=== PATIENT | male | born 1945 | race Asian ===

== ENCOUNTER 2023-12-15 15:14 | Inpatient (IN) | payer MEDICARE, BC, SELFPAY ==
[2023-12-15] VITALS (11 sets, daily range): BP systolic 120–160; BP diastolic 57–95; PULSE 33–77; RESP 13–16; O2SAT 97–100; BMI 26.6
--- NOTE | ~2023-12-15 | XR_ITS ---
EXAMINATION: XR chest 1V portable Exam Date/Time: 12/15/2023 16:15 CDT HISTORY: BRADYARRHYTHMIA Comparison: None. RESULT: Lines, tubes, and devices: None. Lungs and pleura: Senescent changes, otherwise clear. Cardiomediastinal silhouette: Arch calcification, otherwise unremarkable. Other: No acute osseous or upper abdominal finding. IMPRESSION: No acute cardiopulmonary process. Reviewed, dictated and finalized at location K.
--- NOTE | 2023-12-15 15:21 | ECG_ITS ---
Test Date: 2023-12-15 16:50:22 Measurements Intervals [place] Rate: 36 P: 0 MS: 0 QRS: 258 QRSD: 103 T: 16 QT: 572 QTc: 447 Interpretive Statements ATRIAL FIBRILLATION WITH SLOW VENTRICULAR RESPONSE PATTERN CONSISTENT WITH PULMONARY DISEASE INCOMPLETE RIGHT BUNDLE BRANCH BLOCK [90+ ms QRS DURATION, TERMINAL R IN V1/V2, 40+ ms S IN I/aVL/V4/V5/V6] POSSIBLE RIGHT VENTRICULAR HYPERTROPHY [SOME/ALL OF: PROMINENT R IN V1, LATE TRANSITION, RAD, DRE, SSS] INFERIOR MYOCARDIAL INFARCTION , PROBABLY OLD [40+ ms Q WAVE AND/OR ST/T ABNORMALITY IN II/aVF] PROLONGED QT INTERVAL CRITICAL TEST RESULT No previous ECG available for comparison Electronically Signed On 12-16-2023 14:25:18 CDT by Bennie Hirsch M.D.
--- NOTE | 2023-12-15 15:38 | ED.ARRPALP ---
HPI - Arrhythmia/Palpitations General Chief Complaint: Arrhythmia/Palpitations Stated Complaint: low HR Time Seen by Provider: 12/15/23 15:36 Source: patient and family Limitations: no limitations History of Present Illness HPI narrative: 78 YEARS OLD MALE CAME TO THE EMERGENCY ROOM WITH HIS 500 FAMILY BECAUSE OF FEELING TIRED, INTERMITTENT LIGHTHEADEDNESS, STARTED THIS MORNING. HE DENIES ANY FEVER, CHILLS, NAUSEA, VOMITING, CHEST PAIN, SHORTNESS OF BREATH, HEADACHE OR ANY OTHER SYMPTOMS. HISTORY OF CARDIAC AMYLOIDOSIS. Related Data Home Medications Medication Instructions Recorded Confirmed albuterol sulfate 90 mcg/actuation 1 inh inhalation HS PRN Wheezing 12/15/23 aerosol inhaler apixaban 5 mg tablet (Eliquis) 5 mg PO BID 12/15/23 calcium citrate 400 mg PO QPM 12/15/23 coenzyme [id number] E 100 mg-100 300 cap PO DAILY 12/15/23 12/15/23 unit capsule cyanocobalamin (vitamin B-12) 100 1,000 mcg PO DAILY 12/15/23 mcg tablet diltiazem HCl 120 mg 120 mg PO DAILY 12/15/23 tablet,extended release 24 hr donepezil 10 mg tablet 10 mg PO HS 12/15/23 escitalopram oxalate 5 mg tablet 5 mg PO DAILY 12/15/23 gabapentin 300 mg capsule 300 mg PO HS 12/15/23 hydralazine 10 mg tablet 5 mg PO BID 12/15/23 levothyroxine 25 mcg tablet 25 mcg PO DAILY 12/15/23 meclizine 25 mg tablet 25 mg PO BID PRN Vertigo 12/15/23 metoprolol succinate 50 mg 50 mg PO DAILY 12/15/23 tablet,extended release 24 hr modafinil 200 mg tablet 200 mg PO QAM 12/15/23 montelukast 10 mg tablet 10 mg PO HS 12/15/23 multivitamin 1 tablet PO DAILY 12/15/23 omega-3s 360 vr-los-uoz-fish oil cap PO QNOON 12/15/23 1,200 mg-D3 1,000 unit capsule (Fish Oil-Vit D3) simvastatin 20 mg tablet 20 mg PO QPM 12/15/23 turmeric root extract 500 mg tablet 1,000 mg PO DAILY 12/15/23 Allergies Allergy/AdvReac Type Severity Reaction Status Date / Time No Known Allergies Allergy Verified 12/15/23 15:42 Review of Systems Review of Systems: All systems reviewed & are unremarkable except as noted in HPI and below Exam Narrative: GENERAL APPEARANCE: WELL-DEVELOPED, WELL-NOURISHED SKIN: NORMAL COLOR HEAD: NORMOCEPHALIC, NONTRAUMATIC EYES: CLEAR CONJUNCTIVA ENT: OROPHARYNX NORMAL, EARS NORMAL, NOSE NORMAL NECK: SUPPLE, NONTENDER CHEST AND RESPIRATORY: AIRWAY PATENT, NO RESPIRATORY DISTRESS, NO ACCESSORY MUSCLE USE HEART: BRADYCARDIA ABDOMEN: SOFT, NONTENDER, NO ORGANOMEGALY, QUIET BOWEL SOUNDS VASCULAR: NORMAL PERIPHERAL PULSES, NORMAL CAPILLARY REFILL. MUSCULOSKELETAL: NORMAL RANGE OF MOTION, NONTENDER BACK NEUROLOGIC: ALERT AND ORIENTED ?3, TRAINING DEVELOPMENT MANAGER IS NORMAL TESTED, NO GROSS MOTOR DEFICIT Course Consultations Consultation #1: DAHLIA VALENCIA AND EMORY, Date: 12/15/23 Time: 16:45 Vital Signs Vital signs: Vital Signs Pulse Rate 33 L 12/15/23 15:38 Respiratory Rate 14 12/15/23 15:38 Blood Pressure 143/75 H 12/15/23 15:38 Pulse Oximetry 100 12/15/23 15:38 Pulse Rate 37 L 12/15/23 16:31 Respiratory Rate 15 12/15/23 16:31 Blood Pressure 144/81 H 12/15/23 16:31 Pulse Oximetry 100 12/15/23 16:31 MDM - Arrhythmia/Palpitations MDM Narrative Medical decision making narrative: PATIENT CAME TO THE ED WITH HIS WAS TELLING ME THAT PATIENT IS SLOWER TO THE THAN BEFORE DOES NOT WANT A TOE DOES 1 LEAD JUST LYING DOWN IN BED. PATIENT IS AWAKE, ALERT ORIENTED X4 DENYING ANY SYMPTOMS EXCEPT SOME LIGHTHEADEDNESS. VITAL SIGNS SHOWED HEART RATE OF 33 BEATS PER MINUTE PHYSICAL EXAMINATION SHOWED WEAK LOOKING PATIENT OTHERWISE AWAKE,WITH BRADYCARDIA, ALERT ORIENTED X4 DIFFERENTIAL DIAGNOSIS INCLUDE ELECTROLYTE IMB
[2023-12-15] MEDS: ATROPINE SULFATE 0.4 MG/ML VIAL IV PUSH (15:59)
[2023-12-15 16:20] LABS: Basophils Absolute Auto 0.1 K/mm3 (0.0-0.1); Basophils Percent Auto 0.9 % (0.2-1.2); Eosinophils Absolute Auto 0.1 K/mm3 (0-0.3); Eosinophils Percent Auto 0.8 % (0-4.4); Hematocrit 45.4 % (42.0-52.0); Hemoglobin 14.6 g/dL (14.0-18.0); Immature Granulocyte Absolute 0.04 K/mm3 (0.00-0.031); Immature Granulocyte Percent A 0.5 % (0-0.5); Lymphocytes Absolute Auto 1.33 K/mm3 (0.9-3.2); Lymphocytes Percent Auto 17.8 % (18.3-44.2); Mean Corpuscular HGB Conc 32.2 g/dl (32-36); Mean Corpuscular Hemoglobin 32.7 pg (26-34); Mean Corpuscular Volume 101.8 fl (80-100); Mean Platelet Volume 10.6 fl (7.4-10.4); Monocytes Absolute Auto 0.8 K/mm3 (0.1-0.6); Monocytes Percent Auto 11.1 % (2.6-8.5); Neutrophils Absolute Auto 5.2 K/mm3 (1.3-6.7); Neutrophils Percent Auto 68.9 % (45.5-73.1); Platelet Count Result 166 k/mm3 (150-375); Red Blood Count 4.46 M/mm3 (4.6-6.20); Red Cell Distribution Width 15.2 % (11.5-14.5); White Blood Count 7.5 K/mm3 (4.5-10.0)
[2023-12-15 16:32] LABS: INR 1.2; Prothrombin Time 15.6 Seconds (11.1-14.7)
[2023-12-15 16:33] LABS: Partial Thromboplastin Time 41.2 Seconds (22.3-36.8)
--- NOTE | 2023-12-15 16:41 | ECG_ITS ---
Test Date: 2023-12-15 19:33:08 Measurements Intervals [place] Rate: 64 P: 58 CA: 193 QRS: 228 QRSD: 112 T: 27 QT: 468 QTc: 486 Interpretive Statements SINUS RHYTHM INFERIOR INFARCT, AGE INDETERMINATE INDETERMINATE AXIS MODERATE INTRAVENTRICULAR CONDUCTION DELAY [110+ ms QRS DURATION] PROLONGED QT INTERVAL Compared to ECG 12/15/2023 16:50:22 Indeterminate axis now present Intraventricular conduction delay now present Atrial fibrillation no longer present Incomplete right bundle-branch block no longer present Electronically Signed On 12-16-2023 14:26:04 CDT by Bennie Hirsch M.D.
[2023-12-15 17:17] LABS: Alanine Aminotransferase 25 U/L (6-50); Albumin Level 4.4 g/dL (3.5-5.1); Alkaline Phosphatase 76 U/L (38-126); Anion Gap 10 mmol/L (4-12); Aspartate Amino Transferase 47 U/L (17-59); Bilirubin,Total 1.1 mg/dL (0.2-1.3); Blood Urea Nitrogen 36 mg/dL (9-20); Calcium 9.4 mg/dL (8.4-10.2); Carbon Dioxide 30 mmol/L (22-30); Chloride 97 mmol/L (98-107); Estimated CRCL calculation 27 ml/min; Estimated Glomerular Filt Rate 36; Glucose 129 mg/dL (65-110); Potassium 4.1 mmol/L (3.4-5.0); Sodium 137 mmol/L (137-145)
[2023-12-15 17:42] LABS: NT Pro B Type Natriuretic Pept 2620 pg/mL (19.9-100); Troponin I 0.057 ng/mL (0.000-0.034)
--- NOTE | 2023-12-15 19:28 | ECG_ITS ---
Test Date: 2023-12-16 00:33:02 Measurements Intervals [place] Rate: 48 P: 60 CT: 212 QRS: 152 QRSD: 118 T: 16 QT: 492 QTc: 442 Interpretive Statements SINUS BRADYCARDIA WITH FIRST DEGREE AV BLOCK POSSIBLE LEFT ATRIAL ENLARGEMENT [-0.1mV P WAVE IN V1/V2] INDETERMINATE AXIS PATTERN CONSISTENT WITH PULMONARY DISEASE INFERIOR MYOCARDIAL INFARCTION [40+ ms Q WAVE AND/OR ST/T ABNORMALITY IN II/aVF], PROBABLY OLD Compared to ECG 12/15/2023 19:33:08 First degree AV block now present Sinus rhythm no longer present Intraventricular conduction delay no longer present Prolonged QT interval no longer present Myocardial infarct finding still present Electronically Signed On 12-16-2023 14:30:28 CDT by Bennie Hirsch M.D.
--- NOTE | 2023-12-15 19:44 | PC.NURSE ---
Report received BLANE Mcdonnell
--- NOTE | 2023-12-15 19:54 | PC.NURSE ---
Pt called and updated that pt was taken to ICU-8. given update on pt condition. verbalized appreciation.
--- NOTE | 2023-12-15 20:15 | PM.IMHP ---
H&P: HPI History of Present Illness Date/Time: 12/15/23 20:15 Chief Complaint: Bradycardia Narrative: This is an 78 year old male with a significant past medical history of Appendectomy, laminectomy, hypertension, hyperlipidemia, hypothyroidism, dementia, depression, atrial fibrillation, and sleep apnea who presented to the hospital for evaluation of weakness and fatigue. Patient is a poor historian and is unable to give a detailed history of presenting illness. Most of presenting illness and Past Medical history was obtained from the EMR. Patient started feeling tired with lightheadedness that started this morning. He was brought in by his family for further evaluation. Patient denies any fever, chills, nausea, vomiting, diarrhea, abdominal pain, chest pain, shortness a breath. Workup in the hospital included a chest x-ray which was negative. Initial labs which showed a normal white blood cell count of 7.5, chloride 97, creatinine 1.8, EGFR 36, troponin 0.057>0.061, proBNP 2620. EKG shown AFib with slow ventricular response with a rate of 36, no ST elevation, QTC 447. He was given 0.4 mg of atropine in the ED which improved his heart rate above 40. Case was discussed with shoe stainer to recommended holding his Cardizem and Lopressor as long as he remains asymptomatic. Review of Systems Review of Systems: All systems reviewed & are unremarkable except as noted in HPI and below Constitutional: Constitutional: Reports as per HPI and Reports no additional constitutional complaints Eyes: Eyes: Reports as per HPI and Reports no additional eye complaints ENT: Reports system reviewed and no additional complaints, except as documented and Reports as per HPI Cardiovascular: Cardiovascular: Reports as per HPI and Reports no additional cardiovascular complaints Respiratory: Respiratory: Reports as per HPI and Reports no additional respiratory complaints Gastrointestinal: Gastrointestinal: Reports as per HPI and Reports no additional gastrointestinal complaints Genitourinary: Genitourinary: Reports no additional male genitourinary complaints and Reports as per HPI Musculoskeletal: Musculoskeletal: Reports no additional musculoskeletal complaints and Reports as per HPI Integumentary/Breasts: Skin/Breast: Reports system reviewed and no additional complaints, except as docu and Reports as per HPI Neurologic: Reports system reviewed and no additional complaints, except as documented and Reports as per HPI Psychiatric: Psychiatric: Reports no additional psychiatric complaints and Reports as per HPI [facility] Past Medical History Medical History (Updated 12/15/23 @ 22:37 by Milka Najera APRN) Atrial fibrillation CHF (congestive heart failure) Dementia Depression Hyperlipidemia Hypertension Hypothyroidism Sleep apnea Surgical History Surgical History H/O laminectomy Hx of appendectomy Family History Family History Mother Hypertension Father Hypertension Sibling Hypertension Social History Social History Years smoked: 2 Smoking status: Former smoker Tobacco type: cigarettes Second hand tobacco smoke exposure: Yes Alcohol intake: former Substance use: never Do You Feel Safe in your Home?: Yes Lack of Transportation: No Lack of Food: Never True Current Housing: I Have Housing Concerned About Future Housing: No Difficulty Paying Gas/Electric Bills: No Difficulty Paying for Meds: No Currently Unemployed: No Education: Bachelor's Degree Difficulty w/ Childcare or Family Care: No Spiritual care concerns: No Meds Home Medications and Allergies Home Medications Medication Instructions Recorded Confirmed Type albuterol sulfate 90 mcg/actuation 1 inh inhalation Q6H PRN Wheezing 12/15/23 12/15/23 History aerosol inha
[2023-12-15 21:49] LABS: Troponin I 0.061 ng/mL (0.000-0.034)
[2023-12-16] VITALS (18 sets, daily range): BP systolic 126–187; BP diastolic 62–151; PULSE 45–59; RESP 12–20; TEMP 36.4–36.7; O2SAT 94–100
--- NOTE | 2023-12-16 | ECHO_ITS ---
Patient Info Name: Hilton Hdz Age: 78 years : 1945 Gender: Male Ht: 66 in Wt: 165 lbs BSA: 1.88 m2 HR: 47 bpm BP: 187 / 151 mmHg Technical Quality: Fair Exam Date: 12/16/2023 11:32 AM Exam Location: Echo Lab Patient Status: Inpatient Admit Date: 12/16/2023 Staff Ordering Physician: Milka Najera APRN Cardiac Nurse Specialist: Angelic Hess RDCS Attending Provider: Charissa Blank MD Referring Physician: Reinaldo WALDRON; Exam Type: CA echo doppler color flow Study Info Indications I50.20 - Unspecified systolic (congestive) heart failure Complete two-dimensional, color flow and Doppler transthoracic echocardiogram is performed. Summary 1. Complete two-dimensional, color flow and Doppler transthoracic echocardiogram is performed. Left Ventricle The left ventricle size is normal. There is mild concentric left ventricular hypertrophy. The left ventricular systolic function is normal with an LVEF estimated to be 60-65%. Right Ventricle The right ventricle is normal in size and systolic function. Left Atria The left atrium is normal in size. Right Atria The right atrium is dilated. Aortic Valve The aortic valve is probably trileaflet. There is no aortic stenosis. There is trace aortic regurgitation. Pulmonic Valve Pulmonic valve is not well visualized. There is mild pulmonic valve regurgitation by color Doppler in this study. Mitral Valve The mitral valve is sclerotic and there appears to be tethering of the mitral valve leaflets. There is mild mitral regurgitation. Tricuspid Valve The tricuspid valve leaflets are thickened and sclerotic. There is mild tricuspid regurgitation. Pulmonary Arteries There is moderate pulmonary hypertension. The PASP is estimated to be 56 mm Hg. Pericardium/Pleural Pericardium is normal in appearance with no evidence for significant pericardial effusion. Inferior Vena Cava Normal inferior vena cava with >50% collapse upon inspiration consistent with normal right atrial pressure, 3 mmHg. Left Ventricular Outflow Tract Name Value Normal LVOT 2D LVOT Diameter 2.0 cm LVOT Doppler LVOT Peak Gradient 3 mmHg LVOT Mean Gradient 1 mmHg LVOT VTI 21 cm LVOT VTI/AV VTI Ratio 0.9 LVOT Stroke Volume 64 ml LVOT CO 2.9 l/min LVOT CI 1.5 l/min/m2 Pulmonic Valve Name Value Normal PV Doppler PV Peak Gradient 3 mmHg PV Regurgitation Doppler NM Peak End Diastolic Velocity 116 cm/s Mitral Valve Name Value Normal MV Dopp
[2023-12-16] MEDS: FUROSEMIDE INJ 40 MG/4 ML VIAL 20 MG IV PUSH (00:39)
[2023-12-16 01:00] LABS: Troponin I 0.059 ng/mL (0.000-0.034)
--- NOTE | 2023-12-16 02:04 | ADMGEN ---
This patient, Hilton Hdz, was admitted to Intensive Care Unit-8 at 1955. Patient/family oriented to hospital policies and general routines including ID bracelet, bed and alarms, visiting hours, pain management, procedures, bathroom and other care routines, personal items, smoking policy, room service/diet, and visiting hours. Information on how to activate the Rapid Response Team has been discussed. Patient/Family are encouraged to report perceived risks to care and to ask questions if they do not understand what they are told or what they should do.
--- NOTE | 2023-12-16 02:34 | ADMIMU ---
This patient, Hilton Hdz, was admitted to IMU status, and placed in Intensive Care Unit-8 on 12/14/13 at 2000. Patient/family oriented to hospital policies and general routines including ID bracelet, bed and alarms, visiting hours, pain management, procedures, bathroom and other care routines, personal items, smoking policy, room service/diet, and visiting hours. Valuables list has been completed. Information on how to activate the Rapid Response Team has been discussed. Patient/Family are encouraged to report perceived risks to care and to ask questions if they do not understand what they are told or what they should do.
[2023-12-16 04:49] LABS: Basophils Absolute Auto 0.1 K/mm3 (0.0-0.1); Basophils Percent Auto 0.9 % (0.2-1.2); Eosinophils Percent Auto 0.5 % (0-4.4); Hematocrit 41.1 % (42.0-52.0); Hemoglobin 13.5 g/dL (14.0-18.0); Immature Granulocyte Absolute 0.02 K/mm3 (0.00-0.031); Immature Granulocyte Percent A 0.3 % (0-0.5); Lymphocytes Absolute Auto 1.28 K/mm3 (0.9-3.2); Lymphocytes Percent Auto 22.1 % (18.3-44.2); Mean Corpuscular HGB Conc 32.8 g/dl (32-36); Mean Corpuscular Hemoglobin 33.1 pg (26-34); Mean Corpuscular Volume 100.7 fl (80-100); Mean Platelet Volume 10.2 fl (7.4-10.4); Monocytes Absolute Auto 0.9 K/mm3 (0.1-0.6); Monocytes Percent Auto 15.2 % (2.6-8.5); Neutrophils Absolute Auto 3.5 K/mm3 (1.3-6.7); Platelet Count Result 145 k/mm3 (150-375); Red Blood Count 4.08 M/mm3 (4.6-6.20); Red Cell Distribution Width 14.9 % (11.5-14.5); White Blood Count 5.8 K/mm3 (4.5-10.0)
[2023-12-16 05:00] LABS: Alanine Aminotransferase 24 U/L (6-50); Albumin Level 4.5 g/dL (3.5-5.1); Alkaline Phosphatase 85 U/L (38-126); Anion Gap 8 mmol/L (4-12); Aspartate Amino Transferase 48 U/L (17-59); Bilirubin,Total 1.2 mg/dL (0.2-1.3); Blood Urea Nitrogen 34 mg/dL (9-20); Calcium 9.4 mg/dL (8.4-10.2); Carbon Dioxide 35 mmol/L (22-30); Chloride 96 mmol/L (98-107); Estimated CRCL calculation 32 ml/min; Estimated Glomerular Filt Rate 45; Glucose 101 mg/dL (65-110); Potassium 3.8 mmol/L (3.4-5.0); Sodium 139 mmol/L (137-145)
[2023-12-16] MEDS: LEVOTHYROXINE SODIUM 25 MCG TABLET PO (06:26)
[2023-12-16] MEDS: FUROSEMIDE 80 MG TABLET PO (08:44)
[2023-12-16] MEDS: APIXABAN 5 MG TABLET PO ×2 (08:44→20:21)
[2023-12-16] MEDS: CYANOCOBALAMIN 1,000 MCG TABLET 1000 MCG PO (08:44)
[2023-12-16] MEDS: CHOLECALCIFEROL 1,000 UNITS TABLET 1000 UNITS PO (08:44)
[2023-12-16] MEDS: ASPIRIN 81 MG CHEWABLE TABLET PO (08:45)
[2023-12-16] MEDS: ESCITALOPRAM OXALATE 5 MG TABLET PO (08:45)
[2023-12-16] MEDS: LORATADINE 10 MG TABLET PO (08:45)
--- NOTE | 2023-12-16 11:51 | PM.CNCAR ---
Assessment and Plan Assessment and plan (1) Bradyarrhythmia: Code(s): I49.8 - Other specified cardiac arrhythmias Status: Acute (2) Atrial fibrillation: Code(s): I48.91 - Unspecified atrial fibrillation Status: Acute Plan 78-year-old man with persistent atrial fibrillation presented with weakness and fatigue Persistent Atrial Fibrillation - continue home eliquis 5mg PO BID - monitor renal function as he may qualify for lower dose if creatinine goes any higher Bradyarrhythmia - monitor on telemetry for further episodes while off of metoprolol and diltiazem - will follow up tomorrow to determine if ppm needed - keep NPOpMN in case History of Present Illness History of Present Illness Consult date/time: 12/16/23 11:51 Requesting physician: Milka Najera APRN Reason For Visit: Sinus bradycardia, History of amlodipine, Kidney f Narrative: 78-year-old man with persistent atrial fibrillation presented with weakness and fatigue. He was found to have of ventricular rate of 36 beats per minute. He was treated in the emergency room with atropine and decision was made to discontinue his metoprolol and diltiazem. Since then he has been monitored in ICU with no further evidence of symptomatic bradycardia. He does not feel weak or fatigued and denies any chest pain or shortness of breath. No syncope. Review of Systems Review of Systems: All systems reviewed & are unremarkable except as noted in HPI and below PMFSH Past Medical History Medical History (Updated 12/15/23 @ 22:37 by Milka Najera APRN) Atrial fibrillation CHF (congestive heart failure) Dementia Depression Hyperlipidemia Hypertension Hypothyroidism Sleep apnea Surgical History Surgical History H/O laminectomy Hx of appendectomy Family History Family History Mother Hypertension Father Hypertension Sibling Hypertension Social History Social History Years smoked: 2 Smoking status: Former smoker Tobacco type: cigarettes Second hand tobacco smoke exposure: Yes Alcohol intake: former Substance use: never Do You Feel Safe in your Home?: Yes Lack of Transportation: No Lack of Food: Never True Current Housing: I Have Housing Concerned About Future Housing: No Difficulty Paying Gas/Electric Bills: No Difficulty Paying for Meds: No Currently Unemployed: No Education: Bachelor's Degree Difficulty w/ Childcare or Family Care: No Spiritual care concerns: No Meds Home Medications and Allergies Home Medications Medication Instructions Recorded Confirmed Type albuterol sulfate 90 mcg/actuation 1 inh inhalation Q6H PRN Wheezing 12/15/23 12/15/23 History aerosol inhaler apixaban 5 mg tablet (Eliquis) 5 mg PO BID 12/15/23 12/15/23 History calcium citrate 400 mg PO QPM 12/15/23 12/15/23 History cetirizine 10 mg tablet 10 mg PO DAILY 12/15/23 12/15/23 History cholecalciferol (vitamin D3) 25 25 mcg PO DAILY 12/15/23 12/15/23 History mcg (1,000 unit) capsule cyanocobalamin (vitamin B-12) 100 1,000 mcg PO DAILY 12/15/23 12/15/23 History mcg tablet diltiazem HCl 120 mg 120 mg PO DAILY 12/15/23 12/15/23 History tablet,extended release 24 hr donepezil 10 mg tablet 10 mg PO HS 12/15/23 12/15/23 History escitalopram oxalate 5 mg tablet 5 mg PO DAILY 12/15/23 12/15/23 History fluticasone fur. 100 mcg-umeclid 1 inh inhalation DAILY 12/15/23 12/15/23 History 62.5 mcg-vilant 25 mcg inhalat.powder (Trelegy Ellipta) furosemide 80 mg tablet 80 mg PO DAILY 12/15/23 12/15/23 History gabapentin 300 mg capsule 300 mg PO HS 12/15/23 12/15/23 History hydralazine 10 mg tablet 5 mg PO BID PRN high blood presure 12/15/23 12/15/23 History levothyroxine 25 mcg tablet 25 mcg PO DAILY 12/15/23 12/15/23 History meclizine 25 mg table
--- NOTE | 2023-12-16 12:59 | PM.IMPN ---
Progress Note: A&P Assessment and Plan (1) Bradyarrhythmia: Code(s): I49.8 - Other specified cardiac arrhythmias Status: Acute (2) Atrial fibrillation: Code(s): I48.91 - Unspecified atrial fibrillation Status: Acute (3) Acute kidney injury: Code(s): N17.9 - Acute kidney failure, unspecified Status: Acute (4) CHF (congestive heart failure): Code(s): I50.9 - Heart failure, unspecified Status: Acute (5) Hypertension: Code(s): I10 - Essential (primary) hypertension Status: Acute (6) Hyperlipidemia: Code(s): E78.5 - Hyperlipidemia, unspecified Status: Acute Plan This is an 78-year-old male who presents to the ED because of tiredness intermittent lightheadedness started this morning and bradycardia that was noted. On ED evaluation his pulse rate was in 30s. Lab evaluation showed normal WBC at 7.5 hemoglobin 14.6 creatinine was 1.8 electrolytes were within normal limits. Chest x-ray with no acute cardiopulmonary distress. EKG showed sinus bradycardia. Diltiazem and metoprolol were held. Echo ordered. Cardiology on consult. Dose of atropine was given in the ED. History of atrial fibrillation on Eliquis which will be continued. Mild troponin elevation with flat trajectory. Echo ordered Mild HERACLIO creatinine 1.8 unknown baseline. Trending down. Continue to monitor. Congestive heart failure Dementia Depression Sleep apnea Hypertension Hyperlipidemia Hypothyroidism History of laminectomy DVT prophylaxis on Eliquis Code status do not resuscitate. Subjective Date/time seen: 12/16/23 12:59 Interval history: No overnight events. No new complaints. Denies any dizziness or lightheadedness. Telemetry reviewed. Review of Systems Review of Systems: All systems reviewed & are unremarkable except as noted in HPI and below Exam Narrative: General: In no acute distress, well nourished Head: atraumatic, no encephalopathy Eyes: EOMI, PERRLA, sclera clear ENT: moist mucous membranes, nasal passages clear Neck: supple, no JVD, no adenopathy, trachea midline Cardiac: Normal S1 and S2. No murmur, gallops or friction rubs, peripheral pulses intact. Respiratory: Lungs clear to auscultation, no adventitious lung sounds, currently on room air Gastrointestinal: soft, non-distended, non-tender, normoactive bowel sounds. : voiding without difficulty. Extremities: moves all extremities well, no edema Skin: clean, dry, intact. No wounds or lesions. Neuro: Alert and oriented x3, cranial nerves intact, no neuro deficits. Psych: normal mood, normal affect, interactive Objective Data Vital Signs Vital Signs: Vital Signs - 24 hr 12/15/23 15:59 12/15/23 15:38 12/15/23 16:16 Temperature Pulse Rate 33 L 33 L 43 L Respiratory Rate 14 14 13 Blood Pressure 120/58 L 143/75 H 142/75 H Pulse Oximetry 100 100 100 Oxygen Delivery Fraction of Inspired Oxygen 12/15/23 16:27 12/15/23 16:31 12/15/23 17:54 Temperature Pulse Rate 39 L 37 L 42 L Respiratory Rate 14 15 16 Blood Pressure 150/74 H 144/81 H 120/95 H Pulse Oximetry 100 100 98 Oxygen Delivery Fraction of Inspired Oxygen 12/15/23 18:18 12/15/23 19:02 12/15/23 22:00 Temperature Pulse Rate 37 L 77 55 L Respiratory Rate 15 15 Blood Pressure 160/57 H 152/85 H Pulse Oximetry 97 Oxygen Delivery Fraction of Inspired Oxygen 12/15/23 20:00 12/16/23 00:00 12/16/23 02:00 Temperature Pulse Rate 70 49 L 47 L Respiratory Rate Blood Pressure Pulse Oximetry Oxygen Delivery Fraction of Inspired Oxygen 12/16/23 00:00 12/16/23 00:00 12/15/23 20:30 Temperature 97.8 F Pulse Rate 49 L 49 L 70 Respiratory Rate 12 12 16 Blood Pressure 187/151 H Pulse Oximetry 98 98 Oxygen Delivery Room Air Room Air Fraction of Inspired Oxygen 12/16/23 04:00 12/16/23 04:00 12/16/23 04:00 Temperature 97.7 F Pulse Rate 59 L 59 L Respiratory Rat
--- NOTE | 2023-12-16 15:54 | PC.NURSE ---
This patient, Hilton Hdz, was received from [ICU-8 ] on 12/16/23 at [id number]. Patient/family oriented to unit policies and routines. Report received from BLANE Hair @ [phone]
[2023-12-16] MEDS: DONEPEZIL HCL 10 MG TABLET PO (20:21)
[2023-12-16] MEDS: MULTIVITAMINS THERAPEUTIC TAB (*BKC) 1 TABLET PO (20:21)
[2023-12-16] MEDS: MONTELUKAST SODIUM 10 MG TABLET PO (20:21)
[2023-12-16] MEDS: GABAPENTIN 300 MG CAPSULE PO (20:21)
[2023-12-17] VITALS (11 sets, daily range): BP systolic 146–161; BP diastolic 56–79; PULSE 43–56; RESP 16–24; TEMP 36.4–36.8; O2SAT 98–100
[2023-12-17] MEDS: LEVOTHYROXINE SODIUM 25 MCG TABLET PO (05:15)
[2023-12-17 05:37] LABS: Basophils Percent Auto 0.7 % (0.2-1.2); Eosinophils Absolute Auto 0.1 K/mm3 (0-0.3); Eosinophils Percent Auto 1.3 % (0-4.4); Hematocrit 44.7 % (42.0-52.0); Hemoglobin 14.5 g/dL (14.0-18.0); Immature Granulocyte Absolute 0.01 K/mm3 (0.00-0.031); Immature Granulocyte Percent A 0.2 % (0-0.5); Lymphocytes Absolute Auto 1.03 K/mm3 (0.9-3.2); Lymphocytes Percent Auto 18.8 % (18.3-44.2); Mean Corpuscular HGB Conc 32.4 g/dl (32-36); Mean Corpuscular Hemoglobin 32.8 pg (26-34); Mean Corpuscular Volume 101.1 fl (80-100); Mean Platelet Volume 10.4 fl (7.4-10.4); Monocytes Absolute Auto 0.7 K/mm3 (0.1-0.6); Monocytes Percent Auto 12.6 % (2.6-8.5); Neutrophils Absolute Auto 3.6 K/mm3 (1.3-6.7); Neutrophils Percent Auto 66.4 % (45.5-73.1); Platelet Count Result 152 k/mm3 (150-375); Red Blood Count 4.42 M/mm3 (4.6-6.20); Red Cell Distribution Width 14.6 % (11.5-14.5); White Blood Count 5.5 K/mm3 (4.5-10.0)
[2023-12-17 05:46] LABS: Alanine Aminotransferase 26 U/L (6-50); Albumin Level 4.6 g/dL (3.5-5.1); Alkaline Phosphatase 88 U/L (38-126); Anion Gap 8 mmol/L (4-12); Aspartate Amino Transferase 55 U/L (17-59); Bilirubin,Total 1.5 mg/dL (0.2-1.3); Blood Urea Nitrogen 31 mg/dL (9-20); Calcium 9.5 mg/dL (8.4-10.2); Carbon Dioxide 35 mmol/L (22-30); Chloride 96 mmol/L (98-107); Estimated CRCL calculation 43 ml/min; Estimated Glomerular Filt Rate > 60; Glucose 99 mg/dL (65-110); Magnesium 2.3 mg/dL (1.6-2.3); Potassium 3.2 mmol/L (3.4-5.0); Sodium 139 mmol/L (137-145)
[2023-12-17] MEDS: FLUTICASONE/UMECLIDIN/VILANTER 100-62.5-25 MCG ELLIPTA 1 PUFF INHALATION (07:47)
[2023-12-17] MEDS: CYANOCOBALAMIN 1,000 MCG TABLET 1000 MCG PO (08:26)
[2023-12-17] MEDS: CHOLECALCIFEROL 1,000 UNITS TABLET 1000 UNITS PO (08:26)
[2023-12-17] MEDS: modafiniL (*CRX) 100 MG TABLET PO ×2 (08:26→12:27)
[2023-12-17] MEDS: LORATADINE 10 MG TABLET PO (08:26)
[2023-12-17] MEDS: POTASSIUM CHLORIDE 20 MEQ PACKET (FOR LIQUID) 40 MEQ PO (08:26)
[2023-12-17] MEDS: ESCITALOPRAM OXALATE 5 MG TABLET PO (08:26)
--- NOTE | 2023-12-17 11:36 | PM.PNCARD ---
Progress Note: A&P Assessment and Plan (1) Bradyarrhythmia: Code(s): I49.8 - Other specified cardiac arrhythmias Status: Acute (2) Atrial fibrillation: Code(s): I48.91 - Unspecified atrial fibrillation Status: Acute (3) Hypertension: Code(s): I10 - Essential (primary) hypertension Status: Acute (4) Hyperlipidemia: Code(s): E78.5 - Hyperlipidemia, unspecified Status: Acute Plan 78-year-old man with persistent atrial fibrillation presented with weakness and fatigue Bradyarrhythmia, atrial fibrillation with slow ventricular response - Currently in sinus rhythm, heart rates have improved with discontinuation of Metoprolol and Diltiazem. - At this time, does not need permanent pacemaker. Patient and family do not wish to pursue a permanent pacemaker unless absolutely necessary either. - Recommend to avoid AV parvin blocking agents for now. - Will obtain event monitor as an outpatient to assess his heart rates. - If he has issues with bradycardia again off of AV parvin blocking agents or issues with tachycardia making it difficult to treat AFIB, he may need a pacemaker in the future. - Will get him referred to Electrophysiology at [place]. - Will arrange for close outpatient follow up with Dr. Ferraro. Persistent Atrial Fibrillation - continue home Eliquis 5mg PO BID Recommendations and plan discussed with Hospitalist. Subjective Date/time seen: 12/17/23 11:36 Interval history: Reason for visit: Bradycardia HPI: 78-year-old man with persistent atrial fibrillation presented with weakness and fatigue. He was found to have of ventricular rate of 36 beats per minute. He was treated in the emergency room with atropine and decision was made to discontinue his metoprolol and diltiazem. Since then he has been monitored in ICU with no further evidence of symptomatic bradycardia. He does not feel weak or fatigued and denies any chest pain or shortness of breath. No syncope. Date of service 12/16: Heart rate in sinus in the 50s on tele. He denies any symptoms and states he is feeling well this morning. at bedside. Review of Systems Review of Systems: All systems reviewed & are unremarkable except as noted in HPI and below (HPI) Exam Const: General: comfortable and no acute distress Eyes: General: appearance normal, both eyes and all related structures Sclera: sclerae normal Resp: Effort & Inspection: normal respiratory effort Cardio: Rate: bradycardic Rhythm: regular rhythm Skin: General skin exam: normal color Neuro: Speech: normal speech Psych: Mental Status: mental status grossly normal Affect: normal affect Objective Data Vital Signs Vital Signs: Vital Signs - 24 hr 12/16/23 12:00 12/16/23 12:00 12/16/23 14:00 Temperature Pulse Rate 56 L 52 L Respiratory Rate Blood Pressure Pulse Oximetry Oxygen Delivery Room Air Fraction of Inspired Oxygen 12/16/23 12:00 12/16/23 16:00 12/16/23 16:00 Temperature 36.4 C Pulse Rate 55 L 53 L Respiratory Rate 18 Blood Pressure 133/87 Pulse Oximetry 96 Oxygen Delivery Room Air Fraction of Inspired Oxygen 12/16/23 17:16 12/16/23 18:00 12/16/23 20:15 Temperature 36.4 C 36.7 C Pulse Rate 55 L 50 L 49 L Respiratory Rate 20 20 Blood Pressure 133/62 126/66 Pulse Oximetry 94 98 Oxygen Delivery Fraction of Inspired Oxygen 12/16/23 20:15 12/16/23 20:00 12/16/23 22:00 Temperature Pulse Rate 49 L 48 L 49 L Respiratory Rate 20 Blood Pressure Pulse Oximetry 98 Oxygen Delivery Room Air Fraction of Inspired Oxygen 21 12/16/23 23:38 12/16/23 23:39 12/16/23 23:45 Temperature 36.6 C Pulse Rate 55 L 55 L 55 L Respiratory Rate 16 16 Blood Pressure 142/75 H Pulse Oximetry 100 100 Oxygen Delivery Room Air Fraction of Inspired Oxygen 21 12/17/23 00:00 12/17/23 01:55 12/17/23 04:00 Temperature Pulse Rate 45 L 43 L 43 L
[2023-12-17] MEDS: FUROSEMIDE 80 MG TABLET PO (12:27)
[2023-12-17] MEDS: ASPIRIN 81 MG CHEWABLE TABLET PO (12:27)
[2023-12-17] MEDS: APIXABAN 5 MG TABLET PO (12:27)
--- NOTE | 2023-12-17 14:55 | PM.DS ---
DS: Admitting Diagnosis Discharge Date 12/17/23 Admitting Diagnosis Weakness and fatigue DS: Discharge Diagnosis Discharge Diagnosis (1) Bradyarrhythmia: Code(s): I49.8 - Other specified cardiac arrhythmias Status: Acute (2) Atrial fibrillation: Code(s): I48.91 - Unspecified atrial fibrillation Status: Acute (3) Acute kidney injury: Code(s): N17.9 - Acute kidney failure, unspecified Status: Acute (4) CHF (congestive heart failure): Code(s): I50.9 - Heart failure, unspecified Status: Acute (5) Hypertension: Code(s): I10 - Essential (primary) hypertension Status: Acute (6) Hyperlipidemia: Code(s): E78.5 - Hyperlipidemia, unspecified Status: Acute DS: Summary Hospital Course Reason for hospitalization: 78yo male wiht HTN, dementia, AFib, and [place] here for weakness and fatigue. Please see H&P for details. Hospital Course: On ED evaluation his pulse rate was in 30s. Lab evaluation showed normal CBC. He had HERACLIO with BUN 36 and Cr 1.8. CMP otherwise unremarkable. Chest x-ray with no acute cardiopulmonary distress. BNP 2620. TSH normal. Troponin elevated to 0.061 but flat felt related to the bradycardia. EKG showed AFib with slow ventricular response, incomplete Rt BBB, possible RVH, and probably old IMI. QT prolongation noted. Diltiazem and metoprolol were held. Echo showing normal LV size and function with mild concentric LVH, mild valvular disease and moderate pulm HTN. Cardiology on consult. Dose of atropine was given in the ED. Patient was monitored on telemetry. His heart rate improved overnight into the 50's. His symptoms improved. Cardiology felt patient could be discharged home with cardiac monitoring. He did well and was discharged on 12/17/23. Status at Discharge Cognitive/behavioral status at discharge: stable Time Spent with Patient Time attestation: Total time spent providing and/or coordinating discharge services: 34 minutes Time spent: Greater than 30 minutes Exam Narrative: AF 97.9 146/56 56 20 98% ra Gen - NARD Chest - CTA bilaterally, nml RR CV - irregular Abd - Soft, NT/ND, Positive BS Ext - No pedal edema Psych - Nml mood and affect Skin - Warm and dry DS: Data Data Completed and Pending Labs on day of discharge: Labs from last 24 hours 12/17/23 04:44 WBC 5.5 RBC 4.42 L Hgb 14.5 Hct 44.7 MCV 101.1 H MCH 32.8 MCHC 32.4 RDW 14.6 H Plt Count 152 MPV 10.4 Immature Gran % (Auto) 0.2 Neut % (Auto) 66.4 Lymph % (Auto) 18.8 [place] % (Auto) 12.6 H Eos % (Auto) 1.3 Baso % (Auto) 0.7 Lymph # (Auto) 1.03 [place] # (Auto) 0.7 H Eos # (Auto) 0.1 Baso # (Auto) 0.0 Abs Immat Gran (auto) 0.01 Absolute Neuts (auto) 3.6 Absolute Nucleated RBC 0.000 Nucleated RBC % 0.0 Sodium 139 Potassium 3.2 L Chloride 96 L Carbon Dioxide 35 H Anion Gap 8 BUN 31 H Creatinine 1.10 Estim Creat Clear Calc 43 Estimated GFR > 60 Glucose 99 Calcium 9.5 Magnesium 2.3 Total Bilirubin 1.5 H AST 55 ALT 26 Alkaline Phosphatase 88 Total Protein 9.0 H Albumin 4.6 Discharge Plan Discharge Attending physician on discharge: Felipe Huntley Consulting providers: Nino Castellanos Discharging Clinician: Felipe Huntley Anticipated Discharge Date/Time: 12/17/23 15:03 Patient Disposition: Home, Self-Care Activity: as tolerated Diet: heart healthy Discharge Instructions: Check blood pressure 1 to 2 times a day. Record and bring into your doctor for review. Call your doctor if your blood pressure is greater than 180/110. Take precautions to avoid falls. Rise slowly from a lying or sitting position. Pause before standing or walking. Check daily morning weights after voiding. Call your doctor if you gain more than 3 lb in 2 days or 5 lb in 1 week. Contact your doctor or call 911 and come to the Emergency Room if you have lightheadedness with s
== END 2023-12-17 16:11 | disposition home or self-care (01) | DRG 309 ==
LOC: ANHED 17:04 → ANHIMU 19:19 → ANHICU 19:20 → ANHIMU 12-16 15:57
PROVIDERS: Nurse Practitioner Acute Care; Admitting Provider Family Medicine; Emergency Provider Emergency Medicine; Visit Provider Internal Medicine
DX: I49.8 Other specified cardiac arrhythmias (principal); I50.32 Chronic diastolic (congestive) heart failure; N17.9 Acute kidney failure, unspecified; I48.19 Other persistent atrial fibrillation; I11.0 Hypertensive heart disease with heart failure; E78.5 Hyperlipidemia, unspecified; E03.9 Hypothyroidism, unspecified; F03.90 Unspecified dementia, unspecified severity, without behavioral disturbance, psychotic disturbance, mood disturbance, and anxiety; F32.A Depression, unspecified; G47.33 Obstructive sleep apnea (adult) (pediatric); Z90.49 Acquired absence of other specified parts of digestive tract; Z87.891 Personal history of nicotine dependence
CPT/HCPCS: 36415; 71045; 80053; 83735; 83880; 84443; 84484; 85025; 85610; 85730; 93005; 93306; 94640; 96374; 96375; 97161; 97165; 99285; A9270; G0378; J0461; J1940

== ENCOUNTER 2023-12-24 16:24 | Observation (INO) | payer MEDICARE, BC, SELFPAY ==
[2023-12-24] VITALS (11 sets, daily range): BP systolic 110–136; BP diastolic 62–108; PULSE 53–138; RESP 14–18; TEMP 36.4–36.8; O2SAT 97–100; BMI 26.5
--- NOTE | ~2023-12-24 | XR_ITS ---
CHEST RADIOGRAPH CLINICAL HISTORY: chf . COMPARISON: 12/15/2023 TECHNIQUE: Single portable view of the chest. FINDINGS Moderate left-sided pleural effusion is identified. Air bronchograms project over the cardiomediastinal silhouette for which an infiltrate is suspected. The right hemithorax is clear. The cardiomediastinal silhouette is partially obscured, but otherwise unremarkable. IMPRESSION: Left basilar infiltrate is suspected within adjacent pleural effusion, as detailed above. Reviewed, dictated and finalized at location A. IMPRESSION: Left basilar infiltrate is suspected within adjacent pleural effusion, as mio led above.
--- NOTE | 2023-12-24 16:30 | ECG_ITS ---
Test Date: 2023-12-24 16:34:54 Measurements Intervals [place] Rate: 137 P: 0 ND: 0 QRS: 249 QRSD: 101 T: 43 QT: 322 QTc: 488 Interpretive Statements ATRIAL FLUTTER/TACHYCARDIA WITH RAPID VENTRICULAR RESPONSE INCOMPLETE RIGHT BUNDLE BRANCH BLOCK [90+ ms QRS DURATION, TERMINAL R IN V1/V2, 40+ ms S IN I/aVL/V4/V5/V6] RIGHT VENTRICULAR HYPERTROPHY [SOME/ALL OF: PROMINENT R IN V1, LATE TRANSITION, RAD, DRE, SSS] POSSIBLE ANTERIOR MYOCARDIAL INFARCTION , OF INDETERMINATE AGE [30 ms Q WAVE IN V3/V4, OR R < 0.2 mV IN V4] ABNORMAL ECG Electronically Signed On 12-25-2023 10:15:41 CDT by Len Ferraro M.D.
--- NOTE | 2023-12-24 16:43 | ED_ITS ---
HPI - Arrhythmia/Palpitations General Chief Complaint: Arrhythmia/Palpitations Stated Complaint: inc hr Time Seen by Provider: 12/24/23 16:27 History of Present Illness HPI narrative: Patient with history of atrial fibrillation, on Eliquis, previously on diltiazem and metoprolol but taken off of it due to low heart rate, presents after his noticed that his heart rate was quick. Patient is denying any complaints or symptoms including chest pain, shortness of breath, or dizziness. Related Data Home Medications Medication Instructions Recorded Confirmed albuterol sulfate 90 mcg/actuation 1 inh inhalation Q6H PRN Wheezing 12/15/23 12/15/23 aerosol inhaler apixaban 5 mg tablet (Eliquis) 5 mg PO BID 12/15/23 12/15/23 calcium citrate 400 mg PO QPM 12/15/23 12/15/23 cetirizine 10 mg tablet 10 mg PO DAILY 12/15/23 12/15/23 cholecalciferol (vitamin D3) 25 25 mcg PO DAILY 12/15/23 12/15/23 mcg (1,000 unit) capsule cyanocobalamin (vitamin B-12) 100 1,000 mcg PO DAILY 12/15/23 12/15/23 mcg tablet donepezil 10 mg tablet 10 mg PO HS 12/15/23 12/15/23 escitalopram oxalate 5 mg tablet 5 mg PO DAILY 12/15/23 12/15/23 fluticasone fur. 100 mcg-umeclid 1 inh inhalation DAILY 12/15/23 12/15/23 62.5 mcg-vilant 25 mcg inhalat.powder (Trelegy Ellipta) furosemide 80 mg tablet 80 mg PO DAILY 12/15/23 12/15/23 gabapentin 300 mg capsule 300 mg PO HS 12/15/23 12/15/23 hydralazine 10 mg tablet 5 mg PO BID PRN high blood presure 12/15/23 12/15/23 levothyroxine 25 mcg tablet 25 mcg PO DAILY 12/15/23 12/15/23 meclizine 25 mg tablet 25 mg PO BID PRN Vertigo 12/15/23 12/15/23 melatonin 3 mg tablet 3 mg PO HS PRN Restless Leg(S) 12/15/23 12/15/23 modafinil 200 mg tablet 100 mg PO QAM 12/15/23 12/15/23 montelukast 10 mg tablet 10 mg PO HS 12/15/23 12/15/23 multivitamin 1 tablet PO HS 12/15/23 12/15/23 omega-3 fatty acids 1,000 mg 1,200 mg PO QNOON 12/15/23 12/15/23 capsule potassium 99 mg tablet 500 mg PO DAILY 12/15/23 12/15/23 simvastatin 20 mg tablet 20 mg PO QPM 12/15/23 12/15/23 Allergies Allergy/AdvReac Type Severity Reaction Status Date / Time No Known Allergies Allergy Verified 12/24/23 16:36 Review of Systems Review of Systems: All systems reviewed & are unremarkable except as noted in HPI and below PMFSH Past Medical History Medical History (Updated 12/24/23 @ 17:47 by Светлана Zuleat MD) Atrial fibrillation Dementia Depression Hyperlipidemia Hypertension Hypothyroidism Moderate pulmonary hypertension Sleep apnea Surgical History Surgical History (Updated 12/24/23 @ 17:36 by Sangeeta Reed PA-C) History of appendectomy History of laminectomy Family History Family History Mother Hypertension Father Hypertension Sibling Hypertension Social History Social History (Updated 12/24/23 @ 17:57 by Sangeeta Reed PA-C) Social History: Surrogate medical decision maker: Tori Hdz, spouse. Code status: Full code. Years smoked: 2 Smoking status: Former smoker Tobacco type: cigarettes Second hand tobacco smoke exposure: Yes Alcohol intake: former Substance use: never Do You Feel Safe in your Home?: Yes Lack of Transportation: No Lack of Food: Never True Current Housing: I Have Housing Concerned About Future Housing: No Difficulty Paying Gas/Electric Bills: No Difficulty Paying for Meds: No Currently Unemployed: No Education: Bachelor's Degree Difficulty w/ Childcare or Family Care: No Spiritual care concerns: No Exam Narrative: EXAMINATION OF ORGAN SYSTEMS/BODY AREAS: Constitutional: Vital signs per nursing GENERAL:[No acute distress, non-toxic appearing.] HEAD: Normal with no signs of head trauma. EYES: EOMI, conjunctiva normal ENT: Hearing grossly intact LUNGS: Nonlabored breathing. HEART: Tachycardic ABD: [Soft], [nontender to palpation] EXT: Normal range of motion SKIN: [No rashes or lesions.] NEURO: [Alert and oriented x 3. No gross focal sensory or strength deficits.] PSYCH: Normal affect Course Vital Signs Vital signs: Vital Signs Temperature 97.5 F L 12/24/23 16:30 Pulse Rate 138 H 12/24/23 16:30 Respiratory Rate 15 12/24/23 16:30 Blood Pressure 136/108 H 12/24/23 16:30 Pulse Oximetry 98 12/24/23 16:30 Oxygen Delivery Room Air 12/24/23 16:30 Temperature 97.5 F L 12/24/23 16:30 Pulse Rate 86 12/24/23 17:29 Respiratory Rate 16 12/24/23 17:29 Blood Pressure 120/80 12/24/23 17:29 Pulse Oximetry 100 12/24/23 17:29 Oxygen Delivery Room Air 12/24/23 16:30 MDM - Arrhythmia/Palpitations MDM Narrative Medical decision making narrative: Patient here with asymptomatic tachycardia found by his , he had been taken off diltiazem and metoprolol due to a causing his heart rate to be too low. Initially in AFib/flutter at rate 138 on my independent interpretation, normal QRS, QTC 488, left axis. Patient denies any symptoms; I did give him a dose of IV metoprolol and p.o. metoprolol which did help control his rate to the ED/90s. Trop 0.066 likely from the RVR but I do feel he merits admission at this time. Family and patient agreeable to this plan. Discussed with hospitalist for admission. Consulted to supervisor beater room. Lab Data 12/24/23 16:43 12/24/23 16:43 Labs: Lab Results 12/24/23 12/24/23 12/24/23 Range/Units 16:43 16:43 16:43 WBC 4.5 (4.5-10.0) K/mm3 RBC 4.21 L (4.6-6.20) M/mm3 Hgb 14.1 (14.0-18.0) g/dL Hct 41.8 L (42.0-52.0) % MCV 99.3 (80-100) fl MCH 33.5 (26-34) pg MCHC 33.7 (32-36) g/dl RDW 14.4 (11.5-14.5) % Plt Count 169 (150-375) k/mm3 MPV 9.9 (7.4-10.4) fl Immature Gran % (Auto) 0.2 (0-0.5) % Neut % (Auto) 57.7 (45.5-73.1) % Lymph % (Auto) 25.6 (18.3-44.2) % [place] % (Auto) 13.4 H (2.6-8.5) % Eos % (Auto) 2.0 (0-4.4) % Baso % (Auto) 1.1 (0.2-1.2) % Lymph # (Auto) 1.16 (0.9-3.2) K/mm3 [place] # (Auto) 0.6 (0.1-0.6) K/mm3 Eos # (Auto) 0.1 (0-0.3) K/mm3 Baso # (Auto) 0.1 (0.0-0.1) K/mm3 Abs Immat Gran (auto) 0.01 (0.00-0.031) K/mm3 Absolute Neuts (auto) 2.6 (1.3-6.7) K/mm3 Absolute Nucleated RBC 0.000 (0.0-0.012) K/mm3 Nucleated RBC % 0.0 (0.0-0.2) % Sodium 135 L Cancelled (137-145) mmol/L Potassium 3.9 Cancelled (3.4-5.0) mmol/L Chloride 100 (98-107) mmol/L Carbon Dioxide (22-30) mmol/L Anion Gap (4-12) mmol/L BUN (9-20) mg/dL Creatinine (0.7-1.3) mg/dL Estim Creat Clear Calc ml/min Estimated GFR (59 - ) Glucose (65-110) mg/dL Calcium (8.4-10.2) mg/dL Total Bilirubin (0.2-1.3) mg/dL AST (17-59) U/L ALT (6-50) U/L Alkaline Phosphatase (38-126) U/L Troponin I (0.000-0.034) ng/mL NT-Pro-B Natriuret Pep (19.9-100) pg/mL Total Protein (6.3-8.2) g/dL Albumin (3.5-5.1) g/dL 12/24/23 12/24/23 12/24/23 Range/Units 16:43 16:43 16:43 WBC (4.5-10.0) K/mm3 RBC (4.6-6.20) M/mm3 Hgb (14.0-18.0) g/dL Hct (42.0-52.0) % MCV (80-100) fl MCH (26-34) pg MCHC (32-36) g/dl RDW (11.5-14.5) % Plt Count (150-375) k/mm3 MPV (7.4-10.4) fl Immature Gran % (Auto) (0-0.5) % Neut % (Auto) (45.5-73.1) % Lymph % (Auto) (18.3-44.2) % [place] % (Auto) (2.6-8.5) % Eos % (Auto) (0-4.4) % Baso % (Auto) (0.2-1.2) % Lymph # (Auto) (0.9-3.2) K/mm3 [place] # (Auto) (0.1-0.6) K/mm3 Eos # (Auto) (0-0.3) K/mm3 Baso # (Auto) (0.0-0.1) K/mm3 Abs Immat Gran (auto) (0.00-0.031) K/mm3 Absolute Neuts (auto) (1.3-6.7) K/mm3 Absolute Nucleated RBC (0.0-0.012) K/mm3 Nucleated RBC % (0.0-0.2) % Sodium (137-145) mmol/L Potassium (3.4-5.0) mmol/L Chloride Cancelled (98-107) mmol/L Carbon Dioxide 29 Cancelled (22-30) mmol/L Anion Gap 6 Cancelled (4-12) mmol/L BUN 23 H (9-20) mg/dL Creatinine (0.7-1.3) mg/dL Estim Creat Clear Calc ml/min Estimated GFR (59 - ) Glucose (65-110) mg/dL Calcium (8.4-10.2) mg/dL Total Bilirubin (0.2-1.3) mg/dL AST (17-59) U/L ALT (6-50) U/L Alkaline Phosphatase (38-126) U/L Troponin I (0.000-0.034) ng/mL NT-Pro-B Natriuret Pep (19.9-100) pg/mL Total Protein (6.3-8.2) g/dL Albumin (3.5-5.1) g/dL 12/24/23 12/24/23 12/24/23 Range/Units 16:43 16:43 16:43 WBC (4.5-10.0) K/mm3 RBC (4.6-6.20) M/mm3 Hgb (14.0-18.0) g/dL Hct (42.0-52.0) % MCV (80-100) fl MCH (26-34) pg MCHC (32-36) g/dl RDW (11.5-14.5) % Plt Count (150-375) k/mm3 MPV (7.4-10.4) fl Immature Gran % (Auto) (0-0.5) % Neut % (Auto) (45.5-73.1) % Lymph % (Auto) (18.3-44.2) % [place] % (Auto) (2.6-8.5) % Eos % (Auto) (0-4.4) % Baso % (Auto) (0.2-1.2) % Lymph # (Auto) (0.9-3.2) K/mm3 [place] # (Auto) (0.1-0.6) K/mm3 Eos # (Auto) (0-0.3) K/mm3 Baso # (Auto) (0.0-0.1) K/mm3 Abs Immat Gran (auto) (0.00-0.031) K/mm3 Absolute Neuts (auto) (1.3-6.7) K/mm3 Absolute Nucleated RBC (0.0-0.012) K/mm3 Nucleated RBC % (0.0-0.2) % Sodium (137-145) mmol/L Potassium (3.4-5.0) mmol/L Chloride (98-107) mmol/L Carbon Dioxide (22-30) mmol/L Anion Gap (4-12) mmol/L BUN Cancelled (9-20) mg/dL Creatinine 1.10 Cancelled (0.7-1.3) mg/dL Estim Creat Clear Calc 43 Cancelled ml/min Estimated GFR > 60 (59 - ) Glucose (65-110) mg/dL Calcium (8.4-10.2) mg/dL Total Bilirubin (0.2-1.3) mg/dL AST (17-59) U/L ALT (6-50) U/L Alkaline Phosphatase (38-126) U/L Troponin I (0.000-0.034) ng/mL NT-Pro-B Natriuret Pep (19.9-100) pg/mL Total Protein (6.3-8.2) g/dL Albumin (3.5-5.1) g/dL 12/24/23 12/24/23 12/24/23 Range/Units 16:43 16:43 16:43 WBC (4.5-10.0) K/mm3 RBC (4.6-6.20) M/mm3 Hgb (14.0-18.0) g/dL Hct (42.0-52.0) % MCV (80-100) fl MCH (26-34) pg MCHC (32-36) g/dl RDW (11.5-14.5) % Plt Count (150-375) k/mm3 MPV (7.4-10.4) fl Immature Gran % (Auto) (0-0.5) % Neut % (Auto) (45.5-73.1) % Lymph % (Auto) (18.3-44.2) % [place] % (Auto) (2.6-8.5) % Eos % (Auto) (0-4.4) % Baso % (Auto) (0.2-1.2) % Lymph # (Auto) (0.9-3.2) K/mm3 [place] # (Auto) (0.1-0.6) K/mm3 Eos # (Auto) (0-0.3) K/mm3 Baso # (Auto) (0.0-0.1) K/mm3 Abs Immat Gran (auto) (0.00-0.031) K/mm3 Absolute Neuts (auto) (1.3-6.7) K/mm3 Absolute Nucleated RBC (0.0-0.012) K/mm3 Nucleated RBC % (0.0-0.2) % Sodium (137-145) mmol/L Potassium (3.4-5.0) mmol/L Chloride (98-107) mmol/L Carbon Dioxide (22-30) mmol/L Anion Gap (4-12) mmol/L BUN (9-20) mg/dL Creatinine (0.7-1.3) mg/dL Estim Creat Clear Calc ml/min Estimated GFR Cancelled (59 - ) Glucose 97 Cancelled (65-110) mg/dL Calcium 9.1 Cancelled (8.4-10.2) mg/dL Total Bilirubin 0.6 (0.2-1.3) mg/dL AST (17-59) U/L ALT (6-50) U/L Alkaline Phosphatase (38-126) U/L Troponin I (0.000-0.034) ng/mL NT-Pro-B Natriuret Pep (19.9-100) pg/mL Total Protein (6.3-8.2) g/dL Albumin (3.5-5.1) g/dL 12/24/23 12/24/23 12/24/23 Range/Units 16:43 16:43 16:43 WBC (4.5-10.0) K/mm3 RBC (4.6-6.20) M/mm3 Hgb (14.0-18.0) g/dL Hct (42.0-52.0) % MCV (80-100) fl MCH (26-34) pg MCHC (32-36) g/dl RDW (11.5-14.5) % Plt Count (150-375) k/mm3 MPV (7.4-10.4) fl Immature Gran % (Auto) (0-0.5) % Neut % (Auto) (45.5-73.1) % Lymph % (Auto) (18.3-44.2) % [place] % (Auto) (2.6-8.5) % Eos % (Auto) (0-4.4) % Baso % (Auto) (0.2-1.2) % Lymph # (Auto) (0.9-3.2) K/mm3 [place] # (Auto) (0.1-0.6) K/mm3 Eos # (Auto) (0-0.3) K/mm3 Baso # (Auto) (0.0-0.1) K/mm3 Abs Immat Gran (auto) (0.00-0.031) K/mm3 Absolute Neuts (auto) (1.3-6.7) K/mm3 Absolute Nucleated RBC (0.0-0.012) K/mm3 Nucleated RBC % (0.0-0.2) % Sodium (137-145) mmol/L Potassium (3.4-5.0) mmol/L Chloride (98-107) mmol/L Carbon Dioxide (22-30) mmol/L Anion Gap (4-12) mmol/L BUN (9-20) mg/dL Creatinine (0.7-1.3) mg/dL Estim Creat Clear Calc ml/min Estimated GFR (59 - ) Glucose (65-110) mg/dL Calcium (8.4-10.2) mg/dL Total Bilirubin Cancelled (0.2-1.3) mg/dL AST 51 Cancelled (17-59) U/L ALT 25 Cancelled (6-50) U/L Alkaline Phosphatase 86 (38-126) U/L Troponin I (0.000-0.034) ng/mL NT-Pro-B Natriuret Pep (19.9-100) pg/mL Total Protein (6.3-8.2) g/dL Albumin (3.5-5.1) g/dL 12/24/23 12/24/23 12/24/23 Range/Units 16:43 16:43 16:43 WBC (4.5-10.0) K/mm3 RBC (4.6-6.20) M/mm3 Hgb (14.0-18.0) g/dL Hct (42.0-52.0) % MCV (80-100) fl MCH (26-34) pg MCHC (32-36) g/dl RDW (11.5-14.5) % Plt Count (150-375) k/mm3 MPV (7.4-10.4) fl Immature Gran % (Auto) (0-0.5) % Neut % (Auto) (45.5-73.1) % Lymph % (Auto) (18.3-44.2) % [place] % (Auto) (2.6-8.5) % Eos % (Auto) (0-4.4) % Baso % (Auto) (0.2-1.2) % Lymph # (Auto) (0.9-3.2) K/mm3 [place] # (Auto) (0.1-0.6) K/mm3 Eos # (Auto) (0-0.3) K/mm3 Baso # (Auto) (0.0-0.1) K/mm3 Abs Immat Gran (auto) (0.00-0.031) K/mm3 Absolute Neuts (auto) (1.3-6.7) K/mm3 Absolute Nucleated RBC (0.0-0.012) K/mm3 Nucleated RBC % (0.0-0.2) % Sodium (137-145) mmol/L Potassium (3.4-5.0) mmol/L Chloride (98-107) mmol/L Carbon Dioxide (22-30) mmol/L Anion Gap (4-12) mmol/L BUN (9-20) mg/dL Creatinine (0.7-1.3) mg/dL Estim Creat Clear Calc ml/min Estimated GFR (59 - ) Glucose (65-110) mg/dL Calcium (8.4-10.2) mg/dL Total Bilirubin (0.2-1.3) mg/dL AST (17-59) U/L ALT (6-50) U/L Alkaline Phosphatase Cancelled (38-126) U/L Troponin I 0.066 H* (0.000-0.034) ng/mL NT-Pro-B Natriuret Pep 4490 H Cancelled (19.9-100) pg/mL Total Protein 8.0 Cancelled (6.3-8.2) g/dL Albumin 4.2 (3.5-5.1) g/dL 12/24/23 Range/Units 16:43 WBC (4.5-10.0) K/mm3 RBC (4.6-6.20) M/mm3 Hgb (14.0-18.0) g/dL Hct (42.0-52.0) % MCV (80-100) fl MCH (26-34) pg MCHC (32-36) g/dl RDW (11.5-14.5) % Plt Count (150-375) k/mm3 MPV (7.4-10.4) fl Immature Gran % (Auto) (0-0.5) % Neut % (Auto) (45.5-73.1) % Lymph % (Auto) (18.3-44.2) % [place] % (Auto) (2.6-8.5) % Eos % (Auto) (0-4.4) % Baso % (Auto) (0.2-1.2) % Lymph # (Auto) (0.9-3.2) K/mm3 [place] # (Auto) (0.1-0.6) K/mm3 Eos # (Auto) (0-0.3) K/mm3 Baso # (Auto) (0.0-0.1) K/mm3 Abs Immat Gran (auto) (0.00-0.031) K/mm3 Absolute Neuts (auto) (1.3-6.7) K/mm3 Absolute Nucleated RBC (0.0-0.012) K/mm3 Nucleated RBC % (0.0-0.2) % Sodium (137-145) mmol/L Potassium (3.4-5.0) mmol/L Chloride (98-107) mmol/L Carbon Dioxide (22-30) mmol/L Anion Gap (4-12) mmol/L BUN (9-20) mg/dL Creatinine (0.7-1.3) mg/dL Estim Creat Clear Calc ml/min Estimated GFR (59 - ) Glucose (65-110) mg/dL Calcium (8.4-10.2) mg/dL Total Bilirubin (0.2-1.3) mg/dL AST (17-59) U/L ALT (6-50) U/L Alkaline Phosphatase (38-126) U/L Troponin I (0.000-0.034) ng/mL NT-Pro-B Natriuret Pep (19.9-100) pg/mL Total Protein (6.3-8.2) g/dL Albumin Cancelled (3.5-5.1) g/dL Discharge Plan Discharge Clinical Impression: Atrial flutter with rapid ventricular response, Elevated troponin Patient Disposition: Still a Patient Condition: Stable Prescriptions: No Action multivitamin Tablet 1 tablet PO HS hydralazine 10 mg Tablet 5 mg PO BID PRN (Reason: high blood presure) Rx Instructions: take if BP above 160 cyanocobalamin (vitamin B-12) 100 mcg Tablet 1,000 mcg PO DAILY donepezil 10 mg Tablet 10 mg PO HS levothyroxine 25 mcg Tablet 25 mcg PO DAILY modafinil 200 mg Tablet 100 mg PO QAM meclizine 25 mg Tablet 25 mg PO BID PRN (Reason: Vertigo) simvastatin 20 mg Tablet 20 mg PO QPM gabapentin 300 mg Capsule 300 mg PO HS montelukast 10 mg Tablet 10 mg PO HS albuterol sulfate 90 mcg/actuation Hfa Aerosol Inhaler 1 inh INHALATION Q6H PRN (Reason: Wheezing) calcium citrate 200 mg (950 mg) Tablet 400 mg PO QPM escitalopram oxalate 5 mg Tablet 5 mg PO DAILY Eliquis 5 mg Tablet 5 mg PO BID omega-3 fatty acids 1,000 mg Capsule 1,200 mg PO QNOON melatonin 3 mg Tablet 3 mg PO HS PRN (Reason: Restless Leg(S)) potassium 99 mg Tablet 500 mg PO DAILY cholecalciferol (vitamin D3) 25 mcg (1,000 unit) Capsule 25 mcg PO DAILY Rx Instructions: noon furosemide 80 mg Tablet 80 mg PO DAILY cetirizine 10 mg Tablet 10 mg PO DAILY Trelegy Ellipta 100-62.5-25 mcg blister with device 1 inh INHALATION DAILY Follow-up/Referrals: PHYSICIAN NOT ON STAFF,NONSTAFF [Non-Staff] -
[2023-12-24] MEDS: METOPROLOL TARTRATE 50 MG TAB 25 MG PO (16:47)
[2023-12-24] MEDS: METOPROLOL TARTRATE INJ 5 MG/5 ML VIAL IV PUSH (16:48)
[2023-12-24 16:51] LABS: Basophils Absolute Auto 0.1 K/mm3 (0.0-0.1); Basophils Percent Auto 1.1 % (0.2-1.2); Eosinophils Absolute Auto 0.1 K/mm3 (0-0.3); Hematocrit 41.8 % (42.0-52.0); Hemoglobin 14.1 g/dL (14.0-18.0); Immature Granulocyte Absolute 0.01 K/mm3 (0.00-0.031); Immature Granulocyte Percent A 0.2 % (0-0.5); Lymphocytes Absolute Auto 1.16 K/mm3 (0.9-3.2); Lymphocytes Percent Auto 25.6 % (18.3-44.2); Mean Corpuscular HGB Conc 33.7 g/dl (32-36); Mean Corpuscular Hemoglobin 33.5 pg (26-34); Mean Corpuscular Volume 99.3 fl (80-100); Mean Platelet Volume 9.9 fl (7.4-10.4); Monocytes Absolute Auto 0.6 K/mm3 (0.1-0.6); Monocytes Percent Auto 13.4 % (2.6-8.5); Neutrophils Absolute Auto 2.6 K/mm3 (1.3-6.7); Neutrophils Percent Auto 57.7 % (45.5-73.1); Platelet Count Result 169 k/mm3 (150-375); Red Blood Count 4.21 M/mm3 (4.6-6.20); Red Cell Distribution Width 14.4 % (11.5-14.5); White Blood Count 4.5 K/mm3 (4.5-10.0)
--- NOTE | 2023-12-24 17:01 | ECG_ITS ---
Test Date: 2023-12-24 17:18:18 Measurements Intervals [place] Rate: 96 P: 0 OR: 0 QRS: 249 QRSD: 102 T: 27 QT: 390 QTc: 493 Interpretive Statements ATRIAL FIBRILLATION INCOMPLETE RIGHT BUNDLE BRANCH BLOCK [90+ ms QRS DURATION, TERMINAL R IN V1/V2, 40+ ms S IN I/aVL/V4/V5/V6] RIGHT VENTRICULAR HYPERTROPHY [SOME/ALL OF: PROMINENT R IN V1, LATE TRANSITION, RAD, DRE, SSS] POSSIBLE ANTERIOR MYOCARDIAL INFARCTION , PROBABLY OLD [30 ms Q WAVE IN V3/V4, OR R < 0.2 mV IN V4] ABNORMAL ECG Compared to ECG 12/24/2023 16:34:54 Atrial flutter no longer present Myocardial infarct finding still present Electronically Signed On 12-25-2023 10:16:50 CDT by Len Ferraro M.D.
[2023-12-24 17:03] LABS: Alanine Aminotransferase 25 U/L (6-50); Albumin Level 4.2 g/dL (3.5-5.1); Alkaline Phosphatase 86 U/L (38-126); Anion Gap 6 mmol/L (4-12); Aspartate Amino Transferase 51 U/L (17-59); Bilirubin,Total 0.6 mg/dL (0.2-1.3); Blood Urea Nitrogen 23 mg/dL (9-20); Calcium 9.1 mg/dL (8.4-10.2); Carbon Dioxide 29 mmol/L (22-30); Chloride 100 mmol/L (98-107); Estimated CRCL calculation 43 ml/min; Estimated Glomerular Filt Rate > 60; Glucose 97 mg/dL (65-110); Potassium 3.9 mmol/L (3.4-5.0); Sodium 135 mmol/L (137-145)
[2023-12-24 17:21] LABS: NT Pro B Type Natriuretic Pept 4490 pg/mL (19.9-100); Troponin I 0.066 ng/mL (0.000-0.034)
--- NOTE | 2023-12-24 17:35 | P.HP_ITS ---
H&P: HPI History of Present Illness Date/Time: 12/24/23 17:35 Chief Complaint: High heart rate. Narrative: This is an 78-year-old male with atrial fibrillation, hypertension, hyperlipidemia, hypothyroidism, obstructive sleep apnea, and dementia who presented to the emergency department for evaluation of a high heart rate. The patient and his spouse provide the following history. He was admitted to the hospital on 12/15/2023 with bradycardia after presenting with weakness and fatigue. His diltiazem and metoprolol were discontinued and he was discharged 2 days later in stable condition on an event monitor. He has reportedly been doing well since that time. checked his vital signs today and noticed that his heart rate was quite high and brought him in for evaluation. The patient himself has no complaints and denies sensations of racing heart, palpitations, chest pain, shortness of breath, cough, nausea, vomiting, and sweats. He has since converted to sinus rhythm. In the ED: He was atrial fibrillation/flutter on arrival with other rate of 138 beats per minute. Labs were significant for troponin of 0.066, proBNP of 4490, sodium 135, potassium 3.9, BUN 23. He received metoprolol tartrate 5 mg IV and 25 mg p.o.. Heart rate has improved into the 80s and he is being admitted in this setting for close monitoring and Cardiology consultation. Review of Systems Review of Systems: 12 systems were reviewed and are negativ e except for as per HPI. [facility] Past Medical History Medical History Atrial fibrillation Dementia Depression Hyperlipidemia Hypertension Hypothyroidism Moderate pulmonary hypertension Sleep apnea Surgical History Surgical History History of appendectomy History of laminectomy Family History Family History Mother Hypertension Father Hypertension Sibling Hypertension Social History Social History Social History: Surrogate medical decision maker: Toir Hdz, spouse. Code status: Full code. Years smoked: 2 Smoking status: Never smoker Tobacco type: cigarettes Second hand tobacco smoke exposure: Yes Alcohol intake: never Substance use: never Substance use type: does not use Do You Feel Safe in your Home?: Yes Lack of Transportation: No Lack of Food: Never True Current Housing: I Have Housing Concerned About Future Housing: No Difficulty Paying Gas/Electric Bills: No Difficulty Paying for Meds: No Currently Unemployed: No Education: Bachelor's Degree Difficulty w/ Childcare or Family Care: No Spiritual care concerns: No Meds Home Medications and Allergies Home Medications Medication Instructions Recorded Confirmed Type albuterol sulfate 90 mcg/actuation 1 inh inhalation Q6H PRN Wheezing 12/15/23 12/24/23 History aerosol inhaler apixaban 5 mg tablet (Eliquis) 5 mg PO BID 12/15/23 12/24/23 History calcium citrate 400 mg PO QPM 12/15/23 12/24/23 History cetirizine 10 mg tablet 10 mg PO DAILY 12/15/23 12/24/23 History cholecalciferol (vitamin D3) 25 25 mcg PO DAILY 12/15/23 12/24/23 History mcg (1,000 unit) capsule cyanocobalamin (vitamin B-12) 100 1,000 mcg PO DAILY 12/15/23 12/24/23 History mcg tablet donepezil 10 mg tablet 10 mg PO HS 12/15/23 12/24/23 History escitalopram oxalate 5 mg tablet 5 mg PO DAILY 12/15/23 12/24/23 History fluticasone fur. 100 mcg-umeclid 1 inh inhalation DAILY 12/15/23 12/24/23 History 62.5 mcg-vilant 25 mcg inhalat.powder (Trelegy Ellipta) furosemide 80 mg tablet 80 mg PO DAILY 12/15/23 12/24/23 History gabapentin 300 mg capsule 300 mg PO HS 12/15/23 12/24/23 History hydralazine 10 mg tablet 5 mg PO BID PRN high blood presure 12/15/23 12/24/23 History levothyroxine 25 mcg tablet 50 mcg PO DAILY 12/15/23 12/24/23 History meclizine 25 mg tablet 25 mg PO BID PRN Vertigo 12/15/23 12/24/23 History melatonin 3 mg tablet 3 mg PO HS PRN Restless Leg(S) 12/15/23 12/24/23 History modafinil 200 mg tablet 100 mg PO QAM 12/15/23 12/24/23 History montelukast 10 mg tablet 10 mg PO HS 12/15/23 12/24/23 History multivitamin 1 tablet PO HS 12/15/23 12/24/23 History omega-3 fatty acids 1,000 mg 1,200 mg PO QNOON 12/15/23 12/24/23 History capsule simvastatin 20 mg tablet 10 mg PO QPM 12/15/23 12/24/23 History Allergies Allergy/AdvReac Type Severity Reaction Status Date / Time No Known Allergies Allergy Verified 12/24/23 16:36 Vital Signs Vital Signs - 24 hr 12/24/23 16:30 12/24/23 16:35 12/24/23 16:47 Temperature 97.5 F L Pulse Rate 138 H 138 H 138 H Respiratory Rate 15 Blood Pressure 136/108 H Pulse Oximetry 98 Oxygen Delivery Room Air 12/24/23 16:48 12/24/23 17:29 12/24/23 17:29 Temperature Pulse Rate 137 H 86 86 Respiratory Rate 16 Blood Pressure 120/80 Pulse Oximetry 100 Oxygen Delivery Exam Narrative: General: Well-developed, nontoxic-appearing gentleman sitting up in bed in no distress. Weight: 74.6 kg. BMI: 26.5. HEENT: PERRL, EOMI. Sclera anicteric. Oral mucosa moist. Neck: Supple. No JVD. Respiratory: Respirations are nonlabored. Lung sounds are diminished at the left base but are otherwise clear to auscultation. Cardiovascular: Regular rate and rhythm with S1-S2. Gastrointestinal: Abdomen is soft, nontender, and nondistended with positive bowel sounds. Skin: Warm and dry. No rash or lesions on limited exam. Extremities: No cyanosis, clubbing, or edema. Radial and pedal pulses intact. Neurological: Alert. Cranial nerves 2-12 are grossly intact. No gross focal deficits to casual conversation. Psychiatric: Pleasant and cooperative with appropriate mood. He is forgetful. H&P: Results Labs Labs: Short CBC 12/24/23 Range/Units 16:43 WBC 4.5 (4.5-10.0) K/mm3 Hgb 14.1 (14.0-18.0) g/dL Hct 41.8 L (42.0-52.0) % Plt Count 169 (150-375) k/mm3 [facility] 12/24/23 12/24/23 12/24/23 16:43 16:43 16:43 Sodium 135 L Cancelled Potassium 3.9 Cancelled Chloride 100 Carbon Dioxide BUN Creatinine Glucose Calcium 12/24/23 12/24/23 12/24/23 16:43 16:43 16:43 Sodium Potassium Chloride Cancelled Carbon Dioxide 29 Cancelled BUN 23 H Cancelled Creatinine 1.10 Glucose Calcium 12/24/23 12/24/23 12/24/23 16:43 16:43 16:43 Sodium Potassium Chloride Carbon Dioxide BUN Creatinine Cancelled Glucose 97 Cancelled Calcium 9.1 Cancelled Cardiac Enzymes 12/24/23 Range/Units 16:43 Troponin I 0.066 H* (0.000-0.034) ng/mL Liver Function 12/24/23 12/24/23 12/24/23 Range/Units 16:43 16:43 16:43 Total Bilirubin 0.6 Cancelled (0.2-1.3) mg/dL AST 51 Cancelled (17-59) U/L ALT 25 (6-50) U/L Alkaline Phosphatase (38-126) U/L Albumin (3.5-5.1) g/dL 12/24/23 12/24/23 12/24/23 Range/Units 16:43 16:43 16:43 Total Bilirubin (0.2-1.3) mg/dL AST (17-59) U/L ALT Cancelled (6-50) U/L Alkaline Phosphatase 86 Cancelled (38-126) U/L Albumin 4.2 Cancelled (3.5-5.1) g/dL Assessment and Plan Assessment and plan (1) Atrial flutter with rapid ventricular response: Code(s): I48.92 - Unspecified atrial flutter Status: Acute (2) Elevated troponin: Code(s): R79.89 - Other specified abnormal findings of blood chemistry Status: Acute (3) Hypertension: Code(s): I10 - Essential (primary) hypertension Status: Acute (4) Hyperlipidemia: Code(s): E78.5 - Hyperlipidemia, unspecified Status: Acute (5) Hypothyroidism: Code(s): E03.9 - Hypothyroidism, unspecified Status: Acute Plan The patient presented to the emergency department for evaluation of an elevated heart rate as detailed in HPI. Labs, imaging, EKG, and all reports were personally reviewed. He was in rapid atrial flutter/fibrillation on arrival and is now rate controlled after receiving IV and p.o. metoprolol tartrate. He was in the hospital about one week ago with bradycardia and cardiology has been consulted for recommendations. Troponin is slightly elevated though he is not having any chest pain in this is likely related to the tachyarrhythmia. Troponins will be trended to peak however. Recent echocardiogram noted. Recent TSH was within normal limits. Blood pressures were reviewed and they are stable. His home medications will be reviewed and resumed as appropriate. Findings and treatment plan were discussed with the patient. Questions were solicited and answered to satisfaction. The patient's medical management will be taken over by the hospitalist team in a.m. Quality VTE Prophylaxis VTE prophylaxis: pharmacologic ordered (on apixaban) The patient has been admitted under observation status. Hospitalist MIPS Advance Care Plan I have confirmed that the patient's Advanced Care Plan is present, code status is documented, or surrogate decision maker is listed in patient medical record.: Yes Medication Reconciliation I have utilized all available resources to obtain, update and review the patients current medications (includes all prescriptions, OTC, herbals, cannabis, and nutritional supplements).: Yes
--- NOTE | 2023-12-24 18:46 | ADMGEN ---
This patient, Hilton Hdz, was admitted to IMU Room 206-01. Patient/family oriented to hospital policies and general routines including ID bracelet, bed and alarms, visiting hours, pain management, procedures, bathroom and other care routines, personal items, smoking policy, room service/diet, and visiting hours. and son are changing pt into pj pants and will have his pants/belt, shoes left here. call light in reach Information on how to activate the Rapid Response Team has been discussed. Patient/Family are encouraged to report perceived risks to care and to ask questions if they do not understand what they are told or what they should do.
[2023-12-24 20:25] LABS: Troponin I 0.071 ng/mL (0.000-0.034)
--- NOTE | 2023-12-24 20:31 | ECG_ITS ---
Test Date: 2023-12-24 21:43:38 Measurements Intervals [place] Rate: 64 P: 60 IN: 204 QRS: 260 QRSD: 98 T: -2 QT: 460 QTc: 475 Interpretive Statements SINUS RHYTHM LEFT ATRIAL ENLARGEMENT [-0.15mV P WAVE IN V1/V2] PATTERN CONSISTENT WITH PULMONARY DISEASE POSSIBLE RIGHT VENTRICULAR HYPERTROPHY [SOME/ALL OF: PROMINENT R IN V1, LATE TRANSITION, RAD, DRE, SSS] CANNOT RULE OUT ANTERIOR MYOCARDIAL INFARCTION, AGE INDETERMINATE ABNORMAL ECG Compared to ECG 12/24/2023 17:18:18 Atrial fibrillation no longer present Incomplete right bundle-branch block no longer present Myocardial infarct finding still present Electronically Signed On 12-25-2023 10:20:13 CDT by Len Ferraro M.D.
[2023-12-24 21:52] LABS: Troponin I 0.061 ng/mL (0.000-0.034)
[2023-12-25] VITALS (10 sets, daily range): BP systolic 120–146; BP diastolic 70–81; PULSE 55–69; RESP 18; TEMP 36.5–37; O2SAT 97–100
[2023-12-25 05:23] LABS: Anion Gap 6 mmol/L (4-12); Blood Urea Nitrogen 23 mg/dL (9-20); Carbon Dioxide 31 mmol/L (22-30); Chloride 100 mmol/L (98-107); Estimated CRCL calculation 47 ml/min; Estimated Glomerular Filt Rate > 60; Glucose 92 mg/dL (65-110); Magnesium 2.4 mg/dL (1.6-2.3); Potassium 3.5 mmol/L (3.4-5.0); Sodium 137 mmol/L (137-145)
[2023-12-25] MEDS: FLUTICASONE/UMECLIDIN/VILANTER 100-62.5-25 MCG ELLIPTA 1 PUFF INHALATION (08:28)
[2023-12-25] MEDS: APIXABAN 5 MG TABLET PO (08:47)
[2023-12-25] MEDS: CYANOCOBALAMIN 1,000 MCG TABLET 1000 MCG PO (08:47)
[2023-12-25] MEDS: modafiniL (*CRX) 100 MG TABLET PO (08:47)
[2023-12-25] MEDS: LEVOTHYROXINE SODIUM 50 MCG TABLET PO (08:47)
[2023-12-25] MEDS: LORATADINE 10 MG TABLET PO (08:47)
[2023-12-25] MEDS: FUROSEMIDE 80 MG TABLET PO (08:47)
--- NOTE | 2023-12-25 09:30 | P.CONCA_ITS ---
Assessment and Plan Assessment and plan (1) Atrial flutter with rapid ventricular response: Code(s): I48.92 - Unspecified atrial flutter Status: Acute Assessment and Plan: Back in sinus rhythm. Has some degree of tachy-cassia syndrome as he previously had significant bradycardia but at that time he was on metoprolol and diltiazem. On 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 this should be continued. He has an outpatient electroph ysiology appointment which should be maintained. (2) Wild-type transthyretin-related (ATTR) amyloidosis: Code(s): E85.82 - Wild-type transthyretin-related (ATTR) amyloidosis Status: Acute Assessment and Plan: Follow-up at [place] (3) Elevated troponin: Code(s): R79.89 - Other specified abnormal findings of blood chemistry Status: Acute Assessment and Plan: Not related ACS. Chronically elevated likely from heart failure (4) CHF (congestive heart failure): Code(s): I50.9 - Heart failure, unspecified Status: Acute Assessment and Plan: Chronic diastolic (5) Hypertension: Code(s): I10 - Essential (primary) hypertension Status: Acute Assessment and Plan: At reasonable goal (6) Hypokalemia: Code(s): E87.6 - Hypokalemia Status: Acute Assessment and Plan: Will give 40 mEq of potassium chloride p.o. x1 Plan In my opinion, he is stable. He is back in sinus rhythm. Continue home medications without change in follow-up at [facility] History of Present Illness History of Present Illness Consult date/time: 12/25/23 09:30 Requesting physician: Светлана Zuleta MD Consult reason: atrial fibrillation Reason For Visit: Afib RVR Narrative: Reason for consultation: Atrial fibrillation Date of service 12/25/2023 Requesting provider: Dr. Zuleta History: 78-year-old with ATTR amyloidosis, diastolic CHF, paroxysmal atrial fibrillation, tachy-cassia syndrome, hypertension, hyperlipidemia, hypothyroidism, obstructive sleep apnea, and dementia who presented to the emergency department for evaluation of a high heart rate. The patient himself states that he feels fine and has had no chest pain, shortness of breath, syncope, presyncope, paroxysmal nocturnal dyspnea, orthopnea, edema palpitations. He was admitted to the hospital on 12/15/2023 with bradycardia after presenting with weakness and fatigue. His diltiazem and metoprolol were discontinued and he was discharged 2 days later in stable condition on an event monitor.. checked his vital signs yesterday and noticed that his heart rate was quite high and brought him in for evaluation. Yesterday evening he went back into normal rhythm with heart rate in the 60s. He has an electrophysiology appointment in February Review of Systems Review of Systems: All systems reviewed & are unremarkable except as noted in HPI and below Constitutional: Constitutional: Reports no additional constitutional complaints Eyes: Eyes: Denies blurry vision ENT: Reports Normal hearing present Cardiovascular: Cardiovascular: Denies chest pain Respiratory: Respiratory: Denies chest congestion Gastrointestinal: Gastrointestinal: Denies abdominal pain Genitourinary: Genitourinary: Denies hematuria Musculoskeletal: Musculoskeletal: Denies joint swelling Integumentary/Breasts: Skin/Breast: Denies erythema Neurologic: Denies Abnormal speech present Psychiatric: Psychiatric: Denies behavioral changes Endocrine: Endocrine: Denies excessive sweating Hematologic/Lymphatic: Hematologic/Lymphatic: Denies easy bleeding Allergic/Immunologic: Allergic/Immunologic: Denies GI upset with certain foods PMFSH Past Medical History Medical History Atrial fibrillation Dementia Depression Hyperlipidemia Hypertension Hypothyroidism Moderate pulmonary hypertension Sleep apnea Wild-type transthyretin-related (ATTR) amyloidosis Surgical History Surgical History History of appendectomy History of laminectomy Family History Family History Mother Hypertension Father Hypertension Sibling Hypertension Social History Social History Social History: Surrogate medical decision maker: Tori Hdz, spouse. Code status: Full code. Years smoked: 2 Smoking status: Never smoker Tobacco type: cigarettes Second hand tobacco smoke exposure: Yes Alcohol intake: never Substance use: never Substance use type: does not use Do You Feel Safe in your Home?: Yes Lack of Transportation: No Lack of Food: Never True Current Housing: I Have Housing Concerned About Future Housing: No Difficulty Paying Gas/Electric Bills: No Difficulty Paying for Meds: No Currently Unemployed: No Education: Bachelor's Degree Difficulty w/ Childcare or Family Care: No Spiritual care concerns: No Meds Home Medications and Allergies Home Medications Medication Instructions Recorded Confirmed Type albuterol sulfate 90 mcg/actuation 1 inh inhalation Q6H PRN Wheezing 12/15/23 12/24/23 History aerosol inhaler apixaban 5 mg tablet (Eliquis) 5 mg PO BID 12/15/23 12/24/23 History calcium citrate 400 mg PO QPM 12/15/23 12/24/23 History cetirizine 10 mg tablet 10 mg PO DAILY 12/15/23 12/24/23 History cholecalciferol (vitamin D3) 25 25 mcg PO DAILY 12/15/23 12/24/23 History mcg (1,000 unit) capsule cyanocobalamin (vitamin B-12) 100 1,000 mcg PO DAILY 12/15/23 12/24/23 History mcg tablet donepezil 10 mg tablet 10 mg PO HS 12/15/23 12/24/23 History escitalopram oxalate 5 mg tablet 5 mg PO DAILY 12/15/23 12/24/23 History fluticasone fur. 100 mcg-umeclid 1 inh inhalation DAILY 12/15/23 12/24/23 History 62.5 mcg-vilant 25 mcg inhalat.powder (Trelegy Ellipta) furosemide 80 mg tablet 80 mg PO DAILY 12/15/23 12/24/23 History gabapentin 300 mg capsule 300 mg PO HS 12/15/23 12/24/23 History hydralazine 10 mg tablet 5 mg PO BID PRN high blood presure 12/15/23 12/24/23 [place] levothyroxine 25 mcg tablet 50 mcg PO DAILY 12/15/23 12/24/23 History meclizine 25 mg tablet 25 mg PO BID PRN Vertigo 12/15/23 12/24/23 History melatonin 3 mg tablet 3 mg PO HS PRN Restless Leg(S) 12/15/23 12/24/23 History modafinil 200 mg tablet 100 mg PO QAM 12/15/23 12/24/23 History montelukast 10 mg tablet 10 mg PO HS 12/15/23 12/24/23 History multivitamin 1 tablet PO HS 12/15/23 12/24/23 History omega-3 fatty acids 1,000 mg 1,200 mg PO QNOON 12/15/23 12/24/23 History capsule simvastatin 20 mg tablet 10 mg PO QPM 12/15/23 12/24/23 History Allergies Allergy/AdvReac Type Severity Reaction Status Date / Time No Known Allergies Allergy Verified 12/24/23 16:36 Vital Signs Vital Signs - 24 hr 12/24/23 16:30 12/24/23 16:35 12/24/23 16:47 Temperature 36.4 C L Pulse Rate 138 H 138 H 138 H Respiratory Rate 15 Blood Pressure 136/108 H Pulse Oximetry 98 Oxygen Delivery Room Air 12/24/23 16:48 12/24/23 17:29 12/24/23 17:29 Temperature Pulse Rate 137 H 86 86 Respiratory Rate 16 Blood Pressure 120/80 Pulse Oximetry 100 Oxygen Delivery 12/24/23 18:12 12/24/23 18:25 12/24/23 19:43 Temperature 36.4 C L 36.7 C 36.8 C Pulse Rate 82 96 53 L Respiratory Rate 14 18 18 Blood Pressure 126/96 H 121/89 112/80 Pulse Oximetry 98 100 97 Oxygen Delivery 12/24/23 20:00 12/24/23 20:00 12/24/23 21:40 Temperature Pulse Rate 72 72 66 Respiratory Rate 18 Blood Pressure Pulse Oximetry 97 Oxygen Delivery Room Air 12/24/23 23:54 12/25/23 00:00 12/25/23 00:00 Temperature 36.6 C Pulse Rate 60 59 L 59 L Respiratory Rate 18 18 Blood Pressure 110/62 Pulse Oximetry 97 97 Oxygen Delivery Room Air 12/25/23 01:50 12/25/23 04:00 12/25/23 04:00 Temperature Pulse Rate 60 63 63 Respiratory Rate 18 Blood Pressure Pulse Oximetry 97 Oxygen Delivery Room Air 12/25/23 04:17 12/25/23 06:00 12/25/23 07:53 Temperature 37.0 C 37.0 C Pulse Rate 63 55 L 55 L Respiratory Rate 18 18 Blood Pressure 120/81 135/70 Pulse Oximetry 100 97 Oxygen Delivery 12/25/23 08:29 Temperature Pulse Rate Respiratory Rate Blood Pressure Pulse Oximetry 97 Oxygen Delivery Room Air Exam Narrative: Alert oriented appears stated age Const: General: comfortable and no acute distress HENMT: Face/Nose/Sinus: Normal nares present Mouth: Yes moist mucous membranes Eyes: General: appearance normal, both eyes and all related structures Sclera: sclerae normal Neck: Neck: supple and no JVD Chest: Other: No reproducible chest wall pain to palpation Resp: Effort & Inspection: normal respiratory effort Auscultation: clear to auscultation bilaterally Cardio: Rate: regular rate Rhythm: regular rhythm Heart sounds: Murmur heart sound present GI: Inspection: non-distended GI Palp: Yes Soft to palpation Auscultation: normal bowel sounds Skin: General skin exam: normal color Neuro: Speech: normal speech Extrem: General: normal to inspection Psych: Mental Status: mental status grossly normal Affect: normal affect Results Labs and Meds 12/24/23 16:43 12/25/23 04:48 Lab results: Cardiac Enzymes 12/24/23 12/24/23 12/24/23 Range/Units 16:43 16:43 19:39 AST 51 Cancelled (17-59) U/L Troponin I 0.066 H* 0.071 H* (0.000-0.034) ng/mL 12/24/23 Range/Units 21:02 AST (17-59) U/L Troponin I 0.061 H* (0.000-0.034) ng/mL CBC 12/24/23 Range/Units 16:43 WBC 4.5 (4.5-10.0) K/mm3 RBC 4.21 L (4.6-6.20) M/mm3 Hgb 14.1 (14.0-18.0) g/dL Hct 41.8 L (42.0-52.0) % Plt Count 169 (150-375) k/mm3 Lymph # (Auto) 1.16 (0.9-3.2) K/mm3 [place] # (Auto) 0.6 (0.1-0.6) K/mm3 Eos # (Auto) 0.1 (0-0.3) K/mm3 Baso # (Auto) 0.1 (0.0-0.1) K/mm3 Comprehensive Metabolic Panel 12/24/23 12/24/23 12/24/23 Range/Units 16:43 16:43 16:43 Sodium 135 L Cancelled (137-145) mmol/L Potassium 3.9 Cancelled (3.4-5.0) mmol/L Chloride 100 (98-107) mmol/L Carbon Dioxide (22-30) mmol/L BUN (9-20) mg/dL Creatinine (0.7-1.3) mg/dL Glucose (65-110) mg/dL Calcium (8.4-10.2) mg/dL AST (17-59) U/L ALT (6-50) U/L Alkaline Phosphatase (38-126) U/L Total Protein (6.3-8.2) g/dL Albumin (3.5-5.1) g/dL 12/24/23 12/24/23 12/24/23 Range/Units 16:43 16:43 16:43 Sodium (137-145) mmol/L Potassium (3.4-5.0) mmol/L Chloride Cancelled (98-107) mmol/L Carbon Dioxide 29 Cancelled (22-30) mmol/L BUN 23 H Cancelled (9-20) mg/dL Creatinine 1.10 (0.7-1.3) mg/dL Glucose (65-110) mg/dL Calcium (8.4-10.2) mg/dL AST (17-59) U/L ALT (6-50) U/L Alkaline Phosphatase (38-126) U/L Total Protein (6.3-8.2) g/dL Albumin (3.5-5.1) g/dL 12/24/23 12/24/23 12/24/23 Range/Units 16:43 16:43 16:43 Sodium (137-145) mmol/L Potassium (3.4-5.0) mmol/L Chloride (98-107) mmol/L Carbon Dioxide (22-30) mmol/L BUN (9-20) mg/dL Creatinine Cancelled (0.7-1.3) mg/dL Glucose 97 Cancelled (65-110) mg/dL Calcium 9.1 Cancelled (8.4-10.2) mg/dL AST 51 (17-59) U/L ALT (6-50) U/L Alkaline Phosphatase (38-126) U/L Total Protein (6.3-8.2) g/dL Albumin (3.5-5.1) g/dL 12/24/23 12/24/23 12/24/23 Range/Units 16:43 16:43 16:43 Sodium (137-145) mmol/L Potassium (3.4-5.0) mmol/L Chloride (98-107) mmol/L Carbon Dioxide (22-30) mmol/L BUN (9-20) mg/dL Creatinine (0.7-1.3) mg/dL Glucose (65-110) mg/dL Calcium (8.4-10.2) mg/dL AST Cancelled (17-59) U/L ALT 25 Cancelled (6-50) U/L Alkaline Phosphatase 86 Cancelled (38-126) U/L Total Protein 8.0 (6.3-8.2) g/dL Albumin (3.5-5.1) g/dL 12/24/23 12/24/23 12/25/23 Range/Units 16:43 16:43 04:48 Sodium 137 (137-145) mmol/L Potassium 3.5 (3.4-5.0) mmol/L Chloride 100 (98-107) mmol/L Carbon Dioxide 31 H (22-30) mmol/L BUN 23 H (9-20) mg/dL Creatinine 1.00 (0.7-1.3) mg/dL Glucose 92 (65-110) mg/dL Calcium 9.0 (8.4-10.2) mg/dL AST (17-59) U/L ALT (6-50) U/L Alkaline Phosphatase (38-126) U/L Total Protein Cancelled (6.3-8.2) g/dL Albumin 4.2 Cancelled (3.5-5.1) g/dL Intake and Output 12/24/23 12/25/23 12/25/23 23:59 07:59 15:59 Intake Total 222 240 Balance 222 240 Intake: Oral 222 240 Other: # Unmeasured Voids 2 Patient Weight 12/25/23 23:59 Weight 73.2 kg EKGs are personally reviewed and independently interpreted. Initial EKG shows atrial flutter with rapid ventricular response incomplete right bundle-branch block. Follow-up EKG shows normal sinus rhythm
[2023-12-25] MEDS: CHOLECALCIFEROL 1,000 UNITS TABLET 1000 UNITS PO (11:03)
[2023-12-25] MEDS: OMEGA 3 POLYUNSAT FATTY ACIDS 1 GM CAP PO (11:03)
[2023-12-25] MEDS: POTASSIUM CHLORIDE 20 MEQ PACKET (FOR LIQUID) 40 MEQ PO (11:04)
--- NOTE | 2023-12-25 11:10 | PM.DS ---
DS: Admitting Diagnosis Discharge Date 12/24 Admitting Diagnosis elevated heart rate DS: Discharge Diagnosis Discharge Diagnosis (1) Atrial flutter with rapid ventricular response: Code(s): I48.92 - Unspecified atrial flutter Status: Acute Assessment and Plan: Back in sinus rhythm. Has some degree of tachy-cassia syndrome as he previously had significant bradycardia but at that time he was on metoprolol and diltiazem. On 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 this should be continued. He has an outpatient electrophysiology appointment which should be maintained. (2) Elevated troponin: Code(s): R79.89 - Other specified abnormal findings of blood chemistry Status: Acute (3) Hypertension: Code(s): I10 - Essential (primary) hypertension Status: Acute (4) Hyperlipidemia: Code(s): E78.5 - Hyperlipidemia, unspecified Status: Acute (5) Hypothyroidism: Code(s): E03.9 - Hypothyroidism, unspecified Status: Acute Assessment and Plan: continue with home meds Plan The patient presented to the emergency department for evaluation of an elevated heart rate as detailed in HPI. Labs, imaging, EKG, and all reports were personally reviewed. He was in rapid atrial flutter/fibrillation on arrival and is now rate controlled after receiving IV and p.o. metoprolol tartrate. He was in the hospital about one week ago with bradycardia and cardiology has been consulted for recommendations. Troponin is slightly elevated though he is not having any chest pain in this is likely related to the tachyarrhythmia. Troponins will be trended to peak however. Recent echocardiogram noted. Recent TSH was within normal limits. Blood pressures were reviewed and they are stable. DS: Summary Hospital Course Hospital Course: This is an 78-year-old male with atrial fibrillation, hypertension, hyperlipidemia, hypothyroidism, obstructive sleep apnea, and dementia who presented to the emergency department for evaluation of a high heart rate. The patient and his spouse provide the following history. He was admitted to the hospital on 12/15/2023 with bradycardia after presenting with weakness and fatigue. His diltiazem and metoprolol were discontinued and he was discharged 2 days later in stable condition on an event monitor. He has reportedly been doing well since that time. checked his vital signs today and noticed that his heart rate was quite high and brought him in for evaluation. The patient himself has no complaints and denies sensations of racing heart, palpitations, chest pain, shortness of breath, cough, nausea, vomiting, and sweats. He has since converted to sinus rhythm. In the ED: He was atrial fibrillation/flutter on arrival with other rate of 138 beats per minute. Labs were significant for troponin of 0.066, proBNP of 4490, sodium 135, potassium 3.9, BUN 23. He received metoprolol tartrate 5 mg IV and 25 mg p.o.. Heart rate has improved into the 80s and he is being admitted in this setting for close monitoring and Cardiology consultation. Following issues were addressed: # afib - Back in sinus rhythm. Has some degree of tachy-cassia syndrome as he previously had significant bradycardia but at that time he was on metoprolol and diltiazem. On 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 this should be continued. He has an outpatient electrophysiology appointment which should be maintained. Per cardiology- no changes needs to be done to home meds - he is stable. He is back in sinus rhythm. Continue home medications without change in follow-up at [place] [facility] # hypokalemia - k was replaced- will need to have it re checked with card and/or PCP # amyloidosis - follow up with his established provider at [facility] Status at Discharge Functional status at discharge: independent ambulation Time Spent with Patient Time attestation: Total time spent providing and/or coordinating discharge services: Exam Narrative: General: Well-developed, nontoxic-appearing gentleman. Weight: 74.6 kg. BMI: 26.5. HEENT: PERRL, EOMI. Sclera anicteric. Oral mucosa moist. Neck: Supple. No JVD. Respiratory: Respirations are nonlabored. Lung sounds are diminished at the left base but are otherwise clear to auscultation. Cardiovascular: Regular rate and rhythm with S1-S2. Gastrointestinal: Abdomen is soft, nontender, and nondistended with positive bowel sounds. Skin: Warm and dry. No rash or lesions on limited exam. Extremities: No cyanosis, clubbing, or edema. Radial and pedal pulses intact. Neurological: Alert. Cranial nerves 2-12 are grossly intact. No gross focal deficits to casual conversation. Psychiatric: Pleasant and cooperative with appropriate mood. Const: General: comfortable DS: Data Data Completed and Pending Completed studies during hospitalization: none Labs on day of discharge: Labs from last 24 hours 12/25/23 12/24/23 12/24/23 04:48 21:02 19:39 WBC RBC Hgb Hct MCV MCH MCHC RDW Plt Count MPV Immature Gran % (Auto) Neut % (Auto) Lymph % (Auto) [place] % (Auto) Eos % (Auto) Baso % (Auto) Lymph # (Auto) [place] # (Auto) Eos # (Auto) Baso # (Auto) Abs Immat Gran (auto) Absolute Neuts (auto) Absolute Nucleated RBC Nucleated RBC % Sodium 137 Potassium 3.5 Chloride 100 Carbon Dioxide 31 H Anion Gap 6 BUN 23 H Creatinine 1.00 Estim Creat Clear Calc 47 Estimated GFR > 60 Glucose 92 Calcium 9.0 Magnesium 2.4 H Total Bilirubin AST ALT Alkaline Phosphatase Troponin I 0.061 H* 0.071 H* NT-Pro-B Natriuret Pep Total Protein Albumin 12/24/23 12/24/23 12/24/23 16:43 16:43 16:43 WBC RBC Hgb Hct MCV MCH MCHC RDW Plt Count MPV Immature Gran % (Auto) Neut % (Auto) Lymph % (Auto) [place] % (Auto) Eos % (Auto) Baso % (Auto) Lymph # (Auto) [place] # (Auto) Eos # (Auto) Baso # (Auto) Abs Immat Gran (auto) Absolute Neuts (auto) Absolute Nucleated RBC Nucleated RBC % Sodium Potassium Chloride Carbon Dioxide Anion Gap BUN Creatinine Estim Creat Clear Calc Estimated GFR Glucose Calcium Magnesium Total Bilirubin AST ALT Alkaline Phosphatase Troponin I NT-Pro-B Natriuret Pep Cancelled Total Protein Cancelled 8.0 Albumin Cancelled 4.2 12/24/23 12/24/23 12/24/23 16:43 16:43 16:43 WBC RBC Hgb Hct MCV MCH MCHC RDW Plt Count MPV Immature Gran % (Auto) Neut % (Auto) Lymph % (Auto) [place] % (Auto) Eos % (Auto) Baso % (Auto) Lymph # (Auto) [place] # (Auto) Eos # (Auto) Baso # (Auto) Abs Immat Gran (auto) Absolute Neuts (auto) Absolute Nucleated RBC Nucleated RBC % Sodium Potassium Chloride Carbon Dioxide Anion Gap BUN Creatinine Estim Creat Clear Calc Estimated GFR Glucose Calcium Magnesium Total Bilirubin AST Cancelled ALT Cancelled 25 Alkaline Phosphatase Cancelled 86 Troponin I 0.066 H* NT-Pro-B Natriuret Pep 4490 H Total Protein Albumin 12/24/23 12/24/23 12/24/23 16:43 16:43 16:43 WBC RBC Hgb Hct MCV MCH MCHC RDW Plt Count MPV Immature Gran % (Auto) Neut % (Auto) Lymph % (Auto) [place] % (Auto) Eos % (Auto) Baso % (Auto) Lymph # (Auto) [place] # (Auto) Eos # (Auto) Baso # (Auto) Abs Immat Gran (auto) Absolute Neuts (auto) Absolute Nucleated RBC Nucleated RBC % Sodium Potassium Chloride Carbon Dioxide Anion Gap BUN Creatinine Estim Creat Clear Calc Estimated GFR Glucose Cancelled Calcium Cancelled 9.1 Magnesium Total Bilirubin Cancelled 0.6 AST 51 ALT Alkaline Phosphatase Troponin I NT-Pro-B Natriuret Pep Total Protein Albumin 12/24/23 12/24/23 12/24/23 16:43 16:43 16:43 WBC RBC Hgb Hct MCV MCH MCHC RDW Plt Count MPV Immature Gran % (Auto) Neut % (Auto) Lymph % (Auto) [place] % (Auto) Eos % (Auto) Baso % (Auto) Lymph # (Auto) [place] # (Auto) Eos # (Auto) Baso # (Auto) Abs Immat Gran (auto) Absolute Neuts (auto) Absolute Nucleated RBC Nucleated RBC % Sodium Potassium Chloride Carbon Dioxide Anion Gap BUN Creatinine Cancelled Estim Creat Clear Calc Cancelled 43 Estimated GFR Cancelled > 60 Glucose 97 Calcium Magnesium Total Bilirubin AST ALT Alkaline Phosphatase Troponin I NT-Pro-B Natriuret Pep Total Protein Albumin 12/24/23 12/24/23 12/24/23 16:43 16:43 16:43 WBC RBC Hgb Hct MCV MCH MCHC RDW Plt Count MPV Immature Gran % (Auto) Neut % (Auto) Lymph % (Auto) [place] % (Auto) Eos % (Auto) Baso % (Auto) Lymph # (Auto) [place] # (Auto) Eos # (Auto) Baso # (Auto) Abs Immat Gran (auto) Absolute Neuts (auto) Absolute Nucleated RBC Nucleated RBC % Sodium Potassium Chloride Carbon Dioxide Cancelled Anion Gap Cancelled 6 BUN Cancelled 23 H Creatinine 1.10 Estim Creat Clear Calc Estimated GFR Glucose Calcium Magnesium Total Bilirubin AST ALT Alkaline Phosphatase Troponin I NT-Pro-B Natriuret Pep Total Protein Albumin 12/24/23 12/24/23 12/24/23 16:43 16:43 16:43 WBC RBC Hgb Hct MCV MCH MCHC RDW Plt Count MPV Immature Gran % (Auto) Neut % (Auto) Lymph % (Auto) [place] % (Auto) Eos % (Auto) Baso % (Auto) Lymph # (Auto) [place] # (Auto) Eos # (Auto) Baso # (Auto) Abs Immat Gran (auto) Absolute Neuts (auto) Absolute Nucleated RBC Nucleated RBC % Sodium Cancelled Potassium Cancelled 3.9 Chloride Cancelled 100 Carbon Dioxide 29 Anion Gap BUN Creatinine Estim Creat Clear Calc Estimated GFR Glucose Calcium Magnesium Total Bilirubin AST ALT Alkaline Phosphatase Troponin I NT-Pro-B Natriuret Pep Total Protein Albumin 12/24/23 16:43 WBC 4.5 RBC 4.21 L Hgb 14.1 Hct 41.8 L MCV 99.3 MCH 33.5 MCHC 33.7 RDW 14.4 Plt Count 169 MPV 9.9 Immature Gran % (Auto) 0.2 Neut % (Auto) 57.7 Lymph % (Auto) 25.6 [place] % (Auto) 13.4 H Eos % (Auto) 2.0 Baso % (Auto) 1.1 Lymph # (Auto) 1.16 [place] # (Auto) 0.6 Eos # (Auto) 0.1 Baso # (Auto) 0.1 Abs Immat Gran (auto) 0.01 Absolute Neuts (auto) 2.6 Absolute Nucleated RBC 0.000 Nucleated RBC % 0.0 Sodium 135 L Potassium Chloride Carbon Dioxide Anion Gap BUN Creatinine Estim Creat Clear Calc Estimated GFR Glucose Calcium Magnesium Total Bilirubin AST ALT Alkaline Phosphatase Troponin I NT-Pro-B Natriuret Pep Total Protein Albumin Discharge Plan Discharge Consulting providers: Serena Ritchie Discharging Clinician: Roseann Germain Patient Disposition: Home, Self-Care Activity: may shower Diet: heart healthy Discharge Instructions: AFIB Please continue the same medications- as cardiology did not changes anything. F/u with PCP for potassium recheck within 1-2 weeks and see your provider at [facility]. Patient Instructions: Antibiotic Form, Apixaban (By mouth), Heart Failure (GEN), High Troponin Levels (GEN) Stand Alone Forms: General Discharge Information Follow-up/Referrals: Leelanau,Serena A., DO [Physician] - 2 Weeks Discharge Medications: Continued multivitamin Tablet 1 tablet PO HS hydralazine 10 mg Tablet 5 mg PO BID PRN (Reason: high blood presure) Rx Instructions: take if BP above 160 cyanocobalamin (vitamin B-12) 100 mcg Tablet 1,000 mcg PO DAILY donepezil 10 mg Tablet 10 mg PO HS levothyroxine 25 mcg Tablet 50 mcg PO DAILY modafinil 200 mg Tablet 100 mg PO QAM meclizine 25 mg Tablet 25 mg PO BID PRN (Reason: Vertigo) simvastatin 20 mg Tablet 10 mg PO QPM gabapentin 300 mg Capsule 300 mg PO HS montelukast 10 mg Tablet 10 mg PO HS albuterol sulfate 90 mcg/actuation Hfa Aerosol Inhaler 1 inh INHALATION Q6H PRN (Reason: Wheezing) calcium citrate 200 mg (950 mg) Tablet 400 mg PO QPM escitalopram oxalate 5 mg Tablet 5 mg PO DAILY Eliquis 5 mg Tablet 5 mg PO BID omega-3 fatty acids 1,000 mg Capsule 1,200 mg PO QNOON melatonin 3 mg Tablet 3 mg PO HS PRN (Reason: Restless Leg(S)) cholecalciferol (vitamin D3) 25 mcg (1,000 unit) Capsule 25 mcg PO DAILY Rx Instructions: noon furosemide 80 mg Tablet 80 mg PO DAILY cetirizine 10 mg Tablet 10 mg PO DAILY Trelegy Ellipta 100-62.5-25 mcg blister with device 1 inh INHALATION DAILY Date of admission: 12/24/23 17:40 Primary Care Provider: UNKNOWN,DOCTOR Admitting Provider: Fabian Mc Attending physician on admission: Fabian Mc Condition: Stable Quality VTE Prophylaxis VTE prophylaxis: pharmacologic ordered (on apixaban)
== END 2023-12-25 13:47 | disposition home or self-care (01) ==
LOC: ANHED 17:47 → ANHIMU 18:18
PROVIDERS: Physician Assistant; Admitting Provider General Practice; Emergency Provider Emergency Medicine; Visit Provider General Practice
DX: I48.92 Unspecified atrial flutter (principal); R79.89 Other specified abnormal findings of blood chemistry; E85.82 Wild-type transthyretin-related (ATTR) amyloidosis; I11.0 Hypertensive heart disease with heart failure; I50.9 Heart failure, unspecified; E87.6 Hypokalemia; E78.5 Hyperlipidemia, unspecified; E03.9 Hypothyroidism, unspecified; I27.20 Pulmonary hypertension, unspecified; I48.91 Unspecified atrial fibrillation; F03.90 Unspecified dementia, unspecified severity, without behavioral disturbance, psychotic disturbance, mood disturbance, and anxiety; G47.33 Obstructive sleep apnea (adult) (pediatric); F32.A Depression, unspecified; Z79.51 Long term (current) use of inhaled steroids; Z79.01 Long term (current) use of anticoagulants; Z87.891 Personal history of nicotine dependence
CPT/HCPCS: 36415; 71045; 80048; 80053; 83735; 83880; 84484; 85025; 93005; 94640; 96374; 99285; A9270; G0378

== ENCOUNTER 2024-05-23 15:54 | Inpatient (IN) | payer MEDICARE, BC, SELFPAY ==
[2024-05-23] VITALS (33 sets, daily range): BP systolic 83–129; BP diastolic 52–102; PULSE 71–149; RESP 12–43; TEMP 36.6–37.3; O2SAT 89–98; BMI 23.6
--- NOTE | ~2024-05-23 | XR_ITS ---
EXAMINATION: XR abdomen gastric tube insert DATE: 05/27/2024 05:41 INDICATION: Orogastric tube placement. TECHNIQUE: An upright view of the abdomen was obtained. COMPARISON: CT 05/26/2024 FINDINGS: The lower abdomen is excluded. There is gaseous distention of the stomach. The nasogastric tube tip is in the stomach with proximal side-port the distal esophagus. There are changes of posteri or fusion procedure in lumbar spine. IMPRESSION: 1. Nasogastric tube tip in the stomach with proximal side-port in the distal esophagus. Advancement 5 cm is recommended. Reviewed, dictated and finalized at location A. IMPRESSION: 1. Nasogastric tube tip in the stomach with proximal side-port in the distal es ophagus. Advancement 5 cm is recommended.
--- NOTE | ~2024-05-23 | XR_ITS ---
EXAMINATION: XR chest ET placement DATE: 05/27/2024 05:41 INDICATION: Intubation. TECHNIQUE: A single frontal view of the chest was obtained. COMPARISON: Chest single view 05/26/2024, chest CT 05/26/2024 FINDINGS: There are airspace opacities in the lower lung zones, left worse than right. No pleural eff usion or pneumothorax. Cardiomegaly is noted. There is a prominent left pericardial fat pad. The endo tracheal tube tip is 5.1 cm above the frank. The nasogastric tube tip is at the gastroesophageal kal ction. IMPRESSION: 1. Worsened airspace opacities in the lower lung zones, left worse than right, consistent with atelec tasis versus pneumonia. 2. Cardiomegaly. 3. Nasogastric tube tip at the gastroesophageal junction. Advancement 10 cm is recommended. Reviewed, dictated and finalized at location A. IMPRESSION: 1. Worsened airspace opacities in the lower lung zones, left worse than right, consistent with atelectasis versus pneumonia. 2. Cardiomegaly. 3. Nasogastric tube tip at the gastroesophageal junction. Advancement 10 cm is recommended.
--- NOTE | ~2024-05-23 | CT_ITS ---
EXAMINATION: CT chest abdomen pelvis wo con DATE: 05/24/2024 15:25 INDICATION: Abnormal chest x-ray. Nausea, emesis. TECHNIQUE: Computed tomography (CT) of the chest, abdomen, and pelvis was performed without intraveno us contrast. Automated exposure control and iterative reconstruction technique were employed. Exam do se: 509.03 mGy-cm total exam DLP. COMPARISON: None FINDINGS: CHEST CT: Minimal lobe, lingula and bilateral lower lobe multifocal mild linear atelectasis or scarring. No pul monary consolidation. Cardiomegaly. No pericardial effusion. Prominent coronary artery calcifications including left main, left anterior descending, circumflex and right coronary arteries. Thoracic aortic and great vessel calcifications. No hilar or mediastinal mass lesion or lymphadenopathy. Minimal bilateral gynecomastia. ABDOMEN/PELVIS CT: Mild perihepatic and perisplenic and pericholecystic and lower abdominal and pelvic ascites. No hepatic, splenic, pancreatic, adrenal or renal space occupying mass lesion is evident on this limi vincent noncontrast examination. Small spleen Horseshoe kidney. No urinary tract calculus or hydroureteronephrosis. Mild prostate enlargement. There is diffuse thickening of urinary bladder wall which may be due to un derdistention, prostatomegaly or cystitis. There is extensive calcification but normal caliber of the abdominal aorta. No intraperitoneal or retroperitoneal or pelvic mass lesion or adenopathy is evident. Diverticulosis of the left colon; no evidence of diverticulitis. No bowel obstruction, bowel wall thi ckening, pneumatosis or intraperitoneal free air is detected. Status post posterior surgical fusion at L3-L5. Prominent degenerative disc disease in the lower cervical spine. Diffuse hepatic skeletal hyperostosi s of the thoracic spine. No suspicious osteolytic or osteoblastic lesions are noted. IMPRESSION: Cardiomegaly Prominent coronary artery calcification Minimal linear atelectasis or scarring at middle lobe, lingula and bilateral lower lobes Mild ascites Small spleen Horseshoe kidney Nonspecific thickening of the urinary bladder wall which may be due to underdistention, prostatomegal y or cystitis Diverticulosis of the left colon; no evidence of diverticulitis Status post posterior surgical fusion at L3-L5 Reviewed, dictated and finalized at Location A. Reviewed, dictated and finalized at location A. IMPRESSION: Cardiomegaly Prominent coronary artery calcification Minimal linear atelectasis or scarring at middle lobe, lingula and bilateral lo wer lobes Mild ascites Small spleen Horseshoe kidney Nonspecific thickening of the urinary bladder wall which may be due to underdis tention, prostatomegaly or cystitis Diverticulosis of the left colon; no evidence of diverticulitis Status post posterior surgical fusion at L3-L5
--- NOTE | ~2024-05-23 | US_ITS ---
EXAMINATION: US renal BI DATE: 05/26/2024 13:56 INDICATION: Acute renal insufficiency TECHNIQUE: Multiple ultrasound grayscale images of the kidneys were obtained. COMPARISON: CT dated 05/24/2024 FINDINGS: Horseshoe kidney which is better appreciated on prior CT. The right renal moiety measures 7.6 x 4.8 x 4.3 cm. The left renal moderate measures 8.8 x 5.2 x 5.2 cm. The region of midline fusion is not michelle jeovanny margins obscured by shadowing bowel gas. The kidneys demonstrate normal echogenicity. There is m ild right hydronephrosis. No left hydronephrosis. No stones identified. The bladder is decompressed w hich limits evaluation. Small amount of free fluid along the dome of the bladder. IMPRESSION: 1. 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 2. Small amount of ascites in the pelvis. Reviewed, dictated and finalized at location B.
--- NOTE | ~2024-05-23 | CT_ITS ---
CT facial bones w con Ordering provider: Alejandra Bowser MD History: . jaw pain, concern for abscess . Comparison: None. Technique: Thin slice axial CT of the facial bones was performed without contrast. Coronal and sagit jovita reformatted images were also obtained. . Automated exposure control and iterative reconstruction technique were employed. The dose-length product was 481.98 mGy-cm. FINDINGS: PARANASAL SINUSES: Right and left sphenoid sinus disease more on the right side. Mild right nasal sep jovita deviation. Otherwise, Well aerated. BONES: No facial fracture including no nasal bone fracture. ORBITS AND SUPERFICIAL SOFT TISSUES: The optic globes and orbits are normal. The superficial soft tis sues are normal. VISUALIZED MASTOIDS: Well aerated. LIMITED VISUALIZED BRAIN PARENCHYMA: Normal. IMPRESSION: No facial fracture. Reviewed, dictated and finalized at location A. IMPRESSION: No facial fracture.
--- NOTE | ~2024-05-23 | CT_ITS ---
CT chest abdomen pelvis wo con Ordering provider: Fabian Mc MD History: . shortness of breath . Comparison: None. Technique: CT chest without IV contrast. CT abdomen and pelvis without oral and IV contrast. Radiatio n reduction technique utilized.The dose-length product was 1313.12 mGy-cm. FINDINGS: The study is limited due to lack of IV contrast. CHEST: --VISUALIZED THORACIC INLET: Normal as visualized. --MEDIASTINUM: Aorta/coronary arteries: Mild atheromatous disease. Ascending aorta measures 3.4 cm in length. Heart/other: The heart is grossly enlarged. Lymph nodes: No mediastinal or hilar adenopathy. --LUNGS: Bilateral pleural effusion with adjacent atelectasis. Atelectatic changes in the lingula. No pulmonary nodules or masses. No infiltrates or effusions. No pneumothorax. --MUSCULOSKELETAL: Soft tissues: The superficial soft tissues are normal. Bones: Age appropriate degenerative changes of the spine. ABDOMEN/PELVIS: --MUSCULOSKELETAL: Bones: Age appropriate degenerative changes of the spine. Postoperative changes in the lower lumbar a ju. Bilateral sacroiliitis. Superficial soft tissues: The superficial soft tissues are normal. --UPPER ABDOMINAL ORGANS: Liver: Minimal fluid around the liver. Gallbladder: Hyperdense which may indicate recent contrast injection. Spleen: Normal. Stomach/duodenum: Grossly distended with fluids. Pancreas: Atrophic Adrenals: Slightly prominent left adrenal. Kidneys: Slightly medial with no definite bridging tissue to suggest a horseshoe kidney.residual contrast seen in the pelvi-calyceal system. --PELVIC ORGANS: The bladder is underfilled with hyperdense area most likely contrast versus a stone. . Enlarged prostate. --BOWEL AND MESENTERY: Colon: No evidence of diverticulitis. Fecal material is loaded in the colon.. Appendix is not demonst rated. Small Bowel: Normal. No obstruction. Peritoneum/mesentery: No free air. Free fluid is seen in the pelvis. No mesenteric lymphadenopathy. --RETROPERITONEUM: Mild atheromatous disease of the abdominal aorta. No retroperitoneal lymphadenop athy. IMPRESSION: CHEST: 1. Bilateral pleural effusion with adjacent atelectasis. 2. Gross cardiomegaly. ABDOMEN/PELVIS: 1. No evidence of appendicitis, diverticulitis or intestinal obstruction. 2. Hyperdense area in the gallbladder which may be a stone or residual contrast. 3. Constipation. 4. Minimal Ascites Reviewed, dictated and finalized at location A. IMPRESSION: CHEST: 1. Bilateral pleural effusion with adjacent atelectasis. 2. Gross cardiomegaly. ABDOMEN/PELVIS: 1. No evidence of appendicitis, diverticulitis or intestinal obstruction. 2. Hyperdense area in the gallbladder which may be a stone or residual contras t. 3. Constipation. 4. Minimal Ascites
--- NOTE | ~2024-05-23 | XR_ITS ---
CHEST RADIOGRAPH CLINICAL HISTORY: dyspnea . COMPARISON: 05/23/2024 TECHNIQUE: Single portable view of the chest. FINDINGS The cardiomediastinal silhouette is enlarged, unchanged. Cylindrical bronchiectasis is suspected. PA and lateral view is suggested, if patient is clinically able. IMPRESSION: Persistent cardiomegaly with cylindrical bronchiectasis suspected. PA and lateral view is suggested, if the patient is clinically able, in order to evaluate for a left- sided pleural effusion (or a retrocardiac infiltrate). Reviewed, dictated and finalized at location A. IMPRESSION: Persistent cardiomegaly with cylindrical bronchiectasis suspected. PA and lateral view is suggested, if the patient is clinically able, in order t o evaluate for a left-sided pleural effusion (or a retrocardiac infiltrate).
--- NOTE | ~2024-05-23 | XR_ITS ---
EXAMINATION: XR chest 1V portable DATE: 05/29/2024 05:36 INDICATION: Intubated. TECHNIQUE: A single frontal view of the chest was obtained. COMPARISON: Chest single view 05/28/2024 FINDINGS: There are airspace opacities in the lower lung zones, left worse than right. No pleural eff usion or pneumothorax. Cardiomegaly is noted. The endotracheal tube tip is 4.9 cm above the frank. T he nasogastric tube tip is in the stomach. IMPRESSION: 1. Stable airspace opacities in the lower lung zones, left worse than right, consistent with atelecta sis versus pneumonia. 2. Cardiomegaly. Reviewed, dictated and finalized at location A. IMPRESSION: 1. Stable airspace opacities in the lower lung zones, left worse than right, co nsistent with atelectasis versus pneumonia. 2. Cardiomegaly.
--- NOTE | ~2024-05-23 | XR_ITS ---
EXAMINATION: XR abdomen gastric tube rechec DATE: 05/28/2024 09:19 INDICATION: Nasogastric tube placement. TECHNIQUE: A supine view of the abdomen was obtained. COMPARISON: Abdomen radiograph 05/27/2024 FINDINGS: The lower abdomen is excluded. There are no dilated loops of bowel. The nasogastric tube ti p is in the stomach. There are changes of posterior fusion procedure in lumbar spine. IMPRESSION: 1. Nasogastric tube tip in the stomach. Reviewed, dictated and finalized at location A.
--- NOTE | ~2024-05-23 | XR_ITS ---
EXAMINATION: XR chest 1V portable DATE: 05/28/2024 05:48 INDICATION: Intubated. TECHNIQUE: A single frontal view of the chest was obtained. COMPARISON: Chest single view 05/27/2024 FINDINGS: There are airspace opacities in the lower lung zones, left worse than right. No pleural eff usion or pneumothorax. Cardiomegaly is noted. There are prominent pericardial fat pads. The endotrach eal tube tip is 4.0 cm above the frank. The nasogastric tube tip is in the stomach with proximal citlalli e port in the distal esophagus. IMPRESSION: 1. Stable airspace opacities in the lower lung zones, left worse than right, consistent with atelecta sis versus pneumonia. 2. Cardiomegaly. 3. Nasogastric tube tip in the stomach with proximal side port in the distal esophagus. Advancement 8 cm is recommended. Reviewed, dictated and finalized at location A. IMPRESSION: 1. Stable airspace opacities in the lower lung zones, left worse than right, co nsistent with atelectasis versus pneumonia. 2. Cardiomegaly. 3. Nasogastric tube tip in the stomach with proximal side port in the distal es ophagus. Advancement 8 cm is recommended.
--- NOTE | ~2024-05-23 | XR_ITS ---
XR chest 1V portable DATE: 05/23/2024 16:13 INDICATION: Tachycardia TECHNIQUE: Portable upright AP chest on 05/23/2024 at 1614 hours COMPARISON: 12/24/2023 portable AP chest FINDINGS: Cardiomegaly. Aortic arch calcification, mild aortic unfolding. No hilar or mediastinal enl argement. No pulmonary infiltrate or consolidation, pleural effusion or pulmonary vascular congestion or pneumo thorax is detected. IMPRESSION: Cardiomegaly, aortic atherosclerosis Reviewed, dictated and finalized at location A.
--- NOTE | ~2024-05-23 | XR_ITS ---
EXAMINATION: XR chest port-a-cath/central Exam Date/Time: 05/26/2024 20:20 CDT HISTORY: central line Comparison: 10/24/2024; CT cap 05/26/2024. RESULT: Lines, tubes, and devices: New right IJ central line terminating in the distal SVC. Lungs and pleura: Subsegmental opacity in the left lower lung with left costophrenic angle blunting. The left basilar opacification has increased since the prior radiograph but is stable since the prio r CT. Minimal right costophrenic angle blunting and basilar opacity. Cardiomediastinal silhouette: Stable. Other: No acute osseous or upper abdominal finding. Soft tissue swelling over the right lower neck. IMPRESSION: New right IJ central line in good position. Soft tissue swelling over the right lower neck, correlate for hematoma. Subsegmental bibasilar atelectasis. Small bilateral pleural effusions. Reviewed, dictated and finalized at location K.
--- NOTE | ~2024-05-23 | US_ITS ---
EXAMINATION: US right upper quadrant DATE: 05/27/2024 07:48 INDICATION: Transaminitis. Hyperbilirubinemia. TECHNIQUE: Multiple grayscale and Doppler ultrasound images of the abdomen were obtained. COMPARISON: CT 05/26/2024 FINDINGS: The pancreas is obscured by bowel gas. The liver is normal without focal lesion. There is a ntegrade flow in main portal vein. The gallbladder is normal in size. No gallstones or gallbladder wa ll thickening. There is no sonographic Bhandari's sign. The common duct is normal and measures 2 mm. Th ere is a right pleural effusion. IMPRESSION: 1. Right pleural effusion. Reviewed, dictated and finalized at location A. IMPRESSION: 1. Right pleural effusion.
--- NOTE | ~2024-05-23 | XR_ITS ---
EXAMINATION: XR chest 1V portable DATE: 05/30/2024 05:25 INDICATION: Intubated. TECHNIQUE: A single frontal view of the chest was obtained. COMPARISON: Chest single view 05/29/24, chest CT 05/26/2024 FINDINGS: There are airspace opacities at the lung bases. No pleural effusion or pneumothorax. Cardio megaly is noted. There is a prominent left pericardial fat pad. The endotracheal tube tip is 4.7 cm a mohinder the frank. The nasogastric tube tip is in the stomach. IMPRESSION: 1. Stable airspace opacities in the lower lung zones, consistent with atelectasis versus pneumonia. 2. Cardiomegaly. Reviewed, dictated and finalized at location A. IMPRESSION: 1. Stable airspace opacities in the lower lung zones, consistent with atelectas is versus pneumonia. 2. Cardiomegaly.
--- NOTE | 2024-05-23 16:00 | ECG_ITS ---
Test Date: 2024-05-23 15:59:32 Measurements Intervals [place] Rate: 153 P: 0 MT: 0 QRS: 261 QRSD: 103 T: 68 QT: 309 QTc: 494 Interpretive Statements ATRIAL FIBRILLATION WITH RAPID VENTRICULAR RESPONSE POSSIBLE RIGHT VENTRICULAR HYPERTROPHY [SOME/ALL OF: PROMINENT R IN V1, LATE TRANSITION, RAD, DRE, SSS] POSSIBLE ANTERIOR MYOCARDIAL INFARCTION , OF INDETERMINATE AGE [30 ms Q WAVE IN V3/V4, OR R < 0.2 mV IN V4] Compared to ECG 12/24/2023 21:43:38 Sinus rhythm no longer present Electronically Signed On 05-23-2024 17:41:52 CDT by Mee Salazar M.D.
--- NOTE | 2024-05-23 16:19 | ED.ARRPALP ---
HPI - Arrhythmia/Palpitations General Chief Complaint: Arrhythmia/Palpitations Stated Complaint: multiple complaints Time Seen by Provider: 05/23/24 15:58 Source: patient and family Mode of arrival: EMS Limitations: language barrier (Arabic not primary language though able to answer basic questions) and dementia History of Present Illness HPI narrative: Patient with PMH Lewy Body dementia and atrial fibrillation presents with multiple complaints. Patient has been complaining of pain in left jaw. Has a cavity in left lower molar. He is due to have it extracted 06/04/24. has been trying to get ahold of dentist to confirm how many days to hold Elliqui before this. He has completed a course of amoxicillin, Augmentin, and now on clindamycin for this. Some pain radiating to left ear. States the right one is ok. Recently saw his senior manager mergers & acquisitions Dr Ferraro. Had been on metoprolol and diltiazem previously but they were discontinued in December 2023 due to low heart rate. Otherwise, for his afib he is on Elliquis and has been complaint with meds per who manages them. ALso on furosemide. It was reported that he had been dizzy and with increased heart rate. Family note that he hasn't been himself but they deny any confusion, only that he has been talking more than usual and weak, with increased fatigue. Denies shortness of breath. He reportedly vomited yesterday and endorses being nauseated now. Denies chest pain but having palpitations. No diarrhea. Related Data Home Medications ?Medication ?Instructions ?Recorded ?Confirmed ?Last Taken ?Type albuterol sulfate 90 mcg/actuation 1 inh inhalation Q6H PRN Wheezing 12/15/23 05/23/24 Unknown History aerosol inhaler apixaban 5 mg tablet (Eliquis) 5 mg PO BID 12/15/23 05/23/24 12/24/23 08:00 History cetirizine 10 mg tablet 10 mg PO DAILY 12/15/23 05/23/24 Unknown History fluticasone fur. 100 mcg-umeclid 1 inh inhalation DAILY 12/15/23 05/23/24 Unknown History 62.5 mcg-vilant 25 mcg inhalat.powder (Trelegy Ellipta) furosemide 80 mg tablet 80 mg PO DAILY 12/15/23 05/23/24 12/24/23 08:00 History gabapentin 300 mg capsule 300 mg PO QAM 12/15/23 05/23/24 12/24/23 08:00 History levothyroxine 25 mcg tablet 25 mcg PO DAILY 12/15/23 05/23/24 12/24/23 08:00 History melatonin 3 mg tablet 5 mg PO HS PRN Restless Leg(S) 12/15/23 05/23/24 12/23/23 History modafinil 200 mg tablet 100 mg PO QAM 12/15/23 05/23/24 12/23/23 History montelukast 10 mg tablet 10 mg PO HS 12/15/23 05/23/24 12/24/23 08:00 History multivitamin 1 tablet PO HS 12/15/23 05/23/24 12/23/23 History omega-3 fatty acids 1,000 mg 1,500 mg PO QNOON 12/15/23 05/23/24 Unknown History capsule simvastatin 20 mg tablet 10 mg PO QPM 12/15/23 05/23/24 12/23/23 20:00 History [id number]-sir R9-B2-[id number] 250 2 tablet PO DAILY 05/23/24 05/23/24 Unknown History mg-40 mg-5 mg-125 unit tablet potassium gluconate 595 mg (99 mg) 595 mg PO DAILY 05/23/24 05/23/24 Unknown History tablet tafamidis 61 mg capsule (Vyndamax) 61 mg PO DAILY 05/23/24 05/23/24 Unknown History Allergies Allergy/AdvReac Type Severity Reaction Status Date / Time No Known Allergies Allergy Verified 12/24/23 16:36 [facility] Past Medical History Medical History Lewy body dementia 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 Code status: Full code. Years smoked: 2 Smoking status: Never smoker Tobacco type: cigarettes Second hand tobacco smoke exposure: Yes Alcohol intake: never Substance use: never Substance use type: does not use Do You Feel Safe in your Home?: Yes Lack of Transportation: YES Lack of Food: Sometimes True Current Housing: I Have Housing Concerned About Future Housing: No Difficulty Paying Gas/Electric Bills: No Difficulty Paying for Meds: No Currently Unemployed: No Education: Bachelor's Degree Difficulty w/ Childcare or Family Care: No Living arrangements: assisted living Additional living arrangements comments: [place], with Spiritual care concerns: No Exam Narrative: GENERAL: Well-appearing, well-nourished, and in no acute distress. HEAD: Normocephalic, atraumatic. EYES: Non injected, non icteric ENT: Nares clear, no rhinorrhea or epistaxis. Moist mucous membranes. Dental caries, left lower molar. No appreciable abscess. Buccal surface and left cheek without induration. No tenderness to percussion of teeth. Left ear normal TM; no erythema or vesicles in external auditory canal. NECK: Supple. No meningismus. CHEST: Speaking in full sentences. No respiratory distress. Symmetric chest rise and fall. Lungs clear. HEART: IRegularly IRregular rate and rhythm, fast rate ABDOMEN: Soft, nondistended. EXTREMITIES: Normal range of motion. No lower extremity edema. SKIN: Warm, dry, no rash. NEURO: No focal deficits. Alert and oriented PSYCH: Normal mood and affect. Course Vital Signs Vital signs: Vital Signs Temperature 99.2 F 05/23/24 15:49 Pulse Rate 149 H 05/23/24 15:49 Respiratory Rate 14 05/23/24 15:49 Blood Pressure 129/94 H 05/23/24 15:49 Pulse Oximetry 96 05/23/24 15:49 Temperature 98 F 05/23/24 23:58 Pulse Rate 113 H 05/23/24 23:58 Respiratory Rate 20 05/23/24 23:58 Blood Pressure 98/72 L 05/23/24 23:58 Pulse Oximetry 98 05/23/24 23:58 Oxygen Delivery Room Air 05/23/24 17:00 MDM - Arrhythmia/Palpitations MDM Narrative Medical decision making narrative: Patient presents with complaint of dizziness, weakness , fatigue and a fast heart rate. In the emergency department he has an elevated heart rate as well as an acceptable blood pressure although with elevated diastolic blood pressure Patient has a history of atrial fibrillation and is on Eliquis for this and has been compliant per his . He had previously been on both metoprolol and diltiazem but these were discontinued in December of 2023 due to a low heart rate. Given that he is in AFib with RVR with a rate ranging between 120 and 160s but fairly consistently in the 140s, will give 0.25 mg per kg, approximately 20mg to attempt to rate control. Patient does successfully rate control after this dose ranging in the 70s to occasionally less than 105 Patient has been on amoxicillin, Augmentin, and now clindamycin given dental pain and concern for infection. He is due to have it extracted June 04, 2024 and I did recommend that patient's call the dentist to see how far in avance to hold his Eliquis. Mild thrombocytopenia, intermittently appreciated before. New ALT elevation. Azotemia has previously been appreciated. Patient has become increasingly hypotensive. Mean arterial pressure is above 70 with blood pressure reading at 5:40 p.m. of 89/64 (MAP 73). Will give 1 L IV fluids. Troponin elevated, consistent with NSTEMI. No chest pain. Likely due to demand ischemia. Aspirin ordered as is 3 hour troponin. Patient would benefit from an overnight observation regardless because he likely should be on antihypertensive and rate-controlling medication. Patient does have some low blood pressures however with appropriate mean arterial pressures. Maintenance IV fluids had been ordered. He has history of pulmonary hypertension and thus careful consideration of hemodynamics is [place] and aggressive hydration could be detrimental. Discussed need/recommendation for observation admission. Family and patient verify undersatnding and are in agreement. Confirm full code status. Discussed with communications project lead hospitalist GENARO Ramos. Will be IMU given NSTEMI and recent arrhythmia with RVR. Differential Diagnosis Differential diagnosis: Likely artial fibrillation (RVR), artial flutter and other (infection (dental, PNA, UTI, viral syndrome , etc.); ACS) Lab Data Attestation: I reviewed the patient's lab results. Lab results narrative: Viral swab negative. Normal urinalysis 05/23/24 16:48 05/23/24 16:48 Labs: Lab Results 05/23/24 05/23/24 05/23/24 Range/Units 16:21 16:48 16:50 WBC 7.6 (4.5-10.0) K/mm3 RBC 4.72 (4.6-6.20) M/mm3 Hgb 15.4 (14.0-18.0) g/dL Hct 47.5 (42.0-52.0) % MCV 100.6 H (80-100) fl MCH 32.6 (26-34) pg MCHC 32.4 (32-36) g/dl RDW 15.9 H (11.5-14.5) % Plt Count 120 L (150-375) k/mm3 MPV 11.7 H (7.4-10.4) fl Immature Gran % (Auto) 0.4 (0-0.5) % Neut % (Auto) 84.9 H (45.5-73.1) % Lymph % (Auto) 5.6 L (18.3-44.2) % [place] % (Auto) 8.7 H (2.6-8.5) % Eos % (Auto) 0.1 (0-4.4) % Baso % (Auto) 0.3 (0.2-1.2) % Lymph # (Auto) 0.42 L (0.9-3.2) K/mm3 [place] # (Auto) 0.7 H (0.1-0.6) K/mm3 Eos # (Auto) 0.0 (0-0.3) K/mm3 Baso # (Auto) 0.0 (0.0-0.1) K/mm3 Abs Immat Gran (auto) 0.03 (0.00-0.031) K/mm3 Absolute Neuts (auto) 6.4 (1.3-6.7) K/mm3 Absolute Nucleated RBC 0.000 (0.0-0.012) K/mm3 Nucleated RBC % 0.0 (0.0-0.2) % % Immature Plt Fraction 6.0 (0.9-11.2) % PT 22.0 H (11.1-14.7) Seconds INR 1.9 APTT 52.3 H (22.3-36.8) Seconds Sodium 138 (137-145) mmol/L Potassium 3.6 (3.4-5.0) mmol/L Chloride 92 L (98-107) mmol/L Carbon Dioxide 36 H (22-30) mmol/L Anion Gap 10 (4-12) mmol/L BUN 35 H D (9-20) mg/dL Creatinine 1.26 (0.7-1.3) mg/dL Estim Creat Clear Calc 36 ml/min Estimated GFR 55 L (59 - ) Glucose 133 H (65-110) mg/dL Calcium 9.2 (8.4-10.2) mg/dL Magnesium 2.1 (1.6-2.3) mg/dL Total Bilirubin 3.2 H (0.2-1.3) mg/dL AST 70 H (17-59) U/L ALT 30 (6-50) U/L Alkaline Phosphatase 100 (38-126) U/L Troponin I 0.093 H* (0.000-0.034) ng/mL Total Protein 8.0 (6.3-8.2) g/dL Albumin 4.4 (3.5-5.1) g/dL Lipase 163 (23-300) U/L TSH 3.330 (0.465-4.680) uIU/mL Urine Color Yellow (Yellow) Urine Appearance Clear (Clear) Urine pH 7.0 (5.0-9.0) Ur Specific [place] 1.009 (1.001-1.035) Urine Protein Negative (Negative) mg/dL Urine Glucose (UA) Negative (Negative) mg/dL Urine Ketones Negative (Negative) mg/dL Ur Blood (Man) Negative (Negative) Urine Nitrate Negative (Negative) Urine Bilirubin Negative (Negative) Urine Urobilinogen 0.2 (<2.0) mg/dL Leukocyte Esterase Rfl Negative (Negative) NINOSKA/UL Influenza A (RT-PCR) Negative (Negative) Influenza B (RT-PCR) Negative (Negative) RSV (RT-PCR) Negative (Negative) SARS-CoV-2 RNA (RT-PCR) Negative (Negative) Imaging Data Radiologist's impression: Impressions Chest X-Ray 05/23/24 17:21 IMPRESSION: Cardiomegaly, aortic atherosclerosis ECG Data EKG #1: Attestation: I personally reviewed and interpreted this ECG as follows: ECG completion date: 05/23/24 ECG completion time: 15:59 Interpretation: Atrial fibrillation with rapid ventricular response at a rate of 153 beats per minute. QRS 103. QT/QTC 309/396. EKG #2: Attestation: I personally reviewed and interpreted this ECG as follows: ECG completion date: 05/23/24 ECG completion time: 17:35 Interpretation: Atrial fibrillation at a rate of 89 beats per minute. QRS 114. QT/QTC 408/455. There is a PVC/aberrant conduction. No T-wave inversions. Discharge Plan Discharge Clinical Impression: Atrial fibrillation with RVR, Chronic 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, Chronic dental pain, Dental caries, Thrombocytopenia, Elevated ALT measurement, Azotemia, Cardiomegaly, Aortic atherosclerosis, Non-ST elevation MT (NSTEMI) Patient Disposition: Still a Patient Condition: Stable
[2024-05-23] MEDS: HYDROcodone/acetaminophen (*CRX) 5-325 MG TABLET 1 TAB PO (16:53)
[2024-05-23] MEDS: dilTIAZem HCl INJ 25 MG/5 ML VIAL 20 MG IV PUSH (16:54)
[2024-05-23] MEDS: ONDANSETRON INJ 4 MG/2 ML VIAL IV PUSH (16:54)
[2024-05-23 16:56] LABS: Basophils Percent Auto 0.3 % (0.2-1.2); Eosinophils Percent Auto 0.1 % (0-4.4); Hematocrit 47.5 % (42.0-52.0); Hemoglobin 15.4 g/dL (14.0-18.0); Immature Granulocyte Absolute 0.03 K/mm3 (0.00-0.031); Immature Granulocyte Percent A 0.4 % (0-0.5); Lymphocytes Absolute Auto 0.42 K/mm3 (0.9-3.2); Lymphocytes Percent Auto 5.6 % (18.3-44.2); Mean Corpuscular HGB Conc 32.4 g/dl (32-36); Mean Corpuscular Hemoglobin 32.6 pg (26-34); Mean Corpuscular Volume 100.6 fl (80-100); Mean Platelet Volume 11.7 fl (7.4-10.4); Monocytes Absolute Auto 0.7 K/mm3 (0.1-0.6); Monocytes Percent Auto 8.7 % (2.6-8.5); Neutrophils Absolute Auto 6.4 K/mm3 (1.3-6.7); Neutrophils Percent Auto 84.9 % (45.5-73.1); Platelet Count Result 120 k/mm3 (150-375); Red Blood Count 4.72 M/mm3 (4.6-6.20); Red Cell Distribution Width 15.9 % (11.5-14.5); White Blood Count 7.6 K/mm3 (4.5-10.0)
[2024-05-23 16:56] LABS: Add Urine Microscopic? NO; Appearance Urine Clear (Clear); Bilirubin Urine Negative (Negative); Blood Urine Negative (Negative); Color Urine Yellow (Yellow); Glucose Urine UA Negative (Negative); Ketones Urine Negative (Negative); Leukocyte Esterase Ur Negative LEU/UL (Negative); Nitrate Urine Negative (Negative); Protein Urine Negative (Negative); Specific Grav Ur 1.009 (1.001-1.035); Urobilinogen Urine 0.2 mg/dL (<2.0)
[2024-05-23 17:00] LABS: Influenza A QL RT-PCR Negative (Negative); Influenza B QL RT-PCR Negative (Negative); RSV RNA, RT-PCR Negative (Negative); SARS-CoV-2 RNA PCR Negative (Negative)
--- OUTSIDE RECORDS SUMMARY | 2024-05-23 17:00 | XMS_ITS ---
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 [address] [place], [place] [id number] 12/17/2022 PROMISE MA Plan Of Treatment No Information Progress Notes * SHERRI BOLTON SDOB: [birth year] (78 yo M)Acc No.[id number]:12/17/2022 PROGRESS NOTE Patient: SHERRI SERRANO Provider: Lona MA MD :[id number] A ge:77 Y S ex:Male Date:12/17/2022 C HN#:[id number] Address[address], [id number] Pcp:HOMA BREWER Subjective: * Chief Complaints: * 1 . [facility]-23 HR [id number] EXCISION OF RECTAL POLYP. * Medical History: Objective: * Vitals: Assessment: Plan: * Treatment: * * This progress note has not b een verified nor is it considered complete until locked and signed by the provider. Sign off status: Pending * Provider: Lona MA MD Date: 1 Generated for Ana María arguello/Andrew/Mila on: 0 05/23/2024 05:00 PM CDT
--- OUTSIDE RECORDS SUMMARY | 2024-05-23 17:00 | XMS_ITS | Patient Health Record ---
Author Organization [facility] Address [address] [place] [address] Care Team Providers Care Certified Ophthalmic Surgical Assistant Name Role Phone YAO Uriostegui Primary Care Provider UnavailLaxmi Tucker Unavailable [phone] Elias Rao Unavailable [phone] Kecia Dinero Unavailable [phone] [employer], Provider Unavailable Unavailab le Allergies Allergen (clinical drug ingredient) Drug/Non Drug Allergy documented on EMR Reaction Allergy Type Onset Date Status erythromycin Erythromycin other reaction Drug Allergy Active Results Component Value Reference Range Notes -CBC With Differential/Plate let Reviewed date:08/08/2023 10:44:14 AM Interpretation:Abnormal Performing Lab:[facility], [address] [place] [id number], Phone - [phone], Director - Willis Notes/Report: WBC 7.8 3.4-10.8 x10E3/uL RBC 4.17 4.14-5.80 x10E6/uL Hemoglobin 13.6 13.0-17.7 g/dL Hematocrit 40.4 37.5-51.0 % MCV 97 79-97 fL MCH 32.6 26.6-33.0 pg MCHC 33.7 31.5-35.7 g/dL RDW 12.6 11.6-15.4 % Platelets 163 150-450 x10E3/uL Neutrophils 66 Not Estab. % Lymphs 16 Not Estab. % Monocytes 17 Not Estab. % Eos 0 Not Estab. % Basos 1 Not Estab. % Neutrophils (Absolute) 5.1 1.4-7.0 x10E3/uL Lymphs (Absolute) 1.3 0.7-3.1 x10E3/uL Monocytes(Absolute) 1.3 0.1-0.9 x10E3/uL Eos (Absolute) 0.0 0.0-0.4 x10E3/uL Baso (Absolute) 0.1 0.0-0.2 x10E3/uL Immature Granulocytes 0 Not Estab. % Immature Grans (Abs) 0.0 0.0-0.1 x10E3/uL -Bfbfd-8-Ahyhdrmujfi Phenoty p Reviewed date:08/12/2023 02:35:23 PM Interpretation:Normal Performing Lab:[facility], [address] [facility], [place], [place] [id number], Phone - [phone], Director - Willis Notes/Report: Txjst-5-Vqtaqpebcff, Serum 194 101-187 mg/dL Phenotype (PI) MM MM Phenotype is considered to be normal , producing normal serum levels of feaws-1-ncygnzha inhibitor and not associated with clinical disease. Associated A1A total serum levels in other phenotypes and their incidence in the general population are shown in the table below. Phenotype Population % function A-1-AT Conc.* Incidence % compared to MM (Typical Range) MM 86.5% 100% (96 - 189) MS 8.0% 86% (83 - 161) MZ 3.9% 61% (60 - 111) FM 0.4% 100% (93 - 191) SZ 0.3% 41% (42 - 75) SS 0.1% 64% (62 - 119) ZZ 0.05% 19% (16 - 38) FS 0.05% 70% (70 - 128) FZ Unknown 46% (44 - 88) FF Unknown Unknown *A-1-AT concentration in the homozygous MM phenotype is taken as the reference normal. Percent deficiency in each phenotype is reported relative to this reference. Ranges used to confirm phenotype. Spirometry Reviewed date:08/03/2023 09:14:25 AM Interpretation:Abnormal - BD response Performing Lab: Notes/Report: Abnormal - BD response SpiroPreBronchodilator_FVC 1.81 SpiroPreBronchodilator_FVC 1.86 SpiroPreBronchodilator_FVC 1.61 SpiroPostBronchodilator_FEF2 5_7 5 0 SpiroPostBronchodilator_FEF2 5_7 5 0 SpiroPostBronchodilator_FEF2 5_7 5 0.71 SpiroPreBronchodilator_FEF25_75 0.38 SpiroPreBronchodilator_FEF25_75 0.36 SpiroPreBronchodilator_FEF25_75 0.51 SpiroPreBronchodilator_FEV1 0.96 SpiroPreBronchodilator_FEV1 0.97 SpiroPreBronchodilator_FEV1 0.97 SpiroPrecentPredictionPost_F EF2 5_75 0 SpiroPrecentPredictionPost_F EF2 5_75 0 SpiroPrecentPredictionPost_F EF2 5_75 27.7 SpiroPrecentPredictionPost_FEV1 0 SpiroPrecentPredictionPost_FEV1 0 SpiroPrecentPredictionPost_FEV1 44.1 SpiroPrecentPredictionPost_F EV1 _OVER_FVC 0 SpiroPrecentPredictionPost_F EV1 _OVER_FVC 0 SpiroPrecentPredictionPost_F EV1 _OVER_FVC 81.5 SpiroPrecentPredictionPost_FVC 0 SpiroPrecentPredictionPost_FVC 0 SpiroPrecentPredictionPost_FVC 53.8 SpiroPrecentPredictionPre_FE F25 _75 0 SpiroPrecentPredictionPre_FE F25 _75 0 SpiroPrecentPredictionPre_FE F25 _75 19.9 SpiroPrecentPredictionPre_FEV1 0 SpiroPrecentPredictionPre_FEV1 0 SpiroPrecentPredictionPre_FEV1 33.4 SpiroPrecentPredictionPre_FE V1_ OVER_FVC 0 SpiroPrecentPredictionPre_FE V1_ OVER_FVC 0 SpiroPrecentPredictionPre_FE V1_ OVER_FVC 79.4 SpiroPrecentPredictionPre_FVC 0 SpiroPrecentPredictionPre_FVC 0 SpiroPrecentPredictionPre_FVC 41.8 SpiroPredicted_FEF25_75 0 SpiroPredicted_FEF25_75 0 SpiroPredicted_FEF25_75 2.56 SpiroPreBronchodilator_FEV1_ OVE R_FVC 52.89 SpiroPreBronchodilator_FEV1_ OVE R_FVC 52.19 SpiroPreBronchodilator_FEV1_ OVE R_FVC 60.5 SpiroPreBronchodilator_PEF 1.89 SpiroPreBronchodilator_PEF 1.53 SpiroPreBronchodilator_PEF 2.15 SpiroPostBronchodilator_FVC 0 SpiroPostBronchodilator_FVC 0 SpiroPostBronchodilator_FVC 2.07 SpiroPostBronchodilator_FEV1 0 SpiroPostBronchodilator_FEV1 0 SpiroPostBronchodilator_FEV1 1.28 SpiroPostBronchodilator_FEV1 _OV ER_FVC 0 SpiroPostBronchodilator_FEV1 _OV ER_FVC 0 SpiroPostBronchodilator_FEV1 _OV ER_FVC 62.12 SpiroPostBronchodilator_PEF 0 SpiroPostBronchodilator_PEF 0 SpiroPostBronchodilator_PEF 2.71 SpiroPredicted_FVC 0 SpiroPredicted_FVC 0 SpiroPredicted_FVC 3.85 SpiroPredicted_FEV1 0 SpiroPredicted_FEV1 0 SpiroPredicted_FEV1 2.9 SpiroPredicted_FEV1_OVER_FVC 0 SpiroPredicted_FEV1_OVER_FVC 0 SpiroPredicted_FEV1_OVER_FVC 76.21 SpiroPredicted_PEF 0 SpiroPredicted_PEF 0 SpiroPredicted_PEF 7.2 Spirometry Reviewed date:08/03/2023 09:14:25 AM Interpretation:Abnormal - BD response Performing Lab: Notes/Report: Abnormal - BD response SpiroPreBronchodilator_FVC 1.81 SpiroPreBronchodilator_FVC 1.86 SpiroPreBronchodilator_FVC 1.61 SpiroPostBronchodilator_FEF2 5_7 5 0 SpiroPostBronchodilator_FEF2 5_7 5 0 SpiroPostBronchodilator_FEF2 5_7 5 0.71 SpiroPreBronchodilator_FEF25_75 0.38 SpiroPreBronchodilator_FEF25_75 0.36 SpiroPreBronchodilator_FEF25_75 0.51 SpiroPreBronchodilator_FEV1 0.96 SpiroPreBronchodilator_FEV1 0.97 SpiroPreBronchodilator_FEV1 0.97 SpiroPrecentPredictionPost_F EF2 5_75 0 SpiroPrecentPredictionPost_F EF2 5_75 0 SpiroPrecentPredictionPost_F EF2 5_75 27.7 SpiroPrecentPredictionPost_FEV1 0 SpiroPrecentPredictionPost_FEV1 0 SpiroPrecentPredictionPost_FEV1 44.1 SpiroPrecentPredictionPost_F EV1 _OVER_FVC 0 SpiroPrecentPredictionPost_F EV1 _OVER_FVC 0 SpiroPrecentPredictionPost_F EV1 _OVER_FVC 81.5 SpiroPrecentPredictionPost_FVC 0 SpiroPrecentPredictionPost_FVC 0 SpiroPrecentPredictionPost_FVC 53.8 SpiroPrecentPredictionPre_FE F25 _75 0 SpiroPrecentPredictionPre_FE F25 _75 0 SpiroPrecentPredictionPre_FE F25 _75 19.9 SpiroPrecentPredictionPre_FEV1 0 SpiroPrecentPredictionPre_FEV1 0 SpiroPrecentPredictionPre_FEV1 33.4 SpiroPrecentPredictionPre_FE V1_ OVER_FVC 0 SpiroPrecentPredictionPre_FE V1_ OVER_FVC 0 SpiroPrecentPredictionPre_FE V1_ OVER_FVC 79.4 SpiroPrecentPredictionPre_FVC 0 SpiroPrecentPredictionPre_FVC 0 SpiroPrecentPredictionPre_FVC 41.8 SpiroPredicted_FEF25_75 0 SpiroPredicted_FEF25_75 0 SpiroPredicted_FEF25_75 2.56 SpiroPreBronchodilator_FEV1_ OVE R_FVC 52.89 SpiroPreBronchodilator_FEV1_ OVE R_FVC 52.19 SpiroPreBronchodilator_FEV1_ OVE R_FVC 60.5 SpiroPreBronchodilator_PEF 1.89 SpiroPreBronchodilator_PEF 1.53 SpiroPreBronchodilator_PEF 2.15 SpiroPostBronchodilator_FVC 0 SpiroPostBronchodilator_FVC 0 SpiroPostBronchodilator_FVC 2.07 SpiroPostBronchodilator_FEV1 0 SpiroPostBronchodilator_FEV1 0 SpiroPostBronchodilator_FEV1 1.28 SpiroPostBronchodilator_FEV1 _OV ER_FVC 0 SpiroPostBronchodilator_FEV1 _OV ER_FVC 0 SpiroPostBronchodilator_FEV1 _OV ER_FVC 62.12 SpiroPostBronchodilator_PEF 0 SpiroPostBronchodilator_PEF 0 SpiroPostBronchodilator_PEF 2.71 SpiroPredicted_FVC 0 SpiroPredicted_FVC 0 SpiroPredicted_FVC 3.85 SpiroPredicted_FEV1 0 SpiroPredicted_FEV1 0 SpiroPredicted_FEV1 2.9 SpiroPredicted_FEV1_OVER_FVC 0 SpiroPredicted_FEV1_OVER_FVC 0 SpiroPredicted_FEV1_OVER_FVC 76.21 SpiroPredicted_PEF 0 SpiroPredicted_PEF 0 SpiroPredicted_PEF 7.2 Spirometry Reviewed date:08/03/2023 09:14:25 AM Interpretation:Abnormal - BD response Performing Lab: Notes/Report: Abnormal - BD response SpiroPreBronchodilator_FVC 1.81 SpiroPreBronchodilator_FVC 1.86 SpiroPreBronchodilator_FVC 1.61 SpiroPostBronchodilator_FEF2 5_7 5 0 SpiroPostBronchodilator_FEF2 5_7 5 0 SpiroPostBronchodilator_FEF2 5_7 5 0.71 SpiroPreBronchodilator_FEF25_75 0.38 SpiroPreBronchodilator_FEF25_75 0.36 SpiroPreBronchodilator_FEF25_75 0.51 SpiroPreBronchodilator_FEV1 0.96 SpiroPreBronchodilator_FEV1 0.97 SpiroPreBronchodilator_FEV1 0.97 SpiroPrecentPredictionPost_F EF2 5_75 0 SpiroPrecentPredictionPost_F EF2 5_75 0 SpiroPrecentPredictionPost_F EF2 5_75 27.7 SpiroPrecentPredictionPost_FEV1 0 SpiroPrecentPredictionPost_FEV1 0 SpiroPrecentPredictionPost_FEV1 44.1 SpiroPrecentPredictionPost_F EV1 _OVER_FVC 0 SpiroPrecentPredictionPost_F EV1 _OVER_FVC 0 SpiroPrecentPredictionPost_F EV1 _OVER_FVC 81.5 SpiroPrecentPredictionPost_FVC 0 SpiroPrecentPredictionPost_FVC 0 SpiroPrecentPredictionPost_FVC 53.8 SpiroPrecentPredictionPre_FE F25 _75 0 SpiroPrecentPredictionPre_FE F25 _75 0 SpiroPrecentPredictionPre_FE F25 _75 19.9 SpiroPrecentPredictionPre_FEV1 0 SpiroPrecentPredictionPre_FEV1 0 SpiroPrecentPredictionPre_FEV1 33.4 SpiroPrecentPredictionPre_FE V1_ OVER_FVC 0 SpiroPrecentPredictionPre_FE V1_ OVER_FVC 0 SpiroPrecentPredictionPre_FE V1_ OVER_FVC 79.4 SpiroPrecentPredictionPre_FVC 0 SpiroPrecentPredictionPre_FVC 0 SpiroPrecentPredictionPre_FVC 41.8 SpiroPredicted_FEF25_75 0 SpiroPredicted_FEF25_75 0 SpiroPredicted_FEF25_75 2.56 SpiroPreBronchodilator_FEV1_ OVE R_FVC 52.89 SpiroPreBronchodilator_FEV1_ OVE R_FVC 52.19 SpiroPreBronchodilator_FEV1_ OVE R_FVC 60.5 SpiroPreBronchodilator_PEF 1.89 SpiroPreBronchodilator_PEF 1.53 SpiroPreBronchodilator_PEF 2.15 SpiroPostBronchodilator_FVC 0 SpiroPostBronchodilator_FVC 0 SpiroPostBronchodilator_FVC 2.07 SpiroPostBronchodilator_FEV1 0 SpiroPostBronchodilator_FEV1 0 SpiroPostBronchodilator_FEV1 1.28 SpiroPostBronchodilator_FEV1 _OV ER_FVC 0 SpiroPostBronchodilator_FEV1 _OV ER_FVC 0 SpiroPostBronchodilator_FEV1 _OV ER_FVC 62.12 SpiroPostBronchodilator_PEF 0 SpiroPostBronchodilator_PEF 0 SpiroPostBronchodilator_PEF 2.71 SpiroPredicted_FVC 0 SpiroPredicted_FVC 0 SpiroPredicted_FVC 3.85 SpiroPredicted_FEV1 0 SpiroPredicted_FEV1 0 SpiroPredicted_FEV1 2.9 SpiroPredicted_FEV1_OVER_FVC 0 SpiroPredicted_FEV1_OVER_FVC 0 SpiroPredicted_FEV1_OVER_FVC 76.21 SpiroPredicted_PEF 0 SpiroPredicted_PEF 0 SpiroPredicted_PEF 7.2 -Respiratory Allergens w/Tot al IgE Area 8 Reviewed date:08/11/2023 04:58:24 PM Interpretation:Abnormal Performing Lab:[facility], [address], [place], [place] [id number], Phone - [phone], Director - Tsering Notes/Report: Class Description 0.56 - 1.40 II Moderate Levels of Specific IgE Class Description of Class ----- < 0.10 0 Negative 0.10 - 0.31 0/I Equivocal/Low 0.32 - 0.55 I Low 1.41 - 3.90 III High 3.91 - 19.00 IV Very High 19.01 - 100.00 V Very High >100.00 Very High Immunoglobulin E, Total 92 6-495 IU/mL G791-HdL D pteronyssinus <0.10 Class 0 kU/L X338-EeP D farinae <0.10 Class 0 kU/L D859-NuJ Cat Dander <0.10 Class 0 kU/L E499-EwS Dog Dander <0.10 Class 0 kU/L V599-NzI [place] Grass <0.10 Class 0 kU/L C592-RiM [place]oyd Grass <0.10 Class 0 kU/L X698-DaE Cockroach, Citizen Of [place] <0.10 Class 0 kU/L S495-QiW Penicillium chrysogen <0.10 Class 0 kU /L U251-RoX Cladosporium herbarum <0.10 Class 0 kU /L I299-KhC Aspergillus fumigatus <0.10 Class 0 kU /L A994-AtM Alternaria alternata <0.10 Class 0 kU/ L T076-UkJ Maple/[place] 0.31 Class 0/I kU/L K844-QlN [place], [place] 0.47 Class I kU/L P829-LoC Taylor, White 6.12 Class IV kU/L I735-EwG Elm, [place] 0.27 Class 0/I kU/L Y652-WkF [place] 0.73 Class II kU/ L R547-LgT [place] 0.94 Class II kU/L O321-WkC [place], White 1.81 Class III kU/L Y698-UfW [place] 1.11 Class II kU/L F977-LiV Pecan, [place] 2.04 Class III kU/L M491-FfR [place] <0.10 Class 0 kU/L P608-AxN Ragweed, Short 13.90 Class IV kU/L B636-VmN Thistle, [place] 0.11 Class 0/I kU/L M320-OaG Pigweed, Common 0.30 Class 0/I kU/L T592-RqE Rough [place] 1.58 Class III kU/L G843-HcU Mouse Urine <0.10 Class 0 kU/L Spirometry Reviewed date:10/03/2023 02:04:53 PM Interpretation:Abnormal Performing Lab: Notes/Report: Abnormal SpiroPreBronchodilator_FVC 1.97 SpiroPostBronchodilator_FEF2 5_7 5 0 SpiroPreBronchodilator_FEF25_75 0.77 SpiroPreBronchodilator_FEV1 1.31 SpiroPrecentPredictionPost_F EF2 5_75 0 SpiroPrecentPredictionPost_FEV1 0 SpiroPrecentPredictionPost_F EV1 _OVER_FVC 0 SpiroPrecentPredictionPost_FVC 0 SpiroPrecentPredictionPre_FE F25 _75 30.1 SpiroPrecentPredictionPre_FEV1 53 SpiroPrecentPredictionPre_FE V1_ OVER_FVC 87.7 SpiroPrecentPredictionPre_FVC 60.2 SpiroPredicted_FEF25_75 2.56 SpiroPreBronchodilator_FEV1_ OVE R_FVC 66.82 SpiroPreBronchodilator_PEF 3.38 SpiroPostBronchodilator_FVC 0 SpiroPostBronchodilator_FEV1 0 SpiroPostBronchodilator_FEV1 _OV ER_FVC 0 SpiroPostBronchodilator_PEF 0 SpiroPredicted_FVC 3.27 SpiroPredicted_FEV1 2.47 SpiroPredicted_FEV1_OVER_FVC 76.21 SpiroPredicted_PEF 7.2 Reason For Referral No Information Medications Medication SIG (Take, Route, Frequency, Duration) Notes Start Date End Date Status Vyndamax 61 MG 1 capsule Orally Once a day Active Metoprolol Succinate ER 50 MG 1 tab(s) orally once a day Not-Taking Nitroglycerin 0.4 MG 1 tab(s) sublingually every 5 minutes Not-Taking Turmeric 1000 MG 2 CAP(S) ORALLY ONCE A DAY *Please review and pick correct strength-formulat ion from Plumzi options. If intended option is not shown, discontinue and re-order from Quick Search* Not-Taking Fish Oil 1200 MG 1 cap(s) orally 3 times a day Active hydrALAZINE HCl 10 MG 1 tab(s) orally 4 times a day Not-Taking Melatonin 5 MG 1 tablet in the evening Orally Once a day Active dilTIAZem HCl ER 120 MG 1 cap(s) orally every 12 hours Not-Taking Jackson 3 1000 MG 1 capsule Orally Three times a day Active Escitalopram Oxalate 10 MG 1 tab(s) orally once a day Not-Taking Potassium Gluconate 80 MG as directed Orally Active Donepezil HCl 23 MG 1 tab(s) orally once a day (at bedtime) Not-Taking Multivitamin - 1 tab(s) orally once a day Active Calcium Citrate 250 MG 1 tab(s) orally 2 times a day Active Trelegy Ellipta 100-62.5-25 MCG/ACT Inhale 1 puff by mouth once daily for 30 Not-Taking Meclizine HCl 25 MG 1 tab(s) orally 3 times a day Active Albuterol Sulfate HFA 108 (90 Base) MCG/ACT 2-4 puff(s) inhaled every 4 hrs as needed for 30 days 08/01/2023 Not-Taking B-12 1000 MCG 1 tab(s) orally once a day Active Montelukast Sodium 10 MG 1 tab(s) orally once a day for 30 day(s) 08/01/2023 Not-Taking Albuterol Sulfate HFA 108 (90 Base) MCG/ACT 2-4 puffs Inhalation every 4 hrs as needed for 30 days 11/28/2023 Not-Taking DHEA 50 MG 1 tab(s) orally once a day Not-Taking Albuterol Sulfate HFA 108 (90 Base) MCG/ACT 2 puff(s) inhaled every 6 hours Active Eliquis 5 MG as directed orally 2 times a day Active Simvastatin 20 MG 1 tab(s) orally once a day (in the evening) Active Montelukast Sodium 10 MG 1 tab(s) orally once a day Active Levothyroxine Sodium 25 MCG 1 tab(s) orally once a day Active Gabapentin 300 MG 1 cap(s) orally 3 times a day Active Coenzyme Q10 300 MG 1 cap(s) orally once a day Not-Taking Deyanira-C 1000 MG 1 TAB(S) ORALLY ONCE A DAY *Please review and pick correct strength-formulat ion from Plumzi options. If intended option is not shown, discontinue and re-order from Quick Search* Not-Taking ALBUTEROL 90 mcg/inh 2-4 puff(s) inhaled every 4 hrs as needed for 30 days Active Modafinil 100 MG 1 tab(s) orally once a day (in the morning) Active Trelegy Ellipta 100-62.5-25 MCG/ACT 1 puff Inhalation Once a day for 30 days Active Montelukast Sodium 10 MG 1 tablet Orally at night for 30 days Active Social History Tobacco Use: Social History Observation Description Date Details (start date - stop date) Never Smoker NA - NA Tobacco Control (Standard) Question Answer Notes Tobacco use: Nonsmoker Problems Problem Type SNOMED Code ICD Code Onset Dates Problem Status W/U Status Risk Notes Problem Chronic allergic conjunctivitis (96957973) Other chronic allergic conjunctivitis (H10.45) Active confirmed Problem Allergic rhinitis caused by pollen (disorder) (78991030) Allergic rhinitis due to pollen (J30.1) Active confirmed Problem Allergic rhinitis (62095049) Other allergic rhinitis (J30.89) Active confirmed Problem Chronic rhinitis (97712672) Chronic rhinitis (J31.0) Active confirmed Problem Uncomplicated mild persistent asthma (632033674) Mild persistent asthma, uncomplicated (J45.30) Active confirmed Problem Uncomplicated moderate persistent asthma (447394145) Moderate persistent asthma, uncomplicated (J45.40) Active confirmed Problem Uncomplicated severe persistent asthma (552780649) Severe persistent asthma, uncomplicated (J45.50) Active confirmed Problem Allergic rhinitis caused by animal hair and dander (332504946487556) Allergic rhinitis due to animal (cat) (dog) hair and dander (J30.81) Active confirmed Problem Edema (82066648) Edema, unspecified (R60.9) Active confirmed Problem Diffuse Lewy body disease (92497652) Neurocognitive disorder with Lewy bodies (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) Active confirmed Vital Signs Respiratory Rate 17 /min 10/03/2023 Oximetry 97 % 02/06/2024 Blood pressure diastolic 84 mm Hg 02/06/2024 Height 67 in 02/06/2024 Blood pressure systolic 136 mm Hg 02/06/2024 Weight 164 lbs 02/06/2024 BMI 25.68 kg/m2 02/06/2024 Encounters Encounter Location Date Provider Diagnosis [address] [address] 08/17/2023 Provider RAYNA-Dex Severe persistent asthma, uncomplicated J45.[address] [address] 08/01/2023 Laxmi Arthur Hypertrophy of nasal turbinates J34.3 ; Severe persistent asthma, uncomplicated J45.50 ; Chronic rhinitis J31.0 ; Chronic cough R05.3 and Edema, unspecified R60.[address] [address] 10/03/2023 Laxmibill Arthur Severe persistent asthma, uncomplicated J45.50 ; Allergic rhinitis due to pollen J30.1 and Edema, unspecified R60.[address] [address] 02/06/2024 Laxmi Arthur Severe persistent asthma, uncomplicated J45.50 ; Allergic rhinitis due to pollen J30.1 and Edema, unspecified R60.[address] [address] 11/28/2023 Laxmi Arthur Severe persistent asthma, uncomplicated J45.[address] [address] 02/05/2024 Laxmi Arthur Assessments Encounter Date Diagnosis (ICD Code) Assessment Notes Treatment Notes Treatment Clinical Notes Section Notes 08/01/2023 Hypertrophy of nasal turbinates (ICD-10 - J34.3) Majority of today's visit was focused on asthma control -Will discuss INS + anthistamines once I review his labs 08/01/2023 Severe persistent asthma, uncomplicated (ICD-10 - J45.50) Hilton is here today to establish care. Previously followed by [place] [facility] for the last few years. He is only on JEEVAN currently but was previously on various controllers per his . He presents today with an ongoing cough since moving to [place]. -Spirometry today with severe obstruction. Post-BD test showing 32% improvement in FEV1. He admits he feels much better after nebulizer -Recommend trial of Trelegy 1 puff QD. Rinse out mouth after use -Lungs clear but will await records before I recommend any imaging -Will check Respiratory Panel + IgE and CBC -Per , no OCS in years -Recommend recheck of spirometry in 4 weeks -Recommend annual flu shot. Pneumovax given in 12/202208/17/2023 Severe persistent asthma, uncomplicated (ICD-10 - J45.50) 10/03/2023 Allergic rhinitis due to pollen (ICD-10 - J30.1) Aeroallergen ImmunoCaps + pollen -given age and hx of dementia is in agreement we focus on medications and avoidance measures -discussed a trial of INS and Saundra this Fall given his allergy to weeds, especially Ragweed 10/03/2023 Severe persistent asthma, uncomplicated (ICD-10 - J45.50) Hilton was seen roughly8 weeks ago. Previously followed by [place] [facility] for the last few years. He presented at his initial visit with ongoing cough since moving to [place]. Only using JEEVAN but was previously on various controllers per his . Started on Trelegy and Singulair with clear improvement. -Spirometry last visit with severe obstruction. Post-BD test showing 32% improvement in FEV1. Doing much better on Trelegy. Since starting controller there has been an 340 cc improvement in FEV1 -IgE=92 AEC= 0. Consider biolgoic in the future if asthma is not controlled. Clinically stable but will be closely monitoring him -Per , no OCS in years -Recommend annual flu shot. Pneumovax given in 12/2022 -Follow up in -3-4 months 11/28/2023 Severe persistent asthma, uncomplicated (ICD-10 - J45.50) 02/06/2024 Allergic rhinitis due to pollen (ICD-10 - J30.1) Aeroallergen ImmunoCaps + pollen -given age and hx of dementia is in agreement we focus on medications and avoidance measures -discussed a trial of INS and Saundra this Fall given his allergy to weeds, especially Ragweed 02/06/2024 Severe persistent asthma, uncomplicated (ICD-10 - J45.50) Hilton returns doing well . Previously followed by [place] [facility] for the last few years. He presented at his initial visit with ongoing cough since moving to [place]. Only using JEEVAN but was previously on various controllers per his . Started on Trelegy and Singulair with clear improvement. -Spirometry last visit with severe obstruction. Post-BD test showing 32% improvement in FEV1. Doing much better on Trelegy. Since starting controller there has been an 340 cc improvement in FEV1 -IgE=92 AEC= 0. Consider biolgoic in the future if asthma is not controlled. Clinically stable but will be closely monitoring him -Per , no OCS in years -Recommend annual flu shot. Pneumovax given in 12/2022 -Follow up in -3-4 months 02/06/2024 Edema, unspecified (ICD-10 - R60.9) Last visit had 1+ pitting edema on exam b/l -now established with [facility] Found to have CHF. Now on lasix. Edema now resolved per is better - wearing compression stockings today 10/03/2023 Edema, unspecified (ICD-10 - R60.9) Last visit had 1+ pitting edema on exam b/l -now established with [facility]CP [facility] Found to have CHF. Now on lasix. Edema per is better - wearing compression stockings today 08/01/2023 Chronic rhinitis (ICD-10 - J31.0) See plan above 08/01/2023 Chronic cough (ICD-10 - R05.3) Await response to new regiemn -will refill JEEVAN and Singulair 08/01/2023 Edema, unspecified (ICD-10 - R60.9) 1+ pitting edema on exam b/l -slated to establish with PCP [facility] in the next month -discussed symptoms for him to seek ER evaluation 08/01/2023 Other 10/03/2023 Other 02/06/2024 Other Plan Of Treatment Next Appt Details Provider Name:Laxmi Arthur , 05/28/2024 02:00:00 PM, [facility] [address], [place], [address], Insurance Providers Payer Name Payer Address Payer Phone Subscriber Number Group Number Insured Name Patient Relationship to Insured Coverage Start Date Coverage End Date [employer] (Medicare) Attention Claims [address] [facility] [address] [id number] Hilton Hdz Self - patient is the insured [facility] [address] [place] [address] [id number] Hilton Hdz Self - patient is the insured Medical (General) History Medical History History ICD Code Neurocognitive disorder with Lewy bodies G31.83 Unspecified atrial fibrillation I48.91 Essential (primary) hypertension I10 Vertigo of central 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
--- OUTSIDE RECORDS SUMMARY | 2024-05-23 17:00 | XMS_ITS | Encounter Summary ---
Author Organization [facility] Address [address] [place] [address] Care Team Providers Care Hooker On Name Role Phone Lauro Rubin MD Unavailable [phone] Shikha Uriostegui VMWARE CONSULTANT Primary Care Provider [phone] Encounter Details Date Type Department Care Team ([facility] st Contact Info) Description 01/14/2024 Telephone [facility] Primary Care [address] [address] Shikha Uriostegui, VM[employer] CONSULTANT [address] [address] Social History Tobacco Use Types Packs/Day Years Used Date Smoking Tobacco: Never Smokeless Tobacco: Never Comments:never smoked AUDIT-C Answer Date Recorded Q1: How often do you have a drink containing alcohol? Never 09/26/2023 Q2: How many drinks containi ng alcohol do you have on a typical day when you are drinking? Patient does not drink Q3: How often do you have si x or more drinks on one occasion? Never 09/26/2023 PHQ-2 Answer Date Recorded PHQ-2 Total Score (If total score is 3 or more points, staff should administer the PHQ-9) 0 09/26/2023 Personal Safety Answer Date Recorded Have you ever been in or are you currently in a harmful physical or emotional relationship or is someone making you feel afraid or unsafe? 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
--- OUTSIDE RECORDS SUMMARY | 2024-05-23 17:00 | XMS_ITS | Patient Health Record ---
Author Organization [facility] Billing Info Address [address] [place] [address] [place] [address] Care Team Providers Care Director Of Medicare Name Role Phone HOMA BREWER Primary Care Provider Thomas Meyer DR [facility] Unavailable Unavailable Allergies Allergen (clinical drug ingredient) Drug/Non Drug Allergy documented on EMR Reaction Allergy Type Onset Date Status erythromycin Erythromycin Unknown Drug Allergy A ctive Reason For Referral No Information Medications Medication SIG (Take, Route, Frequency, Duration) Notes Start Date End Date Status DHEA Active Gabapentin 300 MG 1 capsule Orally Onc e a day Active Albuterol Sulfate HFA 108 (90 Base) MCG/ACT 1 puff as needed Inhalation every 4 hrs Active HydrALAZINE HCl Acti ve Vitamin B12 1000 MCG 1 tablet Orally Onc e a day Active Escitalopram Oxalate 10 MG 1 tablet Oral ly Once a day Active Turmeric Active ProAir HFA Active Simvastatin 20 MG 1 tablet in the even ing Orally Once a day Active Meclizine HCl 25 MG 1 tablet as needed Orally every 12 hrs Active Levothyroxine Sodium 25 MCG 1 tablet in the morning on an empty stomach Orally Once a day Active Montelukast Sodium 10 MG 1 tablet Orally Once a day Active Nitroglycerin 0.4 MG as directed Sublingual Active Multivitamin - 1 tablet Orally Once a day Active Reglan 10 MG as directed Orally T obdulio at 1230pm day of prep for 1 day 12/04/2022 Active Eliquis 5 MG 1 tablet Orally Twic e a day Active Metronidazole 500 MG 1 tablet Orally WIL E DAY OF PREP AT 100PM, 200PM, AND 1100PM for 1 day 12/04/2022 Active Fish Oil 1200 MG 1 capsule Orally Onc e a day Active Donepezil HCl 23 MG 1 tablet at bedtime Orally Once a day Active Metoprolol Succinate ER 50 MG 1 tablet Orally Once a day Active Neomycin Sulfate 500 MG 1 Orally Take at 100pm, 200pm, and 1100pm day of prep for 1 days 12/04/2022 Active Modafinil 100 MG 1 tablet in the morn ing Orally twice a day Active Social History Tobacco Use: Social History Observation Description Date Details (start date - stop date) Never Smoker NA - NA Tobacco Status: Question Answer Notes Patient is a never smoker Problems Problem Type SNOMED Code ICD Code Onset Dates Problem Status W/U Status Risk Notes Problem [id number] Rectal polyp (K62.1) Active confirmed Plan Of Treatment No Information Insurance Providers Payer Name Payer Address Payer Phone Subscriber Number Group Number Insured Name Patient Relationship to Insured Coverage Start Date Coverage End Date [place] [address] [address] [place], [place] [id number] IRAJJONATHAN CISNEROSMIO Self - patient is the insured 3 [facility] [employer] [address] [place], [place] [id number] JONATHAN BOLTONMIO Self - patient is the insured 3 Medical (General) History Medical History History ICD Code asthma High cholesterol Low thyroid High blood pressure Dementia Vertigo back pain Heart disease Surgical History Surgery Date(Month/Year) shoulder surgery 2008 Hospitalization History Reason Date(Month/Year) see surgical history
--- OUTSIDE RECORDS SUMMARY | 2024-05-23 17:00 | XMS_ITS ---
Author Organization [facility] Billing Info Address [address] [place] [address] [place] [address] Care Team Providers Care Optical Engineering Technician Name Role Phone DANIELLAHOMA Primary Care Provider UnavailLázaro Meyer DR [facility] Unavailable Unavailable PROMISE MA Unavailable [phone] REASON FOR VISIT SURGERY CXD TODAY Encounters Encounter Location Date Provider Diagnosis [id number] [address] [place] [id number] 12/17/2022 PROMISE MA Plan Of Treatment No Information Progress Notes * SHERRI BOLTON SDOB: [birth year] (77 yo M)Acc No.[id number]:12/17/2022 Patient: SHERRI SERRANO :1945 A ge:77 Y S ex:Male Address:[address], [address] * true * Date: Generated for Ana María arguello/Andrew/eTransmitting on: 0 05/23/2024 04:59 PM CDT
--- OUTSIDE RECORDS SUMMARY | 2024-05-23 17:01 | XMS_ITS ---
Author Organization [facility] Address [address] [place] [address] Care Team Providers Care Powder Monkey Name Role Phone YAO Uriostegui Primary Care Provider Laxmi Benito Unavailable [phone] REASON FOR VISIT Rx Medications Medication SIG (Take, Route, Frequency, Duration) Notes Start Date End Date Status Trelegy Ellipta 100-62.5-25 MCG/ACT 1 puff Inhalation Once a day for 30 days 10/06/2023 Active Albuterol Sulfate HFA 108 (90 Base) MCG/ACT 2-4 puffs Inhalation every 4 hrs as needed for 30 days 11/28/2023 Active Encounters Encounter Location Date Provider Diagnosis [facility] [address] [address] 11/28/2023 Laxmi Arthur Severe persistent asthma, uncomplicated J45.50 Assessments Encounter Date Diagnosis (ICD Code) Assessment Notes Treatment Notes Treatment Clinical Notes Section Notes 11/28/2023 Severe persistent asthma, uncomplicated (ICD-10 - J45.50) Plan Of Treatment Medication Medication Name Sig Start Date Stop Date Notes Trelegy Ellipta 100-62.5-25 MCG/ACT 1 puff Inhalation Once a day for 30 days 10/06/2023 Albuterol Sulfate HFA 108 (9 0 Base) MCG/ACT 2-4 puffs Inhalation every 4 hrs as needed for 30 days 11/28/2023 Next Appt Details Provider Name:Laxmi Arthur , 05/28/2024 02:00:00 PM, [address] [facility], [place], [address], Progress Notes * CHE DodieRyanOB: (78 yo M)Acc No.[id number]:11/28/2023 Patient: Hilton SERRAON :1945 A ge:78 Y S ex:Male Address:[facility] [address], [place], [address] * Refills Refill Trelegy Ellipta Aerosol Powder Breath Activated, 100-62.5-25 MCG/ACT, Inhalation, 1, 1 puff, Once a day, 30 days, Refills=3 Refill Albuterol Sulfate HFA Aerosol Solution, 108 (90 Base) MCG/ACT, Inhalation, 1, 2-4 puffs, every 4 hrs as needed, 30 days, Refills=1 * true * Date: Generated for Ana María arguello/Andrew/Ilianaitting on: 0 05/23/2024 05:00 PM CDT
--- OUTSIDE RECORDS SUMMARY | 2024-05-23 17:01 | XMS_ITS ---
Author Organization [facility] Address [address] [place] [address] Care Team Providers Care Senior Administrative Assistant Name Role Phone YAO Uriostegui Primary Care Provider Laxmi Benito [phone] REASON FOR VISIT Appointment Encounters Encounter Location Date Provider Diagnosis [facility] [address] [place] [address] 02/05/2024 Laxmi Arthur Plan Of Treatment Next Appt Details Provider Name:Laxmi Arthur , 05/28/2024 02:00:00 PM, [address]22 [facility], [address], [address], Progress Notes * Kareem HDZoDOB: [birth year] (78 yo M)Acc No.[id number]:02/05/2024 Patient: Marisol ELLISONHilton CISNEROS :1945 A ge:78 Y S ex:Male Address:[place] [address], [address] * true * Date: Generated for Ana María arguello/Andrew/eTransmitting on: 0 05/23/2024 05:01 PM CDT
--- OUTSIDE RECORDS SUMMARY | 2024-05-23 17:01 | XMS_ITS ---
Author Organization [facility] Billing Info Address [address] [place] [address] [place] [address] Care Team Providers Care Diamond Finishing Supervisor Name Role Phone DANIELLAHOMA Primary Care Provider UnavailLázaro Meyer DR [facility] Unavailable Unavailable PROMISE MA Unavailable [phone] REASON FOR VISIT SCHAEFER Medications Medication SIG (Take, Route, Fr equency, Duration) Notes Start Date End Date Status Reglan 10 MG as directed Orally T obdulio at 1230pm day of prep for 1 day 12/04/2022 Act manju Metronidazole 500 MG 1 tablet Orally WIL E DAY OF PREP AT 100PM, 200PM, AND 1100PM for 1 day 12/04/2022 Active Neomycin Sulfate 500 MG 1 Orally Take at 100pm, 200pm, and 1100pm day of prep for 1 days 12/04/2022 Active Encounters Encounter Location Date Provider Diagnosis [id number] [address] [place], [place] [id number] 12/04/2022 PROMISE MA Plan Of Treatment Medication Medication Name Sig Start Date Stop Date Notes Reglan 10 MG as directed Orally T obdulio at 1230pm day of prep for 1 day 12/04/2022 Metronidazole 500 MG 1 tablet Orally WIL E DAY OF PREP AT 100PM, 200PM, AND 1100PM for 1 day 12/04/2022 Neomycin Sulfate 500 MG 1 Orally Take at 100pm, 200pm, and 1100pm day of prep for 1 days 12/04/2022 Progress Notes * SHERRI BOLTONOB: [birth year] (77 yo M)Acc No.[id number]:12/04/2022 Patient: SHERRI SERRANO :1945 A ge:77 Y S ex:Male Address:[address] [place] [address], [address] * Refills Start Reglan Tablet, 10 MG, Orally, 1 Tablet, as directed, Take at 1230pm day of prep, 1 day, Refills=0 Start Neomycin Sulfate Tablet, 500 MG, Orally, 3 Tablet, 1, Take at 100pm, 200pm, and 1100pm day of prep, 1 days, Refills=0 Start Metronidazole Tablet, 500 MG, Orally, 3 Tablets, 1 tablet, TAKE DAY OF PREP AT 100PM, 200PM, AND 1100PM, 1 day, Refills=0 * true * Date: Generated for Ana María arguello/Andrew/Ilianaitting on: 0 05/23/2024 05:00 PM CDT
--- OUTSIDE RECORDS SUMMARY | 2024-05-23 17:01 | XMS_ITS | Clinical Summary ---
Author Organization [facility] Virtual Care Address [facility] [place] [address] Phone Care Team Providers Care Driver'S Education Instructor Name Role Phone Lauro Rubin MD Unavailable Shikha Uriostegui NP Primary Care Provider [phone] Allergies Active Allergy Reactions Criticality Noted Date Comments Erythromycin Stomach upset Low Mold Wheezing Medium 06/13/2022 Medications montelukast (SINGULAIR) 10 mg tabletIndications :Maintenance Therapy for Asthma Take 1 tablet (10 mg total) by mouth nightly Active albuterol 2.5 mg /3 mL (0.083 %) nebulizer solution Take 3 mL (2.5 mg total) by nebulization every 6 (six) hours as needed for wheezing Active apixaban (ELIQUIS) 5 mg tabletIndications :atrial fibrillation Take 1 tablet (5 mg total) by mouth 2 (two) times a day Active multivitamin with minerals tabletIndications :Mineral Deficiency Prevention,Vitami n Deficiency Prevention Take 1 tablet by mouth nightly Active calcium citrate (CALCITRATE) 950 mg (200 mg of elemental calcium) tabletIndications :Hypocalcemia Prevention Take 1 tablet (950 mg total) by mouth nightly Active meclizine (ANTIVERT) 25 mg tablet Take 1 tablet (25 mg total) by mouth 3 (three) times a day as needed for dizziness Active albuterol HFA (PROVENTIL HFA,VENTOLIN HFA,PROAIR HFA) 90 mcg/actuation inhaler Inhale 2 puffs every 6 (six) hours as needed for wheezing or shortness of breath Active cyanocobalamin (Vitamin B-12) 1,000 mcg tabletIndications :Prevention of Vitamin B12 Deficiency Take 1 tablet (1,000 mcg total) by mouth nightly Active omega-3 fatty acids-fish oil 300-1,000 mg capsule Take 1 capsule (1 g total) by mouth nightly Active loratadine (CLARITIN) 10 mg tabletIndications :Allergic Rhinitis Take 1 tablet (10 mg total) by mouth daily before breakfast Active cholecalciferol (Vitamin D3) 2000 unit capsuleIndication s:Vitamin D Deficiency Take 1 capsule (2,000 Units total) by mouth daily before breakfast Active fluticasone-umecl idin-vilanter (Trelegy Ellipta) 100-62.5-25 mcg inhalerIndication s:Maintenance Therapy for Asthma Inhale 1 puff daily before breakfast Active potassium gluconate 500 mg (83 mg) tablet Take 1 tablet by mouth daily 30 tablet 11 Active tafamidis (Vyndamax) 61 mgIndications:Car diac amyloidosis (HCC),Other restrictive cardiomyopathy (HCC) Take 1 capsule (61 mg total) by mouth daily 30 capsule 11 024 Active simvastatin (ZOCOR) 20 mg tabletIndications :hyperlipidemia Take 1 tablet (20 mg total) by mouth nightly 90 tablet 1 024 Active gabapentin (NEURONTIN) 300 mg capsuleIndication s:Neuropathic Pain Take 1 capsule (300 mg total) by mouth nightly 90 capsule 1 025 Active furosemide (LASIX) 40 mg tabletIndications :Edema Take 2 tablets (80 mg total) by mouth daily 180 tablet 025 Active modafiniL (PROVIGIL) 100 mg tablet Take 1 tablet (100 mg total) by mouth daily 30 tablet 5 025 Active donepeziL (ARICEPT) 10 mg tablet Take 1 tablet (10 mg total) by mouth nightly 90 tablet 2 025 2025 Active Synthroid 50 mcg tablet TAKE 1 TABLET DAILY 90 tablet 1 025 Active Additional Information Patient taking differently: 25 mcgoral Daily, Reported on 05/19/2024 melatonin 5 mg tablet Take 3 tablets (15 mg total) by mouth daily Active levothyroxine (SYNTHROID) 50 mcg tablet Take 1 tablet (50 mcg total) by mouth daily 90 tablet 1 024 2024 Discontinued Active Problems Problem Noted Date Diagnosed Date Chronic 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 05/19/2024 Medicare annual wellness visit, subsequent 03/20 Assessment & Plan (03/20/2024 5:53 PM MAINTENANCE SHOP WELDER): CBC, CMP, lipid panel, PSA ordered. Vaccinations: COVID and Flu vaccines UTD. Prevnar 20 given in office. Patient due for Shingrix vaccine. Repeat wellness exam in one year. Right internal carotid artery aneurysm Assessment & Plan (03/20/2024 5:57 PM MAINTENANCE SHOP WELDER): Chronic, stable. Patient following with cardiology and neurology. Imaging last completed 12/2023. 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 Assessment & Plan (01/29/2024 12:15 PM MAINTENANCE SHOP WELDER): Chronic, patient following with cardiology, currently taking tafamidis 61 mg daily. Moderate Lewy body dementia without behavioral disturbance, psychotic disturbance, mood disturbance, or anxiety 09/02/2023 Assessment & Plan (03/20/2024 5:50 PM MAINTENANCE SHOP WELDER): Chronic,stable. Patient still able to complete the majority of his ADLs without assistance at this time. Patient following with [facility] neurology. Previously taking donepezil, medication discontinued by neurology recently. Assessment & Plan (01/29/2024 12:08 PM MAINTENANCE SHOP WELDER): Chronic,stable. Patient still able to complete the majority of his ADLs without assistance at this time. Patient following with [facility] neurology. Previously taking donepezil, medication discontinued by neurology recently. Assessment & Plan (09/02/2023 2:26 PM CDT): Chronic, previously following with neurologist in [place]. Has initial appointment with [facility] neurology in 11/2023. Patient to continue on donepezil 23 mg nightly and Lexapro 10 mg daily for his mood. Hypothyroidism 09/02/2023 Assessment & Plan (03/20/2024 5:53 PM MAINTENANCE SHOP WELDER): Chronic, controlled. Patient to continue on levothyroxine 25 mcg daily. Follow up in 6 months. Assessment & Plan (01/29/2024 12:09 PM MAINTENANCE SHOP WELDER): Chronic, controlled. Patient to continue on levothyroxine 25 mcg daily. Follow up in 6 months. Assessment & Plan (09/02/2023 2:52 PM CDT): Chronic, patient to continue on levothyroxine 25 mcg daily. Patient to have TSH redrawn. Follow up in 6 months. Atrial fibrillation 08/20/2023 Assessment & Plan (03/20/2024 5:54 PM MAINTENANCE SHOP WELDER): Chronic, stable. Patient following with Dr. Juarez door attendant and Dr. Salazar general mastic worker for follow up. Patient currently taking Eliquis 5 mg BID. Assessment & Plan (01/29/2024 12:10 PM MAINTENANCE SHOP WELDER): Chronic, stable. Patient following with Dr. Juarez door attendant and Dr. Salazar general mastic worker for follow up. Patient currently taking Eliquis 5 mg BID. Assessment & Plan (09/02/2023 2:29 PM CDT): Chronic, stable. Patient following with Dr. Juarez door attendant, referred to Dr. Salazar general mastic worker for follow up. Patient currently taking diltiazem 120 mg daily, metoprolol 50 mg daily, and Eliquis 5 mg BID. Assessment & Plan (08/20/2023 3:28 PM CDT): Currently in sinus rhythm. Concerns regarding long filler cigar roller machine risk of 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 re: falls. LAAO is a consideration and can be explored in the future after recovery from surgery. For now, OK to interrupt 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 for surgery and resume when safe. --Continue apixaban 5 mg BID. Hold for 2-3 days prior to surgery and resume when safe. --Continue metoprolol XL 50 mg daily --Continue diltiazem XR 120 mg daily Consider LAAO at next visit Rectal polyp 07/24/2023 Assessment & Plan (09/02/2023 2:40 PM CDT): Resolved, following with Dr. Rubin colorectal surgeon had polyp removed on 08/25 has follow up on 09/30. Patient has continued to use a stool softener daily. REM sleep behavior disorder 07/14/2013 Hereditary essential tremor 01/08/2013 Spinal stenosis of lumbar region 09/27/2009 Assessment & Plan (03/20/2024 5:49 PM MAINTENANCE SHOP WELDER): Chronic, stable. Patient to continue on gabapentin 300 mg nightly and Tylenol PRN for pain. Patient to use walker/rollator with all ambulation. Requires assistance when ambulating for long distances. Patient to restart physical therapy at [place]. Follow up in 6 months. Assessment & Plan (01/29/2024 12:05 PM MAINTENANCE SHOP WELDER): Chronic, stable. Patient to continue on gabapentin 300 mg nightly and Tylenol PRN for pain. Patient to use walker/rollator with all ambulation. Requires assistance when ambulating for long distances. Follow up in 6 months. Hypertension 09/27/2009 Assessment & Plan (03/20/2024 5:55 PM MAINTENANCE SHOP WELDER): Chronic, controlled with hydralazine 10 mg daily and Lasix 80 mg daily. Patient following with cardiology. Assessment & Plan (01/29/2024 12:08 PM MAINTENANCE SHOP WELDER): Chronic, controlled with hydralazine 10 mg daily and Lasix 80 mg daily. Patient following with cardiology. Assessment & Plan (09/02/2023 2:27 PM CDT): Chronic, controlled with metoprolol XL 50 mg, hydralazine 10 mg daily, and Lasix 40 mg daily. Patient to follow up in 6 months. Bronchial asthma 09/27/2009 Assessment & Plan (03/20/2024 5:54 PM MAINTENANCE SHOP WELDER): Chronic, controlled with albuterol inhaler PRN. Follow up in 6 months. Assessment & Plan (01/29/2024 12:10 PM MAINTENANCE SHOP WELDER): Chronic, controlled with albuterol inhaler PRN. Follow up in 6 months. Assessment & Plan (09/02/2023 2:30 PM CDT): Chronic, controlled with albuterol inhaler PRN. Follow up in 6 months. Cephalalgia 09/27/2009 Lumbago 08/06/2008 Assessment & Plan (03/20/2024 5:50 PM MAINTENANCE SHOP WELDER): Chronic, improved after laminectomy. Patient to continue on gabapentin 300 mg for pain. Follow up in 6 months. Assessment & Plan (09/02/2023 2:53 PM CDT): Chronic, improved after laminectomy. Patient to continue on gabapentin 300 mg for pain. Follow up in 6 months. Resolved Problems Problem Noted Date Diagnosed Date Resolved Date Leg swelling 10/14/2023 03/20/2024 Elevated brain natriuretic p eptide (BNP) level 10/14/2023 03/20/2024 Localized swelling of both lower legs 09/29/2023 03/20/2024 Assessment & Plan (09/29/2023 6:28 PM CDT): Patient to remain on 80 mg of Lasix daily. BNP and CMP ordered. Patient to begin warming compression stockings daily and elevating lower legs when seated. Patient referred to physical therapy at [facility] for lymphedema treatments. Patient also referred to cardiology for follow up. Lymphedema 09/29/2023 03/20/2024 Encounters Date Type Department Care Team Description 05/22/2024 Telephone [facility] Cardiology [address] [place] [address] Len Ferraro MD 05/19/2024 10:15 AM CDT Office Visit [facility] Cardiology at [address] [place] [phone] Len Ferraro MD Cardiac amyloidosis (HCC) (Primary Dx); Longstanding persistent atrial fibrillation (HCC); Primary hypertension; Hypothyroidism, unspecified type; Chronic 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 05/01/2024 Orders Only [facility] Primary Care [address] [place] [address] [place] [phone] Shikha Uriostegui, CORDUROY CUTTING SUPERVISOR 05/01/2024 Patient Message [facility] Primary [facility] [address] [place] [address] [place] [phone] Shikha Uriostegui, YAO Needing a referral for PT and Speech Therapy 04/29/2024 Orders Only [facility] Primary [facility] [address] [place] [address] [place] [phone] Shikha Uriostegui, YAO 04/28/2024 Telephone [facility] Primary Care [address] [place] [phone] Shikha Uriostegui, CORDUROY CUTTING SUPERVISOR 03/30/2024 11:15 AM MAINTENANCE SHOP WELDER Ancillary Procedure [facility] Cardiology [address] [facility] 8th [place] [address] [place] [phone] Atrial fibrillation, unspecified type (HCC) 03/30/2024 Orders Only [facility] Primary Care [address] [place] [phone] Shikha Uriostegui, CORDUROY CUTTING SUPERVISOR 03/27/2024 2:00 PM MAINTENANCE SHOP WELDER Office Visit [facility] Cardiology [address] [facility] Floor 1, [address] [place] [phone] Quita Kimble NP Atrial fibrillation, unspecified type (HCC) (Primary Dx) 03/27/2024 Orders Only [facility] [address] [place] [address] [place] [phone] Shikha Uriostegui NP 03/26/2024 Telephone [facility] Cardiology [address] [place] [address] Yue Castillo NP 03/18/2024 3:00 PM MAINTENANCE SHOP WELDER Office Visit [facility] Primary Care [address] [facility] [address] [place] [address] Shikha Uriostegui, YAO Medicare annual wellness visit, subsequent (Primary Dx); Chronic midline low back pain, unspecified whether sciatica present; Spinal stenosis of lumbar region, unspecified whether neurogenic claudication present; Toenail fungus; Moderate Lewy body dementia without behavioral disturbance, psychotic disturbance, mood disturbance, or anxiety (HCC); Hypothyroidism, unspecified type; Paroxysmal atrial fibrillation (HCC); Cardiac amyloidosis (HCC); Mild intermittent asthma without complication; Primary hypertension; Right internal carotid artery aneurysm; Screening for prostate cancer from Last 3 Months Immunizations Immunization Administration Dates Next Due Influenza, Trivalent, Adjuva nted, Intramuscular 12/28/2023 Pneumococcal Conjugate Pcv20 03/18/2024, 01/03/2024(Deferred: Patient Refused) Surgical History Surgery Date Site/Laterality Comments HEMORROIDECTOMY 03/04/1963 - 03/03/1964 APPENDECTOMY 03/04/2008 - 03/03/2009 COLONOSCOPY LAMINECTOMY 03/04/2008 - 03/03/2009 KNEE ARTHROSCOPY W/ LATERAL RELEASE shoulder repair SPINE SURGERY 2008 Medical History Medical History Date Comments Personal history of other di seases of the respiratory system Personal history of asthma - (Added by TW Conv) Personal history of other di seases of the circulatory system History of hypertension - al lergy triggered (Added by TW Conv) Colon polyp Rectal bleeding Asthma Hypertension Thyroid nodule Thyroid disease Heart disease 2015 Sleep apnea 1970 Mixed conductive and sensori neural hearing loss 1998 Family History Medical History Relation Name Comments Cancer Brother 1 Bert Shawenoch Hypertension Brother 1 Bert Wilder Mental illness Brother 1 Bertadama Hdz Hypertension Brother 2 Jay Wilder Hypertension Brother 3 Jatin Hdz Asthma Daughter Amelia Hzd Alcohol abuse Father Nilton Basuel Arthritis Father [place] Basuel Cancer Father [place] Basuel Depression Father N[place] Basuel Prostate cancer Father [place] Basuel Arthritis Mother Pamfila Basenoch Clotting disorder Mother Pamfilnaomi Hdz Hearing loss Mother Yolanda Hdz Hypertension Mother Yolanda Hdz Stroke Mother Yolanda Hdz Arthritis Other 1 Arthritis - (Ad ded by TW Conv) Stroke Other 2 Stroke Syndrome - (Added by TW Conv) Depression Other 3 Depression - (A dded by TW Conv) Cancer Other 4 Cancer - (Added by TW Conv) Hypertension Other 5 Hypertension - (Added by TW Conv) Anxiety disorder Other 6 Anxiety - ( Added by TW Conv) Physical Disability Other 7 Physical Disability - (Added by TW Conv) Essential Tremor Other 8 Familial (B enign Essential) Tremor - dad had hand tremor (Added by TW Conv) Cancer Sister 1 Cancer Sister 2 Linda Ahumada Anesthesia problems Neg Hx Relation Name Status Comments Brother 1 Bert Hdz Brother 2 Jay Hdz Brother 3 Jatin Hdz Daughter Amelia Hdz Father Nilton Hdz Mother Yolanda Hdz Other 1 Other 2 Other 3 Other 4 Other 5 Other 6 Other 7 Other 8 Sister 1 Sister 2 Linda Ahumada Social History Tobacco Use Types Packs/Day Years Used Date Smoking Tobacco: Never Smokeless Tobacco: Never Comments:never smoked AUDIT-C Answer Date Recorded Q1: How often do you have a drink containing alcohol? Never 03/27/2024 Q2: How many drinks containi ng alcohol do you have on a typical day when you are drinking? Patient does not drink Q3: How often do you have si x or more drinks on one occasion? Never 03/27/2024 PHQ-2 Answer Date Recorded PHQ-2 Total Score (If total score is 3 or more points, staff should administer the PHQ-9) 0 03/18/2024 Personal Safety Answer Date Recorded Have you ever been in or are you currently in a harmful physical or emotional relationship or is someone making you feel afraid or unsafe? Denies 08/28/2023 Sex and Gender Information Value Date Recorded Sex Assigned at Not on file Legal Sex Male 7:51 AM MAINTENANCE SHOP WELDER Gender Identity Male 08/13/2023 8:06 PM CDT Sexual Orientation Straight 08/13/2023 8: 06 PM CDT Obstetrics History Last Filed Vital Signs Vital Sign Reading Time Taken Comments Blood Pressure 112/76 05/19/2024 9:54 AM CDT Pulse 73 05/19/2024 9:54 AM CDT Temperature 36.7 C (98 F) 03/18/2024 2:19 PM MAINTENANCE SHOP WELDER Respiratory Rate 17 03/27/2024 1:43 PM MAINTENANCE SHOP WELDER Oxygen Saturation 97% 05/19/2024 9:54 AM CDT Inhaled Oxygen Concentration - - Weight 67.1 kg (148 lb) 05/19/2024 9:54 AM CDT Height 170.2 cm (5' 7 ) 05/19/2024 9:54 AM CDT Body Mass Index 23.18 05/19/2024 9:54 AM CDT Plan of Treatment Health Maintenance Due Date Last Done Comments Hepatitis B Screening 06/16/1963 Depression Screening 03/18/2025 03/18/2024, 09/26/2023, 09/02/2023 Fall Risk Assessment 03/18/2025 03/18/2024, 09/26/2023, 08/28/2023 Well Visit 65+ 03/18/2025 03/18/2024 Zoster Vaccine (1 of 2) 03/18/2025 Post poned from 06/16/1993 (Insurance / Financial) Influenza Vaccine Completed 12/28/2023 Pneumococcal vaccine 65+ Completed 03/18/2024 DTaP/Tdap/Td Vaccine Discontinued Medical Devices Implanted Type Area Vp Software [employer] Device Identifier Shelf Expiration Date Model / Serial / Lot Lumbar Fusion Spine Lumbar Procedures Procedure Name Priority Date/Time Associated Diagnosis Comments PSA SCREEN Routine 04/09/2024 9:54 AM MAINTENANCE SHOP WELDER Screening for prostate cancer LIPID PANEL Routine 04/09/2024 9:54 AM CST Medicare annual wellness visit, subsequent COMPREHENSIVE METABOLIC PANEL Routine 04/09/2024 9:54 AM CST Medicare annual wellness visit, subsequent CBC WITH AUTO DIFFERENTIAL Routine 04/09/2024 9:54 AM CST Medicare annual wellness visit, subsequent THYROID FUNCTION CASCADE Routine 04/09/2024 9:53 AM MAINTENANCE SHOP WELDER Hypothyroidism, unspecified type from Last 3 Months Results * PSA screen (04/09/2024 9:54 AM MAINTENANCE SHOP WELDER) PSA 1.4 0.0 - 4.0 ng/mL [facility] - 01 Comment: Elli ECLIA methodology. According to the [place] [employer], Serum PSA should decrease and remain at undetectable levels after radical prostatectomy. The AUA defines biochemical recurrence as an initial PSA value 0.2 ng/mL or greater followed by a subsequent confirmatory PSA value 0.2 ng/mL or greater. Values obtained with different assay methods or kits cannot be used interchangeably. Results cannot be interpreted as absolute evidence of the presence or absence of malignant disease. Blood 04/09/2024 9:54 AM MAINTENANCE SHOP WELDER 04/09/2024 Narrative [facility] - 04/10/2024 2:09 PM MAINTENANCE SHOP WELDER Performed at: [address] [place] [id number] Rehabilitation Case Coordinator: Todd Cody PhD, Phone: [phone] us Shikha Uriostegui CORDUROY CUTTING SUPERVISOR LAB BLOOD ORDERABLES Final Res ult [facility] - 01 * (ABNORMAL) CBC with auto differential (04/09/2024 9:54 AM MAINTENANCE SHOP WELDER) WBC 4.9 3.4 - 10.8 x10E3/uL [facility] - 01 RBC 4.49 4.14 - 5.80 x10E6/uL [facility] - 01 Hgb 14.4 13.0 - 17.7 g/dL [facility] - 01 Hct 44.0 37.5 - 51.0 % [facility] - 01 MCV 98(H) 79 - 97 fL [facility] - 01 MCH 32.1 26.6 - 33.0 pg [facility] - 01 MCHC 32.7 31.5 - 35.7 g/dL [facility] - 01 Rdw 12.9 11.6 - 15.4 % [facility] - 01 Platelets 160 150 - 450 x10E3/uL [facility] - 01 Neutrophils pct 68 Not Estab. % [facility] - 01 Lymphs pct 18 Not Estab. % [facility] - 01 Monocytes pct 11 Not Estab. % [facility] - 01 Eosinophils pct 2 Not Estab. % [facility] - 01 Basophil pct 1 Not Estab. % [facility] - 01 Neutrophil abs 3.3 1.4 - 7.0 x10E3/uL [facility] - 01 Lymphs (Absolute) 0.9 0.7 - 3.1 x10E3/uL [facility] - 01 Monocyte abs 0.5 0.1 - 0.9 x10E3/uL [facility] - 01 Eosinophils, abs 0.1 0.0 - 0.4 x10E3/uL [facility] - 01 Basophils, abs 0.1 0.0 - 0.2 x10E3/uL [facility] - 01 Immature Granulocytes 0 Not Estab. % [facility] - 01 Immature Grans (Abs) 0.0 0.0 - 0.1 x10E3/uL [facility] - 01 Blood 04/09/2024 9:54 AM MAINTENANCE SHOP WELDER 04/09/2024 Narrative [facility] - 04/10/2024 7:09 AM MAINTENANCE SHOP WELDER Performed at: [address] [place] [id number] Rehabilitation Case Coordinator: Todd Cody PhD, Phone: [phone] Shikha Uriostegui CORDUROY CUTTING SUPERVISOR LAB BLOOD ORDERABLES Final Res ult Performing Organization Address [facility] de Phone Number [facility] - 01 * Lipid panel (04/09/2024 9:54 AM MAINTENANCE SHOP WELDER) [facility] Cholesterol 150 100 - 199 mg/dL [facility] - 01 Triglycerides 81 0 - 149 mg/dL [facility] - 01 HDL Cholesterol 62 >39 mg/dL [facility] - 01 VLDL 15 5 - 40 mg/dL [facility] - 01 LDL, calculated 73 0 - 99 mg/dL [facility] - 01 Blood 04/09/2024 9:54 AM MAINTENANCE SHOP WELDER 04/09/2024 Narrative [facility] - 04/10/2024 9:09 AM MAINTENANCE SHOP WELDER Performed at: [address] [place] [id number] Rehabilitation Case Coordinator: Todd Cody PhD, Phone: [phone] Shikha Uriostegui CORDUROY CUTTING SUPERVISOR LAB BLOOD ORDERABLES Final Res ult Performing Organization Address [facility] de Phone Number [facility] - 01 * (ABNORMAL) Comprehensive metabolic panel (04/09/2024 9:54 AM MAINTENANCE SHOP WELDER) Glucose 105(H) 70 - 99 mg/dL [facility] - 01 BUN 14 8 - 27 mg/dL [facility] - 01 Creatinine, Serum 1.31(H) 0.76 - 1.27 mg/dL [facility] - 01 eGFR 55(L) >59 mL/min/1.7 3 [facility] - 01 BUN/creat ratio 11 10 - 24 [facility] - 01 Sodium 142 134 - 144 mmol/L [facility] - 01 Potassium, sr 4.1 3.5 - 5.2 mmol/L [facility] - 01 Chloride 98 96 - 106 mmol/L [facility] - 01 CO2 30(H) 20 - 29 mmol/L [facility] - 01 Calcium 9.8 8.6 - 10.2 mg/dL [facility] - 01 Protein, sr 7.6 6.0 - 8.5 g/dL [facility] - 01 Albumin 4.4 3.8 - 4.8 g/dL [facility] - 01 Globulin, Total 3.2 1.5 - 4.5 g/dL [facility] - 01 Bilirubin, Total 1.5(H) 0.0 - 1.2 mg/dL [facility] - 01 Alk phos 96 44 - 121 IU/L [facility] - 01 AST 33 0 - 40 IU/L [facility] - 01 ALT 13 0 - 44 IU/L [facility] - 01 Blood 04/09/2024 9:54 AM MAINTENANCE SHOP WELDER 04/09/2024 Narrative [facility] - 04/10/2024 9:09 AM MAINTENANCE SHOP WELDER Performed at: 01 - [facility] [id number] Rehabilitation Case Coordinator: Todd Cody PhD, Phone: [phone] us Shikha Uriostegui NP LAB BLOOD ORDERABLES Final Res ult [facility] - 01 * Thyroid Function Sherman (04/09/2024 9:53 AM MAINTENANCE SHOP WELDER) TSH 4.260 0.450 - 4.500 uIU/mL [facility] - 01 Comment: No apparent thyroid disorder. Additional testing not indicated. In rare instances, Secondary Hypothyroidism as well as Subclinical Hypothyroidism have been reported in some patients with normal TSH values. Blood 04/09/2024 9:53 AM MAINTENANCE SHOP WELDER 04/09/2024 Narrative [facility] - 04/10/2024 10:36 AM MAINTENANCE SHOP WELDER Performed at: 01 - [facility] [address] [id number] Rehabilitation Case Coordinator: Todd Cody PhD, Phone: [phone] us Shkiha Uriostegui CORDUROY CUTTING SUPERVISOR LAB BLOOD ORDERABLES Final Res ult [facility] - from Last 3 Months Insurance MEDICARE [facility] MEDICARE [facility] Care Teams Driver'S Education Instructor Relationship Specialty Start Date End Date Shikha Uriostegui NP [facility] [address] PCP - General Family Medicine 09/02/23 Lauro Rubin MD [phone] [place] [address] Surgeon Colon and Rectal Surgery 07/23/23
--- OUTSIDE RECORDS SUMMARY | 2024-05-23 17:01 | XMS_ITS | Referral Summary ---
Author Organization [facility] Virtual Care Address [facility] [place] [address] Phone Care Team Providers Care Swiss Machinist Name Role Phone Lauro Rubin MD Unavailable [phone] Shikha Uriostegui GRAIN WAFER MACHINE OPERATOR Primary Care Provider [phone] Encounters Date Type Department Care Team Description 05/22/2024 Telephone [facility] Medical [facility] Cardiology [address] [place] [address] [address] [place] [address] Len Ferraro MD 05/19/2024 10:15 AM CDT Office Visit [facility] Medical Group Cardiology at [address] [place] [address] Len Ferraro MD Cardiac amyloidosis (HCC) (Primary Dx); Longstanding persistent atrial fibrillation (HCC); Primary hypertension; Hypothyroidism, unspecified type; Chronic 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 05/01/2024 Orders Only [facility] Primary Care [address] [place] [address] [place] [address] Shikha Uriostegui NP 05/01/2024 Patient Message [facility] Primary Care [address] [place] [address] [address] [place] [address] Shikha Uriostegui NP Needing a referral for PT and Speech Therapy 04/29/2024 Orders Only [facility] Primary Care [address] [place] [address] [place] [address] Shikha Uriostegui, YAO 04/28/2024 Telephone [facility] Primary Care [address] [place] [address] [place] [phone] Shikha Uriostegui, YAO 03/30/2024 11:15 AM PATHOLOGY SUPERVISOR Ancillary Procedure [facility] Cardiology [address] 8th [place] [address] Atrial fibrillation, unspecified type (HCC) 03/30/2024 Orders Only [facility] Primary Care [address] [place] [address] [place] [phone] Shikha Uriostegui, YAO 03/27/2024 Orders Only [facility] Primary Care [address] [place] [address] [place] [phone] Shikha Uriostegui, YAO 03/27/2024 2:00 PM PATHOLOGY SUPERVISOR Office Visit [facility] Cardiology [address] [facility] [address], [address] [place] [address] Quita Kimble NP Atrial fibrillation, unspecified type (HCC) (Primary Dx) 03/26/2024 Telephone [facility] Cardiology [address] [facility] [address] [place] [id number] Yue Castillo NP 03/18/2024 3:00 PM PATHOLOGY SUPERVISOR Office Visit [facility] Primary Care [address] [place] [address] [place] [phone] Shikha Uriostegui, YAO Medicare annual wellness visit, [...] for prostate cancer from Last 3 Months Allergies Active Allergy Reactions Criticality Noted Date [...] tablet by mouth daily 30 tablet 11 024 Active tafamidis (Vyndamax) 61 mgIndications:Car diac amyloidosis [...] mg total) by mouth daily 180 tablet 1 025 Active modafiniL (PROVIGIL) 100 mg tablet [...] 03/20 Assessment & Plan (03/20/2024 5:53 PM PATHOLOGY SUPERVISOR): CBC, CMP, lipid panel, PSA ordered. Vaccinations: COVID and Flu vaccines UTD. Prevnar 20 given in office. Patient due for Shingrix vaccine. Repeat wellness exam in one year. Right internal carotid artery aneurysm Assessment & Plan (03/20/2024 5:57 PM PATHOLOGY SUPERVISOR): Chronic, stable. Patient following with cardiology and neurology. Imaging last completed 12/2023. 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 Assessment & Plan (01/29/2024 12:15 PM PATHOLOGY SUPERVISOR): Chronic, patient following with cardiology, currently taking tafamidis 61 mg daily. 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 Patient still able to complete the majority of his ADLs without assistance at this time. Patient following with [facility] neurology. Previously taking donepezil, medication discontinued by neurology recently. Assessment & Plan (01/29/2024 12:08 PM PATHOLOGY SUPERVISOR): Chronic,stable. Patient still able to complete the majority of his ADLs without assistance at this time. Patient following with [facility] neurology. Previously taking donepezil, medication discontinued by neurology recently. Assessment & Plan (09/02/2023 2:26 PM CDT): Chronic, previously following with neurologist in [place]. Has initial appointment with [facility] neurology in 11/2023. Patient to continue on donepezil 23 mg nightly and Lexapro 10 mg daily for his mood. Hypothyroidism 09/02/2023 Assessment & Plan (03/20/2024 5:53 PM PATHOLOGY SUPERVISOR): Chronic, controlled. Patient to continue on levothyroxine 25 mcg daily. Follow up in 6 months. Assessment & Plan (01/29/2024 12:09 PM PATHOLOGY SUPERVISOR): Chronic, controlled. Patient to continue on levothyroxine 25 mcg daily. Follow up in 6 months. Assessment & Plan (09/02/2023 2:52 PM CDT): Chronic, patient to continue on levothyroxine 25 mcg daily. Patient to have TSH redrawn. Follow up in 6 months. Atrial fibrillation 08/20/2023 Assessment & Plan (03/20/2024 5:54 PM PATHOLOGY SUPERVISOR): Chronic, stable. Patient following with Dr. Juarez car sales associate and Dr. Salazar general conservation coordinator for follow up. Patient currently taking Eliquis 5 mg BID. Assessment & Plan (01/29/2024 12:10 PM PATHOLOGY SUPERVISOR): Chronic, stable. Patient following with Dr. Juarez car sales associate and Dr. Salazar general conservation coordinator for follow up. Patient currently taking Eliquis 5 mg BID. Assessment & Plan (09/02/2023 2:29 PM CDT): Chronic, stable. Patient following with Dr. Juarez car sales associate, referred to Dr. Salazar general conservation coordinator for follow up. Patient currently taking diltiazem 120 mg daily, metoprolol 50 mg daily, and Eliquis 5 mg BID. Assessment & Plan (08/20/2023 3:28 PM CDT): Currently in sinus rhythm. Concerns regarding buttermaker risk of 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 re: falls. LAAO is [...] 09/27/2009 Assessment & Plan (03/20/2024 5:49 PM PATHOLOGY SUPERVISOR): Chronic, stable. Patient to continue on gabapentin 300 mg nightly and Tylenol PRN for pain. Patient to use walker/rollator with all ambulation. Requires assistance when ambulating for long distances. Patient to restart physical therapy at [facility]. Follow up in 6 months. Assessment & Plan (01/29/2024 12:05 PM PATHOLOGY SUPERVISOR): Chronic, stable. Patient to continue on gabapentin 300 mg nightly and Tylenol PRN for pain. Patient to use walker/rollator with all ambulation. Requires assistance when ambulating for long distances. Follow up in 6 months. Hypertension 09/27/2009 Assessment & Plan (03/20/2024 5:55 PM PATHOLOGY SUPERVISOR): Chronic, controlled with hydralazine 10 mg daily and Lasix 80 mg daily. Patient following with cardiology. Assessment & Plan (01/29/2024 12:08 PM PATHOLOGY SUPERVISOR): Chronic, controlled with hydralazine 10 mg daily and Lasix 80 mg daily. Patient following with cardiology. Assessment & Plan (09/02/2023 2:27 PM CDT): Chronic, controlled with metoprolol XL 50 mg, hydralazine 10 mg daily, and Lasix 40 mg daily. Patient to follow up in 6 months. Bronchial asthma 09/27/2009 Assessment & Plan (03/20/2024 5:54 PM PATHOLOGY SUPERVISOR): Chronic, controlled with albuterol inhaler PRN. Follow up in 6 months. Assessment & Plan (01/29/2024 12:10 PM PATHOLOGY SUPERVISOR): Chronic, controlled with albuterol inhaler PRN. Follow up in 6 months. Assessment & Plan (09/02/2023 2:30 PM CDT): Chronic, controlled with albuterol inhaler PRN. Follow up in 6 months. Cephalalgia 09/27/2009 Lumbago 08/06/2008 Assessment & Plan (03/20/2024 5:50 PM PATHOLOGY SUPERVISOR): Chronic, improved after laminectomy. Patient to continue [...] seated. Patient referred to physical therapy at [facility] for lymphedema treatments. Patient also referred to cardiology for follow up. Lymphedema 09/29/2023 03/20/2024 Immunizations Immunization Administration Dates Next Due Influenza, Trivalent, Adjuva nted, Intramuscular 12/28/2023 Pneumococcal Conjugate Pcv20 03/18/2024, 01/03/2024(Deferred: Patient Refused) Social History Tobacco Use Types Packs/Day Years [...] on file Legal Sex Male 7:51 AM PATHOLOGY SUPERVISOR Gender Identity Male 08/13/2023 8:06 PM CDT Sexual Orientation Straight 08/13/2023 8: 06 PM CDT Last Filed Vital Signs Vital Sign Reading Time Taken Comments Blood Pressure 112/76 05/19/2024 9:54 AM CDT Pulse 73 05/19/2024 9:54 AM CDT Temperature 36.7 C (98 F) 03/18/2024 2:19 PM PATHOLOGY SUPERVISOR Respiratory Rate 17 03/27/2024 1:43 PM PATHOLOGY SUPERVISOR Oxygen Saturation 97% 05/19/2024 9:54 AM CDT Inhaled Oxygen Concentration - - Weight 67.1 kg (148 lb) 05/19/2024 9:54 AM CDT Height 170.2 cm (5' 7 ) 05/19/2024 9:54 AM CDT Body Mass Index 23.18 05/19/2024 9:54 AM CDT Plan of Treatment Not on file Medical Devices Implanted Type Area Senior Dentist Device Identifier Shelf Expiration Date Model / Serial / Lot Lumbar Fusion Spine Lumbar Procedures Procedure Name Priority Date/Time Associated Diagnosis Comments PSA SCREEN Routine 04/09/2024 9:54 AM [facility] Screening for prostate cancer LIPID PANEL Routine 04/09/2024 9:54 AM CST Medicare annual wellness visit, subsequent COMPREHENSIVE METABOLIC PANEL Routine 04/09/2024 9:54 AM CST Medicare annual wellness visit, subsequent CBC WITH AUTO DIFFERENTIAL Routine 04/09/2024 9:54 AM CST Medicare annual wellness visit, subsequent THYROID FUNCTION CASCADE Routine 04/09/2024 9:53 AM PATHOLOGY SUPERVISOR Hypothyroidism, unspecified type from Last 3 Months Results * PSA screen (04/09/2024 9:54 AM [facility]) PSA 1.4 0.0 - 4.0 ng/mL [facility] - 01 Comment: Elli ECLIA methodology. According to the [employer] [place] [employer], Serum PSA should decrease and [...] of malignant disease. Blood 04/09/2024 9:54 AM PATHOLOGY SUPERVISOR 04/09/2024 Narrative [facility] - 04/10/2024 2:09 PM PATHOLOGY SUPERVISOR Performed at: [address] [place] [id number] Shuttlecock Assembler: Todd Cody PhD, Phone: [phone] us Shikha Uriostegui GRAIN WAFER MACHINE OPERATOR LAB BLOOD ORDERABLES Final Res ult [facility] - 01 * (ABNORMAL) CBC with auto differential (04/09/2024 9:54 AM PATHOLOGY SUPERVISOR) WBC 4.9 3.4 - 10.8 x10E3/uL [facility] [...] [facility] - 01 Blood 04/09/2024 9:54 AM PATHOLOGY SUPERVISOR 04/09/2024 Narrative [facility] - 04/10/2024 7:09 AM PATHOLOGY SUPERVISOR Performed at: [address] [id number] Shuttlecock Assembler: Todd Cody PhD, Phone: [phone] Shikha Uriostegui GRAIN WAFER MACHINE OPERATOR LAB BLOOD ORDERABLES Final Res ult Performing Organization Address [facility] Co de Phone Number [facility] - * Lipid panel (04/09/2024 9:54 AM PATHOLOGY SUPERVISOR) Cholesterol 150 100 - 199 mg/dL [facility] - 01 Triglycerides 81 0 - 149 mg/dL [facility] - 01 HDL Cholesterol 62 >39 mg/dL [facility] - 01 VLDL 15 5 - 40 mg/dL [facility] - 01 LDL, calculated 73 0 - 99 mg/dL [facility] - 01 Blood 04/09/2024 9:54 AM PATHOLOGY SUPERVISOR 04/09/2024 Narrative [facility] - 04/10/2024 9:09 AM PATHOLOGY SUPERVISOR Performed at: [address] [id number] Shuttlecock Assembler: Todd Cody PhD, Phone: [phone] Shikha Uriostegui GRAIN WAFER MACHINE OPERATOR LAB BLOOD ORDERABLES Final Res ult Performing Organization Address [facility]/ZIP Co de Phone Number [facility] - * (ABNORMAL) Comprehensive metabolic panel (04/09/2024 9:54 AM PATHOLOGY SUPERVISOR) Glucose 105(H) 70 - 99 mg/dL [facility] [...] [facility] - 01 Blood 04/09/2024 9:54 AM PATHOLOGY SUPERVISOR 04/09/2024 Narrative [facility] - 04/10/2024 9:09 AM PATHOLOGY SUPERVISOR Performed at: [address] [place] [id number] Shuttlecock Assembler: Todd Cody PhD, Phone: [phone] us Shikha Uriostegui GRAIN WAFER MACHINE OPERATOR LAB BLOOD ORDERABLES Final Res ult [facility] - 01 * Thyroid Function [place] (04/09/2024 9:53 AM PATHOLOGY SUPERVISOR) TSH 4.260 0.450 - 4.500 uIU/mL [facility] - 01 Comment: No apparent thyroid disorder. Additional testing not indicated. In rare instances, Secondary Hypothyroidism as well as Subclinical Hypothyroidism have been reported in some patients with normal TSH values. Blood 04/09/2024 9:53 AM PATHOLOGY SUPERVISOR 04/09/2024 Narrative [facility] - 04/10/2024 10:36 AM PATHOLOGY SUPERVISOR Performed at: [address] [place], [place] [address], [place], [place] [id number] Shuttlecock Assembler: Todd Cody PhD, Phone: [phone] Shikha Uriostegui NP LAB BLOOD ORDERABLES Final Res ult [facility] - 01 from Last 3 Months Insurance MEDICARE [facility] Address: [address] [place] [address] MEDICARE [facility] [employer] Care Teams Swiss Machinist Relationship Specialty Start Date End Date Shikha Uriostegui NP [address] [place] [address] PCP - General Family Medicine 09/02/23 Lauro Rubin MD [phone] [place] [address] Surgeon Colon and Rectal Surgery 07/23/23
--- OUTSIDE RECORDS SUMMARY | 2024-05-23 17:01 | XMS_ITS | Encounter Summary ---
Author Organization [facility] Healthcare Address [address] [place] [address] Care Team Providers Care Storekeeper Engineering Name Role Phone Lauro Rubin MD Unavailable [phone] Shikha Uriostegui NP Primary Care Provider [phone] Encounter Details Date Type Department Care Team (Late st Contact Info) Description 05/22/2024 Telephone [facility] Medical Group Cardiology [address] [place] [address] Len Ferraro MD [address] [address] Social History Tobacco Use Types Packs/Day Years [...] on file Legal Sex Male 7:51 AM ARTERIAL EMBALMER Gender Identity Male 08/13/2023 8:06 PM CDT Sexual Orientation Straight 08/13/2023 8: 06 PM CDT documented as of this encounter Miscellaneous Notes * Telephone Encounter - Shannon Knutson RN - 05/22/2024 1:36 PM CDT Sent pt blogfoster chart message with response and faxed to [facility] as requested as well. * Telephone Encounter - Shannon Knutson RN - 05/22/2024 11:35 AM CDT Images from the original note were not included. Hilton S Basuel Art to P [facility] (supporting Len Ferraro MD) 05/22/24 9:29 AM Is it 0k to stop taking Eliquis 3 days prior to molar extraction scheduled on June 04. Please advice. Thank you. Rafael (spouse) Hilton S Basuel Art [facility] P [facility] (supporting Len Ferraro MD) 05/22/24 9:38 AM The nursing staff here at the [facility] wants a written order for all Art's medication changes. Please fax it to [phone]. Thank you, Rafael Will forward to [facility]. Please advise, thank you! documented in this encounter Plan of Treatment Not on file documented as of this encounter Visit Diagnoses Not on filedocumented in this encounter Care Teams Storekeeper Engineering Relationship Specialty Start Date End Date Shikha Uriostegui NP [facility] [address] [address] PCP - General Family Medicine 09/02/23 Lauro Rubin MD [phone] [place] [address] Surgeon Colon and Rectal Surgery 07/23/23 documented as of this encounter
[2024-05-23 17:06] LABS: INR 1.9
[2024-05-23 17:07] LABS: Partial Thromboplastin Time 52.3 Seconds (22.3-36.8)
[2024-05-23 17:18] LABS: Alanine Aminotransferase 30 U/L (6-50); Albumin Level 4.4 g/dL (3.5-5.1); Alkaline Phosphatase 100 U/L (38-126); Anion Gap 10 mmol/L (4-12); Aspartate Amino Transferase 70 U/L (17-59); Bilirubin,Total 3.2 mg/dL (0.2-1.3); Blood Urea Nitrogen 35 mg/dL (9-20); Calcium 9.2 mg/dL (8.4-10.2); Carbon Dioxide 36 mmol/L (22-30); Chloride 92 mmol/L (98-107); Estimated CRCL calculation 36 ml/min; Estimated Glomerular Filt Rate 55; Glucose 133 mg/dL (65-110); Lipase 163 U/L (23-300); Magnesium 2.1 mg/dL (1.6-2.3); Potassium 3.6 mmol/L (3.4-5.0); Sodium 138 mmol/L (137-145)
--- NOTE | 2024-05-23 17:21 | ECG_ITS ---
Test Date: 2024-05-23 17:35:00 Measurements Intervals [place] Rate: 89 P: 0 CO: 0 QRS: 269 QRSD: 114 T: 71 QT: 408 QTc: 498 Interpretive Statements ATRIAL FIBRILLATION WITH ABERRANT CONDUCTION OR VENTRICULAR PREMATURE COMPLEXES POSSIBLE RIGHT VENTRICULAR HYPERTROPHY [SOME/ALL OF: PROMINENT R IN V1, LATE TRANSITION, RAD, DRE, SSS] POSSIBLE ANTERIOR MYOCARDIAL INFARCTION , OF INDETERMINATE AGE [30 ms Q WAVE IN V3/V4, OR R < 0.2 mV IN V4] Compared to ECG 05/23/2024 15:59:32 RVR NO LONGER PRESENT Electronically Signed On 05-23-2024 17:44:49 CDT by Mee Salazar M.D.
[2024-05-23 17:28] LABS: Troponin I 0.093 ng/mL (0.000-0.034)
[2024-05-23] MEDS: SODIUM CHLORIDE 0.9% IV 1,000 ML 999 ML IV CONT (17:47)
[2024-05-23] MEDS: ASPIRIN 81 MG CHEWABLE TABLET 324 MG PO (18:24)
--- NOTE | 2024-05-23 19:26 | ECG_ITS ---
Test Date: 2024-05-23 19:38:00 Measurements Intervals [place] Rate: 91 P: 0 [place]: 0 QRS: -76 QRSD: 115 T: 64 QT: 435 QTc: 537 Interpretive Statements ATRIAL FIBRILLATION LEFT AXIS DEVIATION [QRS AXIS < -30] POSSIBLE ANTERIOR MYOCARDIAL INFARCTION , PROBABLY OLD [30 ms Q WAVE IN V3/V4, OR R < 0.2 mV IN V4] Compared to ECG 05/23/2024 17:35:00 Ventricular premature complex(es) no longer present Electronically Signed On 05-24-2024 13:20:44 CDT by Mee Salazar M.D.
[2024-05-23] MEDS: LACTATED RINGERS 1,000 ML 100 ML IV CONT (19:34)
[2024-05-23 19:40] LABS: Troponin I 0.127 ng/mL (0.000-0.034)
--- NOTE | 2024-05-23 21:00 | PC.NURSE ---
This patient, Hilton Hdz, was admitted to IMU Room 212-01. Patient/family oriented to hospital policies and general routines including ID bracelet, bed and alarms, visiting hours, pain management, procedures, bathroom and other care routines, personal items, smoking policy, room service/diet, and visiting hours. Information on how to activate the Rapid Response Team has been discussed. Patient/Family are encouraged to report perceived risks to care and to ask questions if they do not understand what they are told or what they should do.
[2024-05-23 23:37] LABS: Troponin I 0.137 ng/mL (0.000-0.034)
[2024-05-24] VITALS (22 sets, daily range): BP systolic 103–130; BP diastolic 53–102; PULSE 93–151; RESP 14–20; TEMP 36–36.9; O2SAT 94–98
[2024-05-24] MEDS: LACTATED RINGERS 1,000 ML 100 ML IV CONT (05:17)
--- NOTE | 2024-05-24 09:32 | P.PNIM_ITS ---
Progress Note: A&P Assessment and Plan (1) Atrial fibrillation with RVR: Code(s): I48.91 - Unspecified atrial fibrillation Status: Acute Assessment and Plan: * IV diltiazem given x 1 05/23 * IV metoprolol given 5 mg x 1 05/24 for HR 110-120 * Await cardiology consultation as he also has a hx of bradycardia with rate- control meds but needs HR control due to NSTEMI (2) Non-ST elevation MN (NSTEMI): Code(s): I21.4 - Non-ST elevation (NSTEMI) myocardial infarction Status: Acute Assessment and Plan: * 05/23 TNI 0.093, 0.127, 0.137 * Likely type 2 (demand) infarct related to AF w/ RVR * HR control, cardiology evaluation (3) CHF (congestive heart failure): Code(s): I50.9 - Heart failure, unspecified Status: Acute Assessment and Plan: * 12/2023 echo with EF 60-65%, NL RV function, Pulm artery pressure 56 mm Hg * Clinically euvolemic * Hold furosemide at present (4) Hypertension: Code(s): I10 - Essential (primary) hypertension Status: Acute Assessment and Plan: * 05/24 123/98, monitor with improved HR (5) Chronic 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: Code(s): Z79.01 - MCC (current) use of anticoagulants Status: Acute Assessment and Plan: * Continue Eliquis (6) Thrombocytopenia: Code(s): D69.6 - Thrombocytopenia, unspecified Status: Acute Assessment and Plan: * Chronically borderline but 120K is a little lower than usual * F/u lab ordered (7) Hypothyroidism: Code(s): E03.9 - Hypothyroidism, unspecified Status: Acute Assessment and Plan: * TSH 3.3 * Continue levothyroxine (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 Status: Acute Assessment and Plan: * Continue Vyndamax (9) Dementia: Code(s): F03.90 - Unspecified dementia, unspecified severity, without behavioral disturbance, psychotic disturbance, mood disturbance, and anxiety Status: Acute Assessment and Plan: * Lewey body dementia by hx (10) Sleep apnea: Code(s): G47.30 - Sleep apnea, unspecified Status: Acute Assessment and Plan: * Documented in hx (11) Aortic atherosclerosis: Code(s): I70.0 - Atherosclerosis of aorta Status: Acute Assessment and Plan: * Seen on CXR (12) Hyperglycemia: Code(s): R73.9 - Hyperglycemia, unspecified Status: Acute Assessment and Plan: * Random glucose 133 05/23, check A1c Subjective Date/time seen: 05/24/24 09:32 Interval history: Admitted 05/23 with palpitations, fatigue, sob. Denied chest pain. Denied gi/gu issues. Denied swelling. No orthopnea. Denied blood in stool or urine. Review of Systems Review of Systems: All systems reviewed & are unremarkable except as noted in HPI and below Exam Narrative: HEENT: PERRL, sclerae nonicteric, pharyngeal mucosa pink and intact NECK: No JVD, adenopathy, or thyromegaly CHEST: Clear to auscultation. Normal effort. HEART: NL S1/S2, irregular, tachycardic, no murmur ABDOMEN: BS+, soft, nontender, no mass, no bruits EXTREMITIES: No cyanosis, edema, or clubbing NEUROLOGIC: CN intact and symmetric to inspection. MUSCULOSKELETAL: Tone and strength symmetric. PSYCH: Alert. Cooperative. Objective Data Vital Signs Vital Signs: Vital Signs - 24 hr 05/23/24 15:49 05/23/24 17:00 05/23/24 17:00 Temperature 99.2 F Pulse Rate 149 H 93 Respiratory Rate 14 20 Blood Pressure 129/94 H 111/91 H Pulse Oximetry 96 98 98 Oxygen Delivery Room Air 05/23/24 17:34 05/23/24 17:35 05/23/24 17:41 Temperature Pulse Rate 109 H 104 H 91 Respiratory Rate 22 H 23 H 22 H Blood Pressure 89/60 L 89/64 L Pulse Oximetry 90 91 95 Oxygen Delivery 05/23/24 17:45 05/23/24 17:50 05/23/24 18:00 Temperature Pulse Rate 92 71 91 Respiratory Rate 20 19 22 H Blood Pressure 86/67 L Pulse Oximetry 90 91 95 Oxygen Delivery 05/23/24 18:01 05/23/24 18:02 05/23/24 18:11 Temperature Pulse Rate 80 80 87 Respiratory Rate 18 14 21 H Blood Pressure 83/61 L 98/58 L Pulse Oximetry 94 92 98 Oxygen Delivery 05/23/24 18:15 05/23/24 18:22 05/23/24 18:30 Temperature Pulse Rate 86 91 78 Respiratory Rate 23 H 12 16 Blood Pressure 94/64 L Pulse Oximetry 89 L 97 98 Oxygen Delivery 05/23/24 18:31 05/23/24 18:32 05/23/24 18:41 Temperature Pulse Rate 93 85 Respiratory Rate 24 H 43 H 25 H Blood Pressure 93/67 L 98/73 L Pulse Oximetry 95 96 95 Oxygen Delivery 05/23/24 18:45 05/23/24 18:51 05/23/24 19:00 Temperature Pulse Rate 108 H Respiratory Rate 20 21 H 20 Blood Pressure 121/92 H Pulse Oximetry 96 95 91 Oxygen Delivery 05/23/24 19:01 05/23/24 19:11 05/23/24 19:13 Temperature Pulse Rate 89 97 110 H Respiratory Rate 21 H 21 H 22 H Blood Pressure 109/89 97/52 L Pulse Oximetry 92 97 95 Oxygen Delivery 05/23/24 19:15 05/23/24 19:20 05/23/24 19:30 Temperature Pulse Rate 108 H 89 88 Respiratory Rate 22 H 20 14 Blood Pressure 113/102 H Pulse Oximetry 98 95 93 Oxygen Delivery 05/23/24 19:31 05/23/24 19:45 05/23/24 20:27 Temperature Pulse Rate 109 H 94 Respiratory Rate 27 H 25 H Blood Pressure 102/64 93/67 L Pulse Oximetry 92 95 95 Oxygen Delivery 05/23/24 20:34 05/23/24 21:24 05/23/24 22:00 Temperature Pulse Rate 89 120 H 105 H Respiratory Rate 20 20 Blood Pressure 92/65 L Pulse Oximetry 93 98 Oxygen Delivery 05/23/24 23:58 05/24/24 00:00 05/24/24 02:00 Temperature 98 F Pulse Rate 113 H 95 98 Respiratory Rate 20 Blood Pressure 98/72 L Pulse Oximetry 98 Oxygen Delivery 05/24/24 04:00 05/24/24 04:00 05/24/24 06:00 Temperature 98 F Pulse Rate 109 H 114 H 109 H Respiratory Rate 16 Blood Pressure 105/66 Pulse Oximetry 98 Oxygen Delivery 05/24/24 07:40 Temperature 97.6 F Pulse Rate 110 H Respiratory Rate 14 Blood Pressure 123/98 H Pulse Oximetry 96 Oxygen Delivery Intake/Output Intake/Output: Intake & Output 05/21/24 05/22/24 05/23/24 05/24/24 23:59 23:59 23:59 23:59 Intake Total 1000 991.7 Output Total 400 Balance 1000 591.7 Meds/Results Medications: Active Medications Generic Name Dose Route Start Last Admin Trade Name Freq PRN Reason Stop Dose Admin Acetaminophen 650 mg 05/23/24 18:33 Acetaminophen 325 Mg Tablet PO Q4H PRN Mild Pain (1-3) or Fever Albuterol 1 puff 05/24/24 09:23 Albuterol Sulfate (*Sp) Aerosol 1 Puff INHALATION Q6H PRN Wheezing Apixaban 5 mg 05/24/24 17:00 Apixaban 5 Mg Tablet PO BID NAN Fluticasone/Umeclidinium/Vilanterol 1 puff 05/25/24 09:00 Fluticasone/Umeclidin/Vilanter 100-62.5-25 Mcg Ellipta INHALATION DAILY [facility] Lactated Ringer's 1,000 mls @ 100 mls/hr 05/23/24 18:35 05/24/24 05:17 Lr - Lactated Ringers Iv IV CONT 100 mls/hr .Q10H NAN Administration Levothyroxine Sodium 25 mcg 05/25/24 09:00 Levothyroxine Sodium 25 Mcg Tablet PO DAILY NAN Melatonin 5 mg 05/24/24 09:23 Melatonin 5 Mg Tablet PO HS PRN Restless Leg(S) Metoprolol Tartrate 5 mg 05/24/24 09:26 Metoprolol Tartrate Inj 5 Mg/5 Ml Vial IV PUSH 05/24/24 09:27 ONCE ONE Multivitamins Therapeutic 1 tablet 05/24/24 21:00 Multivitamins Therapeutic Tab (*Bkc) PO HS [facility] Non-Formulary Medication 61 mg 05/25/24 09:00 Tafamidis [Vyndamax] PO 06/24/24 08:59 DAILY [facility] Ondansetron HCl 4 mg 05/23/24 18:33 Ondansetron Inj 4 Mg/2 Ml Vial IV PUSH Q4H PRN Nausea Simvastatin 10 mg 05/24/24 18:00 Simvastatin 10 Mg Tablet PO QPM [facility] Radiology Results: ITS Impressions Chest X-Ray 05/23/24 17:21 IMPRESSION: Cardiomegaly, aortic atherosclerosis Labs Labs: Laboratory Results - last 24 hr 05/23/24 05/23/24 05/23/24 16:21 16:48 16:50 WBC 7.6 RBC 4.72 Hgb 15.4 Hct 47.5 MCV 100.6 H MCH 32.6 MCHC 32.4 RDW 15.9 H Plt Count 120 L MPV 11.7 H Immature Gran % (Auto) 0.4 Neut % (Auto) 84.9 H Lymph % (Auto) 5.6 L [place] % (Auto) 8.7 H Eos % (Auto) 0.1 Baso % (Auto) 0.3 Lymph # (Auto) 0.42 L [place] # (Auto) 0.7 H Eos # (Auto) 0.0 Baso # (Auto) 0.0 Abs Immat Gran (auto) 0.03 Absolute Neuts (auto) 6.4 Absolute Nucleated RBC 0.000 Nucleated RBC % 0.0 % Immature Plt Fraction 6.0 PT 22.0 H INR 1.9 APTT 52.3 H Sodium 138 Potassium 3.6 Chloride 92 L Carbon Dioxide 36 H Anion Gap 10 BUN 35 H D Creatinine 1.26 Estim Creat Clear Calc 36 Estimated GFR 55 L Glucose 133 H Calcium 9.2 Magnesium 2.1 Total Bilirubin 3.2 H AST 70 H ALT 30 Alkaline Phosphatase 100 Troponin I 0.093 H* Total Protein 8.0 Albumin 4.4 Lipase 163 TSH 3.330 Urine Color Yellow Urine Appearance Clear Urine pH 7.0 Ur Specific [place] 1.009 Urine Protein Negative Urine Glucose (UA) Negative Urine Ketones Negative Ur Blood (Man) Negative Urine Nitrate Negative Urine Bilirubin Negative Urine Urobilinogen 0.2 Leukocyte Esterase Rfl Negative Influenza A (RT-PCR) Negative Influenza B (RT-PCR) Negative RSV (RT-PCR) Negative SARS-CoV-2 RNA (RT-PCR) Negative 05/23/24 05/23/24 19:12 22:21 WBC RBC Hgb Hct MCV MCH MCHC RDW Plt Count MPV Immature Gran % (Auto) Neut % (Auto) Lymph % (Auto) [place] % (Auto) Eos % (Auto) Baso % (Auto) Lymph # (Auto) [place] # (Auto) Eos # (Auto) Baso # (Auto) Abs Immat Gran (auto) Absolute Neuts (auto) Absolute Nucleated RBC Nucleated RBC % % Immature Plt Fraction PT INR APTT Sodium Potassium Chloride Carbon Dioxide Anion Gap BUN Creatinine Estim Creat Clear Calc Estimated GFR Glucose Calcium Magnesium Total Bilirubin AST ALT Alkaline Phosphatase Troponin I 0.127 H* D 0.137 H* Total Protein Albumin Lipase TSH Urine Color Urine Appearance Urine pH Ur Specific [place] Urine Protein Urine Glucose (UA) Urine Ketones Ur Blood (Man) Urine Nitrate Urine Bilirubin Urine Urobilinogen Leukocyte Esterase Rfl Influenza A (RT-PCR) Influenza B (RT-PCR) RSV (RT-PCR) SARS-CoV-2 RNA (RT-PCR)
[2024-05-24] MEDS: METOPROLOL TARTRATE INJ 5 MG/5 ML VIAL IV PUSH ×3 (10:53→20:53)
[2024-05-24] MEDS: ONDANSETRON INJ 4 MG/2 ML VIAL IV PUSH (11:27)
--- NOTE | 2024-05-24 12:11 | P.HP_ITS ---
H&P: HPI History of Present Illness Date/Time: 05/24/24 Chief Complaint: Palpitations Narrative: 78-year-old male with atrial fibrillation, hypertension, hyperlipidemia, and Lewy body dementia presents the hospital with palpitations. Patient also complaining of dental pain. He has been on antibiotics for it and has a planned dental appointment on 06/04/2024. In December patient was admitted to the hospital for bradycardia and was taken off metoprolol and diltiazem, he is still on Eliquis for AFib. Patient also complains of nausea with vomiting yesterday. HPI scattered from and patient. In the ED patient is found to have a INR 1.9, BUN of 35, total bili of 3.2 AST of 70, troponin of 0.127, UA is negative, influenza A/B RSV and COVID negative. 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 Code status: Full code. Years smoked: 2 Smoking status: Never smoker Tobacco type: cigarettes Second hand tobacco smoke exposure: Yes Alcohol intake: never Substance use: never Substance use type: does not use Do You Feel Safe in your Home?: Yes Lack of Transportation: YES Lack of Food: Sometimes True Current Housing: I Have Housing Concerned About Future Housing: No Difficulty Paying Gas/Electric Bills: No Difficulty Paying for Meds: No Currently Unemployed: No Education: Bachelor's Degree Difficulty w/ Childcare or Family Care: No Living arrangements: assisted living Additional living arrangements comments: [facility] with Spiritual care concerns: No Meds Home Medications and Allergies Home Medications ?Medication ?Instructions ?Recorded ?Confirmed ?Type albuterol sulfate 90 mcg/actuation 1 inh inhalation Q6H PRN Wheezing 12/15/23 05/23/24 History aerosol inhaler apixaban 5 mg tablet (Eliquis) 5 mg PO BID 12/15/23 05/23/24 History cetirizine 10 mg tablet 10 mg PO DAILY 12/15/23 05/23/24 History fluticasone fur. 100 mcg-umeclid 1 inh inhalation DAILY 12/15/23 05/23/24 History 62.5 mcg-vilant 25 mcg inhalat.powder (Trelegy Ellipta) furosemide 80 mg tablet 80 mg PO DAILY 12/15/23 05/23/24 History gabapentin 300 mg capsule 300 mg PO QAM 12/15/23 05/23/24 History levothyroxine 25 mcg tablet 25 mcg PO DAILY 12/15/23 05/23/24 History melatonin 3 mg tablet 5 mg PO HS PRN Restless Leg(S) 12/15/23 05/23/24 History modafinil 200 mg tablet 100 mg PO QAM 12/15/23 05/23/24 History montelukast 10 mg tablet 10 mg PO HS 12/15/23 05/23/24 History multivitamin 1 tablet PO HS 12/15/23 05/23/24 History omega-3 fatty acids 1,000 mg 1,500 mg PO QNOON 12/15/23 05/23/24 History capsule simvastatin 20 mg tablet 10 mg PO QPM 12/15/23 05/23/24 History adwfnca-lzu-vtq M0-L5-wgtholxa 250 2 tablet PO DAILY 05/23/24 05/23/24 History mg-40 mg-5 mg-125 unit tablet potassium gluconate 595 mg (99 mg) 595 mg PO DAILY 05/23/24 05/23/24 History tablet tafamidis 61 mg capsule (Vyndamax) 61 mg PO DAILY 05/23/24 05/23/24 History clindamycin HCl 300 mg capsule 300 mg PO Q12H infection 05/24/24 05/24/24 History Allergies Allergy/AdvReac Type Severity Reaction Status Date / Time No Known Allergies Allergy Verified 12/24/23 16:36 Vital Signs Vital Signs - 24 hr 05/23/24 15:49 05/23/24 17:00 05/23/24 17:00 Temperature 99.2 F Pulse Rate 149 H 93 Respiratory Rate 14 20 Blood Pressure 129/94 H 111/91 H Pulse Oximetry 96 98 98 Oxygen Delivery Room Air 05/23/24 17:34 05/23/24 17:35 05/23/24 17:41 Temperature Pulse Rate 109 H 104 H 91 Respiratory Rate 22 H 23 H 22 H Blood Pressure 89/60 L 89/64 L Pulse Oximetry 90 91 95 Oxygen Delivery 05/23/24 17:45 05/23/24 17:50 05/23/24 18:00 Temperature Pulse Rate 92 71 91 Respiratory Rate 20 19 22 H Blood Pressure 86/67 L Pulse Oximetry 90 91 95 Oxygen Delivery 05/23/24 18:01 05/23/24 18:02 05/23/24 18:11 Temperature Pulse Rate 80 80 87 Respiratory Rate 18 14 21 H Blood Pressure 83/61 L 98/58 L Pulse Oximetry 94 92 98 Oxygen Delivery 05/23/24 18:15 05/23/24 18:22 05/23/24 18:30 Temperature Pulse Rate 86 91 78 Respiratory Rate 23 H 12 16 Blood Pressure 94/64 L Pulse Oximetry 89 L 97 98 Oxygen Delivery 05/23/24 18:31 05/23/24 18:32 05/23/24 18:41 Temperature Pulse Rate 93 85 Respiratory Rate 24 H 43 H 25 H Blood Pressure 93/67 L 98/73 L Pulse Oximetry 95 96 95 Oxygen Delivery 05/23/24 18:45 05/23/24 18:51 05/23/24 19:00 Temperature Pulse Rate 108 H Respiratory Rate 20 21 H 20 Blood Pressure 121/92 H Pulse Oximetry 96 95 91 Oxygen Delivery 05/23/24 19:01 05/23/24 19:11 05/23/24 19:13 Temperature Pulse Rate 89 97 110 H Respiratory Rate 21 H 21 H 22 H Blood Pressure 109/89 97/52 L Pulse Oximetry 92 97 95 Oxygen Delivery 05/23/24 19:15 05/23/24 19:20 05/23/24 19:30 Temperature Pulse Rate 108 H 89 88 Respiratory Rate 22 H 20 14 Blood Pressure 113/102 H Pulse Oximetry 98 95 93 Oxygen Delivery 05/23/24 19:31 05/23/24 19:45 03/22/25 20:27 Temperature Pulse Rate 109 H 94 Respiratory Rate 27 H 25 H Blood Pressure 102/64 93/67 L Pulse Oximetry 92 95 95 Oxygen Delivery 05/23/24 20:34 05/23/24 21:24 05/23/24 22:00 Temperature Pulse Rate 89 120 H 105 H Respiratory Rate 20 20 Blood Pressure 92/65 L Pulse Oximetry 93 98 Oxygen Delivery 05/23/24 23:58 05/24/24 00:00 05/24/24 02:00 Temperature 98 F Pulse Rate 113 H 95 98 Respiratory Rate 20 Blood Pressure 98/72 L Pulse Oximetry 98 Oxygen Delivery 05/24/24 04:00 05/24/24 04:00 05/24/24 06:00 Temperature 98 F Pulse Rate 109 H 114 H 109 H Respiratory Rate 16 Blood Pressure 105/66 Pulse Oximetry 98 Oxygen Delivery 05/24/24 07:40 05/24/24 10:53 05/24/24 11:36 Temperature 97.6 F 96.8 F L Pulse Rate 110 H 147 H 115 H Respiratory Rate 14 20 Blood Pressure 123/98 H 103/75 Pulse Oximetry 96 98 Oxygen Delivery Exam Narrative: General: well appearing, appears stated age. HEENT: normocephalic, atraumatic. Mucous membranes moist. EOMI, PERRLA, bilateral sclera anicteric, no conjunctival injection. Neck supple without JVD, lymphadenopathy, or bruit. Respiratory: clear to ascultation bilaterally. No rales/rhonic/wheezes. Cardiovascular: Regular rate and rhythm, normal S1-S2 upon ascultation. No murm urs, rubs, or clicks. PMI is nondisplaced, capillary refill less than 3 second. Abdomen: Soft, round, no pulsatile masses, nondistended and nontender. No rebound, no guarding. No CVA tenderness, no hepatosplenomegaly. Bowel sounds present to all four quadrants. No high pitch or tinkling sounds, resonant to percussion. Extremities: No cyanosis, clubbing, or edema present. Pulses are palpable 2/2. Active ROM to all four extremities. Neuro: Alert and orientated x 2. PERRLA. Cranial nerves 2-12 intact without focal deficit. Skin: Warm, dry, and intact, without rash, erythema, or lesion. Psych: pleasant, cooperative, normal speech, normal affect, no hallucinations, no dysarthia H&P: Results Labs Labs: Short CBC 05/23/24 Range/Units 16:48 WBC 7.6 (4.5-10.0) K/mm3 Hgb 15.4 (14.0-18.0) g/dL Hct 47.5 (42.0-52.0) % Plt Count 120 L (150-375) k/mm3 BMP 05/23/24 16:48 Sodium 138 Potassium 3.6 Chloride 92 L Carbon Dioxide 36 H BUN 35 H D Creatinine 1.26 Glucose 133 H Calcium 9.2 Cardiac Enzymes 05/23/24 05/23/24 05/23/24 Range/Units 16:48 19:12 22:21 Troponin I 0.093 H* 0.127 H* D 0.137 H* (0.000-0.034) ng/mL Liver Function 05/23/24 Range/Units 16:48 Total Bilirubin 3.2 H (0.2-1.3) mg/dL AST 70 H (17-59) U/L ALT 30 (6-50) U/L Alkaline Phosphatase 100 (38-126) U/L Albumin 4.4 (3.5-5.1) g/dL Urine 05/23/24 Range/Units 16:50 Urine Color Yellow (Yellow) Urine Appearance Clear (Clear) Urine pH 7.0 (5.0-9.0) Ur Specific [place] 1.009 (1.001-1.035) Urine Protein Negative (Negative) mg/dL Urine Glucose (UA) Negative (Negative) mg/dL Assessment and Plan Assessment and plan (1) Atrial fibrillation: Code(s): I48.91 - Unspecified atrial fibrillation Status: Acute Assessment and Plan: Cardiology consulted Diltiazem given in ED now rate controlled Telemetry monitoring prefers metoprolol, metoprolol x1 for her rate of 140 (2) Non-ST elevation OK (NSTEMI): Code(s): I21.4 - Non-ST elevation (NSTEMI) myocardial infarction Status: Acute Assessment and Plan: Cardiology consulted Trend troponin EKG (3) Dental caries: Code(s): K02.9 - Dental caries, unspecified Status: Acute Assessment and Plan: Continue clindamycin Quality VTE Prophylaxis VTE prophylaxis: mechanical ordered Hospitalist MIPS Advance Care Plan I have confirmed that the patient's Advanced Care Plan is present, code status is documented, or surrogate decision maker is listed in patient medical record.: Yes
--- NOTE | 2024-05-24 12:35 | P.CONCA_ITS ---
Assessment and Plan Assessment and plan (1) Atrial fibrillation with RVR: Code(s): I48.91 - Unspecified atrial fibrillation Status: Acute Plan 1. Paroxysmal atrial fibrillation with RVR 2. 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 Hypertension 7. Hyperlipidemia 8. Hypothyroidism 9. Obstructive sleep apnea 10. Dementia PLAN: -Patient has known PAF and tachy-cassia syndrome. Follows with [facility]. Currently not on any AV parvin blocking agents at home due to issues with bradycardia in the past, however, per last EP note from February 2024, they suggested can retry low dose beta rupert if he has recurrent issues with RVR. At the time of my evaluation, he is rate controlled when at rest, however, becomes tachycardic when he gets restless/agitated. Patient is currently confused and does not appear he can make decisions for himself at this time. No family at bedside. Will reach out to his over the phone and discuss with her. -Given his tooth infection, tachycardia, confusion, consider an infectious workup as possibly etiology to his symptoms. Will defer to the Hospitalist. -Continue Eliquis 5mg BID. -Elevated troponins probably due to demand ischemia, no concern for ACS at this time. History of Present Illness History of Present Illness Consult date/time: 05/24/24 12:35 Requesting physician: Kailee Coker MD Consult reason: atrial fibrillation Reason For Visit: NSTEMI; afib RVR (now rate controlled) Narrative: We are consulted for atrial fibrillation with RVR. Hilton is an 78 year old male who is well known to us, follows with Dr. Ferraro. He has ATTR amyloidosis, diastolic CHF, paroxysmal atrial fibrillation, tachy-cassia syndrome, hypertension, hyperlipidemia, hypothyroidism, obstructive sleep apnea, and dementia. At the time of my evaluation, patient is confused, restless. Able to answer some questions, but not able to obtain proper history from the patient. No family at bedside. History obtained from the chart. Patient presented to the ED with multiple complaints -- pain in left jaw (scheduled for tooth extraction 06/04), increased heart rate, hasn't been himself per family, weakness/fatigue. He denies any chest pain. In the ED, he was noted to be in atrial fibrillation with RVR. Given IV Diltiazem, with improvement in his heart rate. However, subsequently became hypotensive, which improved with some IVFs. Workup shows troponins of 0.093, 0.127, 0.137. TSH level normal. CXR with persistent cardiomegaly with cylindrical bronchiectasis suspected. EKGs with atrial fibrillation. Review of Systems 2 Review of Systems: Limited ROS due to mental status. Denies chest pain, shortness of breath, palpitations. Reports nausea. 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 Code status: Full code. Years smoked: 2 Smoking status: Never smoker Tobacco type: cigarettes Second hand tobacco smoke exposure: Yes Alcohol intake: never Substance use: never Substance use type: does not use Do You Feel Safe in your Home?: Yes Lack of Transportation: YES Lack of Food: Sometimes True Current Housing: I Have Housing Concerned About Future Housing: No Difficulty Paying Gas/Electric Bills: No Difficulty Paying for Meds: No Currently Unemployed: No Education: Bachelor's Degree Difficulty w/ Childcare or Family Care: No Living arrangements: assisted living Additional living arrangements comments: [facility], with Spiritual care concerns: No Meds Home Medications and Allergies Home Medications ?Medication ?Instructions ?Recorded ?Confirmed ?Type albuterol sulfate 90 mcg/actuation 1 inh inhalation Q6H PRN Wheezing 12/15/23 05/23/24 History aerosol inhaler apixaban 5 mg tablet (Eliquis) 5 mg PO BID 12/15/23 05/23/24 History cetirizine 10 mg tablet 10 mg PO DAILY 12/15/23 05/23/24 History fluticasone fur. 100 mcg-umeclid 1 inh inhalation DAILY 12/15/23 05/23/24 History 62.5 mcg-vilant 25 mcg inhalat.powder (Trelegy Ellipta) furosemide 80 mg tablet 80 mg PO DAILY 12/15/23 05/23/24 History gabapentin 300 mg capsule 300 mg PO QAM 12/15/23 05/23/24 History levothyroxine 25 mcg tablet 25 mcg PO DAILY 12/15/23 05/23/24 History melatonin 3 mg tablet 5 mg PO HS PRN Restless Leg(S) 12/15/23 05/23/24 History modafinil 200 mg tablet 100 mg PO QAM 12/15/23 05/23/24 History montelukast 10 mg tablet 10 mg PO HS 12/15/23 05/23/24 History multivitamin 1 tablet PO HS 12/15/23 05/23/24 History omega-3 fatty acids 1,000 mg 1,500 mg PO QNOON 12/15/23 05/23/24 History capsule simvastatin 20 mg tablet 10 mg PO QPM 12/15/23 05/23/24 History ebumfqr-oxx-pcc H8-R8-wxkyvruc 250 2 tablet PO DAILY 05/23/24 05/23/24 History mg-40 mg-5 mg-125 unit tablet potassium gluconate 595 mg (99 mg) 595 mg PO DAILY 05/23/24 05/23/24 History tablet tafamidis 61 mg capsule (Vyndamax) 61 mg PO DAILY 05/23/24 05/23/24 History Allergies Allergy/AdvReac Type Severity Reaction Status Date / Time No Known Allergies Allergy Verified 12/24/23 16:36 Vital Signs Vital Signs - 24 hr 05/23/24 15:49 05/23/24 17:00 05/23/24 17:00 Temperature 37.3 C Pulse Rate 149 H 93 Respiratory Rate 14 20 Blood Pressure 129/94 H 111/91 H Pulse Oximetry 96 98 98 Oxygen Delivery Room Air 05/23/24 17:34 05/23/24 17:35 05/23/24 17:41 Temperature Pulse Rate 109 H 104 H 91 Respiratory Rate 22 H 23 H 22 H Blood Pressure 89/60 L 89/64 L Pulse Oximetry 90 91 95 Oxygen Delivery 05/23/24 17:45 05/23/24 17:50 05/23/24 18:00 Temperature Pulse Rate 92 71 91 Respiratory Rate 20 19 22 H Blood Pressure 86/67 L Pulse Oximetry 90 91 95 Oxygen Delivery 05/23/24 18:01 05/23/24 18:02 05/23/24 18:11 Temperature Pulse Rate 80 80 87 Respiratory Rate 18 14 21 H Blood Pressure 83/61 L 98/58 L Pulse Oximetry 94 92 98 Oxygen Delivery 05/23/24 18:15 05/23/24 18:22 05/23/24 18:30 Temperature Pulse Rate 86 91 78 Respiratory Rate 23 H 12 16 Blood Pressure 94/64 L Pulse Oximetry 89 L 97 98 Oxygen Delivery 05/23/24 18:31 05/23/24 18:32 05/23/24 18:41 Temperature Pulse Rate 93 85 Respiratory Rate 24 H 43 H 25 H Blood Pressure 93/67 L 98/73 L Pulse Oximetry 95 96 95 Oxygen Delivery 05/23/24 18:45 05/23/24 18:51 05/23/24 19:00 Temperature Pulse Rate 108 H Respiratory Rate 20 21 H 20 Blood Pressure 121/92 H Pulse Oximetry 96 95 91 Oxygen Delivery 05/23/24 19:01 05/23/24 19:11 05/23/24 19:13 Temperature Pulse Rate 89 97 110 H Respiratory Rate 21 H 21 H 22 H Blood Pressure 109/89 97/52 L Pulse Oximetry 92 97 95 Oxygen Delivery 05/23/24 19:15 05/23/24 19:20 05/23/24 19:30 Temperature Pulse Rate 108 H 89 88 Respiratory Rate 22 H 20 14 Blood Pressure 113/102 H Pulse Oximetry 98 95 93 Oxygen Delivery 05/23/24 19:31 05/23/24 19:45 05/23/24 20:27 Temperature Pulse Rate 109 H 94 Respiratory Rate 27 H 25 H Blood Pressure 102/64 93/67 L Pulse Oximetry 92 95 95 Oxygen Delivery 05/23/24 20:34 05/23/24 21:24 05/23/24 22:00 Temperature Pulse Rate 89 120 H 105 H Respiratory Rate 20 20 Blood Pressure 92/65 L Pulse Oximetry 93 98 Oxygen Delivery 05/23/24 23:58 05/24/24 00:00 05/24/24 02:00 Temperature 36.6 C Pulse Rate 113 H 95 98 Respiratory Rate 20 Blood Pressure 98/72 L Pulse Oximetry 98 Oxygen Delivery 05/24/24 04:00 05/24/24 04:00 05/24/24 06:00 Temperature 36.6 C Pulse Rate 109 H 114 H 109 H Respiratory Rate 16 Blood Pressure 105/66 Pulse Oximetry 98 Oxygen Delivery 05/24/24 07:40 05/24/24 08:00 05/24/24 10:00 Temperature 36.4 C Pulse Rate 110 H 140 H 96 Respiratory Rate 14 Blood Pressure 123/98 H Pulse Oximetry 96 Oxygen Delivery 05/24/24 10:53 05/24/24 11:36 Temperature 36.0 C L Pulse Rate 147 H 115 H Respiratory Rate 20 Blood Pressure 103/75 Pulse Oximetry 98 Oxygen Delivery Exam 2 Const: Other: Appears restless, confused Eyes: General: appearance normal, both eyes and all related structures S clera: sclerae normal Resp: Effort & Inspection: normal respiratory effort Cardio: Rate: regular rate Rhythm: abnormal rhythm irregularly irregular Heart sounds: no murmurs Skin: General skin exam: normal color Neuro: Other: Confused Results Labs and Meds 05/23/24 16:48 05/23/24 16:48 Lab results: Cardiac Enzymes 05/23/24 05/23/24 05/23/24 Range/Units 16:48 19:12 22:21 AST 70 H (17-59) U/L Troponin I 0.093 H* 0.127 H* D 0.137 H* (0.000-0.034) ng/mL Coagulation 05/23/24 Range/Units 16:48 PT 22.0 H (11.1-14.7) Seconds APTT 52.3 H (22.3-36.8) Seconds CBC 05/23/24 Range/Units 16:48 WBC 7.6 (4.5-10.0) K/mm3 RBC 4.72 (4.6-6.20) M/mm3 Hgb 15.4 (14.0-18.0) g/dL Hct 47.5 (42.0-52.0) % Plt Count 120 L (150-375) k/mm3 Lymph # (Auto) 0.42 L (0.9-3.2) K/mm3 [place] # (Auto) 0.7 H (0.1-0.6) K/mm3 Eos # (Auto) 0.0 (0-0.3) K/mm3 Baso # (Auto) 0.0 (0.0-0.1) K/mm3 Comprehensive Metabolic Panel 05/23/24 Range/Units 16:48 Sodium 138 (137-145) mmol/L Potassium 3.6 (3.4-5.0) mmol/L Chloride 92 L (98-107) mmol/L Carbon Dioxide 36 H (22-30) mmol/L BUN 35 H D (9-20) mg/dL Creatinine 1.26 (0.7-1.3) mg/dL Glucose 133 H (65-110) mg/dL Calcium 9.2 (8.4-10.2) mg/dL AST 70 H (17-59) U/L ALT 30 (6-50) U/L Alkaline Phosphatase 100 (38-126) U/L Total Protein 8.0 (6.3-8.2) g/dL Albumin 4.4 (3.5-5.1) g/dL Intake and Output 05/23/24 05/24/24 05/24/24 23:59 07:59 15:59 Intake Total 1000 991.7 Output Total 400 Balance 1000 591.7 Intake: IV 1000 971.7 Lactated Ringers 1,000 ml @ 100 971.7 mls/hr IV CONT .Q10H NAN Rx#: [id number] Sodium Chloride 0.9% IV 1,000 1000 ml @ 999 mls/hr IV CONT .Q1H1M STA Rx#:[id number] Oral 20 Output: Urine 400 Patient Weight 05/24/24 23:59 Weight 66.3 kg
[2024-05-24 15:35] LABS: CRP 2.6 mg/dL (<1.0)
[2024-05-24 15:42] LABS: Lactic Acid Reflex 8.3 mmol/L (0.7-2.0)
[2024-05-24] MEDS: METOPROLOL TARTRATE 25 MG TABLET PO ×2 (15:51→21:00)
[2024-05-24 15:56] LABS: Hematocrit 42.5 % (42.0-52.0); Hemoglobin 13.2 g/dL (14.0-18.0); Mean Corpuscular HGB Conc 31.1 g/dl (32-36); Mean Corpuscular Hemoglobin 32.7 pg (26-34); Mean Corpuscular Volume 105.2 fl (80-100); Mean Platelet Volume 11.8 fl (7.4-10.4); Platelet Count Result 114 k/mm3 (150-375); Red Blood Count 4.04 M/mm3 (4.6-6.20); Red Cell Distribution Width 16.1 % (11.5-14.5); White Blood Count 5.6 K/mm3 (4.5-10.0)
[2024-05-24 16:04] LABS: Alanine Aminotransferase 21 U/L (6-50); Albumin Level 2.9 g/dL (3.5-5.1); Alkaline Phosphatase 73 U/L (38-126); Anion Gap 12 mmol/L (4-12); Aspartate Amino Transferase 44 U/L (17-59); Bilirubin,Total 2.5 mg/dL (0.2-1.3); Blood Urea Nitrogen 24 mg/dL (9-20); Calcium 8.1 mg/dL (8.4-10.2); Carbon Dioxide 24 mmol/L (22-30); Chloride 99 mmol/L (98-107); Estimated CRCL calculation 40 ml/min; Estimated Glomerular Filt Rate 60; Glucose 93 mg/dL (65-110); Potassium 3.7 mmol/L (3.4-5.0); Sodium 135 mmol/L (137-145)
[2024-05-24] MEDS: SIMVASTATIN 10 MG TABLET PO (17:03)
[2024-05-24] MEDS: PROCHLORPERAZINE EDISYLATE 10 MG/2 ML VIAL IV PUSH (17:03)
[2024-05-24 17:14] LABS: Reflex Lactic Acid Yes or No Add Lactic
[2024-05-24] MEDS: PIPERACILLN/TAZ 3.375GM/NS50ML 3.375 GM/50 ML BAG IVPB ×2 (17:17→21:00)
[2024-05-24 17:48] LABS: Lactic Acid 3.1 mmol/L (0.7-2.0)
[2024-05-24 18:30] LABS: NT Pro B Type Natriuretic Pept 3950 pg/mL (19.9-100)
--- NOTE | 2024-05-24 19:18 | PC.NURSE ---
Multiple attempts made to CT to read stat ct abdomen and chest. Techs made RN, , and engine house helper aware of only one radiologist available reading imaging today. RN to follow up
[2024-05-24] MEDS: SODIUM CHLORIDE 0.9% IV 1,000 ML 75 ML IV CONT (20:52)
[2024-05-24] MEDS: MULTIVITAMINS THERAPEUTIC TAB (*BKC) 1 TABLET PO (20:53)
[2024-05-24] MEDS: APIXABAN 5 MG TABLET PO (20:53)
[2024-05-24 21:50] LABS: Add Urine Microscopic? YES; Appearance Urine Cloudy (Clear); Bacteria Urine None Seen /hpf; Bilirubin Urine 1+ (Negative); Blood Urine Negative (Negative); Calcium Oxalate Crystals Urine Present /hpf; Color Urine Dark Yellow (Yellow); Glucose Urine UA Negative (Negative); Ketones Urine Trace mg/dL (Negative); Leukocyte Esterase Ur Trace LEU/UL (Negative); Need Manual Microscopic Reviewed; Nitrate Urine Positive (Negative); Protein Urine 2+ mg/dL (Negative); Specific Grav Ur 1.041 (1.001-1.035); Squamous Epithelial Cell Urine None Seen /hpf (Few); WBC Urine 0-5 /hpf (0-3); pH Urine 5.5 (5.0-9.0)
[2024-05-25] VITALS (17 sets, daily range): BP systolic 95–112; BP diastolic 63–95; PULSE 70–133; RESP 18–28; TEMP 36.4–36.9; O2SAT 90–100; BMI 20.9
[2024-05-25] MEDS: LEVOTHYROXINE SODIUM 25 MCG TABLET PO (04:31)
[2024-05-25] MEDS: PIPERACILLN/TAZ 3.375GM/NS50ML 3.375 GM/50 ML BAG IVPB ×4 (04:31→21:11)
--- NOTE | 2024-05-25 06:57 | PCRCNOTE ---
Apnea link not completed last night due to patient being confused. Patient has history of sleep apnea.
[2024-05-25] MEDS: SODIUM CHLORIDE 0.9% IV 1,000 ML 75 ML IV CONT (09:37)
[2024-05-25] MEDS: METOPROLOL TARTRATE 25 MG TABLET PO ×2 (09:40→21:11)
[2024-05-25] MEDS: APIXABAN 5 MG TABLET PO ×2 (09:40→21:11)
--- NOTE | 2024-05-25 10:16 | PM.PNCARD ---
Progress Note: A&P Assessment and Plan (1) Atrial fibrillation with RVR: Code(s): I48.91 - Unspecified atrial fibrillation Status: Acute Plan 1. Paroxysmal atrial fibrillation with RVR 2. 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 Hypertension 7. Hyperlipidemia 8. Hypothyroidism 9. Obstructive sleep apnea 10. Dementia PLAN: -Patient has known PAF and tachy-cassia syndrome. Follows with [facility]. Currently not on any AV parvin blocking agents at home due to issues with bradycardia in the past, however, per last EP note from February 2024, they suggested can retry low dose beta rupert if he has recurrent issues with RVR. Was started on low dose metoprolol yesterday and heart rate has trended down. BP stable. Continue metoprolol 25mg p.o. b.i.d. -Given his tooth infection, tachycardia, confusion, consider an infectious workup as possibly etiology to his symptoms. Will defer to the Hospitalist. -Continue Eliquis 5mg BID. -Elevated troponins probably due to demand ischemia, no concern for ACS at this time. Subjective Date/time seen: 05/25/24 10:16 Interval history: Cardiology follow up visit Tele shows AF RVR at times but rate is better controlled over the last ~12 hours. Generally 105-120bpm. Review of Systems Review of Systems: Limited ROS due to mental status. Exam Const: General: comfortable, no acute distress and tired appearing HENMT: Head: normal to inspection Eyes: General: appearance normal, both eyes and all related structures Sclera: sclerae normal Resp: Effort & Inspection: normal respiratory effort Cardio: Rate: regular rate Rhythm: abnormal rhythm irregularly irregular Heart sounds: no murmurs Skin: General skin exam: normal color Neuro: General: No patient oriented x3 Extrem: Other: no edema Objective Data Vital Signs Vital Signs: Vital Signs - 24 hr 05/24/24 10:53 05/24/24 11:36 05/24/24 12:00 Temperature 36.0 C L Pulse Rate 147 H 115 H 124 H Respiratory Rate 20 Blood Pressure 103/75 Pulse Oximetry 98 Oxygen Delivery 05/24/24 14:00 05/24/24 14:47 05/24/24 15:51 Temperature Pulse Rate 143 H 93 135 H Respiratory Rate 20 Blood Pressure 119/70 Pulse Oximetry 94 Oxygen Delivery 05/24/24 16:00 05/24/24 16:00 05/24/24 17:53 Temperature 36.8 C Pulse Rate 124 H 148 H Respiratory Rate 16 Blood Pressure 117/93 H 130/102 H Pulse Oximetry 98 Oxygen Delivery 05/24/24 18:00 05/24/24 18:16 05/24/24 19:41 Temperature 36.9 C Pulse Rate 144 H 141 H 135 H Respiratory Rate 20 Blood Pressure 114/53 L Pulse Oximetry 98 Oxygen Delivery 05/24/24 20:00 05/24/24 20:00 05/24/24 20:53 Temperature Pulse Rate 151 H 136 H Respiratory Rate Blood Pressure Pulse Oximetry Oxygen Delivery Room Air 05/24/24 21:00 05/24/24 22:00 05/25/24 00:00 Temperature Pulse Rate 136 H 138 H Respiratory Rate Blood Pressure Pulse Oximetry Oxygen Delivery Room Air 05/25/24 00:00 05/25/24 00:00 05/25/24 02:00 Temperature 36.6 C Pulse Rate 130 H 110 H 119 H Respiratory Rate 18 Blood Pressure 104/71 Pulse Oximetry 95 Oxygen Delivery 05/25/24 04:00 05/25/24 04:00 05/25/24 04:00 Temperature 36.9 C Pulse Rate 125 H 101 H Respiratory Rate 18 Blood Pressure 101/65 Pulse Oximetry 99 Oxygen Delivery Room Air 05/25/24 05:50 05/25/24 08:00 05/25/24 09:40 Temperature 36.8 C Pulse Rate 108 H 77 70 Respiratory Rate 28 H Blood Pressure 102/72 Pulse Oximetry 96 Oxygen Delivery Intake/Output Intake/Output: Intake & Output 05/22/24 05/23/24 05/24/24 05/25/24 23:59 23:59 23:59 23:59 Intake Total 1000 2331.7 1066.3 Output Total 400 50 Balance 1000 1931.7 1016.3 Meds/Results Medications: Active Medications Generic Name Dose Route Start Last Admin Trade Name Freq PRN Reason Stop Dose Admin Acetaminophen 650 mg 05/23/24 18:33 Acetaminophen 325 Mg Tablet PO Q4H PRN Mild Pain (1-3) or Fever Albuterol 1 puff 05/24/24 09:23 Albuterol Sulfate (*Sp) Aerosol 1 Puff INHALATION Q6H PRN Wheezing Apixaban 5 mg 05/24/24 21:00 05/25/24 09:40 Apixaban 5 Mg Tablet PO 5 mg Q12HR NAN Administration Fluticasone/Umeclidinium/Vilanterol 1 puff 05/25/24 08:00 05/25/24 08:20 Fluticasone/Umeclidin/Vilanter 100-62.5-25 Mcg Ellipta INHALATION Not Given DAILYRT NAN Piperacillin/Tazobactam/Dextrose 3.375 gm in 50 mls @ 100 mls/hr 05/24/24 16:00 05/25/24 09:37 Zosyn 3.375 Gm/Ns 50 Ml IVPB 100 mls/hr Q6H NAN Administration Sodium Chloride 1,000 mls @ 75 mls/hr 05/24/24 20:20 05/25/24 09:37 Normal Saline Iv IV CONT 75 mls/hr .[id number] NAN Administration Levothyroxine Sodium 25 mcg 05/25/24 06:30 05/25/24 04:31 Levothyroxine Sodium 25 Mcg Tablet PO 25 mcg DAILY@0630 NAN Administration Melatonin 5 mg 05/24/24 09:23 Melatonin 5 Mg Tablet PO HS PRN Restless Leg(S) Metoprolol Tartrate 25 mg 05/24/24 15:35 05/25/24 09:40 Metoprolol Tartrate 25 Mg Tablet PO 25 mg Q12HR NAN Administration Metoprolol Tartrate 5 mg 05/24/24 16:19 05/24/24 18:16 Metoprolol Tartrate Inj 5 Mg/5 Ml Vial IV PUSH 5 mg Q4HR PRN Administration Heart Rate- High Miscellaneous Information 1 each 05/24/24 00:01 Tafamidis Nonformulary, Can Patient Use From Home Or Hold Till Discharge? XX 06/23/24 00:00 CLARIFY NAN Multivitamins Therapeutic 1 tablet 05/24/24 21:00 05/24/24 20:53 Multivitamins Therapeutic Tab (*Bkc) PO 1 tablet HS NAN Administration Non-Formulary Medication 61 mg 05/25/24 09:00 Tafamidis [Vyndamax] PO 06/24/24 08:59 DAILY NAN Prochlorperazine Edisylate 10 mg 05/24/24 14:27 05/24/24 17:03 Prochlorperazine Edisylate 10 Mg/2 Ml Vial IV PUSH 10 mg Q6H PRN Administration Nausea And Vomiting Simvastatin 10 mg 05/24/24 18:00 05/24/24 17:03 Simvastatin 10 Mg Tablet PO 10 mg QPM NAN Administration Radiology Results: ITS Impressions Chest X-Ray 05/24/24 12:09 IMPRESSION: Persistent cardiomegaly with cylindrical bronchiectasis suspected. PA and lateral view is suggested, if the patient is clinically able, in order to evaluate for a left-sided pleural effusion (or a retrocardiac infiltrate). Chest/Abdomen/Pelvis CT 05/24/24 19:21 IMPRESSION: Cardiomegaly Prominent coronary artery calcification Minimal linear atelectasis or scarring at middle lobe, lingula and bilateral lower lobes Mild ascites Small spleen Horseshoe kidney Nonspecific thickening of the urinary bladder wall which may be due to underdistention, prostatomegaly or cystitis Diverticulosis of the left colon; no evidence of diverticulitis Status post posterior surgical fusion at L3-L5 Labs Labs: Laboratory Results - last 24 hr 05/24/24 05/24/24 05/24/24 15:07 15:08 17:29 WBC 5.6 RBC 4.04 L Hgb 13.2 L Hct 42.5 MCV 105.2 H MCH 32.7 MCHC 31.1 L RDW 16.1 H Plt Count 114 L MPV 11.8 H Sodium 135 L Potassium 3.7 Chloride 99 Carbon Dioxide 24 Anion Gap 12 BUN 24 H D Creatinine 1.17 Estim Creat Clear Calc 40 Estimated GFR 60 Glucose 93 Lactic Acid 8.3 H* 3.1 H Calcium 8.1 L Total Bilirubin 2.5 H AST 44 ALT 21 Alkaline Phosphatase 73 C-Reactive Protein 2.6 H NT-Pro-B Natriuret Pep 3950 H Total Protein 6.0 L Albumin 2.9 L Urine Color Urine Appearance Urine pH Ur Specific [place] Urine Protein Urine Glucose (UA) Urine Ketones Ur Blood (Man) Urine Nitrate Urine Bilirubin Urine Urobilinogen Add Ur Microanalysis Leukocyte Esterase Rfl Urine RBC Urine WBC Ur Squamous Epith Cells Calcium Oxalate Crystal Urine Bacteria Urine Casts 05/24/24 21:00 WBC RBC Hgb Hct MCV MCH MCHC RDW Plt Count MPV Sodium Potassium Chloride Carbon Dioxide Anion Gap BUN Creatinine Estim Creat Clear Calc Estimated GFR Glucose Lactic Acid Calcium Total Bilirubin AST ALT Alkaline Phosphatase C-Reactive Protein NT-Pro-B Natriuret Pep Total Protein Albumin Urine Color Dark yellow Urine Appearance Cloudy H Urine pH 5.5 Ur Specific [place] 1.041 H Urine Protein 2+ H Urine Glucose (UA) Negative Urine Ketones Trace H Ur Blood (Man) Negative Urine Nitrate Positive H Urine Bilirubin 1+ H Urine Urobilinogen 1.0 Add Ur Microanalysis Reviewed Leukocyte Esterase Rfl Trace H Urine RBC 11-20 H Urine WBC 0-5 Ur Squamous Epith Cells None seen Calcium Oxalate Crystal Present Urine Bacteria None seen Urine Casts 6-10 Quality VTE Prophylaxis VTE prophylaxis: mechanical ordered
[2024-05-25 11:42] LABS: Hemoglobin 15.3 g/dL (14.0-18.0); Mean Corpuscular HGB Conc 31.9 g/dl (32-36); Mean Corpuscular Hemoglobin 32.8 pg (26-34); Mean Corpuscular Volume 102.8 fl (80-100); Mean Platelet Volume 11.6 fl (7.4-10.4); Platelet Count Result 132 k/mm3 (150-375); Red Blood Count 4.67 M/mm3 (4.6-6.20); Red Cell Distribution Width 16.6 % (11.5-14.5); White Blood Count 9.5 K/mm3 (4.5-10.0)
--- NOTE | 2024-05-25 12:46 | P.PNIM_ITS ---
Progress Note: A&P Assessment and Plan (1) Hypertension: Code(s): I10 - Essential (primary) hypertension Status: Acute (2) Bradyarrhythmia: Code(s): I49.8 - Other specified cardiac arrhythmias Status: Acute (3) Dental caries: Code(s): K02.9 - Dental caries, unspecified Status: Acute (4) Chronic dental pain: Code(s): K08.9 - Disorder of teeth and supporting structures, unspecified; G89.29 - Other chronic pain Status: Acute Plan 78-year-old male with atrial fibrillation, hypertension, hyperlipidemia, and Lewy body dementia presents the hospital with palpitations. Patient also complaining of dental pain. He has been on antibiotics for it and has a planned dental appointment on 06/04/2024. In December patient was admitted to the hospital for bradycardia and was taken off metoprolol and diltiazem, he is still on Eliquis for AFib. In the ED patient is found to have a INR 1.9, BUN of 35, total bili of 3.2 AST of 70, troponin of 0.127, UA is negative, influenza A/B RSV and COVID negative. 1. Paroxysmal atrial fibrillation with RVR: Continue tele monitoring Will increase the dose of metoprolol to 37.5 mg b.i.d. Patient follows up with [facility] Continue with Eliquis Cardiology following No concerns for ACS 2. Dental caries: Patient was taking clindamycin at home, will discontinue that Continue with Zosyn CT facial bones unremarkable 3. Possible UTI: Continue with Zosyn Follow-up urine culture, blood culture No leukocytosis CT chest abdomen pelvis was unremarkable 4. History of hypothyroidism: Continue with levothyroxine 5. Code status: Full 6. DVT prophylaxis: On Eliquis 7. Disposition: Pending improvement Time Spent With Patient Time: 38 minutes Subjective Date/time seen: 05/25/24 12:46 Interval history: Tachycardic this morning Review of Systems Review of Systems: All systems reviewed & are unremarkable except as noted in HPI and below Exam Narrative: General: well appearing, HEENT: normocephalic, atraumatic. Mucous membranes moist. Neck supple Respiratory: clear to ascultation bilaterally. Cardiovascular: tachycardia present, normal S1-S2 upon ascultation. Abdomen: Soft, round, nondistended and nontender. Extremities: No cyanosis, clubbing, or edema present. Pulses are palpable 2/2. Active ROM to all four extremities. Neuro: Alert and orientated x 2. PERRLA. Cranial nerves 2-12 intact without focal deficit. Skin: Warm, dry, and intact, without rash, erythema, or lesion. Psych: pleasant, cooperative, normal speech, normal affect, no hallucinations, no dysarthia Objective Data Vital Signs Vital Signs: Vital Signs - 24 hr 05/24/24 14:00 05/24/24 14:47 05/24/24 15:51 Temperature Pulse Rate 143 H 93 135 H Respiratory Rate 20 Blood Pressure 119/70 Pulse Oximetry 94 Oxygen Delivery 05/24/24 16:00 05/24/24 16:00 05/24/24 17:53 Temperature 98.3 F Pulse Rate 124 H 148 H Respiratory Rate 16 Blood Pressure 117/93 H 130/102 H Pulse Oximetry 98 Oxygen Delivery 05/24/24 18:00 05/24/24 18:16 05/24/24 19:41 Temperature 98.5 F Pulse Rate 144 H 141 H 135 H Respiratory Rate 20 Blood Pressure 114/53 L Pulse Oximetry 98 Oxygen Delivery 05/24/24 20:00 05/24/24 20:00 05/24/24 20:53 Temperature Pulse Rate 151 H 136 H Respiratory Rate Blood Pressure Pulse Oximetry Oxygen Delivery Room Air 05/24/24 21:00 05/24/24 22:00 05/25/24 00:00 Temperature Pulse Rate 136 H 138 H Respiratory Rate Blood Pressure Pulse Oximetry Oxygen Delivery Room Air 05/25/24 00:00 05/25/24 00:00 05/25/24 02:00 Temperature 97.8 F Pulse Rate 130 H 110 H 119 H Respiratory Rate 18 Blood Pressure 104/71 Pulse Oximetry 95 Oxygen Delivery 05/25/24 04:00 05/25/24 04:00 05/25/24 04:00 Temperature 98.4 F Pulse Rate 125 H 101 H Respiratory Rate 18 Blood Pressure 101/65 Pulse Oximetry 99 Oxygen Delivery Room Air 05/25/24 05:50 05/25/24 08:00 05/25/24 09:40 Temperature 98.2 F Pulse Rate 108 H 77 70 Respiratory Rate 28 H Blood Pressure 102/72 Pulse Oximetry 96 Oxygen Delivery Intake/Output Intake/Output: Intake & Output 05/22/24 05/23/24 05/24/24 05/25/24 23:59 23:59 23:59 23:59 Intake Total 1000 2331.7 1066.3 Output Total 400 50 Balance 1000 1931.7 1016.3 Meds/Results Medications: Active Medications Generic Name Dose Route Start Last Admin Trade Name Freq PRN Reason Stop Dose Admin Acetaminophen 650 mg 05/23/24 18:33 Acetaminophen 325 Mg Tablet PO Q4H PRN Mild Pain (1-3) or Fever Albuterol 1 puff 05/24/24 09:23 Albuterol Sulfate (*Sp) Aerosol 1 Puff INHALATION Q6H PRN Wheezing Apixaban 5 mg 05/24/24 21:00 05/25/24 09:40 Apixaban 5 Mg Tablet PO 5 mg Q12HR NAN Administration Fluticasone/Umeclidinium/Vilanterol 1 puff 05/25/24 08:00 05/25/24 08:20 Fluticasone/Umeclidin/Vilanter 100-62.5-25 Mcg Ellipta INHALATION Not Given DAILYRT NAN Piperacillin/Tazobactam/Dextrose 3.375 gm in 50 mls @ 100 mls/hr 05/24/24 16:00 05/25/24 09:37 Zosyn 3.375 Gm/Ns 50 Ml IVPB 100 mls/hr Q6H NAN Administration Sodium Chloride 1,000 mls @ 75 mls/hr 05/24/24 20:20 05/25/24 09:37 Normal Saline Iv IV CONT 05/25/24 20:19 75 mls/hr .[id number] NAN Administration Levothyroxine Sodium 25 mcg 05/25/24 06:30 05/25/24 04:31 Levothyroxine Sodium 25 Mcg Tablet PO 25 mcg DAILY@0630 NAN Administration Melatonin 5 mg 05/24/24 09:23 Melatonin 5 Mg Tablet PO HS PRN Restless Leg(S) Metoprolol Tartrate 5 mg 05/24/24 16:19 05/24/24 18:16 Metoprolol Tartrate Inj 5 Mg/5 Ml Vial IV PUSH 5 mg Q4HR PRN Administration Heart Rate- High Metoprolol Tartrate 12.5 mg 05/25/24 21:00 Metoprolol Tartrate 12.5 Mg Tablet PO Q12HR NAN Metoprolol Tartrate 25 mg 05/25/24 21:00 Metoprolol Tartrate 25 Mg Tablet PO Q12HR [facility] Miscellaneous Information 1 each 05/24/24 00:01 Tafamidis Nonformulary, Can Patient Use From Home Or Hold Till Discharge? XX 06/23/24 00:00 CLARIFY NAN Multivitamins Therapeutic 1 tablet 05/24/24 21:00 05/24/24 20:53 Multivitamins Therapeutic Tab (*Bkc) PO 1 tablet HS NAN Administration Non-Formulary Medication 61 mg 05/25/24 09:00 Tafamidis [Vyndamax] PO 06/24/24 08:59 DAILY NAN Prochlorperazine Edisylate 10 mg 05/24/24 14:27 05/24/24 17:03 Prochlorperazine Edisylate 10 Mg/2 Ml Vial IV PUSH 10 mg Q6H PRN Administration Nausea And Vomiting Simvastatin 10 mg 05/24/24 18:00 05/24/24 17:03 Simvastatin 10 Mg Tablet PO 10 mg QPM NAN Administration Radiology Results: ITS Impressions Chest X-Ray 05/24/24 12:09 IMPRESSION: Persistent cardiomegaly with cylindrical bronchiectasis suspected. PA and lateral view is suggested, if the patient is clinically able, in order to evaluate for a left-sided pleural effusion (or a retrocardiac infiltrate). Chest/Abdomen/Pelvis CT 05/24/24 19:21 IMPRESSION: Cardiomegaly Prominent coronary artery calcification Minimal linear atelectasis or scarring at middle lobe, lingula and bilateral lower lobes Mild ascites Small spleen Horseshoe kidney Nonspecific thickening of the urinary bladder wall which may be due to underdistention, prostatomegaly or cystitis Diverticulosis of the left colon; no evidence of diverticulitis Status post posterior surgical fusion at L3-L5 Face CT 05/25/24 11:39 IMPRESSION: No facial fracture. Labs Labs: Laboratory Results - last 24 hr 05/24/24 05/24/24 05/24/24 15:07 15:08 17:29 WBC 5.6 RBC 4.04 L Hgb 13.2 L Hct 42.5 MCV 105.2 H MCH 32.7 MCHC 31.1 L RDW 16.1 H Plt Count 114 L MPV 11.8 H Sodium 135 L Potassium 3.7 Chloride 99 Carbon Dioxide 24 Anion Gap 12 BUN 24 H D Creatinine 1.17 Estim Creat Clear Calc 40 Estimated GFR 60 Glucose 93 Lactic Acid 8.3 H* 3.1 H Calcium 8.1 L Total Bilirubin 2.5 H AST 44 ALT 21 Alkaline Phosphatase 73 C-Reactive Protein 2.6 H NT-Pro-B Natriuret Pep 3950 H Total Protein 6.0 L Albumin 2.9 L Urine Color Urine Appearance Urine pH Ur Specific [place] Urine Protein Urine Glucose (UA) Urine Ketones Ur Blood (Man) Urine Nitrate Urine Bilirubin Urine Urobilinogen Add Ur Microanalysis Leukocyte Esterase Rfl Urine RBC Urine WBC Ur Squamous Epith Cells Calcium Oxalate Crystal Urine Bacteria Urine Casts 05/24/24 05/25/24 21:00 11:27 WBC 9.5 RBC 4.67 Hgb 15.3 Hct 48.0 MCV 102.8 H MCH 32.8 MCHC 31.9 L RDW 16.6 H Plt Count 132 L MPV 11.6 H Sodium Potassium Chloride Carbon Dioxide Anion Gap BUN Creatinine Estim Creat Clear Calc Estimated GFR Glucose Lactic Acid Calcium Total Bilirubin AST ALT Alkaline Phosphatase C-Reactive Protein NT-Pro-B Natriuret Pep Total Protein Albumin Urine Color Dark yellow Urine Appearance Cloudy H Urine pH 5.5 Ur Specific [place] 1.041 H Urine Protein 2+ H Urine Glucose (UA) Negative Urine Ketones Trace H Ur Blood (Man) Negative Urine Nitrate Positive H Urine Bilirubin 1+ H Urine Urobilinogen 1.0 Add Ur Microanalysis Reviewed Leukocyte Esterase Rfl Trace H Urine RBC 11-20 H Urine WBC 0-5 Ur Squamous Epith Cells None seen Calcium Oxalate Crystal Present Urine Bacteria None seen Urine Casts 6-10 Quality VTE Prophylaxis VTE prophylaxis: pharmacologic ordered
[2024-05-25 14:22] LABS: Hemoglobin A1C 5.9 % (<5.7)
[2024-05-25 14:30] LABS: Alanine Aminotransferase 428 U/L (6-50); Albumin Level 3.7 g/dL (3.5-5.1); Alkaline Phosphatase 86 U/L (38-126); Anion Gap 13 mmol/L (4-12); Bilirubin,Total 4.3 mg/dL (0.2-1.3); Blood Urea Nitrogen 46 mg/dL (9-20); Calcium 8.6 mg/dL (8.4-10.2); Carbon Dioxide 30 mmol/L (22-30); Chloride 97 mmol/L (98-107); Estimated CRCL calculation 16 ml/min; Estimated Glomerular Filt Rate 22; Glucose 132 mg/dL (65-110); Sodium 140 mmol/L (137-145)
[2024-05-25 14:32] LABS: Aspartate Amino Transferase 1159 U/L (17-59)
[2024-05-25] MEDS: METOPROLOL TARTRATE 12.5 MG TABLET PO (21:10)
[2024-05-25] MEDS: MULTIVITAMINS THERAPEUTIC TAB (*BKC) 1 TABLET PO (21:11)
[2024-05-25] MEDS: MELATONIN 5 MG TABLET PO (23:40)
[2024-05-25] MEDS: METOPROLOL TARTRATE INJ 5 MG/5 ML VIAL IV PUSH (23:41)
[2024-05-26] VITALS (28 sets, daily range): BP systolic 57–121; BP diastolic 26–81; PULSE 45–148; RESP 16–24; TEMP 36–36.8; O2SAT 96–100
--- NOTE | 2024-05-26 | ECHO_ITS ---
Patient Info Name: Hilton Hdz Age: 78 years : 1945 Gender: Male Ht: 66 in Wt: 143 lbs BSA: 1.74 m2 HR: 45 bpm BP: 101 / 70 mmHg Heart Rhythm: Bradycardia Technical Quality: Fair Exam Date: 05/26/2024 4:35 PM Exam Location: Echo Lab Patient Status: Inpatient Admit Date: 05/24/2024 Staff Ordering Physician: Fabian Mc MD [employer] Machine Operator: Maral Rubi RDCS Attending Provider: Tyler Malone MD Exam Type: CA echo dop color flow w con Study Info Indications - Afib Complete two-dimensional, color flow and Doppler transthoracic echocardiogram is performed with contrast to opacify the left ventricle and to improve the deliniation of the left ventricle endocardial borders. Contrast/Agitated Saline Contrast/Ag. Saline: Definity Amount: 2.00 ml Administered By: Maral Rubi RDCS Existing IV Access: Yes IV Access Condition: patent with no signs of infiltration Summary 1. Left ventricular chamber dimension is normal. 2. Left ventricular systolic function is severely reduced, estimated at 20-25%. 3. There is moderately increased left ventricular wall thickness. 4. The left ventricular diastolic function is abnormal. 5. Right ventricular chamber dimension is mildly enlarged. 6. Right ventricular systolic function is reduced. 7. Left atrial chamber dimension is mildly enlarged. 8. Right atrial chamber dimension is moderately enlarged. 9. There is mild mitral valve regurgitation. 10. There is mild tricuspid valve regurgitation. Left Ventricle Left ventricular chamber dimension is normal. Left ventricular systolic function is severely reduced, estimated at 20-25%. There is moderately increased left ventricular wall thickness. The left ventricular diastolic function is abnormal. Right Ventricle Right ventricular chamber dimension is mildly enlarged. Right ventricular systolic function is reduced. Left Atria Left atrial chamber dimension is mildly enlarged. Right Atria Right atrial chamber dimension is moderately enlarged. Atrial Septum Intact interatrial septum visualized by color flow imaging. Aortic Valve The aortic valve is trileaflet. There is no aortic valve stenosis. There is no aortic valve regurgitation. There is moderate aortic valve calcification. Pulmonic Valve The pulmonic valve is not well visualized. There is trace pulmonic regurgitation. Mitral Valve The mitral valve has thickened leaflets. There is mild mitral valve regurgitation. Tricuspid Valve There is mild tricuspid valve regurgitation. Pericardium/Pleural There is no pericardial effusion. Inferior Vena Cava Dilated inferior vena cava with >50% collapse upon inspiration consistent with elevated right atrial pressure, 8 mmHg. Aorta The aortic root size at the sinus of Valsalva is normal. Left Ventricular Outflow Tract Name Value Normal LVOT Doppler LVOT Peak Gradient 1 mmHg LVOT Mean Gradient 0 mmHg LVOT VTI 5.70 cm LVOT VTI/AV VTI Ratio 0.45 Pulmonic Valve Name Value Normal RVOT Doppler RVOT Peak Gradient 0 mmHg PV Doppler PV Peak Gradient 1 mmHg Mitral Valve Name Value Normal MV Doppler MV Decel [place] 440.45 cm/s2 MV PHT 0 s MV Area (PHT) 3.95 cm2 4.00-5.00 MV Regurgitation Doppler MR Peak Gradient 50 mmHg MV Diastolic Function MV E Peak Velocity 84.52 cm/s MV A Peak Velocity 0.17 cm/s MV E/A 508.36 MV Decel Time 0 s MV Annular TDI MV E/e' (Septal) 32.92 <=8.00 MV E/e' (Lateral) 31.60 <=8.00 MV E/e' (Average) 32.26 Tricuspid Valve Name Value Normal Estimated PAP/RSVP RA Pressure 8 mmHg <=5 Aorta Name Value Normal Ascending Aorta Ao Root Diameter (MM) 2.50 cm Ao Root Diam Index (MM) 1.43 cm/m2 Aortic Valve Name Value Normal AV Doppler AV Peak Velocity 70.80 cm/s AV Peak Gradient 2 mmHg AV Mean Gradient 1 mmHg AV VTI 12.59 cm Ventricles Name Value Normal LV Dimensions 2D/MM IVS Diastolic Thickness (2D) 0.96 cm 0.60-1.00 LVID Diastole (2D) 4.87 cm 4.20-5.80 LVIW Diastolic Thickness (2D) 1.05 cm 0.60-1.00 LVID Systole (2D) 4.11 cm 2.50-4.00 LV Mass (2D Cubed) 175.32 g 88.00-224.00 LV Mass Index (2D Cubed) 0.01 g/cm2 0.00-0.01 Relative Wall Thickness (2D) 0.43 LV Fractional Shortening/Ejection Fraction 2D/MM LV Fractional Shortening (2D) 16 % 25-43 LV EF (2D [place]) 33 % 52-72 LV Diastolic Volume (4C MOD) 97.45 ml LV EF (4C MOD) 24 % LV Diastolic Volume (2C MOD) 93.39 ml LV EF (2C MOD) 39 % LV Diastolic Volume (BP MOD) 96.41 ml 62.00-150.00 LV Diastolic Volume Index (BP MOD) 0.06 l/m2 0.03-0.07 LV Systolic Volume (BP MOD) 66.09 ml 21.00-61.00 LV Systolic Volume Index (BP MOD) 0.04 l/m2 0.01-0.03 LV EF (BP MOD) 31 % 52-72 LV Diastolic Length (4C) 7.47 cm LV Systolic Length (4C) 6.56 cm LV Stroke Volume (4C MOD) 23.56 ml Atria Name Value Normal LA Dimensions LA Dimension (MM) 4.31 cm 3.00-4.10 LA Volume (4C A-L) 50.06 ml LA Volume (BP A-L) 67.60 ml RA Dimensions RA Area (4C) 28.43 cm2 <=18.00 Report Signatures
--- NOTE | 2024-05-26 01:01 | PC.NURSE ---
Pt has been yelling out and trying to climb out of bed. Pt has an apena link on that he states, makes it difficult to breath, because the band is around him. This nurse had loosened the band, however pt continues to yell out that he can't breath. Pt has been educated multiple times this shift. Respiratory notified and link removed. Pt has not yelled out since its removal.
[2024-05-26] MEDS: METOPROLOL TARTRATE INJ 5 MG/5 ML VIAL IV PUSH ×2 (01:51→03:43)
[2024-05-26] MEDS: PIPERACILLN/TAZ 3.375GM/NS50ML 3.375 GM/50 ML BAG IVPB (03:19)
[2024-05-26 05:12] LABS: Magnesium 2.7 mg/dL (1.6-2.3)
[2024-05-26 05:14] LABS: Anion Gap 22 mmol/L (4-12); Blood Urea Nitrogen 58 mg/dL (9-20); Calcium 8.5 mg/dL (8.4-10.2); Carbon Dioxide 21 mmol/L (22-30); Chloride 96 mmol/L (98-107); Estimated CRCL calculation 14 ml/min; Estimated Glomerular Filt Rate 19; Glucose 100 mg/dL (65-110); Potassium 4.4 mmol/L (3.4-5.0); Sodium 139 mmol/L (137-145)
[2024-05-26] MEDS: LEVOTHYROXINE SODIUM 25 MCG TABLET PO (05:37)
[2024-05-26] MEDS: FLUTICASONE/UMECLIDIN/VILANTER 100-62.5-25 MCG ELLIPTA 1 PUFF INHALATION (07:41)
--- NOTE | 2024-05-26 07:44 | P.CDI_ITS ---
CDI Query Clarification Request BMI: 23.1 Nutritional Diagnostic Statement: Please refer to the comprehensive nutrition assessment for further information. If you agree with diagnosis of Moderate protein calorie malnutrition related to inadequate energy intake as evidenced by poor po intake for greater than 1 month, a -18% wt loss x 5 months, and NFPE findings for subcutaneous fat loss and muscle wasting. Please specify severity if known: * Mild * Moderate * Severe * Other/Unknown <Nichole Oquendo RN - Last Filed: 05/26/24 07:44> Clarified Diagnosis Clarified Diagnosis: Moderate <Fabian Mc MD - Last Filed: 05/26/24 15:23>
--- NOTE | 2024-05-26 07:47 | P.PNIM_ITS ---
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 Patient also complaining of dental pain. He has been on antibiotics for it and has a planned dental appointment on 06/04/2024. In December patient was admitted to the hospital for bradycardia and was taken off metoprolol and diltiazem, he is still on Eliquis for AFib. As per Cardiology Patient has known PAF and tachy-mandeep syndrome. Follows with [facility] and with Dr. Ferraro. Currently not on any AV parvin blocking agents at home due to issues with bradycardia in the past, however, per last EP note from February 2024, they suggested can retry low dose beta rupert if he has recurrent issues with RVR. 05/26: The patient had multiple events today. Creatinine increased from 2.78 to 3.16. His baseline creatinine is 1.17. Nephrology was consulted. Zosyn will be discontinued due to worsening renal function. Initially, Augmentin was started, but it was later changed to cefepime and Flagyl. Due to increased creatinine initially, I decreased Eliquis dosage but later discontinued as per Hematology Supervisor recommendation. Regarding the increased heart rate, the morning dental front office assistant started him on an amiodarone drip, but eventually, his heart rate dropped to the 50s, so the amiodarone drip was stopped. His blood pressure is on the soft side. His thyroid functions are normal. His lactic acid was elevated to 10.9, and he was given a bolus. His lactic acid was repeated at 1800, and it showed 10.5. Ordered stat echocardiogram. His previous echocardiogram performed on 12/24/23 shows a normal ejection fraction[place] [id number]. His possible sepsis is probably from a dental abscess, although a CT scan of the face shows no significant finding. Repeated his chest abdomen pelvic CT, the culture of which showed no significant finding except for pleural effusion. ABG shows ph 7.3, pco2 20,pO2 139, Hco3 9.8. Discussed with and was advised to give 500ml bolus and start bicarb drip and accepted to transfer to ICU. I called [facility] per the family's request to transfer under the care of Dr.Cooper NASH. Unfortunately, due to elevated lactic acid, they want us to repeat and call them back if lactic acid levels are low. HERACLIO continues to worsen creatinine 2.78 to 3.16 baseline creatinine is 1.17. suspect multifactorial etiology no evidence of contrast exposure possible zosyn atheroembolic disease(?) - no evidence at this time Renal ultrasound: 1. 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 2. Small amount of ascites in the pelvis. urine electrolytes prerenal CPK,urine eosinophils pending remains at risk for [employer]/dialysis follow trend of repeat labs and UOP Paroxysmal atrial fibrillation with RVR: Continue tele monitoring metoprolol to 37.5 mg b.i.d. 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 Patient also complaining of dental pain. He has been on antibiotics for it and has a planned dental appointment on 06/04/2024. In December patient was admitted to the hospital for bradycardia and was taken off metoprolol and diltiazem, he is still on Eliquis for AFib. As per Cardiology Patient has known PAF and tachy-mandeep syndrome. Follows with [facility] and with Dr. Ferraro. Currently not on any AV parvin blocking agents at home due to issues with bradycardia in the past, however, per last EP note from February 2024, they suggested can retry low dose beta rupert if he has recurrent issues with RVR. 05/26: The patient had multiple events today. Creatinine increased from 2.78 to 3.16. His baseline creatinine is 1.17. Nephrology was consulted. Zosyn will be discontinued due to worsening renal function. Initially, Augmentin was started, but it was later changed to cefepime and Flagyl. Due to increased creatinine initially, I decreased Eliquis dosage but later discontinued as per Hematology Supervisor recommendation. Regarding the increased heart rate, the morning dental front office assistant started him on an amiodarone drip, but eventually, his heart rate dropped to the 50s, so the amiodarone drip was stopped. His blood pressure is on the soft side. His thyroid functions are normal. His lactic acid was elevated to 10.9, and he was given a bolus. His lactic acid was repeated at 1800, and it showed 10.5. Ordered stat echocardiogram. His previous echocardiogram performed on 12/24/23 shows a normal ejection fraction. [place] [id number]. His possible sepsis is probably from a dental abscess, although a CT scan of the face shows no significant finding. Repeated his chest abdomen pelvic CT, the culture of which showed no significant finding except for pleural effusion. ABG shows ph 7.3, pco2 20,pO2 139, Hco3 9.8. Discussed with and was advised to give 500ml bolus and start bicarb drip and accepted to transfer to ICU. I called [facility] per the family's request to transfer under the care of EP. Unfortunately, due to elevated lactic acid, they want us to repeat and call them back if lactic acid levels are low. Review of Systems Review of Systems: All systems reviewed & are unremarkable except as noted in HPI and below ROS unobtainable: Yes unobtainable due to mental status Exam Narrative: General: well appearing, HEENT: normocephalic, atraumatic. Mucous membranes moist. Neck supple Respiratory: clear to ascultation bilaterally. Cardiovascular: tachycardia present, normal S1-S2 upon ascultation. Abdomen: Soft, round, nondistended and nontender. Extremities: No cyanosis, clubbing, or edema present. Pulses are palpable 2/2. Active ROM to all four extremities. Neuro: Alert and orientated x 2. PERRLA. Cranial nerves 2-12 intact without focal deficit. Skin: Warm, dry, and intact, without rash, erythema, or lesion. Psych: pleasant, cooperative, normal speech, normal affect, no hallucinations, no dysarthia Objective Data Vital Signs Vital Signs: Vital Signs - 24 hr 05/25/24 08:00 05/25/24 08:00 05/25/24 09:40 Temperature 98.2 F Pulse Rate 77 116 H 70 Respiratory Rate 28 H Blood Pressure 102/72 Pulse Oximetry 96 Oxygen Delivery Oxygen Flow Rate 05/25/24 10:00 05/25/24 12:00 05/25/24 12:00 Temperature 97.7 F Pulse Rate 110 H 118 H 102 H Respiratory Rate 26 H Blood Pressure 106/72 Pulse Oximetry 90 Oxygen Delivery Oxygen Flow Rate 05/25/24 14:00 05/25/24 16:00 05/25/24 16:00 Temperature 97.5 F L Pulse Rate 107 H 102 H 80 Respiratory Rate 28 H Blood Pressure 95/63 L Pulse Oximetry 100 Oxygen Delivery Oxygen Flow Rate 05/25/24 18:00 05/25/24 19:46 05/25/24 20:00 Temperature 97.5 F L Pulse Rate 105 H 122 H Respiratory Rate 20 Blood Pressure 112/95 H Pulse Oximetry 98 98 Oxygen Delivery Nasal Cannula Oxygen Flow Rate 2 05/25/24 20:00 05/25/24 22:00 05/25/24 23:01 Temperature Pulse Rate 131 H 106 H Respiratory Rate Blood Pressure Pulse Oximetry 96 Oxygen Delivery Nasal Cannula Oxygen Flow Rate 2 05/25/24 23:40 05/25/24 23:41 05/26/24 00:00 Temperature 97.9 F Pulse Rate 133 H 130 H Respiratory Rate 19 Blood Pressure 106/50 L Pulse Oximetry 96 96 Oxygen Delivery Nasal Cannula Oxygen Flow Rate 2 05/26/24 00:00 05/26/24 01:40 05/26/24 01:51 Temperature Pulse Rate 129 H 148 H Respiratory Rate Blood Pressure 104/62 Pulse Oximetry Oxygen Delivery Oxygen Flow Rate 05/26/24 02:00 05/26/24 03:08 05/26/24 03:43 Temperature Pulse Rate 133 H 138 H Respiratory Rate Blood Pressure Pulse Oximetry 96 Oxygen Delivery Nasal Cannula Oxygen Flow Rate 2 05/26/24 03:54 05/26/24 06:00 Temperature 98.2 F Pulse Rate 121 H 134 H Respiratory Rate 18 Blood Pressure 101/81 Pulse Oximetry 100 Oxygen Delivery Oxygen Flow Rate Intake/Output Intake/Output: Intake & Output 05/23/24 05/24/24 05/25/24 05/26/24 23:59 23:59 23:59 23:59 Intake Total 1000 2331.7 1826.3 50 Output Total 400 350 300 Balance 1000 1931.7 1476.3 -250 Meds/Results Medications: Active Medications Generic Name Dose Route Start Last Admin Trade Name Freq PRN Reason Stop Dose Admin Acetaminophen 650 mg 05/23/24 18:33 Acetaminophen 325 Mg Tablet PO Q4H PRN Mild Pain (1-3) or Fever Albuterol 1 puff 05/24/24 09:23 Albuterol Sulfate (*Sp) Aerosol 1 Puff INHALATION Q6H PRN Wheezing Apixaban 5 mg 05/24/24 21:00 05/25/24 21:11 Apixaban 5 Mg Tablet PO 5 mg Q12HR NAN Administration Fluticasone/Umeclidinium/Vilanterol 1 puff 05/25/24 08:00 05/26/24 07:41 Fluticasone/Umeclidin/Vilanter 100-62.5-25 Mcg Ellipta INHALATION 1 puff DAILYRT NAN Administration Piperacillin/Tazobactam/Dextrose 3.375 gm in 50 mls @ 100 mls/hr 05/24/24 16:00 05/26/24 03:49 Zosyn 3.375 Gm/Ns 50 Ml IVPB Infused Q6H NAN Infusion Levothyroxine Sodium 25 mcg 05/25/24 06:30 05/26/24 05:37 Levothyroxine Sodium 25 Mcg Tablet PO 25 mcg DAILY@0630 NAN Administration Melatonin 5 mg 05/24/24 09:23 05/25/24 23:40 Melatonin 5 Mg Tablet PO 5 mg HS PRN Administration Restless Leg(S) Metoprolol Tartrate 5 mg 05/24/24 16:19 05/26/24 03:43 Metoprolol Tartrate Inj 5 Mg/5 Ml Vial IV PUSH 5 mg Q4HR PRN Administration Heart Rate- High Metoprolol Tartrate 12.5 mg 05/25/24 21:00 05/25/24 21:10 Metoprolol Tartrate 12.5 Mg Tablet PO 12.5 mg Q12HR NAN Administration Metoprolol Tartrate 25 mg 05/25/24 21:00 05/25/24 21:11 Metoprolol Tartrate 25 Mg Tablet PO 25 mg Q12HR NAN Administration Miscellaneous Information 1 each 05/24/24 00:01 Tafamidis Nonformulary, Can Patient Use From Home Or Hold Till Discharge? XX 06/23/24 00:00 CLARIFY NAN Multivitamins Therapeutic 1 tablet 05/24/24 21:00 05/25/24 21:11 Multivitamins Therapeutic Tab (*Bkc) PO 1 tablet HS NAN Administration Non-Formulary Medication 61 mg 05/25/24 09:00 Tafamidis [Vyndamax] PO 06/24/24 08:59 DAILY [facility] Prochlorperazine Edisylate 10 mg 05/24/24 14:27 05/24/24 17:03 Prochlorperazine Edisylate 10 Mg/2 Ml Vial IV PUSH 10 mg Q6H PRN Administration Nausea And Vomiting Simvastatin 10 mg 05/24/24 18:00 05/25/24 21:11 Simvastatin 10 Mg Tablet PO Not Given QPM [facility] Radiology Results: ITS Impressions Chest X-Ray 05/24/24 12:09 IMPRESSION: Persistent cardiomegaly with cylindrical bronchiectasis suspected. PA and lateral view is suggested, if the patient is clinically able, in order to evaluate for a left-sided pleural effusion (or a retrocardiac infiltrate). Chest/Abdomen/Pelvis CT 05/24/24 19:21 IMPRESSION: Cardiomegaly Prominent coronary artery calcification Minimal linear atelectasis or scarring at middle lobe, lingula and bilateral lower lobes Mild ascites Small spleen Horseshoe kidney Nonspecific thickening of the urinary bladder wall which may be due to underdistention, prostatomegaly or cystitis Diverticulosis of the left colon; no evidence of diverticulitis Status post posterior surgical fusion at L3-L5 Face CT 05/25/24 11:39 IMPRESSION: No facial fracture. Labs Labs: Laboratory Results - last 24 hr 05/25/24 05/26/24 11:27 04:30 WBC 9.5 RBC 4.67 Hgb 15.3 Hct 48.0 MCV 102.8 H MCH 32.8 MCHC 31.9 L RDW 16.6 H Plt Count 132 L MPV 11.6 H Sodium 140 139 Potassium 4.0 4.4 Chloride 97 L 96 L Carbon Dioxide 30 21 L Anion Gap 13 H 22 H BUN 46 H D 58 H D Creatinine 2.78 H 3.16 H Estim Creat Clear Calc 16 14 Estimated GFR 22 L 19 L Glucose 132 H 100 Hemoglobin A1c 5.9 H Calcium 8.6 8.5 Magnesium 2.7 H Total Bilirubin 4.3 H AST 1159 H ALT 428 H Alkaline Phosphatase 86 Total Protein 7.0 Albumin 3.7 Quality VTE Prophylaxis VTE prophylaxis: pharmacologic ordered Hospitalist [facility] Advance Care Plan I have confirmed that the patient's Advanced Care Plan is present, code status is documented, or surrogate decision maker is listed in patient medical record.: Yes Medication Reconciliation I have utilized all available resources to obtain, update and review the patients current medications (includes all prescriptions, OTC, herbals, cannabis, and nutritional supplements).: Yes
[2024-05-26] MEDS: APIXABAN 5 MG TABLET PO (08:32)
[2024-05-26] MEDS: METOPROLOL TARTRATE 12.5 MG TABLET PO (08:32)
[2024-05-26] MEDS: METOPROLOL TARTRATE 25 MG TABLET PO (08:33)
--- NOTE | 2024-05-26 09:45 | P.CONNP_ITS ---
Assessment and Plan Assessment and plan (1) Acute kidney injury: Code(s): N17.9 - Acute kidney failure, unspecified Status: Acute Assessment and Plan: * etiology not clear * noted on 05/25 -- admission creatinine normal/at baseline * possible reasons include: * afib with RVR * relative hypotension * prerenal factors * infection (dental caries) * medications (antibiotics?) * check renal ultrasound, urine studies, and CPK * consider trial of IVFs (but given symptoms of SOB, check imaging first) * optimize hemodynamic as tolerated * follow trend of repeat labs and UOP (2) Atrial fibrillation with RVR: Code(s): I48.91 - Unspecified atrial fibrillation Status: Acute Assessment and Plan: * Cardiology following * continue attempts at rate control strategy * on metoprolol * attempts earlier today with use of amiodarone resulted in significant bradycardia * on 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 (3) Dental caries: Code(s): K02.9 - Dental caries, unspecified Status: Acute Assessment and Plan: * severity/extent not entirely clear * CT of facial bones noted * due to #1, zosyn discontinued in favor of cefepime and metronidazole * follow culture data (4) Hypotension: Code(s): I95.9 - Hypotension, unspecified Status: Acute Assessment and Plan: * noted on admission * normotensive if not in the 140s systolic at baseline * afib with RVR not likely helping this issue * continue efforts to optimize hemodynamics (5) Wild-type transthyretin-related (ATTR) amyloidosis: Code(s): E85.82 - Wild-type transthyretin-related (ATTR) amyloidosis Status: Chronic Assessment and Plan: * known history with regard to cardiac involvement * no report history of any other organ involvement * follows with [facility] (6) Dementia: Code(s): F03.90 - Unspecified dementia, unspecified severity, without behavioral disturbance, psychotic disturbance, mood disturbance, and anxiety Status: Chronic Assessment and Plan: * reported lewey body dementia by history * continue supportive therapy I will continue to follow the patient with you while he remains hospitalized and make further recommendations as deemed necessary. Thank you for allowing me to participate in the care of this patient. L History of Present Illness Reason for Consult Consult date: 05/26/24 Reason for consult: acute renal failure Chief Complaint Chief complaint: NSTEMI; afib RVR (now rate controlled) History of Present Illness Narrative: All the information that I have obtained is review the electronic medical record as well as discussion with the physician/nurses involved in the patient's care as well as the patient's at bedside as is difficult to get a history from the patient due to his underlying dementiaAnd worsening mental status. The patient presented to [facility] Emergency Room with multiple complaints. His most pressing on was that of pain in his left jaw which apparently is associated with dental caries/cavities in his teeth in the left molar area. He apparently has to have these teeth extracted in early June. He apparently has been on a course of amoxicillin, Augmentin and currently clindamycin for treatment of this issue until tooth extraction can occur. The pain apparently has been so severe that is radiating up to his left ear and this has made oral intake somewhat diminished. On further review his records, his family noted that he has been having issues and problems with dizziness, palpitations and apparently not acting quite like his self all this the specifics of what they meant her not entirely clear. There report that he is not talking as much as he usually does and appears to be more weak with increasing fatigue. He apparently had a episode of emesis on the day before admission and has been now having issues and problems with nausea. He denies any shortness of breath or chest pain but states he does feel increased palpitations. Given these constellation of symptoms/problems, he presented to the ER for further assessment. Workup and evaluation emergency room demonstrated the patient to be relatively hypotensive and tachycardic and in mild distress secondary to left jaw/dental pain. Routine blood test demonstrated negative viral testing with regard to influenza, RSV, and COVID. His chemistry was normal with no critical electrolyte abnormalities although his BUN was slightly elevated. His CBC was unremarkable but he was noted have an elevated INR of 1.9. His urinalysis was negative as well. EKG demonstrated atrial fibrillation with RVR which was presumed to be the etiology of his symptomatic palpitations. Given his multiple medical issues as mentioned, appropriate cultures were obtained and he was started on IV antibiotics for his presumed worsening dental infection with cardiology consultation for his atrial fibrillation with RVR. Since his admission, his atrial fibrillation has been somewhat difficult to rate control. Attempts at using amiodarone resulted in significant bradycardia so he has been receiving IV pushes of metoprolol to maintain rate control strategy. More concerning is the fact that labs done in the last 24-48 hours demonstrate evidence of acute kidney injury/acute renal failure. Renal consultation was requested due to his acute kidney injury/ acute renal failure. On admission, his renal function was well within normal limits from ranging from 1.17-1.26 mg/dL but then acutely cathy to 2.78 mg/dL on 05/25 and subsequently today up to 3.16 mg/dL. In spite of this significant change in his renal function, he has no critical electrolyte abnormalities other than a mild metabolic acidosis. He appears to be making reasonable urine output although is not being fully quantitated at this time. Since this morning, the patient has been increasingly more restless and confused with ongoing complaints of shortness of breath. Supplemental oxygen was applied due to his complaints of shortness of breath but this has not really alleviated the symptom. From review his records and discussion with the patient's , he has never had any issues or problems with his kidney function before although she fully admits that he has never been as ill as this either. Currently, at the time my evaluation, the patient remains quite uncomfortable and restless with ongoing complaints of shortness of breath. Review of Systems 2 Review of Systems: As per HPI. 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 Code status: Full code. Years smoked: 2 Smoking status: Never smoker Tobacco type: cigarettes Second hand tobacco smoke exposure: Yes Alcohol intake: never Substance use: never Substance use type: does not use Do You Feel Safe in your Home?: Yes Lack of Transportation: YES Lack of Food: Sometimes True Current Housing: I Have Housing Concerned About Future Housing: No Difficulty Paying Gas/Electric Bills: No Difficulty Paying for Meds: No Currently Unemployed: No Education: Bachelor's Degree Difficulty w/ Childcare or Family Care: No Living arrangements: assisted living Additional living arrangements comments: [facility], with Spiritual care concerns: No Meds Home Medications and Allergies Home Medications ?Medication ?Instructions ?Recorded ?Confirmed ?Type albuterol sulfate 90 mcg/actuation 1 inh inhalation Q6H PRN Wheezing 12/15/23 05/23/24 History aerosol inhaler apixaban 5 mg tablet (Eliquis) 5 mg PO BID 12/15/23 05/23/24 History cetirizine 10 mg tablet 10 mg PO DAILY 12/15/23 05/23/24 History fluticasone fur. 100 mcg-umeclid 1 inh inhalation DAILY 12/15/23 05/23/24 History 62.5 mcg-vilant 25 mcg inhalat.powder (Trelegy Ellipta) furosemide 80 mg tablet 80 mg PO DAILY 12/15/23 05/23/24 History gabapentin 300 mg capsule 300 mg PO QAM 12/15/23 05/23/24 History levothyroxine 25 mcg tablet 25 mcg PO DAILY 12/15/23 05/23/24 History melatonin 3 mg tablet 5 mg PO HS PRN Restless Leg(S) 12/15/23 05/23/24 History modafinil 200 mg tablet 100 mg PO QAM 12/15/23 05/23/24 History montelukast 10 mg tablet 10 mg PO HS 12/15/23 05/23/24 History multivitamin 1 tablet PO HS 12/15/23 05/23/24 History omega-3 fatty acids 1,000 mg 1,500 mg PO QNOON 12/15/23 05/23/24 History capsule simvastatin 20 mg tablet 10 mg PO QPM 12/15/23 05/23/24 History [id number] W1-H3-gbduzvtp 250 2 tablet PO DAILY 05/23/24 05/23/24 History mg-40 mg-5 mg-125 unit tablet potassium gluconate 595 mg (99 mg) 595 mg PO DAILY 05/23/24 05/23/24 History tablet tafamidis 61 mg capsule (Vyndamax) 61 mg PO DAILY 05/23/24 05/23/24 History clindamycin HCl 300 mg capsule 300 mg PO Q12H infection 05/24/24 05/24/24 History Allergies Allergy/AdvReac Type Severity Reaction Status Date / Time No Known Allergies Allergy Verified 12/24/23 16:36 Vital Signs Vital Signs Temp Pulse Resp BP Pulse Ox O2 Del Method O2 Flow Rate 05/26/24 08:00 131 H 20 97 Nasal Cannula 2 05/26/24 08:00 97.3 F L 141 H 20 91/48 L 97 05/26/24 06:00 134 H 05/26/24 03:54 98.2 F 121 H 18 101/81 100 05/26/24 03:43 138 H 05/26/24 03:08 96 Nasal Cannula 2 05/26/24 02:00 133 H 05/26/24 01:51 148 H 05/26/24 01:40 104/62 05/26/24 00:00 129 H 05/26/24 00:00 97.9 F 130 H 19 106/50 L 96 05/25/24 23:41 133 H 05/25/24 23:40 96 Nasal Cannula 2 05/25/24 23:01 96 Nasal Cannula 2 05/25/24 22:00 106 H 05/25/24 20:00 131 H 05/25/24 20:00 98 Nasal Cannula 2 05/25/24 19:46 97.5 F L 122 H 20 112/95 H 98 05/25/24 18:00 105 H 05/25/24 16:00 97.5 F L 80 28 H 95/63 L 100 05/25/24 16:00 102 H 05/25/24 14:00 107 H Exam 2 Narrative: GENERAL APPEARANCE: elderly male who appears mild distress HEENT: normocephalic, atraumatic, normal conjunctiva and sclera, nares patent NECK: no lymphadenopathy, thyromegaly, or JVD MOUTH: somewhat dry mucous membranes CARDIOVASCULAR: tachycardic and irregularly irregular RESPIRATORY: clear to auscultation bilaterally ABDOMEN: soft, nontender, nondistended, positive bowel sounds present EXTREMITIES: no evidence of cyanosis, clubbing, or edema NEUROLOGICAL: awake but confused; restless; no focal deficits noted Results Lab Results 05/30/24 06:02 05/30/24 06:02 Lab results: Most recent lab results Calcium 8.5 mg/dL (8.4-10.2) 05/26/24 04:30 Magnesium 2.7 mg/dL (1.6-2.3) H 05/26/24 04:30
[2024-05-26] MEDS: PROCHLORPERAZINE EDISYLATE 10 MG/2 ML VIAL IV PUSH (10:45)
--- NOTE | 2024-05-26 10:51 | PM.PNCARD ---
Progress Note: A&P Assessment and Plan (1) Atrial fibrillation with RVR: Code(s): I48.91 - Unspecified atrial fibrillation Status: Acute Plan 1. Paroxysmal atrial fibrillation with RVR 2. 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 Hypertension 7. Hyperlipidemia 8. Hypothyroidism 9. Obstructive sleep apnea 10. Dementia PLAN: -Patient has known PAF and tachy-cassia syndrome. Follows with [facility]. Currently not on any AV parvin blocking agents at home due to issues with bradycardia in the past, however, per last EP note from February 2024, they suggested can retry low dose beta rupert if he has recurrent issues with RVR. Was started on low dose metoprolol and heart rate has trended down. However, overnight he went into RVR and his blood pressure is now low. After discussion with patient's at the bedside, will start him on amiodarone for rate control as this should not lower his blood pressure and we cannot use digoxin at this time because of HERACLIO. -Infectious workup has been negative thus far. -Continue Eliquis 5mg BID. -Elevated troponins probably due to demand ischemia, no concern for ACS at this time. -Patient is being transferred to [facility] per patient family request for oral surgery Subjective Date/time seen: 05/26/24 10:51 Interval history: Cardiology follow up visit Tele shows AF RVR at times but rate is better controlled over the last ~12 hours. Generally 105-120bpm. Date of service 05/26/2024: Heart rates have increased and are consistently 120-140bpm. SBP in the 90's. He is complaining of nausea and back pain Review of Systems Review of Systems: Limited ROS due to mental status. Exam Const: General: comfortable, no acute distress and tired appearing Orientation/consciousness: No patient oriented x3 Other: Appears restless, confused HENMT: Head: normal to inspection Eyes: General: appearance normal, both eyes and all related structures Sclera: sclerae normal Resp: Effort & Inspection: normal respiratory effort Cardio: Rate: tachycardic Rhythm: abnormal rhythm irregularly irregular Heart sounds: no murmurs Skin: General skin exam: normal color Neuro: General: No patient oriented x3 Other: Confused Extrem: Other: no edema Objective Data Vital Signs Vital Signs: Vital Signs - 24 hr 05/25/24 12:00 05/25/24 12:00 05/25/24 14:00 Temperature 36.5 C Pulse Rate 118 H 102 H 107 H Respiratory Rate 26 H Blood Pressure 106/72 Pulse Oximetry 90 Oxygen Delivery Oxygen Flow Rate 05/25/24 16:00 05/25/24 16:00 05/25/24 18:00 Temperature 36.4 C L Pulse Rate 102 H 80 105 H Respiratory Rate 28 H Blood Pressure 95/63 L Pulse Oximetry 100 Oxygen Delivery Oxygen Flow Rate 05/25/24 19:46 05/25/24 20:00 05/25/24 20:00 Temperature 36.4 C L Pulse Rate 122 H 131 H Respiratory Rate 20 Blood Pressure 112/95 H Pulse Oximetry 98 98 Oxygen Delivery Nasal Cannula Oxygen Flow Rate 2 05/25/24 22:00 05/25/24 23:01 05/25/24 23:40 Temperature Pulse Rate 106 H Respiratory Rate Blood Pressure Pulse Oximetry 96 96 Oxygen Delivery Nasal Cannula Nasal Cannula Oxygen Flow Rate 2 2 05/25/24 23:41 05/26/24 00:00 05/26/24 00:00 Temperature 36.6 C Pulse Rate 133 H 130 H 129 H Respiratory Rate 19 Blood Pressure 106/50 L Pulse Oximetry 96 Oxygen Delivery Oxygen Flow Rate 05/26/24 01:40 05/26/24 01:51 05/26/24 02:00 Temperature Pulse Rate 148 H 133 H Respiratory Rate Blood Pressure 104/62 Pulse Oximetry Oxygen Delivery Oxygen Flow Rate 05/26/24 03:08 05/26/24 03:43 05/26/24 03:54 Temperature 36.8 C Pulse Rate 138 H 121 H Respiratory Rate 18 Blood Pressure 101/81 Pulse Oximetry 96 100 Oxygen Delivery Nasal Cannula Oxygen Flow Rate 2 05/26/24 06:00 05/26/24 08:00 05/26/24 08:00 Temperature 36.3 C L Pulse Rate 134 H 141 H 131 H Respiratory Rate 20 20 Blood Pressure 91/48 L Pulse Oximetry 97 97 Oxygen Delivery Nasal Cannula Oxygen Flow Rate 2 05/26/24 08:00 05/26/24 10:00 Temperature Pulse Rate 131 H 128 H Respiratory Rate Blood Pressure Pulse Oximetry Oxygen Delivery Oxygen Flow Rate Intake/Output Intake/Output: Intake & Output 03/22/25 03/23/25 03/24/25 03/25/25 23:59 23:59 23:59 23:59 Intake Total 1000 2331.7 1826.3 50 Output Total 400 350 300 Balance 1000 1931.7 1476.3 -250 Meds/Results Medications: Active Medications Generic Name Dose Route Start Last Admin Trade Name Freq PRN Reason Stop Dose Admin Acetaminophen 650 mg 05/23/24 18:33 Acetaminophen 325 Mg Tablet PO Q4H PRN Mild Pain (1-3) or Fever Albuterol 1 puff 05/24/24 09:23 Albuterol Sulfate (*Sp) Aerosol 1 Puff INHALATION Q6H PRN Wheezing Amoxicillin/Clavulanate Potassium 1 tablet 05/26/24 12:00 Amoxicillin/Clavulanate K 500-125 Mg Tab PO Q12HR NAN Apixaban 2.5 mg 05/26/24 21:00 Apixaban 2.5 Mg Tablet PO Q12HR NAN Fluticasone/Umeclidinium/Vilanterol 1 puff 05/25/24 08:00 05/26/24 07:41 Fluticasone/Umeclidin/Vilanter 100-62.5-25 Mcg Ellipta INHALATION 1 puff DAILYRT NAN Administration Amiodarone HCl/Dextrose 150 mg in 100 mls @ 600 mls/hr 05/26/24 10:46 Nexterone 150 Mg/D5w 100 Ml IV CONT 05/26/24 10:55 .Q10M ONE 15 MG/MIN Amiodarone HCl/Dextrose 360 mg in 200 mls @ 33.333 mls/hr 05/26/24 10:46 Nexterone 360 Mg/D5w 200 Ml IV CONT 05/26/24 16:45 .Q6H ONE 1 MG/MIN Amiodarone HCl/Dextrose 360 mg in 200 mls @ 16.667 mls/hr 05/26/24 10:50 Nexterone 360 Mg/D5w 200 Ml IV CONT .Q12H NAN 0.5 MG/MIN Levothyroxine Sodium 25 mcg 05/25/24 06:30 05/26/24 05:37 Levothyroxine Sodium 25 Mcg Tablet PO 25 mcg DAILY@0630 NAN Administration Melatonin 5 mg 05/24/24 09:23 05/25/24 23:40 Melatonin 5 Mg Tablet PO 5 mg HS PRN Administration Restless Leg(S) Metoprolol Tartrate 5 mg 05/24/24 16:19 05/26/24 03:43 Metoprolol Tartrate Inj 5 Mg/5 Ml Vial IV PUSH 5 mg Q4HR PRN Administration Heart Rate- High Miscellaneous Information 1 each 05/24/24 00:01 Tafamidis Nonformulary, Can Patient Use From Home Or Hold Till Discharge? XX 06/23/24 00:00 CLARIFY NAN Multivitamins Therapeutic 1 tablet 05/24/24 21:00 05/25/24 21:11 Multivitamins Therapeutic Tab (*Bkc) PO 1 tablet HS NAN Administration Non-Formulary Medication 61 mg 05/25/24 09:00 Tafamidis [Vyndamax] PO 06/24/24 08:59 DAILY [facility] Prochlorperazine Edisylate 10 mg 05/24/24 14:27 05/26/24 10:45 Prochlorperazine Edisylate 10 Mg/2 Ml Vial IV PUSH 10 mg Q6H PRN Administration Nausea And Vomiting Simvastatin 10 mg 05/24/24 18:00 05/25/24 21:11 Simvastatin 10 Mg Tablet PO Not Given QPM [facility] Radiology Results: ITS Impressions Chest X-Ray 05/24/24 12:09 IMPRESSION: Persistent cardiomegaly with cylindrical bronchiectasis suspected. PA and lateral view is suggested, if the patient is clinically able, in order to evaluate for a left-sided pleural effusion (or a retrocardiac infiltrate). Chest/Abdomen/Pelvis CT 05/24/24 19:21 IMPRESSION: Cardiomegaly Prominent coronary artery calcification Minimal linear atelectasis or scarring at middle lobe, lingula and bilateral lower lobes Mild ascites Small spleen Horseshoe kidney Nonspecific thickening of the urinary bladder wall which may be due to underdistention, prostatomegaly or cystitis Diverticulosis of the left colon; no evidence of diverticulitis Status post posterior surgical fusion at L3-L5 Face CT 05/25/24 11:39 IMPRESSION: No facial fracture. Labs Labs: Laboratory Results - last 24 hr 05/25/24 05/26/24 11:27 04:30 WBC 9.5 RBC 4.67 Hgb 15.3 Hct 48.0 MCV 102.8 H MCH 32.8 MCHC 31.9 L RDW 16.6 H Plt Count 132 L MPV 11.6 H Sodium 140 139 Potassium 4.0 4.4 Chloride 97 L 96 L Carbon Dioxide 30 21 L Anion Gap 13 H 22 H BUN 46 H D 58 H D Creatinine 2.78 H 3.16 H Estim Creat Clear Calc 16 14 Estimated GFR 22 L 19 L Glucose 132 H 100 Hemoglobin A1c 5.9 H Calcium 8.6 8.5 Magnesium 2.7 H Total Bilirubin 4.3 H AST 1159 H ALT 428 H Alkaline Phosphatase 86 Total Protein 7.0 Albumin 3.7 Quality VTE Prophylaxis VTE prophylaxis: pharmacologic ordered
[2024-05-26] MEDS: ACETAMINOPHEN 325 MG TABLET 650 MG PO (11:48)
[2024-05-26] MEDS: AMOXICILLIN/CLAVULANATE K 500-125 MG TAB 1 TABLET PO (11:48)
[2024-05-26] MEDS: AMIODARONE 150 MG/D5W 100 ML 150 MG/100 ML BAG 600 MG IV CONT (11:50)
[2024-05-26] MEDS: AMIODARONE 360 MG/D5W 200 ML 360 MG/200 ML BAG 33.33 MG IV CONT (11:50)
--- NOTE | 2024-05-26 14:08 | ECG_ITS ---
Test Date: 2024-05-26 14:25:49 Measurements Intervals [place] Rate: 58 P: 0 DC: 0 QRS: 212 QRSD: 100 T: 20 QT: 507 QTc: 499 Interpretive Statements ATRIAL FLUTTER/TACHYCARDIA WITH SLOW VENTRICULAR RESPONSE POSSIBLE RIGHT VENTRICULAR HYPERTROPHY [SOME/ALL OF: PROMINENT R IN V1, LATE TRANSITION, RAD, DRE, SSS] POSSIBLE ANTERIOR MYOCARDIAL INFARCTION [30 ms Q WAVE IN V3/V4, OR R < 0.2 mV IN V4], OF INDETERMINATE AGE INFERIOR MYOCARDIAL INFARCTION [40+ ms Q WAVE AND/OR ST/T ABNORMALITY IN II/aVF], OF INDETERMINATE AGE Compared to ECG 05/23/2024 19:38:00 ATRIAL FLUTTER NOW PRESENT Electronically Signed On 05-26-2024 16:48:25 CDT by Mee Salazar M.D.
[2024-05-26 15:06] LABS: Lactic Acid Reflex 10.9 mmol/L (0.7-2.0)
[2024-05-26 15:16] LABS: Troponin I 0.324 ng/mL (0.000-0.034)
--- NOTE | 2024-05-26 16:14 | PC.NURSE ---
Cardiology called to inform them of elevated lactic acid of 10.19, elevated troponin of 0.3.24 and decreased heart rate in the 40s from 120s-130s. Orders given to turn off the amiodarone at this time.
[2024-05-26 16:23] LABS: Hematocrit 48.8 % (42.0-52.0); Hemoglobin 15.4 g/dL (14.0-18.0); Mean Corpuscular HGB Conc 31.6 g/dl (32-36); Mean Corpuscular Volume 104.5 fl (80-100); Mean Platelet Volume 12.3 fl (7.4-10.4); Platelet Count Result 154 k/mm3 (150-375); Red Blood Count 4.67 M/mm3 (4.6-6.20); Red Cell Distribution Width 17.2 % (11.5-14.5); White Blood Count 11.6 K/mm3 (4.5-10.0)
[2024-05-26] MEDS: SODIUM CHLORIDE 0.9% IV 1,000 ML 999 ML IV CONT (16:26)
[2024-05-26 16:41] LABS: NT Pro B Type Natriuretic Pept 22500 pg/mL (19.9-100)
--- NOTE | 2024-05-26 16:45 | PCRCNOTE ---
Multiple RT's attempted to get ABG on this patient... were unsuccessful, pt is now getting an echo and RT has been instructed to try again later per nurse.
[2024-05-26 16:46] LABS: Reflex Lactic Acid Yes or No Add Lactic
--- NOTE | 2024-05-26 16:55 | PC.NURSE ---
Called physician to report BNP of 22,500. No new orders at this time. Echocardiogram being completed at this time. 1 liter of IV fluids currently infusing.
[2024-05-26] MEDS: PERFLUTREN LIPID MICROSPHERES 1.5 ML VIAL DILUTED TO 10 ML TOTAL VOLUME IV PUSH (17:00)
--- NOTE | 2024-05-26 17:24 | PC.NURSE ---
18F urbina catheter placed with no urine return. No acute distress noted at this time, will monitor this shift for pain or urine output. Bladder scanned patient while placing the catheter and bladder scan showed 20mL.
--- NOTE | 2024-05-26 17:32 | IVDEFINITY ---
Prior to administration of IV Definity the patient was educated on the risks and benefits of the imaging enhancing agent including potential adverse side effects. The patient verbalized understanding. Allergies were verified. No exclusion criteria were identified and at least one of the following inclusion criteria were met: 1) physician request, 2) patient technically difficult to image (per the [place] [employer] guidelines of two or more segments not discernable within the apical view), or 3) questionable left ventricular function. ?
[2024-05-26 18:01] LABS: Alveolar/Arterial O2 Gradient 36.1 mmHg; Base Excess ABG -13.8 mEq/l (+/-2.0); Fractional Inspired Oxygen 28 %; HCO3 ABG 9.8 mEq/l (22.0-26.0); Oxygen Content ABG 21.8 %vol (16.0-22.0); Oxygen Saturation ABG 98.6 % (95.0-100.0); Oxyhemoglobin 97.8 % THb (90.0-100.0); PO2 ABG 139.9 mmHg (80.0-100.0); Total Hemoglobin 15.7 g/dL (12.0-18.0); pH ABG 7.309 (7.350-7.450)
[2024-05-26] MEDS: CEFEPIME 2 GM/NS 50 ML 2 GM/50 ML BAG IVPB (18:02)
[2024-05-26] MEDS: SIMVASTATIN 10 MG TABLET PO (18:03)
[2024-05-26] MEDS: metroNIDAZOLE 500 MG/ISO 100ML 500 MG/100 ML BAG 100 MG IVPB (18:03)
[2024-05-26 18:04] LABS: Device NASAL CANNULA; Site Drawn RIGHT BRACHIAL
[2024-05-26 18:06] LABS: Lactic Acid 10.5 mmol/L (0.7-2.0)
--- NOTE | 2024-05-26 18:15 | PC.NURSE ---
unable to get a temperature on the the patient at this time either orally or axillary. made aware.
[2024-05-26 19:18] LABS: Procalcitonin 4.1 ng/mL
[2024-05-26] MEDS: NOREPINEPHRINE 8 MG/D5W 250 ML 8 MG/250 ML BAG 18.75 MG IV CONT (19:20)
[2024-05-26] MEDS: SODIUM BICARBONATE 8.4% 50 MEQ/50 ML SYRINGE IV PUSH (19:34)
[2024-05-26] MEDS: SODIUM CHLORIDE 0.9% IV 500 ML IV CONT (19:44)
[2024-05-26] MEDS: SODIUM BICARBONATE 8.4% 150 MEQ in DEXTROSE 5% 1,000 ML 950 ML 50 MEQ IV CONT (19:55)
--- NOTE | 2024-05-26 20:32 | WPDPROCEDUR ---
Procedures Central Line Placement Right IJ: Central Line Date: 05/26/24 Central Line Time: 20:05 Discussed w/ the patient/family/POA,the placement of a central venous catheter, including its clinical necessity/indication & associated potential risks, benifits and alternatives.: Yes The patient/family/POA understand(s) and acknowledge(s) the need to proceed with central venous catheter insertion as an important element of the patient's clinical management.: Yes Consent: I have discussed with the patient and/or surrogate, the non-emergent placement of a central venous catheter, including its clinical necessity/indication and associated potential risks and complications. The patient and/or surrogate understand(s) and acknowledge(s) the need to proceed with central venous catheter insertion as an important element of the patient's clinical management. Time Out Performed: Yes Patient Position: trendelenburg Patient placed on monitor/pulse ox: Yes Provider Prep: mask, sterile gown, sterile gloves, Max. sterile barrier precautions, cap and hand hygiene with conventional soap/water or alcohol based hand rub Central line prep: 2% Chlorhexidine scrub Local anesthesia used: lidocaine 1% Amount of anesthesia used (ml): 3 Sterile US Technique with sterile gel/sterile probe covers: Yes Central line lumen inserted: triple Yoruba: 7 Length (cm): 16 Depth of Insertion (cm): 16 Post Procedure: sutured in place, good blood return, all ports aspirated, flushed, capped, transparent dressing, hemostatic product, antimicrobial product, securement product and aseptic technique maintained throughout procedure Post procedure x-ray: tip of catheter in good position and no pneumothorax seen Patient tolerated procedure: well Complications: hematoma at puncture site Additional comments: The patient is on Eliquis. He has small hematoma around the puncture site. Chest x-ray was personally reviewed and interpreted. Radiology interpretation pending. No signs of overt volume overload.
[2024-05-26] MEDS: LACTATED RINGERS 1,000 ML 999 ML IV CONT (20:37)
--- NOTE | 2024-05-26 20:45 | PM.CCN ---
Critical Care Event Note Summary Code activated: No Narrative: 05/26/2024 at 19:30 The patient developed acute hypotension in the morning and had repeat labs done in the early afternoon which demonstrated marked lactic acidosis. Patient's antibiotics were adjusted. The patient was started on cefepime. The patient received 500 mL bolus normal saline and had transient improvement in his blood pressure but had recurrent hypotension. Repeat lactic acidosis had worsened slightly and again was greater than 10. The patient was transferred to the ICU for pressors. Patient was evaluated on arrival to the ICU and was hypotensive with blood pressures in the 70s and 80s systolic while on peripheral Levophed at 10. He was in AFib with mild bradycardia with rates between 40 and 55. Initially the patient was somnolent and minimally responsive. I put a right IJ in and the patient was transitioned to pressors through that line. The patient did seem to have some increased bleeding from around the IJ site initially thought to be due to Eliquis. The patient had been on Eliquis 5 mg q.12 hours and was transition to 2.5 mg q.12 hours on the morning of the . Unfortunately patient pulled the IJ out and had a relatively large amount of bleeding. I then placed a right femoral CVC the patient had extensively more bleeding from the femoral line despite the procedure being atraumatic. Both procedures were successful on the 1st attempt. Subsequently patient's stat labs initially returned and were clearly contaminated with bicarb infusion with numbers that were not appropriate. Repeat stat labs were obtained which demonstrated a drop in hemoglobin of 2 g relatively stable platelet count, worsening renal function with a creatinine of 4.4 increased from prior value of 3.6. (the value of 2.5 was from a contaminated specimen) the patient's serum bicarb was 18 despite patient having received 3 amps of sodium bicarb per during resuscitation efforts. Patient had also received an additional 1 L fluid bolus during a line placement. Fluid bolus was infused at a rate of 500 mL an hour. While IJ was in place a CVP was obtained which was 22 or greater. The patient also had markedly increased phosphorus level from earlier in the day, marked increase in transaminitis and hyperbilirubinemia. The patient's troponin had increased marginally given the patient's clinical condition this was not unexpected. Patient's total protein and albumin were slightly low. Procalcitonin was elevated earlier in the day. Repeat blood cultures were obtained in the afternoon. The patient's PTT was greater than 120 INR was greater than 20 D-dimer was elevated at 11.7 fibrinogen was lower limit of normal at 222 and PTT was elevated at 72.8. Patient's labs were and clinical presentation were consistent with DIC. Patient was confused at the time of my evaluation. He was minimally responsive. However after blood pressures improved the patient was talking ending asking to get up and move around. Patient was difficult to redirect due to his history of dementia. Patient is alert orient x2 at baseline. GENERAL: Acutely ill-appearing, lying in bed, appears stated age HEENT: Head is normocephalic atraumatic, pupils are equal and reactive, positive conjunctival pallor CARDIOVASCULAR: Irregularly irregular, bradycardic RESPIRATORY: Tachypneic but otherwise clear to auscultation, abdominal respirations with respiratory rate between 24 and 30, maintaining oxygen saturations of 100% on room air ABDOMEN: Distended, hyperactive bowel sounds, nontender to palpation INTEGUMENT: Multiple areas of scattered bruising, oozing of blood from IV sites NEUROLOGIC: The patient was initially alert oriented to self only. After pressor administration mentation improved slightly and he seemed to be aware that he was in hospital he was asking repetitive questions and was difficult to redirect, he was moving all extremities equally PSYCHIATRIC: Anxious, restless, confused EXTREMITIES: Venous stasis dermatitis with marked varicosity of veins, moves all extremities equally :. Burk catheter in place with minimal urine output Assessment and plan: Shock likely due to sepsis but unknown source. Review blood cultures were obtained earlier in the day. Antibiotics were broadened to cefepime. However will add vancomycin at this time. Given marked hypotension and need for secondary pressor stress dose hydrocortisone has been added. Although the patient's cortisol is markedly elevated and appropriate for clinical situation. Patient is now maxed out on Levophed and vasopressin has been added. Patient received 1.5 L of isotonic fluid administration. Will hold off on giving and is total of 30 mL/kilos bolus given the patient has marked cardiomegaly on CT scan in patient's echocardiogram from earlier in the day still pending. Patient's CVP was normal any had good distention of the IJ on ultrasound exam. Appears intravascularly euvolemic on ultrasound. Multi organ system failure--the with acute kidney injury, DIC, acute transaminitis/possible early shock liver verses possible acute cholecystitis. Treating with antibiotics, fluid resuscitation, 2 units of fresh frozen plasma and 1 unit of cryoprecipitate. The patient is having extensive bleeding from the IJ site where he had removed his own catheter. Surgical foam dressing has been applied and overlying pressure dressing attempted. Will re-evaluate after blood product administration with repeat DIC panel and CBC. Acute renal failure--likely due to ATN from the above noted factors. Nephrology has been consulted. Patient received 3 amps of sodium bicarb during resuscitation efforts. Patient has been started on a bicarb drip at 100 mL an hour. Will monitor electrolyte panel closely. Patient has had minimal urine output. Await further recommendations from Nephrology. Severe metabolic acidosis multifactorial due to above factors. Including severe lactic acidosis. There is still some concern for possible ischemic bowel given the marked elevation of the patient's lactic acid level. However patient's abdominal exam besides being distended with hyperactive bowel sounds seems otherwise benign but given the patient's marked lactic acidosis with continued elevation in lactic acid level despite improvement in blood pressures and improved perfusion ischemic bowel is still a significant possibility. Also given transaminitis and hyperbilirubinemia patient may have some underlying gallbladder pathology given he had prior normal bilirubins on prior admission. Will obtain right upper quadrant ultrasound to further evaluate. Elevated troponin--likely secondary to type 2 infarct from hypotension and shock. Troponin only minimally elevated above prior values. Cardiology is consulted on the patient's case. Will hold beta-blockers due to hypotension. Amiodarone infusion has been discontinued. The patient is now bradycardic. Despite these multiple factors the patient remains on room air satting 100%. Lung sounds remain clear. I did update the patient's and son following procedures. There were the plan and management. Patient's case was discussed with the computer art instructor. Will repeat ABG, DIC panel, CMP, CBC and lactic acid after cryoprecipitate and FFP infusion. 185 minute spent in critical care activities. Due to a high probability of clinically significant, life threatening deterioration, the patient required my highest level of preparedness to intervene emergently and I personally spent this critical care time directly and personally managing the patient. This critical care time included obtaining a history; examining the patient; pulse oximetry; ordering and review of studies; arranging urgent treatment with development of a management plan; evaluation of patient's response to treatment; frequent reassessment; and discussions with other providers. It was exclusive of separately billable procedures and treating other patients and teaching time. Please see Assessment and Plan section and the rest of the note for further information on patient assessment and treatment. Critical care time: 165 - 194 mins
[2024-05-26] MEDS: SODIUM BICARBONATE 8.4% 50 MEQ/50 ML SYRINGE 100 MEQ IV PUSH (21:03)
[2024-05-26 22:17] LABS: Hematocrit 38.1 % (42.0-52.0); Hemoglobin 12.1 g/dL (14.0-18.0); Lactic Acid Reflex 8.6 mmol/L (0.7-2.0); Mean Corpuscular HGB Conc 31.8 g/dl (32-36); Mean Corpuscular Volume 103.8 fl (80-100); Mean Platelet Volume 12.6 fl (7.4-10.4); Platelet Count Result 123 k/mm3 (150-375); Red Blood Count 3.67 M/mm3 (4.6-6.20); Red Cell Distribution Width 17.1 % (11.5-14.5); White Blood Count 12.7 K/mm3 (4.5-10.0)
--- NOTE | 2024-05-26 22:44 | P.PCNBED_ITS ---
Procedures Central Line Placement Right Femoral: Central Line Date: 05/26/24 Central Line Time: 22:25 Discussed w/ the patient/family/POA,the placement of a central venous catheter, including its clinical necessity/indication & associated potential risks, benifits and alternatives.: Yes The patient/family/POA understand(s) and acknowledge(s) the need to proceed with central venous catheter insertion as an important element of the patient's clinical management.: Yes Consent: I have discussed with the patient and/or surrogate, the non-emergent placement of a central venous catheter, including its clinical necessity/indication and associated potential risks and complications. The patient and/or surrogate understand(s) and acknowledge(s) the need to proceed with central venous catheter insertion as an important element of the patient's clinical management. Time Out Performed: Yes Patient Position: trendelenburg Patient placed on monitor/pulse ox: Yes Provider Prep: mask, sterile gown, sterile gloves, Max. sterile barrier precautions, cap and hand hygiene with conventional soap/water or alcohol based hand rub Central line prep: 2% Chlorhexidine scrub Local anesthesia used: lidocaine 2% Amount of anesthesia used (ml): 5 Sterile US Technique with sterile gel/sterile probe covers: Yes Central line lumen inserted: triple Grenadian: 7 Length (cm): 20 Depth of Insertion (cm): 20 Post Procedure: sutured in place, good blood return, all ports aspirated, flushed, capped, transparent dressing, hemostatic product, antimicrobial product, securement product and aseptic technique maintained throughout procedure Patient tolerated procedure: well Complications: none Additional comments: Line in good position in ready for use
[2024-05-26 23:12] LABS: Glucose 875 mg/dL (65-110)
[2024-05-26 23:13] LABS: Albumin Level 2.2 g/dL (3.5-5.1); Alkaline Phosphatase 47 U/L (38-126); Bilirubin,Total 2.7 mg/dL (0.2-1.3); Blood Urea Nitrogen 60 mg/dL (9-20); Chloride 74 mmol/L (98-107); Estimated CRCL calculation 19 ml/min; Estimated Glomerular Filt Rate 25; Magnesium 1.9 mg/dL (1.6-2.3); Phosphorus 5.6 mg/dL (2.5-4.5); Potassium 3.9 mmol/L (3.4-5.0); Sodium 133 mmol/L (137-145)
[2024-05-26 23:25] LABS: Aspartate Amino Transferase 2318 U/L (17-59)
[2024-05-26 23:32] LABS: Alanine Aminotransferase 828 U/L (6-50)
[2024-05-26 23:33] LABS: Glucose Point of Care 92 mg/dl (65-105)
[2024-05-26 23:42] LABS: Magnesium 2.6 mg/dL (1.6-2.3)
[2024-05-26 23:50] LABS: Hematocrit 42.2 % (42.0-52.0); Hemoglobin 13.5 g/dL (14.0-18.0); Mean Corpuscular Hemoglobin 33.6 pg (26-34); Platelet Count Result 134 k/mm3 (150-375); Red Blood Count 4.02 M/mm3 (4.6-6.20); Red Cell Distribution Width 16.8 % (11.5-14.5); White Blood Count 14.2 K/mm3 (4.5-10.0)
[2024-05-26 23:55] LABS: Albumin Level 3.3 g/dL (3.5-5.1); Alkaline Phosphatase 71 U/L (38-126); Anion Gap 25 mmol/L (4-12); Blood Urea Nitrogen 65 mg/dL (9-20); Calcium 7.7 mg/dL (8.4-10.2); Carbon Dioxide 18 mmol/L (22-30); Chloride 96 mmol/L (98-107); Estimated CRCL calculation 12 ml/min; Estimated Glomerular Filt Rate 14; Glucose 86 mg/dL (65-110); Potassium 4.9 mmol/L (3.4-5.0); Sodium 139 mmol/L (137-145)
[2024-05-27] VITALS (77 sets, daily range): BP systolic 86–154; BP diastolic 44–92; PULSE 49–70; RESP 14–24; TEMP 35.9–37.5; O2SAT 94–100; BMI 22.5
[2024-05-27 00:01] LABS: Magnesium 2.6 mg/dL (1.6-2.3); Phosphorus 9.7 mg/dL (2.5-4.5)
[2024-05-27 00:08] LABS: D Dimer 11.72 ug/mL (<0.48); Fibrinogen 222 mg/dl (215-510); Partial Thromboplastin Time 72.8 Seconds (22.3-36.8); Prothrombin Time > 120.0 Seconds (11.1-14.7)
[2024-05-27 00:09] LABS: Troponin I 0.587 ng/mL (0.000-0.034)
[2024-05-27 00:11] LABS: INR > 20.0
[2024-05-27 00:39] LABS: Alanine Aminotransferase 1343 U/L (6-50); Aspartate Amino Transferase 3619 U/L (17-59)
[2024-05-27] MEDS: SODIUM CHLORIDE 0.9% IV 250 ML 30 ML IV CONT ×2 (01:30→07:36)
[2024-05-27 02:05] LABS: Lactic Acid Reflex 11.6 mmol/L (0.7-2.0)
[2024-05-27] MEDS: HYDROCORTISONE SODIUM SUCCINATE 100 MG/2 ML VIAL IV PUSH ×4 (02:05→20:45)
[2024-05-27] MEDS: NOREPINEPHRINE 8 MG/D5W 250 ML 8 MG/250 ML BAG 56.25 MG IV CONT (02:09)
[2024-05-27] MEDS: metroNIDAZOLE 500 MG/ISO 100ML 500 MG/100 ML BAG 100 MG IVPB ×3 (04:00→17:53)
--- NOTE | 2024-05-27 05:05 | WPDPROCEDUR ---
Procedures Intubation Intubation Date: 05/27/24 Intubation Time: 04:15 Consent: Patient has dementia and was not able to consent. Intubation was performed emergently for airway protection as patient was having large amounts of blood from his oral airway. Sedative: etomidate Mg given: 20 Paralytic: rocuronium Mg given: 50 Laryngoscope: fiber optic video scope ET tube size: 8 Tube secured depth (cm): 25 Tube secured location: lips Tube placement confirmation: visualized tube passing through cords, equal breath sounds bilaterally, no breath sounds over epigastrium and confirmation by capnometry Patient tolerated procedure: well and no complications Intubation complications: none Additional comments: Chest x-ray personally reviewed and interpreted. ET tube 5 cm from the frank adequate position. No pneumothorax. Radiologic interpretation
[2024-05-27] MEDS: MIDAZOLAM 100MG/NS 100ML(*CRX) 100 MG/100 ML BAG IV CONT (05:09)
[2024-05-27] MEDS: FENTANYL 2,500MCG/NS250ML(*CRX 2,500 MCG/250 ML BAG IV CONT (05:09)
--- NOTE | 2024-05-27 05:09 | P.RRN_ITS ---
Critical Care Event Note Summary Code activated: No Narrative: Patient started having large amounts of bright red blood from his mouth. He was subsequently intubated for airway protection. Multiple staff members were at bedside to place an NG finally NG was able to be placed in appropriate position with immediate return of large amounts of maroon blood with clots. The prior stress dose Protonix prophylaxis was discontinued. Protonix 80 mg IV push was ordered followed by a Protonix drip. The patient's FFP and cryoprecipitate had just finished infusing right after intubation. Stat repeat labs have been ordered. High vent settings have been provided with tidal volume of 400 peep of 5 rate of 20. Will obtain ABG 1 hour after intubation. Sedation has been ordered with fentanyl and Versed. Given large amounts of blood in the oral airway and the amount of blood to and from NG will order Kcentra. Patient artery has about 200 mL of of maroon clotted blood in the suction container. I called the bus greaser on-call. He stated that he could not take the patient to the GI lab until the patient's INR is down around 2.5 because any efforts to stop bleeding with an INR greater than that were not likely to be successful. Overall the patient's prognosis is extremely poor. An additional 40 minutes was spent in critical care activities in exclusion of procedures. This case had a high probability of a clinically significant, sudden, or life threatening deterioration of this patient's condition which required my full and direct attention, intervention and personal management. Critical care time: 30 - 74 mins
[2024-05-27] MEDS: MIDAZOLAM HCL (*CRX) 2 MG/2 ML VIAL IV PUSH (05:25)
[2024-05-27 05:34] LABS: Basophils Percent Auto 0.1 % (0.2-1.2); Hematocrit 39.5 % (42.0-52.0); Hematocrit 39.8 % (42.0-52.0); Hemoglobin 12.4 g/dL (14.0-18.0); Hemoglobin 12.7 g/dL (14.0-18.0); Immature Granulocyte Percent A 0.7 % (0-0.5); Lymphocytes Absolute Auto 0.58 K/mm3 (0.9-3.2); Lymphocytes Percent Auto 4.3 % (18.3-44.2); Mean Corpuscular HGB Conc 31.2 g/dl (32-36); Mean Corpuscular HGB Conc 32.2 g/dl (32-36); Mean Corpuscular Hemoglobin 32.4 pg (26-34); Mean Corpuscular Hemoglobin 33.6 pg (26-34); Mean Corpuscular Volume 103.9 fl (80-100); Mean Corpuscular Volume 104.5 fl (80-100); Mean Platelet Volume 11.8 fl (7.4-10.4); Monocytes Absolute Auto 1.6 K/mm3 (0.1-0.6); Monocytes Percent Auto 11.5 % (2.6-8.5); Neutrophils Absolute Auto 11.3 K/mm3 (1.3-6.7); Neutrophils Percent Auto 83.4 % (45.5-73.1); Nucleated Red Blood Cells Perc 0.2 % (0.0-0.2); Platelet Count Result 126 k/mm3 (150-375); Red Blood Count 3.78 M/mm3 (4.6-6.20); Red Blood Count 3.83 M/mm3 (4.6-6.20); Red Cell Distribution Width 16.6 % (11.5-14.5); White Blood Count 13.5 K/mm3 (4.5-10.0); White Blood Count 13.7 K/mm3 (4.5-10.0)
[2024-05-27] MEDS: PANTOPRAZOLE SODIUM IV 40 MG VIAL 80 MG IV PUSH (05:41)
[2024-05-27 05:45] LABS: Fibrinogen 330 mg/dl (215-510)
[2024-05-27 05:47] LABS: Partial Thromboplastin Time 54.5 Seconds (22.3-36.8); Prothrombin Time 77.2 Seconds (11.1-14.7)
[2024-05-27 05:52] LABS: Alkaline Phosphatase 84 U/L (38-126); Anion Gap 24 mmol/L (4-12); Bilirubin,Total 4.1 mg/dL (0.2-1.3); Blood Urea Nitrogen 70 mg/dL (9-20); Calcium 7.4 mg/dL (8.4-10.2); Carbon Dioxide 22 mmol/L (22-30); Chloride 93 mmol/L (98-107); Estimated CRCL calculation 12 ml/min; Estimated Glomerular Filt Rate 14; Glucose 174 mg/dL (65-110); Magnesium 2.5 mg/dL (1.6-2.3); Potassium 4.2 mmol/L (3.4-5.0); Sodium 139 mmol/L (137-145)
[2024-05-27 05:56] LABS: Lactic Acid Reflex 8.8 mmol/L (0.7-2.0)
[2024-05-27 06:06] LABS: Creatine Kinase 1008 U/L (55-170)
[2024-05-27] MEDS: VANCOMYCIN 1,250 MG/NS 250 ML 1,250 MG/250 ML BAG 166.67 MG IVPB (06:30)
[2024-05-27 06:34] LABS: Aspartate Amino Transferase 5323 U/L (17-59)
[2024-05-27 06:35] LABS: Alanine Aminotransferase 1977 U/L (6-50)
[2024-05-27 06:43] LABS: D Dimer 11.62 ug/mL (<0.48); INR 9.5
[2024-05-27] MEDS: NOREPINEPHRINE 8 MG/D5W 250 ML 8 MG/250 ML BAG 35.63 MG IV CONT (07:20)
--- NOTE | 2024-05-27 07:22 | WPDGICN ---
Assessment and Plan Assessment and plan (1) Disseminated intravascular coagulation: Code(s): D65 - Disseminated intravascular coagulation [defibrination syndrome] Status: Acute Assessment and Plan: This patient's critical condition includes a bleeding diathesis affecting the gastrointestinal tract. Septic shock is suspected, given the significantly elevated lactate and the presence of a treated infectious source. Despite administration of prothrombin complex concentrate, fresh frozen plasma, and cryoprecipitate, his INR remains substantially above the minimum threshold of 2.5 required for a reasonably safe endoscopy. An EGD and any therapeutic interventions are contraindicated until the patient achieves hemodynamic stability and an acceptable INR. Attempting these procedures in his current state implies a significant risk of exacerbating his condition and rendering the procedure futile. While the patient's prognosis is poor, we will continue to monitor his condition closely. If stabilization is achieved, an EGD will be pursued. In the interim, we agree with the continuation of pantoprazole infusion and supportive care. GI Consult Note Consult date/time: 05/27/24 07:22 Reason for consult: Upper GI bleeding HPI: Hilton Hdz, an 78-year-old male with multiple comorbidities including Lewy body dementia and atrial fibrillation treated with Eliquis, was admitted on May 23 for complications related to a dental extraction, suspected to be an abscess. He subsequently experienced acute decompensation, characterized by hypotension, shortness of breath, and elevated lactic acid, necessitating transfer to the ICU last night. During his brief ICU stay, his condition has significantly deteriorated, marked by worsening hypotension requiring norepinephrine infusion. He developed a bleeding diathesis from line insertion sites and his Burk catheter, culminating in massive hematemesis that persisted despite nasogastric tube placement. The patient is currently intubated and in critical condition. This consultation is requested for evaluation of the acute gastrointestinal bleeding. 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 Code status: Full code. Years smoked: 2 Smoking status: Never smoker Tobacco type: cigarettes Second hand tobacco smoke exposure: Yes Alcohol intake: never Substance use: never Substance use type: does not use Do You Feel Safe in your Home?: Yes Lack of Transportation: YES Lack of Food: Sometimes True Current Housing: I Have Housing Concerned About Future Housing: No Difficulty Paying Gas/Electric Bills: No Difficulty Paying for Meds: No Currently Unemployed: No Education: Bachelor's Degree Difficulty w/ Childcare or Family Care: No Living arrangements: assisted living Additional living arrangements comments: [facility], with Spiritual care concerns: No Meds Home Medications and Allergies Home Medications ?Medication ?Instructions ?Recorded ?Confirmed ?Type albuterol sulfate 90 mcg/actuation 1 inh inhalation Q6H PRN Wheezing 12/15/23 05/23/24 History aerosol inhaler apixaban 5 mg tablet (Eliquis) 5 mg PO BID 12/15/23 05/23/24 History cetirizine 10 mg tablet 10 mg PO DAILY 12/15/23 05/23/24 History fluticasone fur. 100 mcg-umeclid 1 inh inhalation DAILY 12/15/23 05/23/24 History 62.5 mcg-vilant 25 mcg inhalat.powder (Trelegy Ellipta) furosemide 80 mg tablet 80 mg PO DAILY 12/15/23 05/23/24 History gabapentin 300 mg capsule 300 mg PO QAM 12/15/23 05/23/24 History levothyroxine 25 mcg tablet 25 mcg PO DAILY 12/15/23 05/23/24 History melatonin 3 mg tablet 5 mg PO HS PRN Restless Leg(S) 12/15/23 05/23/24 History modafinil 200 mg tablet 100 mg PO QAM 12/15/23 05/23/24 History montelukast 10 mg tablet 10 mg PO HS 12/15/23 05/23/24 History multivitamin 1 tablet PO HS 12/15/23 05/23/24 History omega-3 fatty acids 1,000 mg 1,500 mg PO QNOON 12/15/23 05/23/24 History capsule simvastatin 20 mg tablet 10 mg PO QPM 12/15/23 05/23/24 History jcyeagc-dco-fld H3-[id number] 250 2 tablet PO DAILY 05/23/24 05/23/24 History mg-40 mg-5 mg-125 unit tablet potassium gluconate 595 mg (99 mg) 595 mg PO DAILY 05/23/24 05/23/24 History tablet tafamidis 61 mg capsule (Vyndamax) 61 mg PO DAILY 05/23/24 05/23/24 History clindamycin HCl 300 mg capsule 300 mg PO Q12H infection 05/24/24 05/24/24 History Allergies Allergy/AdvReac Type Severity Reaction Status Date / Time No Known Allergies Allergy Verified 12/24/23 16:36 Vital Signs Vital Signs - 24 hr 05/26/24 08:00 05/26/24 08:00 05/26/24 08:00 Temperature 97.3 F L Pulse Rate 141 H 131 H 131 H Respiratory Rate 20 20 Blood Pressure 91/48 L Pulse Oximetry 97 97 Oxygen Delivery Nasal Cannula Oxygen Flow Rate 2 Fraction of Inspired Oxygen 05/26/24 10:00 05/26/24 11:50 05/26/24 11:50 Temperature Pulse Rate 128 H 137 H 137 H Respiratory Rate Blood Pressure 97/73 L 97/73 L Pulse Oximetry Oxygen Delivery Oxygen Flow Rate Fraction of Inspired Oxygen 05/26/24 12:00 05/26/24 12:00 05/26/24 12:00 Temperature 97.3 F L Pulse Rate 118 H 127 H 127 H Respiratory Rate 22 H 24 H Blood Pressure 97/73 L Pulse Oximetry 98 100 Oxygen Delivery Nasal Cannula Oxygen Flow Rate 2 Fraction of Inspired Oxygen 05/26/24 14:00 05/26/24 14:23 05/26/24 15:59 Temperature 96.8 F L 97.3 F L Pulse Rate 114 H 58 L 45 L Respiratory Rate 16 24 H Blood Pressure 121/44 L 101/70 Pulse Oximetry 99 100 Oxygen Delivery Oxygen Flow Rate Fraction of Inspired Oxygen 05/26/24 16:00 05/26/24 16:00 05/26/24 18:00 Temperature Pulse Rate 45 L 45 L 48 L Respiratory Rate 24 H Blood Pressure Pulse Oximetry 100 Oxygen Delivery Nasal Cannula Oxygen Flow Rate 2 Fraction of Inspired Oxygen 05/26/24 19:20 05/26/24 19:25 05/26/24 19:30 Temperature Pulse Rate 55 L 54 L 54 L Respiratory Rate Blood Pressure 84/61 L 64/46 L 91/26 L Pulse Oximetry Oxygen Delivery Oxygen Flow Rate Fraction of Inspired Oxygen 05/26/24 20:00 05/26/24 20:00 05/26/24 20:08 Temperature Pulse Rate 55 L 58 L 58 L Respiratory Rate 24 H Blood Pressure 86/70 L Pulse Oximetry 100 Oxygen Delivery Room Air Oxygen Flow Rate Fraction of Inspired Oxygen 05/26/24 20:40 05/26/24 21:00 05/26/24 22:05 Temperature Pulse Rate 64 66 65 Respiratory Rate Blood Pressure 85/64 L 92/29 L Pulse Oximetry Oxygen Delivery Oxygen Flow Rate Fraction of Inspired Oxygen 05/27/24 00:00 05/27/24 02:29 05/27/24 02:50 Temperature 97.9 F 97.9 F Pulse Rate 55 L 64 65 Respiratory Rate 24 H 17 14 Blood Pressure 130/73 88/64 L Pulse Oximetry 100 99 100 Oxygen Delivery Room Air Oxygen Flow Rate Fraction of Inspired Oxygen 05/27/24 03:50 05/27/24 03:56 05/27/24 04:00 Temperature 98 F 98 F Pulse Rate 65 64 55 L Respiratory Rate 17 16 24 H Blood Pressure 126/47 L 141/68 H Pulse Oximetry 99 99 100 Oxygen Delivery Room Air Oxygen Flow Rate Fraction of Inspired Oxygen 05/27/24 04:15 05/27/24 04:15 05/27/24 04:15 Temperature 98 F 98 F 98 F Pulse Rate 65 65 65 Respiratory Rate 15 15 15 Blood Pressure 138/55 L 138/55 L 138/55 L Pulse Oximetry 98 99 99 Oxygen Delivery Oxygen Flow Rate Fraction of Inspired Oxygen 05/27/24 04:48 05/27/24 04:50 05/27/24 05:09 Temperature 98 F Pulse Rate 65 67 Respiratory Rate 21 H 20 Blood Pressure 147/91 H Pulse Oximetry 99 94 Oxygen Delivery Mechanical Ventilation Oxygen Flow Rate Fraction of Inspired Oxygen 40 05/27/24 05:09 05/27/24 07:15 05/27/24 07:19 Temperature 97.1 F L 97.0 F L Pulse Rate 64 54 L 54 L Respiratory Rate 20 21 H 21 H Blood Pressure 124/75 130/59 L Pulse Oximetry 100 100 Oxygen Delivery Oxygen Flow Rate Fraction of Inspired Oxygen Exam Narrative: Patient intubated, with the orogastric tube showing evidence of fresh blood. There is also evidence of bleeding from right femoral line and Burk catheter. The patient's abdomen is distended, unable to evaluate tenderness due to intubation and sedation. Results Labs 05/27/24 05:05/27/24 05:25 Labs: Short CBC 05/26/24 05/26/24 05/26/24 Range/Units 15:53 21:56 23:24 WBC 11.6 H 12.7 H 14.2 H (4.5-10.0) K/mm3 Hgb 15.4 12.1 L D 13.5 L (14.0-18.0) g/dL Hct 48.8 38.1 L 42.2 (42.0-52.0) % Plt Count 154 123 L 134 L (150-375) k/mm3 05/27/24 05/27/24 05/27/24 Range/Units 05:25 05:25 05:25 WBC 13.5 H 13.7 H (4.5-10.0) K/mm3 Hgb 12.7 L 12.4 L (14.0-18.0) g/dL Hct 39.5 L (42.0-52.0) % Plt Count (150-375) k/mm3 05/27/24 05/27/24 Range/Units 05:25 05:25 WBC (4.5-10.0) K/mm3 Hgb (14.0-18.0) g/dL Hct 39.8 L (42.0-52.0) % Plt Count 126 L 126 L (150-375) k/mm3 BMP 05/26/24 05/26/24 05/27/24 21:56 23:24 05:25 Sodium 133 L 139 139 Potassium 3.9 4.9 4.2 Chloride 74 L 96 L 93 L Carbon Dioxide TNP 18 L 22 BUN 60 H 65 H 70 H Creatinine 2.50 H 4.04 H Cancelled Glucose 875 H* 86 Calcium 5.0 L* 7.7 L 05/27/24 05:25 Sodium Potassium Chloride Carbon Dioxide BUN Creatinine 4.16 H Glucose 174 H Calcium 7.4 L Cardiac Enzymes 05/26/24 05/26/24 05/27/24 Range/Units 14:37 23:24 05:25 Total Creatine Kinase 1008 H (55-170) U/L Troponin I 0.324 H* 0.587 H* (0.000-0.034) ng/mL Liver Function 05/26/24 05/26/24 05/27/24 Range/Units 21:56 23:24 05:25 Total Bilirubin 2.7 H 4.0 H 4.1 H (0.2-1.3) mg/dL AST 2318 H 3619 H 5323 H (17-59) U/L ALT 828 H 1343 H 1977 H (6-50) U/L Alkaline Phosphatase 47 71 84 (38-126) U/L Albumin 2.2 L 3.3 L 4.0 (3.5-5.1) g/dL
[2024-05-27 07:31] LABS: Reflex Lactic Acid Yes or No Add Lactic
[2024-05-27] MEDS: PANTOPRAZOLE SODIUM IV 80 MG in SODIUM CHLORIDE 0.9% IV 500 ML 50 MG IV CONT ×2 (07:35→19:08)
--- NOTE | 2024-05-27 07:43 | P.PNCA_ITS ---
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 Has a history of PAF with tachy-cassia picture. The patient had been on IV amiodarone earlier during this hospitalization. That was discontinued yesterday. He then decompensated last night with upper GI bleeding, picture of DIC/sepsis intubated and in the ICU for airway protection. In the setting of this event he then converted to sinus rhythm. Heart rate currently in the 50s. Will continue to follow wall aggressive supportive care is being provided. At some point resumption of amiodarone orally should be considered since it appeared to convert him to sinus rhythm. Obviously 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 is discontinued Jatin Chiu MD [facility] Subjective Date/time seen: This date of service: 05/27/24 07:43 Interval history: Cardiology follow up visit Tele shows AF RVR at times but rate is better controlled over the last ~12 hours. Generally 105-120bpm. Date of service 05/26/2024: Heart rates have increased and are consistently 120- 140bpm. SBP in the 90's. He is complaining of nausea and back pain Date of service 05/27/2024: Patient decompensated last night with hypertension, upper GI bleeding and brought to the ICU for intubation, airway protection. He blood significantly from 2 different central line access sites and has a picture of DIC/sepsis. In the setting of all of this he converted from a flutter to sinus rhythm. Intubated in the ICU on IV Levophed currently Exam Const: Orientation/consciousness: No patient oriented x3 Other: Sedated intubated elderly man on mechanical ventilator support HENMT: Head: normal to inspection Eyes: General: appearance normal, both eyes and all related structures S clera: sclerae normal Resp: Effort & Inspection: normal respiratory effort Cardio: Rate: regular rate and bradycardic Heart sounds: no murmurs GI: GI Palp: Yes Firmness to palpation present (GI) Skin: General skin exam: normal color Neuro: General: No patient oriented x3 Other: Sedated on ventilator support Extrem: Other: no edema Objective Data Vital Signs Vital Signs: Vital Signs - 24 hr 05/26/24 08:00 05/26/24 08:00 05/26/24 08:00 Temperature 36.3 C L Pulse Rate 141 H 131 H 131 H Respiratory Rate 20 20 Blood Pressure 91/48 L Pulse Oximetry 97 97 Oxygen Delivery Nasal Cannula Oxygen Flow Rate 2 Fraction of Inspired Oxygen 05/26/24 10:00 05/26/24 11:50 05/26/24 11:50 Temperature Pulse Rate 128 H 137 H 137 H Respiratory Rate Blood Pressure 97/73 L 97/73 L Pulse Oximetry Oxygen Delivery Oxygen Flow Rate Fraction of Inspired Oxygen 05/26/24 12:00 05/26/24 12:00 05/26/24 12:00 Temperature 36.3 C L Pulse Rate 118 H 127 H 127 H Respiratory Rate 22 H 24 H Blood Pressure 97/73 L Pulse Oximetry 98 100 Oxygen Delivery Nasal Cannula Oxygen Flow Rate 2 Fraction of Inspired Oxygen 05/26/24 14:00 05/26/24 14:23 05/26/24 15:59 Temperature 36.0 C L 36.3 C L Pulse Rate 114 H 58 L 45 L Respiratory Rate 16 24 H Blood Pressure 121/44 L 101/70 Pulse Oximetry 99 100 Oxygen Delivery Oxygen Flow Rate Fraction of Inspired Oxygen 05/26/24 16:00 05/26/24 16:00 05/26/24 18:00 Temperature Pulse Rate 45 L 45 L 48 L Respiratory Rate 24 H Blood Pressure Pulse Oximetry 100 Oxygen Delivery Nasal Cannula Oxygen Flow Rate 2 Fraction of Inspired Oxygen 05/26/24 19:20 05/26/24 19:25 05/26/24 19:30 Temperature Pulse Rate 55 L 54 L 54 L Respiratory Rate Blood Pressure 84/61 L 64/46 L 91/26 L Pulse Oximetry Oxygen Delivery Oxygen Flow Rate Fraction of Inspired Oxygen 05/26/24 20:00 05/26/24 20:00 05/26/24 20:08 Temperature Pulse Rate 55 L 58 L 58 L Respiratory Rate 24 H Blood Pressure 86/70 L Pulse Oximetry 100 Oxygen Delivery Room Air Oxygen Flow Rate Fraction of Inspired Oxygen 05/26/24 20:40 05/26/24 21:00 05/26/24 22:05 Temperature Pulse Rate 64 66 65 Respiratory Rate Blood Pressure 85/64 L 92/29 L Pulse Oximetry Oxygen Delivery Oxygen Flow Rate Fraction of Inspired Oxygen 05/27/24 00:00 05/27/24 02:29 05/27/24 02:50 Temperature 36.6 C 36.6 C Pulse Rate 55 L 64 65 Respiratory Rate 24 H 17 14 Blood Pressure 130/73 88/64 L Pulse Oximetry 100 99 100 Oxygen Delivery Room Air Oxygen Flow Rate Fraction of Inspired Oxygen 05/27/24 03:50 05/27/24 03:56 05/27/24 04:00 Temperature 36.6 C 36.6 C Pulse Rate 65 64 55 L Respiratory Rate 17 16 24 H Blood Pressure 126/47 L 141/68 H Pulse Oximetry 99 99 100 Oxygen Delivery Room Air Oxygen Flow Rate Fraction of Inspired Oxygen 05/27/24 04:15 05/27/24 04:15 05/27/24 04:15 Temperature 36.6 C 36.6 C 36.6 C Pulse Rate 65 65 65 Respiratory Rate 15 15 15 Blood Pressure 138/55 L 138/55 L 138/55 L Pulse Oximetry 98 99 99 Oxygen Delivery Oxygen Flow Rate Fraction of Inspired Oxygen 05/27/24 04:48 05/27/24 04:50 05/27/24 05:09 Temperature 36.6 C Pulse Rate 65 67 Respiratory Rate 21 H 20 Blood Pressure 147/91 H Pulse Oximetry 99 94 Oxygen Delivery Mechanical Ventilation Oxygen Flow Rate Fraction of Inspired Oxygen 40 05/27/24 05:09 05/27/24 06:20 05/27/24 07:15 Temperature 36.2 C L Pulse Rate 64 57 L 54 L Respiratory Rate 20 21 H 21 H Blood Pressure 124/75 Pulse Oximetry 100 Oxygen Delivery Oxygen Flow Rate Fraction of Inspired Oxygen 05/27/24 07:19 05/27/24 07:36 05/27/24 07:38 Temperature 36.1 C L Pulse Rate 54 L 54 L 52 L Respiratory Rate 21 H 21 H 21 H Blood Pressure 130/59 L Pulse Oximetry 100 Oxygen Delivery Oxygen Flow Rate Fraction of Inspired Oxygen Intake/Output Intake/Output: Intake & Output 05/24/24 05/25/24 05/26/24 05/27/24 23:59 23:59 23:59 23:59 Intake Total 2331.7 1826.3 469.9 692.9 Output Total 400 350 400 Balance 1931.7 1476.3 69.9 692.9 Meds/Results Medications: Active Medications Generic Name Dose Route Start Last Admin Trade Name Freq PRN Reason Stop Dose Admin Acetaminophen 650 mg 05/23/24 18:33 05/26/24 11:48 Acetaminophen 325 Mg Tablet PO 650 mg Q4H PRN Administration Mild Pain (1-3) or Fever Albuterol 1 puff 05/24/24 09:23 Albuterol Sulfate (*Sp) Aerosol 1 Puff INHALATION Q6H PRN Wheezing Fluticasone/Umeclidinium/Vilanterol 1 puff 05/25/24 08:00 05/26/24 07:41 Fluticasone/Umeclidin/Vilanter 100-62.5-25 Mcg Ellipta INHALATION 1 puff DAILYRT NAN Administration Hydrocortisone Sodium Succinate 100 mg 05/26/24 22:00 05/27/24 05:41 Hydrocortisone Sodium Succinate 100 Mg/2 Ml Vial IV PUSH 100 mg Q8HR NAN Administration Metronidazole 500 mg in 100 mls @ 100 mls/hr 05/26/24 18:00 05/27/24 04:00 Flagyl 500 Mg/Iso Soln 100 Ml IVPB 100 mls/hr Q8H NAN Administration Cefepime HCl 1 gm in 50 mls @ 100 mls/hr 05/27/24 17:00 Maxipime 1 Gm/Ns 50 Ml IVPB Q24H NAN Sodium Bicarbonate 150 meq/ 1,100 mls @ 100 mls/hr 05/26/24 18:35 05/26/24 22:15 Dextrose IV CONT 100 mls/hr .Q11H NAN Infusion Norepinephrine Bitartrate 8 mg in 250 mls @ 37.5 mls/hr 05/26/24 19:40 05/26/24 22:05 Levophed 8 Mg/D5w 250 Ml IV CONT 20 mcg/min .Q6H40M NAN 37.5 mls/hr Titration Protocol 20 MCG/MIN Sodium Chloride 250 mls @ 30 mls/hr 05/27/24 00:25 05/27/24 01:30 Normal Saline Iv IV CONT 05/27/24 08:44 30 mls/hr .Q8H20M STA Administration Vasopressin 100 units/ 100 mls @ 1.2 mls/hr 05/27/24 00:45 Dextrose IV CONT .Q72H NAN Protocol 0.02 UNITS/MIN Fentanyl Citrate 2,500 mcg in 250 mls @ 2.5 mls/hr 05/27/24 04:40 05/27/24 07:36 Fentanyl 2,500 Mcg/Ns 250 Ml IV CONT 100 mcg/hr .Q72H NAN 10 mls/hr Titration Protocol 25 MCG/HR Midazolam HCl 100 mg in 100 mls @ 1 mls/hr 05/27/24 04:40 05/27/24 07:38 Versed 100 Mg/Ns 100 Ml IV CONT 5 mg/hr .Q72H NAN 5 mls/hr Titration Protocol 1 MG/HR Pantoprazole Sodium 80 mg/ 500 mls @ 50 mls/hr 05/27/24 07:00 05/27/24 07:35 Sodium Chloride IV CONT 50 mls/hr .Q10H NAN Administration Sodium Chloride 250 mls @ 30 mls/hr 05/27/24 06:56 05/27/24 07:36 Normal Saline Iv IV CONT 05/27/24 15:15 30 mls/hr .Q8H20M STA Administration Levothyroxine Sodium 25 mcg 05/25/24 06:30 05/27/24 05:42 Levothyroxine Sodium 25 Mcg Tablet PO Not Given DAILY@0630 [facility] Melatonin 5 mg 05/24/24 09:23 05/25/24 23:40 Melatonin 5 Mg Tablet PO 5 mg HS PRN Administration Restless Leg(S) Metoprolol Tartrate 5 mg 05/24/24 16:19 05/26/24 03:43 Metoprolol Tartrate Inj 5 Mg/5 Ml Vial IV PUSH 5 mg Q4HR PRN Administration Heart Rate- High Miscellaneous Information 1 each 05/24/24 00:01 Tafamidis Nonformulary, Can Patient Use From Home Or Hold Till Discharge? XX 06/23/24 00:00 CLARIFY [facility] Multi-Ingred Cream/Lotion/Oil/Oint 1 applic 05/27/24 09:00 Mineral Oil/White Petrolatum Ointment EACH EYE Q12HR [facility] Multivitamins Therapeutic 1 tablet 05/24/24 21:00 05/27/24 05:42 Multivitamins Therapeutic Tab (*Bkc) PO Not Given HS [facility] Non-Formulary Medication 61 mg 05/25/24 09:00 Tafamidis [Vyndamax] PO 06/24/24 08:59 DAILY NAN Perflutren Lipid Microsphere 0 ml 05/26/24 14:24 Perflutren Lipid Microspheres 1.5 Ml Vial Diluted To 10 Ml Total Volume IV PUSH 05/29/24 14:24 ONCE PRN adequate visualization Protocol Prochlorperazine Edisylate 10 mg 05/24/24 14:27 05/26/24 10:45 Prochlorperazine Edisylate 10 Mg/2 Ml Vial IV PUSH 10 mg Q6H PRN Administration Nausea And Vomiting Simvastatin 10 mg 05/24/24 18:00 05/26/24 18:03 Simvastatin 10 Mg Tablet PO 10 mg QPM NAN Administration Vancomycin HCl 1 each 05/26/24 21:34 Vancomycin For Acute Kidney Injury IVPB PRN PRN Vancomycin Protocol Radiology Results: ITS Impressions Face CT 05/25/24 11:39 IMPRESSION: No facial fracture. Renal Ultrasound 05/26/24 13:59 IMPRESSION: 1. 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 2. Small amount of ascites in the pelvis. Chest/Abdomen/Pelvis CT 05/26/24 15:06 IMPRESSION: CHEST: 1. Bilateral pleural effusion with adjacent atelectasis. 2. Gross cardiomegaly. ABDOMEN/PELVIS: 1. No evidence of appendicitis, diverticulitis or intestinal obstruction. 2. Hyperdense area in the gallbladder which may be a stone or residual contrast . 3. Constipation. 4. Minimal Ascites Abdomen X-Ray 05/27/24 05:47 IMPRESSION: 1. Nasogastric tube tip in the stomach with proximal side-port in the distal esophagus. Advancement 5 cm is recommended. Chest X-Ray 05/27/24 05:48 IMPRESSION: 1. Worsened airspace opacities in the lower lung zones, left worse than right, consistent with atelectasis versus pneumonia. 2. Cardiomegaly. 3. Nasogastric tube tip at the gastroesophageal junction. Advancement 10 cm is recommended. Labs Labs: Laboratory Results - last 24 hr 05/26/24 05/26/24 05/26/24 14:37 14:44 15:52 WBC RBC Hgb Hct MCV MCH MCHC RDW Plt Count MPV Immature Gran % (Auto) Neut % (Auto) Lymph % (Auto) [place] % (Auto) Eos % (Auto) Baso % (Auto) Lymph # (Auto) [place] # (Auto) Eos # (Auto) Baso # (Auto) Abs Immat Gran (auto) Absolute Neuts (auto) Absolute Nucleated RBC Nucleated RBC % PT INR APTT Fibrinogen D-Dimer Puncture Site Right brachial ABG pH 7.309 L ABG pCO2 20.0 L* ABG pO2 139.9 H ABG PO2/FiO2 Ratio 5.00 ABG HCO3 9.8 L ABG O2 Saturation 98.6 ABG O2 Content 21.8 ABG Base Excess -13.8 A-a Gradient 36.1 Oxyhemoglobin 97.8 Total Hemoglobin 15.7 O2 Delivery Device Nasal cannula O2 Liters/Min 2.0 FiO2 28 Sodium Potassium Chloride Carbon Dioxide Anion Gap BUN Creatinine Estim Creat Clear Calc Estimated GFR Glucose POC Capillary Glucose Lactic Acid 10.9 H* Calcium Phosphorus Magnesium Total Bilirubin AST ALT Alkaline Phosphatase Total Creatine Kinase Troponin I 0.324 H* NT-Pro-B Natriuret Pep Total Protein Albumin Procalcitonin 4.1 Random Cortisol Blood Type Antibody Screen 05/26/24 05/26/24 05/26/24 15:53 17:42 21:56 WBC 11.6 H 12.7 H RBC 4.67 3.67 L Hgb 15.4 12.1 L D Hct 48.8 38.1 L MCV 104.5 H 103.8 H MCH 33.0 33.0 MCHC 31.6 L 31.8 L RDW 17.2 H 17.1 H Plt Count 154 123 L MPV 12.3 H 12.6 H Immature Gran % (Auto) Neut % (Auto) Lymph % (Auto) [place] % (Auto) Eos % (Auto) Baso % (Auto) Lymph # (Auto) [place] # (Auto) Eos # (Auto) Baso # (Auto) Abs Immat Gran (auto) Absolute Neuts (auto) Absolute Nucleated RBC Nucleated RBC % PT INR APTT Fibrinogen D-Dimer Puncture Site ABG pH ABG pCO2 ABG pO2 ABG PO2/FiO2 Ratio ABG HCO3 ABG O2 Saturation ABG O2 Content ABG Base Excess A-a Gradient Oxyhemoglobin Total Hemoglobin O2 Delivery Device O2 Liters/Min FiO2 Sodium 133 L Potassium 3.9 Chloride 74 L Carbon Dioxide TNP Anion Gap TNP BUN 60 H Creatinine 2.50 H Estim Creat Clear Calc 19 Estimated GFR 25 L Glucose 875 H* POC Capillary Glucose Lactic Acid 10.5 H* 8.6 H* Calcium 5.0 L* Phosphorus 5.6 H Magnesium 1.9 Total Bilirubin 2.7 H AST 2318 H ALT 828 H Alkaline Phosphatase 47 Total Creatine Kinase Troponin I NT-Pro-B Natriuret Pep 89621 H Total Protein 4.0 L Albumin 2.2 L Procalcitonin Random Cortisol Cancelled Blood Type Antibody Screen 05/26/24 05/26/24 05/26/24 23:19 23:24 23:24 WBC 14.2 H RBC 4.02 L Hgb 13.5 L Hct 42.2 MCV 105.0 H MCH 33.6 MCHC 32.0 RDW 16.8 H Plt Count 134 L MPV 12.0 H Immature Gran % (Auto) Neut % (Auto) Lymph % (Auto) [place] % (Auto) Eos % (Auto) Baso % (Auto) Lymph # (Auto) [place] # (Auto) Eos # (Auto) Baso # (Auto) Abs Immat Gran (auto) Absolute Neuts (auto) Absolute Nucleated RBC Nucleated RBC % PT > 120.0 H D INR > 20.0 H* APTT 72.8 H Fibrinogen 222 D-Dimer 11.72 H Puncture Site ABG pH ABG pCO2 ABG pO2 ABG PO2/FiO2 Ratio ABG HCO3 ABG O2 Saturation ABG O2 Content ABG Base Excess A-a Gradient Oxyhemoglobin Total Hemoglobin O2 Delivery Device O2 Liters/Min FiO2 Sodium 139 Potassium 4.9 Chloride 96 L Carbon Dioxide 18 L Anion Gap 25 H BUN 65 H Creatinine 4.04 H Estim Creat Clear Calc 12 Estimated GFR 14 L Glucose 86 POC Capillary Glucose 92 Lactic Acid Calcium 7.7 L Phosphorus 9.7 H Magnesium 2.6 H 2.6 H Total Bilirubin 4.0 H AST 3619 H ALT 1343 H Alkaline Phosphatase 71 Total Creatine Kinase Troponin I 0.587 H* NT-Pro-B Natriuret Pep Total Protein 6.0 L Albumin 3.3 L Procalcitonin Random Cortisol 113.00 Blood Type Antibody Screen 05/27/24 05/27/24 05/27/24 01:15 05:25 05:25 WBC 13.5 H 13.7 H RBC 3.78 L Hgb Hct MCV MCH MCHC RDW Plt Count MPV Immature Gran % (Auto) Neut % (Auto) Lymph % (Auto) [place] % (Auto) Eos % (Auto) Baso % (Auto) Lymph # (Auto) [place] # (Auto) Eos # (Auto) Baso # (Auto) Abs Immat Gran (auto) Absolute Neuts (auto) Absolute Nucleated RBC Nucleated RBC % PT INR APTT Fibrinogen D-Dimer Puncture Site ABG pH ABG pCO2 ABG pO2 ABG PO2/FiO2 Ratio ABG HCO3 ABG O2 Saturation ABG O2 Content ABG Base Excess A-a Gradient Oxyhemoglobin Total Hemoglobin O2 Delivery Device O2 Liters/Min FiO2 Sodium Potassium Chloride Carbon Dioxide Anion Gap BUN Creatinine Estim Creat Clear Calc Estimated GFR Glucose POC Capillary Glucose Lactic Acid 11.6 H* Calcium Phosphorus Magnesium Total Bilirubin AST ALT Alkaline Phosphatase Total Creatine Kinase Troponin I NT-Pro-B Natriuret Pep Total Protein Albumin Procalcitonin Random Cortisol Blood Type A Positive Antibody Screen Negative 05/27/24 05/27/24 05/27/24 05:25 05:25 05:25 WBC RBC 3.83 L Hgb 12.7 L 12.4 L Hct 39.5 L 39.8 L MCV 104.5 H MCH MCHC RDW Plt Count MPV Immature Gran % (Auto) Neut % (Auto) Lymph % (Auto) [place] % (Auto) Eos % (Auto) Baso % (Auto) Lymph # (Auto) [place] # (Auto) Eos # (Auto) Baso # (Auto) Abs Immat Gran (auto) Absolute Neuts (auto) Absolute Nucleated RBC Nucleated RBC % PT INR APTT Fibrinogen D-Dimer Puncture Site ABG pH ABG pCO2 ABG pO2 ABG PO2/FiO2 Ratio ABG HCO3 ABG O2 Saturation ABG O2 Content ABG Base Excess A-a Gradient Oxyhemoglobin Total Hemoglobin O2 Delivery Device O2 Liters/Min FiO2 Sodium Potassium Chloride Carbon Dioxide Anion Gap BUN Creatinine Estim Creat Clear Calc Estimated GFR Glucose POC Capillary Glucose Lactic Acid Calcium Phosphorus Magnesium Total Bilirubin AST ALT Alkaline Phosphatase Total Creatine Kinase Troponin I NT-Pro-B Natriuret Pep Total Protein Albumin Procalcitonin Random Cortisol Blood Type Antibody Screen 05/27/24 05/27/24 05/27/24 05:25 05:25 05:25 WBC RBC Hgb Hct MCV 103.9 H MCH 33.6 32.4 MCHC 32.2 31.2 L RDW 17.0 H Plt Count MPV Immature Gran % (Auto) Neut % (Auto) Lymph % (Auto) [place] % (Auto) Eos % (Auto) Baso % (Auto) Lymph # (Auto) [place] # (Auto) Eos # (Auto) Baso # (Auto) Abs Immat Gran (auto) Absolute Neuts (auto) Absolute Nucleated RBC Nucleated RBC % PT INR APTT Fibrinogen D-Dimer Puncture Site ABG pH ABG pCO2 ABG pO2 ABG PO2/FiO2 Ratio ABG HCO3 ABG O2 Saturation ABG O2 Content ABG Base Excess A-a Gradient Oxyhemoglobin Total Hemoglobin O2 Delivery Device O2 Liters/Min FiO2 Sodium Potassium Chloride Carbon Dioxide Anion Gap BUN Creatinine Estim Creat Clear Calc Estimated GFR Glucose POC Capillary Glucose Lactic Acid Calcium Phosphorus Magnesium Total Bilirubin AST ALT Alkaline Phosphatase Total Creatine Kinase Troponin I NT-Pro-B Natriuret Pep Total Protein Albumin Procalcitonin Random Cortisol Blood Type Antibody Screen 05/27/24 05/27/24 05/27/24 05:25 05:25 05:25 WBC RBC Hgb Hct MCV MCH MCHC RDW 16.6 H Plt Count 126 L 126 L MPV 11.8 H 12.0 H Immature Gran % (Auto) 0.7 H Neut % (Auto) 83.4 H Lymph % (Auto) 4.3 L [place] % (Auto) 11.5 H Eos % (Auto) 0.0 Baso % (Auto) 0.1 L Lymph # (Auto) 0.58 L [place] # (Auto) 1.6 H Eos # (Auto) 0.0 Baso # (Auto) 0.0 Abs Immat Gran (auto) 0.10 H Absolute Neuts (auto) 11.3 H Absolute Nucleated RBC 0.030 H Nucleated RBC % 0.2 PT 77.2 H D INR 9.5 H* APTT 54.5 H Fibrinogen 330 D-Dimer 11.62 H Puncture Site ABG pH ABG pCO2 ABG pO2 ABG PO2/FiO2 Ratio ABG HCO3 ABG O2 Saturation ABG O2 Content ABG Base Excess A-a Gradient Oxyhemoglobin Total Hemoglobin O2 Delivery Device O2 Liters/Min FiO2 Sodium 139 Potassium 4.2 Chloride 93 L Carbon Dioxide 22 Anion Gap 24 H BUN 70 H Creatinine Cancelled Estim Creat Clear Calc Estimated GFR Glucose POC Capillary Glucose Lactic Acid Calcium Phosphorus Magnesium Total Bilirubin AST ALT Alkaline Phosphatase Total Creatine Kinase Troponin I NT-Pro-B Natriuret Pep Total Protein Albumin Procalcitonin Random Cortisol Blood Type Antibody Screen 05/27/24 05/27/24 05/27/24 05:25 05:25 05:25 WBC RBC Hgb Hct MCV MCH MCHC RDW Plt Count MPV Immature Gran % (Auto) Neut % (Auto) Lymph % (Auto) [place] % (Auto) Eos % (Auto) Baso % (Auto) Lymph # (Auto) [place] # (Auto) Eos # (Auto) Baso # (Auto) Abs Immat Gran (auto) Absolute Neuts (auto) Absolute Nucleated RBC Nucleated RBC % PT INR APTT Fibrinogen D-Dimer Puncture Site ABG pH ABG pCO2 ABG pO2 ABG PO2/FiO2 Ratio ABG HCO3 ABG O2 Saturation ABG O2 Content ABG Base Excess A-a Gradient Oxyhemoglobin Total Hemoglobin O2 Delivery Device O2 Liters/Min FiO2 Sodium Potassium Chloride Carbon Dioxide Anion Gap BUN Creatinine 4.16 H Estim Creat Clear Calc Cancelled 12 Estimated GFR Cancelled 14 L Glucose 174 H POC Capillary Glucose Lactic Acid 8.8 H* Calcium 7.4 L Phosphorus Magnesium 2.5 H Total Bilirubin 4.1 H AST 5323 H ALT 1977 H Alkaline Phosphatase 84 Total Creatine Kinase 1008 H Troponin I NT-Pro-B Natriuret Pep Total Protein 7.0 Albumin 4.0 Procalcitonin Random Cortisol Blood Type Antibody Screen
[2024-05-27] MEDS: VASOPRESSIN INJ 100 UNITS in DEXTROSE 5% 95 ML IV CONT (08:30)
[2024-05-27] MEDS: CALCIUM GLUC 2,000 MG/NS 100ML 2,000 MG/100 ML BAG 100 MG IVPB ×2 (08:38→14:57)
[2024-05-27] MEDS: SODIUM BICARBONATE 8.4% 150 MEQ in DEXTROSE 5% 1,000 ML 950 ML 100 MEQ IV CONT (08:47)
[2024-05-27 08:53] LABS: INR 4.1; Prothrombin Time 40.7 Seconds (11.1-14.7)
[2024-05-27 08:54] LABS: Partial Thromboplastin Time 54.3 Seconds (22.3-36.8)
[2024-05-27 08:59] LABS: Add Urine Microscopic? YES; Appearance Urine Turbid (Clear); Bacteria Urine 1+ /hpf; Color Urine Red (Yellow); Need Manual Microscopic Reviewed; RBC Urine >100 /hpf (0-2); Specific Grav Ur 1.037 (1.001-1.035); Squamous Epithelial Cell Urine Few /hpf (Few); WBC Urine >100 /hpf (0-3)
[2024-05-27 09:02] LABS: Creatinine Urine 76.6 mg/dL
[2024-05-27 09:02] LABS: Lactic Acid 6.6 mmol/L (0.7-2.0)
[2024-05-27 09:04] LABS: Urea Random Urine 215 MG/DL
[2024-05-27 09:07] LABS: Sodium Urine Random 26 meq/L
[2024-05-27 09:10] LABS: Total Protein Urine Random 453 mg/dL; Ur Ttl Prot Creatinine Ratio 5.91 mg/mg (0-0.20)
[2024-05-27 09:32] LABS: Eosinophil Urine None Seen % (None Seen); Urine Eos QC 2nd Tech Confirmed
--- NOTE | 2024-05-27 10:02 | PCRCNOTE ---
I spoke with Dr. Pringle about the ABG that is ordered. Dr. Pringle said since the patient is in DIC that we will wait on the ABG for now.
--- NOTE | 2024-05-27 10:35 | WPDCNINT ---
Assessment and Plan Assessment and plan (1) Acute respiratory failure: Code(s): J96.00 - Acute respiratory failure, unspecified whether with hypoxia or hypercapnia Status: Acute Assessment and Plan: Acute respiratory failure secondary to sepsis, shock, altered mental status, GI bleeding Patient now intubated and on mechanical ventilation Chest x-ray vent settings reviewed ABG was not done due to DIC and elevated INR. Patient is receiving blood products to correct coagulopathy and will obtain ABG once patient receives current dose of FFP (2) Shock: Code(s): R57.9 - Shock, unspecified Status: Acute Assessment and Plan: Patient is in shock and is requiring Levophed and vasopressin Shock is combination of sepsis and Cardiogenic His echocardiogram shows EF of 20-25% and patient is also bradycardic. Patient has biventricular failure He also has evidence of UTI on his UA, pneumonia on his CT scan and elevated procalcitonin Continue Levophed vasopressin and cautious amount of IV fluids Continue hydrocortisone (3) Sepsis: Code(s): A41.9 - Sepsis, unspecified organism Status: Acute Assessment and Plan: UA suggestive of UTI it CT scan shows atelectasis versus pneumonia CT abdomen pelvis was not suggestive of any other source of infection Cultures have been ordered and pending Patient is currently on metronidazole, cefepime and vancomycin (4) Upper GI bleed: Code(s): K92.2 - Gastrointestinal hemorrhage, unspecified Status: Acute Assessment and Plan: Patient is having upper GI bleed which is likely secondary to DIC GI consulted Correct coagulopathy with blood products Monitor hemoglobin and transfuse if needed Protonix bolus and infusion (5) Acute kidney injury: Code(s): N17.9 - Acute kidney failure, unspecified Status: Acute Assessment and Plan: Acute kidney injury. Likely secondary to sepsis shock IV fluids with bicarb for metabolic acidosis Monitor electrolytes urine output I anticipate patient will likely need dialysis and may need CRRT considering the extent of vasopressor requirement and his cardiac output (6) Metabolic acidosis: Code(s): E87.20 - Acidosis, unspecified Status: Acute Assessment and Plan: IV fluids with bicarb (7) Disseminated intravascular coagulation: Code(s): D65 - Disseminated intravascular coagulation [defibrination syndrome] Status: Acute Assessment and Plan: Patient was on Eliquis and now has developed shock which is a combination of sepsis and cardiogenic. Patient also on antibiotic Patient's initial INR done last night was more than 20 He received 2 units of FFP and cryo and prothrombin complex concentrate I repeated INR this morning it was 4.1. I will give additional 2 units of FFP and recheck INR Management of GI bleeding as above (8) Cardiomyopathy: Code(s): I42.9 - Cardiomyopathy, unspecified Status: Acute Assessment and Plan: Patient has extensive cardiac disease and has history of tachy-cassia syndrome and amyloidosis. Patient was offered pacemaker but patient's elected not to proceed with it in the past. On the floor patient was started on beta-rupert and amiodarone when he was in a flutter and then he converted into sinus bradycardia and medication was stopped Echocardiogram done and shows EF of 20-25% with moderately increased left ventricular wall thickness and right ventricular systolic and diastolic dysfunction Currently in sinus bradycardia but I am reluctant in starting any dopamine on dobutamine considering patient has history of a flutter and AFib which will further complicate things (9) Atrial fibrillation: Code(s): I48.91 - Unspecified atrial fibrillation Status: Acute (10) Bradyarrhythmia: Code(s): I49.8 - Other specified cardiac arrhythmias Status: Acute (11) Chronic 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: Code(s): Z79.01 - assisted (current) use of anticoagulants Status: Acute Assessment and Plan: Eliquis has been discontinued due to DIC and bleeding (12) History of amyloidosis: Code(s): Z86.39 - Personal history of other endocrine, nutritional and metabolic disease Status: Acute Assessment and Plan: History of a amyloidosis (13) Dementia: Code(s): F03.90 - Unspecified dementia, unspecified severity, without behavioral disturbance, psychotic disturbance, mood disturbance, and anxiety Status: Acute Assessment and Plan: History of baseline dementia No interventions at this time (14) Hematuria: Code(s): R31.9 - Hematuria, unspecified Status: Acute Assessment and Plan: Secondary DIC Burk in place Correct coagulopathy Plan DVT prophylaxis -SCD Stress ulcer prophylaxis -PPI Nutrition - npo Code Status - Full Code Case discussed with overnight hospitalist, [employer] certified network professional, information technology internship I had extensive discussion with patient's son at bedside and updated him with patient's status including acute respiratory failure, acute renal failure, his heart use, DIC and GI bleeding. I explained him the patient is critically ill with high risk of mortality. Patient's son told me that he was unaware of patient's difficulty with dementia and dental pain at home as he felt that he was not getting complete picture from his mother. He states that patient was not eating or drinking much recently due to his dental pain. He was going to discuss with his sister who lives in [place]. I will visit with patient's when she arrives Total Critical Care Time - 60 minutes Due to a high probability of clinically significant, life threatening deterioration, the patient required my highest level of preparedness to intervene emergently and I personally spent this critical care time directly and personally managing the patient. This critical care time included obtaining a history; examining the patient; pulse oximetry; ordering and review of studies; arranging urgent treatment with development of a management plan; evaluation of patient's response to treatment; frequent reassessment; and discussions with other providers. It was exclusive of separately billable procedures and treating other patients and teaching time. 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 Code status: Full code. Years smoked: 2 Smoking status: Never smoker Tobacco type: cigarettes Second hand tobacco smoke exposure: Yes Alcohol intake: never Substance use: never Substance use type: does not use Do You Feel Safe in your Home?: Yes Lack of Transportation: YES Lack of Food: Sometimes True Current Housing: I Have Housing Concerned About Future Housing: No Difficulty Paying Gas/Electric Bills: No Difficulty Paying for Meds: No Currently Unemployed: No Education: Bachelor's Degree Difficulty w/ Childcare or Family Care: No Living arrangements: assisted living Additional living arrangements comments: [facility], with Spiritual care concerns: No Meds Home Medications and Allergies Home Medications ?Medication ?Instructions ?Recorded ?Confirmed ?Type albuterol sulfate 90 mcg/actuation 1 inh inhalation Q6H PRN Wheezing 12/15/23 05/23/24 History aerosol inhaler apixaban 5 mg tablet (Eliquis) 5 mg PO BID 12/15/23 05/23/24 History cetirizine 10 mg tablet 10 mg PO DAILY 12/15/23 05/23/24 History fluticasone fur. 100 mcg-umeclid 1 inh inhalation DAILY 12/15/23 05/23/24 History 62.5 mcg-vilant 25 mcg inhalat.powder (Trelegy Ellipta) furosemide 80 mg tablet 80 mg PO DAILY 12/15/23 05/23/24 History gabapentin 300 mg capsule 300 mg PO QAM 12/15/23 05/23/24 History levothyroxine 25 mcg tablet 25 mcg PO DAILY 12/15/23 05/23/24 History melatonin 3 mg tablet 5 mg PO HS PRN Restless Leg(S) 12/15/23 05/23/24 History modafinil 200 mg tablet 100 mg PO QAM 12/15/23 05/23/24 History montelukast 10 mg tablet 10 mg PO HS 12/15/23 05/23/24 History multivitamin 1 tablet PO HS 12/15/23 05/23/24 History omega-3 fatty acids 1,000 mg 1,500 mg PO QNOON 12/15/23 05/23/24 History capsule simvastatin 20 mg tablet 10 mg PO QPM 12/15/23 05/23/24 History hprisii-txl-mpa T1-B2-lcsalwxp 250 2 tablet PO DAILY 05/23/24 05/23/24 History mg-40 mg-5 mg-125 unit tablet potassium gluconate 595 mg (99 mg) 595 mg PO DAILY 05/23/24 05/23/24 History tablet tafamidis 61 mg capsule (Vyndamax) 61 mg PO DAILY 05/23/24 05/23/24 History clindamycin HCl 300 mg capsule 300 mg PO Q12H infection 05/24/24 05/24/24 History Allergies Allergy/AdvReac Type Severity Reaction Status Date / Time No Known Allergies Allergy Verified 12/24/23 16:36 Vital Signs Vital Signs - 24 hr 05/26/24 11:50 05/26/24 11:50 05/26/24 12:00 Temperature 36.3 C L Pulse Rate 137 H 137 H 118 H Respiratory Rate 22 H Blood Pressure 97/73 L 97/73 L 97/73 L Pulse Oximetry 98 Oxygen Delivery Oxygen Flow Rate Fraction of Inspired Oxygen 05/26/24 12:00 05/26/24 12:00 05/26/24 14:00 Temperature Pulse Rate 127 H 127 H 114 H Respiratory Rate 24 H Blood Pressure Pulse Oximetry 100 Oxygen Delivery Nasal Cannula Oxygen Flow Rate 2 Fraction of Inspired Oxygen 05/26/24 14:23 05/26/24 15:59 05/26/24 16:00 Temperature 36.0 C L 36.3 C L Pulse Rate 58 L 45 L 45 L Respiratory Rate 16 24 H Blood Pressure 121/44 L 101/70 Pulse Oximetry 99 100 Oxygen Delivery Oxygen Flow Rate Fraction of Inspired Oxygen 05/26/24 16:00 05/26/24 18:00 05/26/24 19:20 Temperature Pulse Rate 45 L 48 L 55 L Respiratory Rate 24 H Blood Pressure 84/61 L Pulse Oximetry 100 Oxygen Delivery Nasal Cannula Oxygen Flow Rate 2 Fraction of Inspired Oxygen 05/26/24 19:25 05/26/24 19:30 05/26/24 20:00 Temperature Pulse Rate 54 L 54 L 55 L Respiratory Rate 24 H Blood Pressure 64/46 L 91/26 L Pulse Oximetry 100 Oxygen Delivery Room Air Oxygen Flow Rate Fraction of Inspired Oxygen 05/26/24 20:00 05/26/24 20:00 05/26/24 20:00 Temperature 36.6 C Pulse Rate 58 L 66 61 Respiratory Rate 20 Blood Pressure 86/70 L 89/79 L Pulse Oximetry 100 Oxygen Delivery Oxygen Flow Rate Fraction of Inspired Oxygen 05/26/24 20:08 05/26/24 20:40 05/26/24 21:00 Temperature Pulse Rate 58 L 64 66 Respiratory Rate Blood Pressure 85/64 L Pulse Oximetry Oxygen Delivery Oxygen Flow Rate Fraction of Inspired Oxygen 05/26/24 22:00 05/26/24 22:00 05/26/24 22:05 Temperature Pulse Rate 66 64 65 Respiratory Rate 18 Blood Pressure 92/29 L 92/29 L Pulse Oximetry 98 Oxygen Delivery Oxygen Flow Rate Fraction of Inspired Oxygen 05/26/24 22:30 05/26/24 23:55 05/27/24 00:00 Temperature Pulse Rate 65 63 55 L Respiratory Rate 24 H Blood Pressure 80/27 L 57/39 L Pulse Oximetry 100 Oxygen Delivery Room Air Oxygen Flow Rate Fraction of Inspired Oxygen 05/27/24 00:00 05/27/24 00:00 05/27/24 00:00 Temperature 36.5 C Pulse Rate 66 65 63 Respiratory Rate 19 Blood Pressure 111/56 L 111/56 L Pulse Oximetry 100 Oxygen Delivery Oxygen Flow Rate Fraction of Inspired Oxygen 05/27/24 02:00 05/27/24 02:00 05/27/24 02:09 Temperature 36.6 C Pulse Rate 62 70 67 Respiratory Rate 14 Blood Pressure 86/68 L 89/76 L Pulse Oximetry 98 Oxygen Delivery Oxygen Flow Rate Fraction of Inspired Oxygen 05/27/24 02:09 05/27/24 02:29 05/27/24 02:50 Temperature 36.6 C 36.6 C Pulse Rate 67 64 65 Respiratory Rate 17 14 Blood Pressure 89/76 L 130/73 88/64 L Pulse Oximetry 99 100 Oxygen Delivery Oxygen Flow Rate Fraction of Inspired Oxygen 05/27/24 03:50 05/27/24 03:56 05/27/24 04:00 Temperature 36.6 C 36.6 C Pulse Rate 65 64 55 L Respiratory Rate 17 16 24 H Blood Pressure 126/47 L 141/68 H Pulse Oximetry 99 99 100 Oxygen Delivery Room Air Oxygen Flow Rate Fraction of Inspired Oxygen 05/27/24 04:00 05/27/24 04:00 05/27/24 04:00 Temperature 36.6 C Pulse Rate 65 65 65 Respiratory Rate 16 Blood Pressure 138/55 L 138/55 L Pulse Oximetry 99 Oxygen Delivery Oxygen Flow Rate Fraction of Inspired Oxygen 05/27/24 04:15 05/27/24 04:15 05/27/24 04:15 Temperature 36.6 C 36.6 C 36.6 C Pulse Rate 65 65 65 Respiratory Rate 15 15 15 Blood Pressure 138/55 L 138/55 L 138/55 L Pulse Oximetry 98 99 99 Oxygen Delivery Oxygen Flow Rate Fraction of Inspired Oxygen 05/27/24 04:48 05/27/24 04:50 05/27/24 05:09 Temperature 36.6 C Pulse Rate 65 67 Respiratory Rate 21 H 20 Blood Pressure 147/91 H Pulse Oximetry 99 94 Oxygen Delivery Mechanical Ventilation Oxygen Flow Rate Fraction of Inspired Oxygen 40 05/27/24 05:09 05/27/24 05:11 05/27/24 06:00 Temperature 36.6 C Pulse Rate 64 66 61 Respiratory Rate 20 24 H Blood Pressure 154/78 H 146/73 H Pulse Oximetry 100 Oxygen Delivery Oxygen Flow Rate Fraction of Inspired Oxygen 05/27/24 06:00 05/27/24 06:20 05/27/24 07:15 Temperature 36.2 C L Pulse Rate 58 L 57 L 54 L Respiratory Rate 21 H 21 H Blood Pressure 124/75 Pulse Oximetry 100 Oxygen Delivery Oxygen Flow Rate Fraction of Inspired Oxygen 05/27/24 07:19 05/27/24 07:20 05/27/24 07:20 Temperature 36.1 C L Pulse Rate 54 L 54 L 54 L Respiratory Rate 21 H Blood Pressure 130/59 L 124/75 124/75 Pulse Oximetry 100 Oxygen Delivery Oxygen Flow Rate Fraction of Inspired Oxygen 05/27/24 07:36 05/27/24 07:38 05/27/24 08:00 Temperature Pulse Rate 54 L 52 L 51 L Respiratory Rate 21 H 21 H Blood Pressure 109/67 Pulse Oximetry Oxygen Delivery Oxygen Flow Rate Fraction of Inspired Oxygen 05/27/24 08:30 05/27/24 08:50 05/27/24 08:51 Temperature Pulse Rate 50 L 49 L 59 L Respiratory Rate Blood Pressure 101/44 L 118/49 L Pulse Oximetry 100 Oxygen Delivery Mechanical Ventilation Oxygen Flow Rate Fraction of Inspired Oxygen 40 05/27/24 09:10 05/27/24 09:40 05/27/24 10:16 Temperature 36.2 C L Pulse Rate 51 L 53 L 53 L Respiratory Rate 20 Blood Pressure 126/51 L 137/84 134/75 Pulse Oximetry 100 Oxygen Delivery Oxygen Flow Rate Fraction of Inspired Oxygen 05/27/24 10:32 Temperature 36.3 C L Pulse Rate 55 L Respiratory Rate 21 H Blood Pressure 138/79 Pulse Oximetry 100 Oxygen Delivery Oxygen Flow Rate Fraction of Inspired Oxygen Exam Narrative: General: Pt is sedated, intubated and on mechanical ventilation Lungs/Chest: Trachea central Coarse BS B/L, No crackles or wheezing. Cardiac: RRR. Normal S1 S2. No murmurs Circulation: Bilateral feet are cold, faint dorsalis pedis pulse can be palpated on both sides. Feet are cold from middle of the leg downward Abdomen: Decreased bowel sounds. Obese. Soft. NT. ND. Extremities: No clubbing, cyanosis or edema. Right femoral central venous catheter : Burk in place with hematuria Neurologic: Unable to assess due to sedation. Moves all 4 extremities to painful stimuli. PERRL Right IJ central venous catheter site is is under dressing with small amount of oozing, there was oozing going on from left peripheral IV site Results Labs 05/27/24 05:25 05/27/24 05:25 Labs: Short CBC 05/26/24 05/26/24 05/26/24 Range/Units 15:53 21:56 23:24 WBC 11.6 H 12.7 H 14.2 H (4.5-10.0) K/mm3 Hgb 15.4 12.1 L D 13.5 L (14.0-18.0) g/dL Hct 48.8 38.1 L 42.2 (42.0-52.0) % Plt Count 154 123 L 134 L (150-375) k/mm3 05/27/24 05/27/24 05/27/24 Range/Units 05:25 05:25 05:25 WBC 13.5 H 13.7 H (4.5-10.0) K/mm3 Hgb 12.7 L 12.4 L (14.0-18.0) g/dL Hct 39.5 L (42.0-52.0) % Plt Count (150-375) k/mm3 05/27/24 05/27/24 Range/Units 05:25 05:25 WBC (4.5-10.0) K/mm3 Hgb (14.0-18.0) g/dL Hct 39.8 L (42.0-52.0) % Plt Count 126 L 126 L (150-375) k/mm3 BMP 05/26/24 05/26/24 05/27/24 21:56 23:24 05:25 Sodium 133 L 139 139 Potassium 3.9 4.9 4.2 Chloride 74 L 96 L 93 L Carbon Dioxide TNP 18 L 22 BUN 60 H 65 H 70 H Creatinine 2.50 H 4.04 H Cancelled Glucose 875 H* 86 Calcium 5.0 L* 7.7 L 05/27/24 05:25 Sodium Potassium Chloride Carbon Dioxide BUN Creatinine 4.16 H Glucose 174 H Calcium 7.4 L Cardiac Enzymes 05/26/24 05/26/24 05/27/24 Range/Units 14:37 23:24 05:25 Total Creatine Kinase 1008 H (55-170) U/L Troponin I 0.324 H* 0.587 H* (0.000-0.034) ng/mL Liver Function 05/26/24 05/26/24 05/27/24 Range/Units 21:56 23:24 05:25 Total Bilirubin 2.7 H 4.0 H 4.1 H (0.2-1.3) mg/dL AST 2318 H 3619 H 5323 H (17-59) U/L ALT 828 H 1343 H 1977 H (6-50) U/L Alkaline Phosphatase 47 71 84 (38-126) U/L Albumin 2.2 L 3.3 L 4.0 (3.5-5.1) g/dL Urine 05/27/24 Range/Units 08:26 Urine Color Red H (Yellow) Urine Appearance Turbid H (Clear) Urine pH 5.0 (5.0-9.0) Ur Specific [place] 1.037 H (1.001-1.035) Urine Protein TNP Urine Glucose (UA) TNP Quality VTE Prophylaxis VTE prophylaxis: mechanical ordered Hospitalist MIPS Advance Care Plan I have confirmed that the patient's Advanced Care Plan is present, code status is documented, or surrogate decision maker is listed in patient medical record.: Yes Medication Reconciliation I have utilized all available resources to obtain, update and review the patients current medications (includes all prescriptions, OTC, herbals, cannabis, and nutritional supplements).: Yes
[2024-05-27] MEDS: INSULIN ASPART (*BKC) 100 UNITS/ML SUB-Q ×2 (10:49→12:37)
[2024-05-27] MEDS: MINERAL OIL/WHITE PETROLATUM OINTMENT 1 APPLIC EACH EYE ×2 (10:49→20:45)
[2024-05-27 12:06] LABS: Glucose Point of Care 203 mg/dl (65-105)
[2024-05-27 12:06] LABS: Glucose Point of Care 206 mg/dl (65-105)
--- NOTE | 2024-05-27 12:07 | PCFNICU ---
ICU Rounding Note: Pt current nutrition is NPO. Nutrition recommendation: Nepro at 20 ml/hr goal rate 40 ml/hr. Last recorded weight is 63.4 kg, up from 59 kg on admit. Bowel Motility: +BM reported 05/23 Labs Reviewed: PO4 9.7, Cr 4.16, BUN 70, Glu 174, Hct 39.8, Hgb 12.4 Meds Noted:NS,Fentanyl, Versed, Levophed, MVI, NovoLog Skin: WNL Additional Notes: Patient current with mechanical vent. No plans for nutrition today. GI consult for possible GI bleed. Tube feeding recommendations: Nepro at 20 ml/hr advance by 10 ml q 4 hours to goal rate of 40 ml/hr. Flush 30 ml q 4 hours. Following daily in ICU rounds. Monitor intake, tolerance, wt, labs. Follow up every Saturday and Saturday.
[2024-05-27 12:13] LABS: Glucose Point of Care 225 mg/dl (65-105)
[2024-05-27 12:25] LABS: Alveolar/Arterial O2 Gradient 108.6 mmHg; Base Excess ABG 2.3 mEq/l (+/-2.0); Fractional Inspired Oxygen 40 %; HCO3 ABG 25.3 mEq/l (22.0-26.0); Oxygen Content ABG 14.6 %vol (16.0-22.0); Oxyhemoglobin 98.3 % THb (90.0-100.0); PCO2 ABG 33.4 mmHg (35.0-45.0); PO2 ABG 138.2 mmHg (80.0-100.0); PO2 FiO2 Ratio Arterial Blood 3.45 %; Total Hemoglobin 10.4 g/dL (12.0-18.0); pH ABG 7.497 (7.350-7.450)
--- NOTE | 2024-05-27 12:25 | P.PNNP_ITS ---
Progress Note: A&P Assessment and Plan (1) Acute kidney injury: Code(s): N17.9 - Acute kidney failure, unspecified Status: Acute Assessment and Plan: * etiology not clear * noted on 05/25 -- admission creatinine normal/at baseline * possible reasons include: * afib with RVR * shock * prerenal factors * infection/sepsis * medications (antibiotics?) * anemia * evaluaton to date noted * renal ultrasound with right horseshoe kidney * urine electrolyte prerenal * CPK mildly elevated (not likely to affect kidney function) * urine eosinophils negative * UA with blood and protein (presumably due to DIC) * drop in urine output noted * remains at risk for [employer]/dialysis -- however, conventional HD may be difficult due to hemodynamic instability (and hence may need CRRT) * follow trend of repeat labs and UOP (2) Shock: Code(s): R57.9 - Shock, unspecified Status: Acute Assessment and Plan: * requiring vasopressor therapy (levophed + vasopressin) at this time * suspect a combination of sepsis and cardiogenic * recent Echo (05/26) reviewed (see #) * on stress dose steroids * wean pressors as tolerated * follow trend of hemodynamics (3) Sepsis: Code(s): A41.9 - Sepsis, unspecified organism Status: Acute Assessment and Plan: * potential source include pneumonia versus UTI * CT abdomen pelvis was not suggestive of any other source of infection * follow culture data * elevated procalcitonin noted * continue broad spectrum antibiotics (4) Acute respiratory failure: Code(s): J96.00 - Acute respiratory failure, unspecified whether with hypoxia or hypercapnia Status: Acute Assessment and Plan: * acute respiratory failure secondary to sepsis, shock, altered mental status, and GI bleeding * intubated for airway protection and now on mechanical ventilation * ventilator weaning as able (5) Upper GI bleed: Code(s): K92.2 - Gastrointestinal hemorrhage, unspecified Status: Acute Assessment and Plan: * as noted by events in the las 24 hours * suspect upper GI bleed which is likely secondary to DIC * GI recommendations noted * orrect coagulopathy with blood products * follow H/H and transfuse if needed/per protocol * on IV PPI (6) Metabolic acidosis: Code(s): E87.20 - Acidosis, unspecified Status: Acute Assessment and Plan: * due to HERACLIO/ARF and lactic acidosis * on IV fluids with bicarbonate to compensate (7) Disseminated intravascular coagulation: Code(s): D65 - Disseminated intravascular coagulation [defibrination syndrome] Status: Acute Assessment and Plan: * as noted by labs * complicated by patient being on Eliquis * initial INR was > 20 * s/p 2 units of FFP and cryoprecipitate and prothrombin complex concentrate * repeat INR this morning 4.1 -- to get additional 2 units of FFP * follow INR (8) Cardiomyopathy: Code(s): I42.9 - Cardiomyopathy, unspecified Status: Acute Assessment and Plan: * as noted by recent Echo (05/26): * left ventricular systolic function is severely reduced, estimated at 20-25% * left ventricular diastolic function is abnormal * right ventricular systolic function is reduced * mild mitral valve regurgitation * mild tricuspid valve regurgitation. * known history of tachy-cassia syndrome and cardiac amyloidosis. Patient was offered pacemaker but patient's elected not to proceed with it in the past. * Cardiology following (9) Atrial fibrillation: Code(s): I48.91 - Unspecified atrial fibrillation Status: Acute Assessment and Plan: * known history and noted on admission * rate control strategy * 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 on hold due to #7 (10) Hematuria: Code(s): R31.9 - Hematuria, unspecified Status: Acute Assessment and Plan: * secondary DIC * urbina in place * flush as needed * focus efforts on correcting coagulopathy (11) Dementia: Code(s): F03.90 - Unspecified dementia, unspecified severity, without behavioral disturbance, psychotic disturbance, mood disturbance, and anxiety Status: Chronic Assessment and Plan: * known history * due to lewey body disease Discussed case with Dr. Pringle. Will continue to follow. L Subjective Date/time seen: 05/27/24 12:25 Interval history: Follow-up for acute kidney injury/acute renal failure. Events noted yesterday afternoon/evening/overnight and earlier this AM -- worsening hypotension with significant/severe lactic acidosis; antibiotics were adjusted and initiated on IVFs but repeat lactic remained elevated and no significant improvement in hypotension; he was transferred to the ICU and had a right IJ central line placed for vasopressor therapy as sytolic BP was in the 70-80s systolic range; due to patient's increased confusion, the patient pulled out his RIJ central line with significant bleeding noted; a right femoral line was then placed but increased bleeding was noted from placement of this CVC; STAT labs were done which demonstrated worsening acidosis in association with elevated LFTs, PTT, PT, INR, and D-Dimer, low normal fibrogen concerning for DIC; FFP an cyroprecipate were orderd but then patient had large amounts of bright red blood from his mouth and subsequently required intubatation for airway protection; NGT was placed with immediate return of large amounts of maroon blood with clots; GI was consulted but his elevated INR precluded any type of intervention at this time; patient remains intubated/sedated and on mechanical ventilation with ongoing vasopressor use to maintain MAP/blood pressure. Exam 2 Narrative: General: elderly male intubated/sedated and on mechanical ventilation Heart: normal S1 and S2; no rub Lungs: coarse breath sounds noted Abdomen: soft, nontender, nondistended, positive bowel sounds Extremities: no cyanosis or clubbing; no edema Skin: warm and dry; oozing noted from peripheral IVs and femoral central line Objective Data Vital Signs Vital Signs: Vital Signs Temp Pulse Resp BP Pulse Ox O2 Del Method O2 Flow Rate 05/27/24 12:00 98.3 F 56 L 20 120/70 100 05/27/24 11:30 97.9 F 55 L 20 124/67 100 05/27/24 11:00 97.6 F 56 L 20 131/69 100 05/27/24 10:56 56 L 129/66 05/27/24 10:32 97.3 F L 55 L 21 H 138/79 100 05/27/24 10:30 97.3 F L 54 L 21 H 138/79 100 05/27/24 10:30 54 L 100 Mechanical Ventilation 05/27/24 10:16 97.2 F L 53 L 20 134/75 100 05/27/24 10:15 56 L 139/76 05/27/24 10:00 53 L 05/27/24 10:00 53 L 20 05/27/24 10:00 53 L 20 05/27/24 10:00 53 L 139/79 05/27/24 10:00 97.0 F L 53 L 20 139/79 100 05/27/24 10:00 58 L 139/79 05/27/24 09:45 96.9 F L 53 L 20 141/75 H 100 05/27/24 09:40 53 L 137/84 05/27/24 09:30 96.8 F L 53 L 20 146/74 H 100 05/27/24 09:15 96.7 F L 52 L 21 H 113/92 H 100 05/27/24 09:10 51 L 126/51 L 05/27/24 09:00 96.7 F L 50 L 21 H 112/63 100 05/27/24 08:51 59 L 100 Mechanical Ventilation 05/27/24 08:50 49 L 118/49 L 05/27/24 08:30 96.8 F L 49 L 20 99/57 L 100 05/27/24 08:30 50 L 101/44 L 05/27/24 08:00 96.8 F L 51 L 21 H 109/67 100 05/27/24 08:00 51 L 05/27/24 08:00 51 L 21 H 05/27/24 08:00 51 L 21 H 05/27/24 08:00 51 L 109/67 05/27/24 07:38 52 L 21 H 05/27/24 07:36 54 L 21 H 05/27/24 07:20 54 L 124/75 05/27/24 07:20 54 L 124/75 05/27/24 07:19 97.0 F L 54 L 21 H 130/59 L 100 05/27/24 07:15 97.1 F L 54 L 21 H 124/75 100 05/27/24 06:20 57 L 21 H 05/27/24 06:00 58 L 05/27/24 06:00 98 F 61 24 H 146/73 H 100 05/27/24 05:11 66 154/78 H 05/27/24 05:09 64 20 05/27/24 05:09 67 20 05/27/24 04:50 94 Mechanical Ventilation 05/27/24 04:48 98 F 65 21 H 147/91 H 99 05/27/24 04:15 98 F 65 15 138/55 L 99 05/27/24 04:15 98 F 65 15 138/55 L 99 05/27/24 04:15 98 F 65 15 138/55 L 98 05/27/24 04:00 65 05/27/24 04:00 98 F 65 16 138/55 L 99 05/27/24 04:00 65 138/55 L 05/27/24 04:00 55 L 24 H 100 Room Air 05/27/24 03:56 98 F 64 16 141/68 H 99 05/27/24 03:50 98 F 65 17 126/47 L 99 05/27/24 02:50 97.9 F 65 14 88/64 L 100 05/27/24 02:29 97.9 F 64 17 130/73 99 05/27/24 02:09 67 89/76 L 05/27/24 02:09 67 89/76 L 05/27/24 02:00 70 05/27/24 02:00 98 F 62 14 86/68 L 98 05/27/24 00:00 63 05/27/24 00:00 97.7 F 65 19 111/56 L 100 05/27/24 00:00 66 111/56 L 05/27/24 00:00 55 L 24 H 100 Room Air 05/26/24 23:55 63 57/39 L 05/26/24 22:30 65 80/27 L 05/26/24 22:05 65 92/29 L 05/26/24 22:00 64 05/26/24 22:00 66 18 92/29 L 98 05/26/24 21:00 66 85/64 L 05/26/24 20:40 64 05/26/24 20:08 58 L 05/26/24 20:00 61 05/26/24 20:00 98 F 66 20 89/79 L 100 05/26/24 20:00 58 L 86/70 L 05/26/24 20:00 55 L 24 H 100 Room Air 05/26/24 19:30 54 L 91/26 L 05/26/24 19:25 54 L 64/46 L 05/26/24 19:20 55 L 84/61 L 05/26/24 18:00 48 L 05/26/24 16:00 45 L 24 H 100 Nasal Cannula 2 05/26/24 16:00 45 L 05/26/24 15:59 97.3 F L 45 L 24 H 101/70 100 Intake/Output Intake/Output: Intake & Output 05/24/24 05/25/24 05/26/24 05/27/24 23:59 23:59 23:59 23:59 Intake Total 2331.7 1826.3 551.9 3076.5 Output Total 400 350 400 170 Balance 1931.7 1476.3 151.9 2906.5 Meds/Results Medications: Active Medications Generic Name Dose Route Start Last Admin Trade Name Freq PRN Reason Stop Dose Admin Acetaminophen 650 mg 05/23/24 18:33 05/26/24 11:48 Acetaminophen 325 Mg Tablet PO 650 mg Q4H PRN Administration Mild Pain (1-3) or Fever Albuterol 1 puff 05/24/24 09:23 Albuterol Sulfate (*Sp) Aerosol 1 Puff INHALATION Q6H PRN Wheezing Dextrose 12.5 gm 05/27/24 08:14 Dextrose 50% 25 Gm/50 Ml Syringe IV PUSH PRN PRN Hypoglycemia Protocol Glucagon 1 mg 05/27/24 08:14 Glucagon For Inj 1 Mg Vial IM PRN PRN Hypoglycemia Protocol Glucose 15 gm 05/27/24 08:14 Glucose Oral Gel 15 Gm Of Glucse In 37.5 Gm Tube PO PRN PRN Hypoglycemia Protocol Hydrocortisone Sodium Succinate 100 mg 05/26/24 22:00 05/27/24 14:57 Hydrocortisone Sodium Succinate 100 Mg/2 Ml Vial IV PUSH 100 mg Q8HR NAN Administration Metronidazole 500 mg in 100 mls @ 100 mls/hr 05/26/24 18:00 05/27/24 12:30 Flagyl 500 Mg/Iso Soln 100 Ml IVPB Infused Q8H NAN Infusion Cefepime HCl 1 gm in 50 mls @ 100 mls/hr 05/27/24 17:00 Maxipime 1 Gm/Ns 50 Ml IVPB Q24H NAN Norepinephrine Bitartrate 8 mg in 250 mls @ 18.75 mls/hr 05/26/24 19:40 05/27/24 14:55 Levophed 8 Mg/D5w 250 Ml IV CONT 10 mcg/min .[id number] NAN 18.75 mls/hr Titration Protocol 10 MCG/MIN Fentanyl Citrate 2,500 mcg in 250 mls @ 10 mls/hr 05/27/24 04:40 05/27/24 14:00 Fentanyl 2,500 Mcg/Ns 250 Ml IV CONT 100 mcg/hr .Q25H NAN 10 mls/hr Titration Protocol 100 MCG/HR Midazolam HCl 100 mg in 100 mls @ 5 mls/hr 05/27/24 04:40 05/27/24 14:00 Versed 100 Mg/Ns 100 Ml IV CONT 5 mg/hr .Q20H NAN 5 mls/hr Titration Protocol 5 MG/HR Pantoprazole Sodium 80 mg/ 500 mls @ 50 mls/hr 05/27/24 07:00 05/27/24 08:00 Sodium Chloride IV CONT 50 mls/hr .Q10H NAN Infusion Dextrose 1,000 mls @ 100 mls/hr 05/27/24 08:14 Dextrose 5% 1,000 Ml IVPB PRN PRN Hypoglycemia Protocol Vasopressin 100 units/ 100 mls @ 2.4 mls/hr 05/27/24 08:20 05/27/24 14:00 Dextrose IV CONT 0.04 units/min .[id number] NAN 2.4 mls/hr Titration Protocol 0.04 UNITS/MIN Albumin Human 100 mls @ 60 mls/hr 05/27/24 14:00 05/27/24 15:28 Albutein IVPB 05/28/24 09:39 Infused Q6H NAN Infusion Sodium Chloride 250 mls @ 30 mls/hr 05/27/24 14:28 Normal Saline Iv IV CONT 05/27/24 22:47 .Q8H20M STA Insulin Aspart 3 - 6 units 05/27/24 09:00 05/27/24 12:37 Insulin Aspart (*Bkc) 100 Units/Ml SUB-Q 3 units Q4HR NAN Administration Protocol Levothyroxine Sodium 25 mcg 05/25/24 06:30 05/27/24 05:42 Levothyroxine Sodium 25 Mcg Tablet PO Not Given DAILY@0630 [facility] Metoprolol Tartrate 5 mg 05/24/24 16:19 05/26/24 03:43 Metoprolol Tartrate Inj 5 Mg/5 Ml Vial IV PUSH 5 mg Q4HR PRN Administration Heart Rate- High Miscellaneous Information 1 each 05/24/24 00:01 Tafamidis Nonformulary, Can Patient Use From Home Or Hold Till Discharge? XX 06/23/24 00:00 CLARIFY NAN Multi-Ingred Cream/Lotion/Oil/Oint 1 applic 05/27/24 09:00 05/27/24 10:49 Mineral Oil/White Petrolatum Ointment EACH EYE 1 applic Q12HR NAN Administration Non-Formulary Medication 61 mg 05/25/24 09:00 Tafamidis [Vyndamax] PO 06/24/24 08:59 DAILY NAN Perflutren Lipid Microsphere 0 ml 05/26/24 14:24 Perflutren Lipid Microspheres 1.5 Ml Vial Diluted To 10 Ml Total Volume IV PUSH 05/29/24 14:24 ONCE PRN adequate visualization Protocol Sodium Chloride 10 ml 05/27/24 14:00 05/27/24 14:57 Central Line Flush IV PUSH 10 ml Q8HR NAN Administration Sodium Chloride 20 ml 05/27/24 08:27 Central Line Flush IV PUSH PRN PRN after blood draws Vancomycin HCl 1 each 05/26/24 21:34 Vancomycin For Acute Kidney Injury IVPB PRN PRN Vancomycin Protocol Radiology Results: ITS Impressions Face CT 05/25/24 11:39 IMPRESSION: No facial fracture. Renal Ultrasound 05/26/24 13:59 IMPRESSION: 1. 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 2. Small amount of ascites in the pelvis. Chest/Abdomen/Pelvis CT 05/26/24 15:06 IMPRESSION: CHEST: 1. Bilateral pleural effusion with adjacent atelectasis. 2. Gross cardiomegaly. ABDOMEN/PELVIS: 1. No evidence of appendicitis, diverticulitis or intestinal obstruction. 2. Hyperdense area in the gallbladder which may be a stone or residual contrast. 3. Constipation. 4. Minimal Ascites Abdomen X-Ray 05/27/24 05:47 IMPRESSION: 1. Nasogastric tube tip in the stomach with proximal side-port in the distal esophagus. Advancement 5 cm is recommended. Chest X-Ray 05/27/24 05:48 IMPRESSION: 1. Worsened airspace opacities in the lower lung zones, left worse than right, consistent with atelectasis versus pneumonia. 2. Cardiomegaly. 3. Nasogastric tube tip at the gastroesophageal junction. Advancement 10 cm is recommended. Upper Quadrant Ultrasound 05/27/24 08:01 IMPRESSION: 1. Right pleural effusion. Labs Labs: Laboratory Tests 05/27/24 12:17 05/27/24 12:17 05/27/24 05:25 WBC 13.7 H RBC 12.4 L Hgb 38.9 L Hct 126 L PT 77.2 H D INR 9.5 H* APTT 54.5 H Fibrinogen 330 D-Dimer 11.62 H Sodium 139 Potassium 4.2 Chloride 93 L Carbon Dioxide 22 Anion Gap 24 H BUN 70 H Creatinine 4.16 H Lactic Acid 8.8 H Calcium 7.4 L Magnesium 2.5 H Total Bilirubin 4.1 H AST 5323 H ALT 1977 H Alkaline Phosphatase 84 Total Creatine Kinase 1008 H Total Protein 7.0 Albumin 4.0 Microbiology 05/26/24 17:42 Blood Blood Culture - Preliminary 05/26/24 15:53 Blood Blood Culture - Preliminary
[2024-05-27 12:27] LABS: Arterial Blood Gas Ventilator rate 20 /MIN; Device VENTILATOR; Modified Allen's Test Pass; Site Drawn RIGHT RADIAL
[2024-05-27 12:28] LABS: Arterial Blood Gas PEEP 5 cmH2O; Arterial Blood Gas Tidal Volume 400 ml; Arterial Blood Gas Vent Mode CMV
[2024-05-27 12:53] LABS: Hematocrit 29.6 % (42.0-52.0); Hemoglobin 9.6 g/dL (14.0-18.0); Mean Corpuscular HGB Conc 32.4 g/dl (32-36); Mean Corpuscular Hemoglobin 33.4 pg (26-34); Mean Corpuscular Volume 103.1 fl (80-100); Mean Platelet Volume 11.3 fl (7.4-10.4); Platelet Count Result 104 k/mm3 (150-375); Red Blood Count 2.87 M/mm3 (4.6-6.20); Red Cell Distribution Width 16.8 % (11.5-14.5); White Blood Count 9.9 K/mm3 (4.5-10.0)
[2024-05-27 13:15] LABS: Alkaline Phosphatase 62 U/L (38-126); Anion Gap 12 mmol/L (4-12); Bilirubin,Total 3.5 mg/dL (0.2-1.3); Blood Urea Nitrogen 75 mg/dL (9-20); Calcium 7.2 mg/dL (8.4-10.2); Carbon Dioxide 32 mmol/L (22-30); Chloride 93 mmol/L (98-107); Estimated CRCL calculation 13 ml/min; Estimated Glomerular Filt Rate 15; Glucose 215 mg/dL (65-110); Magnesium 2.4 mg/dL (1.6-2.3); Potassium 3.7 mmol/L (3.4-5.0); Sodium 137 mmol/L (137-145)
[2024-05-27 13:17] LABS: Lactic Acid Reflex 4.9 mmol/L (0.7-2.0)
[2024-05-27 13:28] LABS: INR 4.4
[2024-05-27] MEDS: ALBUMIN HUMAN 25% 25 GM/100 ML 100 ML IVPB ×2 (13:28→20:44)
[2024-05-27 13:36] LABS: Alanine Aminotransferase 1636 U/L (6-50)
[2024-05-27 14:04] LABS: Aspartate Amino Transferase 4412 U/L (17-59)
[2024-05-27] MEDS: CENTRAL LINE FLUSH 10 ML IV PUSH ×2 (14:57→20:45)
[2024-05-27 16:03] LABS: Hepatitis B Surface Antigen Negative (Negative)
[2024-05-27 16:21] LABS: Hepatitis B Surface Anti Res Positive
[2024-05-27] MEDS: PHYTONADIONE ADULT INJ 10 MG in DEXTROSE 5% IN WATER 50 ML 100 MG IVPB (17:43)
[2024-05-27] MEDS: NOREPINEPHRINE 8 MG/D5W 250 ML 8 MG/250 ML BAG 15 MG IV CONT (17:45)
[2024-05-27] MEDS: CEFEPIME 1 GM/NS 50 ML 1 GM/50 ML BAG IVPB (17:51)
[2024-05-27 18:04] LABS: Glucose Point of Care 158 mg/dl (65-105)
[2024-05-27 18:24] LABS: Hematocrit 27.3 % (42.0-52.0); Hemoglobin 8.7 g/dL (14.0-18.0); Mean Corpuscular HGB Conc 31.9 g/dl (32-36); Mean Corpuscular Hemoglobin 32.8 pg (26-34); Mean Platelet Volume 11.9 fl (7.4-10.4); Platelet Count Result 85 k/mm3 (150-375); Red Blood Count 2.65 M/mm3 (4.6-6.20); Red Cell Distribution Width 16.6 % (11.5-14.5); White Blood Count 9.2 K/mm3 (4.5-10.0)
[2024-05-27 18:42] LABS: INR 4.4
[2024-05-27 19:43] LABS: MRSA (PCR) NOT DETECTED (NOT DETECTE)
[2024-05-27 21:01] LABS: Glucose Point of Care 165 mg/dl (65-105)
[2024-05-28] VITALS (32 sets, daily range): BP systolic 91–114; BP diastolic 59–98; PULSE 45–113; RESP 18–20; TEMP 36.2–36.7; O2SAT 93–100
[2024-05-28 00:26] LABS: Glucose Point of Care 169 mg/dl (65-105)
[2024-05-28] MEDS: ALBUMIN HUMAN 25% 25 GM/100 ML 100 ML IVPB ×2 (01:50→08:16)
[2024-05-28] MEDS: metroNIDAZOLE 500 MG/ISO 100ML 500 MG/100 ML BAG 100 MG IVPB ×3 (01:50→17:14)
[2024-05-28] MEDS: MIDAZOLAM 100MG/NS 100ML(*CRX) 100 MG/100 ML BAG IV CONT (01:51)
--- NOTE | 2024-05-28 02:57 | P.PNCROSS_ITS ---
Event Note Event Note Event Note: Was notified by bedside nurse that is agreeable to make patient a DNR at t his time. According to the nurse patient's heart rate keeps dropping down in the 30s on the monitor. Currently he is 50, sinus bradycardia on the monitor and nursing has been lifting his sedation. We will continue to monitor.
[2024-05-28] MEDS: PANTOPRAZOLE SODIUM IV 80 MG in SODIUM CHLORIDE 0.9% IV 500 ML 50 MG IV CONT ×2 (05:15→16:07)
[2024-05-28 05:18] LABS: Hematocrit 24.9 % (42.0-52.0); Hemoglobin 8.1 g/dL (14.0-18.0); Mean Corpuscular HGB Conc 32.5 g/dl (32-36); Mean Corpuscular Hemoglobin 33.9 pg (26-34); Mean Corpuscular Volume 104.2 fl (80-100); Mean Platelet Volume 12.2 fl (7.4-10.4); Platelet Count Result 67 k/mm3 (150-375); Red Blood Count 2.39 M/mm3 (4.6-6.20); Red Cell Distribution Width 16.6 % (11.5-14.5); White Blood Count 8.4 K/mm3 (4.5-10.0)
[2024-05-28 05:36] LABS: Albumin Level 4.1 g/dL (3.5-5.1); Alkaline Phosphatase 59 U/L (38-126); Anion Gap 21 mmol/L (4-12); Bilirubin,Total 4.5 mg/dL (0.2-1.3); Blood Urea Nitrogen 83 mg/dL (9-20); Calcium 7.6 mg/dL (8.4-10.2); Carbon Dioxide 26 mmol/L (22-30); Chloride 92 mmol/L (98-107); Estimated CRCL calculation 13 ml/min; Estimated Glomerular Filt Rate 16; Glucose 143 mg/dL (65-110); Magnesium 2.6 mg/dL (1.6-2.3); Phosphorus 7.1 mg/dL (2.5-4.5); Potassium 3.9 mmol/L (3.4-5.0); Sodium 139 mmol/L (137-145)
[2024-05-28 05:49] LABS: Alveolar/Arterial O2 Gradient 105.4 mmHg; Base Excess ABG -0.7 mEq/l (+/-2.0); Carboxyhemoglobin 0.3 % THb (0-2.0); Fractional Inspired Oxygen 35 %; HCO3 ABG 22.5 mEq/l (22.0-26.0); Oxygen Content ABG 12.8 %vol (16.0-22.0); Oxygen Saturation ABG 98.2 % (95.0-100.0); Oxyhemoglobin 97.3 % THb (90.0-100.0); PCO2 ABG 31.5 mmHg (35.0-45.0); PO2 ABG 107.5 mmHg (80.0-100.0); PO2 FiO2 Ratio Arterial Blood 3.07 %; Reduced Hemoglobin 2.4 %THb (0-5.0); Total Hemoglobin 9.2 g/dL (12.0-18.0); pH ABG 7.471 (7.350-7.450)
[2024-05-28 05:51] LABS: Device VENTILATOR; Modified Allen's Test Pass; Site Drawn RIGHT RADIAL
[2024-05-28 05:52] LABS: Alanine Aminotransferase 1105 U/L (6-50)
[2024-05-28 05:54] LABS: Arterial Blood Gas Vent Mode CMV; Arterial Blood Gas Ventilator rate 18 /MIN
[2024-05-28 05:55] LABS: Arterial Blood Gas Minute Volume 7.4 LPM; Arterial Blood Gas PEEP 5 cmH2O; Arterial Blood Gas Tidal Volume 400 ml
[2024-05-28 06:30] LABS: Aspartate Amino Transferase 2858 U/L (17-59)
[2024-05-28] MEDS: HYDROCORTISONE SODIUM SUCCINATE 100 MG/2 ML VIAL IV PUSH ×3 (06:39→21:33)
[2024-05-28 06:40] LABS: Vancomycin Random 9.4 ug/mL (10-20)
[2024-05-28] MEDS: CENTRAL LINE FLUSH 10 ML IV PUSH ×3 (06:42→21:35)
[2024-05-28] MEDS: VANCOMYCIN 1,250 MG/NS 250 ML 1,250 MG/250 ML BAG 166.67 MG IVPB (07:39)
[2024-05-28 08:36] LABS: Glucose Point of Care 145 mg/dl (65-105)
[2024-05-28] MEDS: MINERAL OIL/WHITE PETROLATUM OINTMENT 1 APPLIC EACH EYE ×2 (08:37→21:35)
[2024-05-28 09:25] LABS: Prothrombin Time 66.6 Seconds (11.1-14.7)
[2024-05-28 09:30] LABS: INR 7.8
--- NOTE | 2024-05-28 10:03 | PM.PNCARD ---
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, paroxysmal atrial fibrillation, tachy-cassia syndrome, and dementia initially presented with weakness/lethargy whose hospital course is now complicated by sepsis, cardiogenic shock, and DIC with GI bleeding requiring airway protection with ventilatory support Acute on chronic systolic heart failure -recommend Nephrology consultation given decreasing urine output in setting of shock -continue blood pressure support with norepinephrine maintaining goal map greater than 60 -given his DIC with active GI bleeding and is multi organ failure along with sepsis, mechanical support is not recommended -may require MANAGER WOUND CARE to maintain net neutral fluid balance ATTR Cardiac Amyloidosis -the clinical course of this condition was discussed with the family -will continue to provide supportive care in setting of shock -previously on outpatient Vyndamax Paroxysmal atrial fibrillation -Eliquis on hold and most likely will be held indefinitely -heart rate goal of 90 to 130s as he likely requires some degree of tachycardia to maintain his cardiac output Overall prognosis is poor given multiorgan failure and palliative consultation would be appropriate Subjective Date/time seen: 05/28/24 10:03 Interval history: Intubated and sedated. Discussed with his , daughter and wall, daughter, and son at bedside overall prognosis. Review of Systems Review of Systems: ROS unobtainable: Yes unobtainable due to endotracheal tube and unobtainable due to medical condition Exam Const: Other: Intubated sedated HENMT: Mouth: Yes dry mucous membranes Neck: Neck: no JVD Resp: Other: Ventilatory noise Cardio: Rate: tachycardic Rhythm: abnormal rhythm Extrem: General: edema Objective Data Vital Signs Vital Signs: Vital Signs - 24 hr 05/27/24 10:15 05/27/24 10:16 05/27/24 10:30 Temperature 36.2 C L Pulse Rate 56 L 53 L 54 L Respiratory Rate 20 Blood Pressure 139/76 134/75 Pulse Oximetry 100 100 Oxygen Delivery Mechanical Ventilation Fraction of Inspired Oxygen 40 05/27/24 10:30 05/27/24 10:32 05/27/24 10:56 Temperature 36.3 C L 36.3 C L Pulse Rate 54 L 55 L 56 L Respiratory Rate 21 H 21 H Blood Pressure 138/79 138/79 129/66 Pulse Oximetry 100 100 Oxygen Delivery Fraction of Inspired Oxygen 05/27/24 11:00 05/27/24 11:30 05/27/24 12:00 Temperature 36.4 C 36.6 C 36.8 C Pulse Rate 56 L 55 L 56 L Respiratory Rate 20 20 20 Blood Pressure 131/69 124/67 120/70 Pulse Oximetry 100 100 100 Oxygen Delivery Fraction of Inspired Oxygen 05/27/24 12:00 05/27/24 12:00 05/27/24 12:00 Temperature Pulse Rate 56 L 55 L 55 L Respiratory Rate 21 H Blood Pressure 120/70 120/70 Pulse Oximetry Oxygen Delivery Fraction of Inspired Oxygen 05/27/24 12:00 05/27/24 12:00 05/27/24 12:33 Temperature Pulse Rate 55 L 55 L 56 L Respiratory Rate 21 H Blood Pressure 119/75 Pulse Oximetry Oxygen Delivery Fraction of Inspired Oxygen 05/27/24 12:35 05/27/24 12:49 05/27/24 12:51 Temperature 37.1 C 37.1 C Pulse Rate 56 L 54 L 55 L Respiratory Rate 18 18 Blood Pressure 108/61 108/61 Pulse Oximetry 100 100 100 Oxygen Delivery Mechanical Ventilation Fraction of Inspired Oxygen 35 05/27/24 13:06 05/27/24 13:06 05/27/24 14:00 Temperature 37.2 C 37.2 C Pulse Rate 55 L 55 L 58 L Respiratory Rate 18 18 Blood Pressure 111/60 111/60 110/59 L Pulse Oximetry 100 100 Oxygen Delivery Fraction of Inspired Oxygen 05/27/24 14:00 05/27/24 14:00 05/27/24 14:00 Temperature Pulse Rate 55 L 55 L 55 L Respiratory Rate 18 18 Blood Pressure 110/59 L Pulse Oximetry Oxygen Delivery Fraction of Inspired Oxygen 05/27/24 14:00 05/27/24 14:00 05/27/24 14:06 Temperature 37.3 C 37.3 C Pulse Rate 55 L 55 L 55 L Respiratory Rate 18 18 Blood Pressure 110/59 L 110/59 L Pulse Oximetry 100 100 Oxygen Delivery Fraction of Inspired Oxygen 05/27/24 14:30 05/27/24 14:55 05/27/24 15:06 Temperature 37.5 C Pulse Rate 55 L 56 L 58 L Respiratory Rate 18 Blood Pressure 109/65 117/71 Pulse Oximetry 100 100 Oxygen Delivery Mechanical Ventilation Fraction of Inspired Oxygen 35 05/27/24 15:52 05/27/24 16:00 05/27/24 16:00 Temperature 37.5 C Pulse Rate 59 L 62 68 Respiratory Rate 19 19 Blood Pressure 112/66 118/82 Pulse Oximetry 100 Oxygen Delivery Fraction of Inspired Oxygen 05/27/24 16:00 05/27/24 16:00 05/27/24 16:00 Temperature 37.5 C Pulse Rate 68 68 68 Respiratory Rate 19 19 Blood Pressure 118/82 118/82 Pulse Oximetry 100 Oxygen Delivery Fraction of Inspired Oxygen 05/27/24 16:00 05/27/24 16:08 05/27/24 17:07 Temperature 37.5 C 37.5 C Pulse Rate 63 60 58 L Respiratory Rate 18 19 Blood Pressure 118/82 114/78 Pulse Oximetry 99 100 Oxygen Delivery Fraction of Inspired Oxygen 05/27/24 17:08 05/27/24 17:45 05/27/24 17:45 Temperature 37.4 C Pulse Rate 57 L 56 L 56 L Respiratory Rate 17 Blood Pressure 114/78 119/67 119/67 Pulse Oximetry 100 Oxygen Delivery Fraction of Inspired Oxygen 05/27/24 17:45 05/27/24 17:47 05/27/24 17:59 Temperature 37.4 C 37.4 C Pulse Rate 57 L 57 L 57 L Respiratory Rate 18 19 Blood Pressure 119/67 123/76 Pulse Oximetry 100 100 100 Oxygen Delivery Mechanical Ventilation Fraction of Inspired Oxygen 35 05/27/24 18:00 05/27/24 18:00 05/27/24 18:00 Temperature Pulse Rate 56 L 56 L 56 L Respiratory Rate 20 Blood Pressure 123/76 Pulse Oximetry Oxygen Delivery Fraction of Inspired Oxygen 05/27/24 18:00 05/27/24 18:02 05/27/24 18:16 Temperature 37.3 C 37.4 C Pulse Rate 56 L 56 L 56 L Respiratory Rate 19 19 19 Blood Pressure 114/79 123/76 Pulse Oximetry 100 100 Oxygen Delivery Fraction of Inspired Oxygen 05/27/24 18:17 05/27/24 18:29 05/27/24 18:46 Temperature 37.3 C Pulse Rate 56 L 55 L 55 L Respiratory Rate 19 Blood Pressure 114/79 114/86 109/69 Pulse Oximetry 100 Oxygen Delivery Fraction of Inspired Oxygen 05/27/24 19:17 05/27/24 20:00 05/27/24 20:00 Temperature 37.2 C 37.0 C Pulse Rate 53 L 53 L 52 L Respiratory Rate 18 19 Blood Pressure 107/67 108/72 108/72 Pulse Oximetry 100 100 Oxygen Delivery Fraction of Inspired Oxygen 05/27/24 20:00 05/27/24 20:00 05/27/24 20:00 Temperature Pulse Rate 53 L 53 L 53 L Respiratory Rate 19 19 Blood Pressure Pulse Oximetry Oxygen Delivery Fraction of Inspired Oxygen 05/27/24 20:00 05/27/24 20:17 05/27/24 20:30 Temperature 37.1 C 37.0 C Pulse Rate 53 L 52 L 52 L Respiratory Rate 20 19 Blood Pressure 108/72 109/70 109/72 Pulse Oximetry 100 100 Oxygen Delivery Fraction of Inspired Oxygen 05/27/24 20:30 05/27/24 20:43 05/27/24 20:45 Temperature 36.9 C Pulse Rate 52 L 53 L 52 L Respiratory Rate 20 Blood Pressure 109/70 113/72 Pulse Oximetry 100 100 Oxygen Delivery Mechanical Ventilation Fraction of Inspired Oxygen 35 05/27/24 20:45 05/27/24 20:52 05/27/24 21:00 Temperature 36.9 C 36.9 C Pulse Rate 52 L 53 L 53 L Respiratory Rate 18 18 18 Blood Pressure 109/72 103/64 Pulse Oximetry 99 100 99 Oxygen Delivery Mechanical Ventilation Fraction of Inspired Oxygen 35 05/27/24 21:58 05/27/24 22:00 05/27/24 22:00 Temperature Pulse Rate 51 L 51 L 51 L Respiratory Rate 17 Blood Pressure 105/70 Pulse Oximetry Oxygen Delivery Fraction of Inspired Oxygen 05/27/24 22:00 05/27/24 22:00 05/27/24 22:00 Temperature 36.9 C Pulse Rate 51 L 51 L 51 L Respiratory Rate 18 18 Blood Pressure 105/70 105/70 Pulse Oximetry 99 Oxygen Delivery Fraction of Inspired Oxygen 05/27/24 22:30 05/27/24 22:45 05/27/24 22:45 Temperature Pulse Rate 52 L 52 L 52 L Respiratory Rate 18 Blood Pressure 110/74 112/72 Pulse Oximetry Oxygen Delivery Fraction of Inspired Oxygen 05/27/24 22:45 05/27/24 23:25 05/28/24 00:00 Temperature 36.7 C Pulse Rate 53 L 51 L 51 L Respiratory Rate 18 20 Blood Pressure 101/65 Pulse Oximetry 100 99 Oxygen Delivery Mechanical Ventilation Fraction of Inspired Oxygen 35 05/28/24 00:00 05/28/24 00:00 05/28/24 00:00 Temperature Pulse Rate 51 L 50 L Respiratory Rate 18 Blood Pressure 101/65 Pulse Oximetry Oxygen Delivery Fraction of Inspired Oxygen 35 05/28/24 00:00 05/28/24 00:00 05/28/24 00:00 Temperature Pulse Rate 51 L 50 L 50 L Respiratory Rate 18 Blood Pressure 101/65 Pulse Oximetry Oxygen Delivery Fraction of Inspired Oxygen 05/28/24 00:25 05/28/24 01:51 05/28/24 01:51 Temperature Pulse Rate 51 L 52 L 51 L Respiratory Rate 20 18 18 Blood Pressure Pulse Oximetry 99 Oxygen Delivery Mechanical Ventilation Fraction of Inspired Oxygen 35 05/28/24 02:00 05/28/24 02:00 05/28/24 02:00 Temperature 36.6 C Pulse Rate 53 L 53 L 53 L Respiratory Rate 18 Blood Pressure 114/70 109/64 Pulse Oximetry 96 Oxygen Delivery Fraction of Inspired Oxygen 05/28/24 02:00 05/28/24 02:00 05/28/24 02:00 Temperature Pulse Rate 51 L 52 L 49 L Respiratory Rate 18 18 Blood Pressure 114/70 Pulse Oximetry Oxygen Delivery Fraction of Inspired Oxygen 05/28/24 02:25 05/28/24 02:27 05/28/24 02:30 Temperature Pulse Rate 49 L 45 L 45 L Respiratory Rate 18 Blood Pressure 109/64 Pulse Oximetry 99 Oxygen Delivery Mechanical Ventilation Fraction of Inspired Oxygen 35 05/28/24 03:30 05/28/24 04:00 05/28/24 04:00 Temperature Pulse Rate 49 L 52 L 52 L Respiratory Rate 18 18 Blood Pressure 108/64 Pulse Oximetry Oxygen Delivery Fraction of Inspired Oxygen 05/28/24 04:00 05/28/24 04:00 05/28/24 04:00 Temperature 36.5 C Pulse Rate 52 L 52 L Respiratory Rate 18 18 Blood Pressure 108/64 Pulse Oximetry 96 Oxygen Delivery Fraction of Inspired Oxygen 35 05/28/24 04:00 05/28/24 04:00 05/28/24 04:15 Temperature Pulse Rate 52 L 52 L 52 L Respiratory Rate 19 19 Blood Pressure 107/66 Pulse Oximetry 96 96 Oxygen Delivery Mechanical Ventilation Fraction of Inspired Oxygen 35 05/28/24 04:16 05/28/24 05:00 05/28/24 05:15 Temperature Pulse Rate 52 L 66 51 L Respiratory Rate Blood Pressure 107/66 114/73 114/73 Pulse Oximetry Oxygen Delivery Fraction of Inspired Oxygen 05/28/24 05:40 05/28/24 06:00 05/28/24 06:00 Temperature 36.4 C Pulse Rate 52 L 51 L 51 L Respiratory Rate 18 Blood Pressure 103/59 L Pulse Oximetry 95 95 Oxygen Delivery Mechanical Ventilation Fraction of Inspired Oxygen 35 05/28/24 06:00 05/28/24 06:00 05/28/24 06:00 Temperature Pulse Rate 52 L 52 L 51 L Respiratory Rate 18 18 Blood Pressure 103/59 L Pulse Oximetry Oxygen Delivery Fraction of Inspired Oxygen 05/28/24 08:00 05/28/24 08:00 05/28/24 08:00 Temperature Pulse Rate 112 H Respiratory Rate Blood Pressure Pulse Oximetry 99 Oxygen Delivery Mechanical Ventilation Fraction of Inspired Oxygen 35 05/28/24 08:00 05/28/24 08:58 Temperature 36.3 C L Pulse Rate 100 101 H Respiratory Rate 19 Blood Pressure 91/80 L Pulse Oximetry 98 98 Oxygen Delivery Mechanical Ventilation Fraction of Inspired Oxygen 35 Intake/Output Intake/Output: Intake & Output 05/25/24 05/26/24 05/27/24 05/28/24 23:59 23:59 23:59 23:59 Intake Total 1826.3 551.9 4818.1 819.5 Output Total 350 400 570 325 Balance 1476.3 151.9 4248.1 494.5 Meds/Results Medications: Active Medications Generic Name Dose Route Start Last Admin Trade Name Freq PRN Reason Stop Dose Admin Acetaminophen 650 mg 05/23/24 18:33 05/26/24 11:48 Acetaminophen 325 Mg Tablet PO 650 mg Q4H PRN Administration Mild Pain (1-3) or Fever Albuterol 1 puff 05/24/24 09:23 Albuterol Sulfate (*Sp) Aerosol 1 Puff INHALATION Q6H PRN Wheezing Dextrose 12.5 gm 05/27/24 08:14 Dextrose 50% 25 Gm/50 Ml Syringe IV PUSH PRN PRN Hypoglycemia Protocol Glucagon 1 mg 05/27/24 08:14 Glucagon For Inj 1 Mg Vial IM PRN PRN Hypoglycemia Protocol Glucose 15 gm 05/27/24 08:14 Glucose Oral Gel 15 Gm Of Glucse In 37.5 Gm Tube PO PRN PRN Hypoglycemia Protocol Hydrocortisone Sodium Succinate 100 mg 05/26/24 22:00 05/28/24 06:39 Hydrocortisone Sodium Succinate 100 Mg/2 Ml Vial IV PUSH 100 mg Q8HR NAN Administration Metronidazole 500 mg in 100 mls @ 100 mls/hr 05/26/24 18:00 05/28/24 02:50 Flagyl 500 Mg/Iso Soln 100 Ml IVPB Infused Q8H NAN Infusion Cefepime HCl 1 gm in 50 mls @ 100 mls/hr 05/27/24 17:00 05/27/24 18:25 Maxipime 1 Gm/Ns 50 Ml IVPB Infused Q24H NAN Infusion Norepinephrine Bitartrate 8 mg in 250 mls @ 7.5 mls/hr 05/26/24 19:40 05/28/24 06:00 Levophed 8 Mg/D5w 250 Ml IV CONT 4 mcg/min .Q24H NAN 7.5 mls/hr Titration Protocol 4 MCG/MIN Fentanyl Citrate 2,500 mcg in 250 mls @ 2.5 mls/hr 05/27/24 04:40 05/28/24 06:00 Fentanyl 2,500 Mcg/Ns 250 Ml IV CONT 25 mcg/hr .Q72H NAN 2.5 mls/hr Titration Protocol 25 MCG/HR Midazolam HCl 100 mg in 100 mls @ 1 mls/hr 05/27/24 04:40 05/28/24 06:00 Versed 100 Mg/Ns 100 Ml IV CONT 1 mg/hr .Q72H NAN 1 mls/hr Titration Protocol 1 MG/HR Pantoprazole Sodium 80 mg/ 500 mls @ 50 mls/hr 05/27/24 07:00 05/28/24 05:15 Sodium Chloride IV CONT 50 mls/hr .Q10H NAN Administration Dextrose 1,000 mls @ 100 mls/hr 05/27/24 08:14 Dextrose 5% 1,000 Ml IVPB PRN PRN Hypoglycemia Protocol Vasopressin 100 units/ 100 mls @ 0 mls/hr 05/27/24 08:20 05/28/24 05:15 Dextrose IV CONT 0 units/min .Q0M NAN 0 mls/hr Titration Protocol 0 UNITS/MIN Sodium Chloride 250 mls @ 30 mls/hr 05/28/24 09:35 Normal Saline Iv IV CONT 05/28/24 17:54 .Q8H20M STA Insulin Aspart 3 - 6 units 05/27/24 09:00 05/28/24 08:22 Insulin Aspart (*Bkc) 100 Units/Ml SUB-Q Not Given Q4HR [facility] Protocol Levothyroxine Sodium 25 mcg 05/25/24 06:30 05/28/24 06:42 Levothyroxine Sodium 25 Mcg Tablet PO Not Given DAILY@0630 [facility] Metoprolol Tartrate 5 mg 05/24/24 16:19 05/26/24 03:43 Metoprolol Tartrate Inj 5 Mg/5 Ml Vial IV PUSH 5 mg Q4HR PRN Administration Heart Rate- High Miscellaneous Information 1 each 05/24/24 00:01 Tafamidis Nonformulary, Can Patient Use From Home Or Hold Till Discharge? XX 06/23/24 00:00 CLARIFY NAN Multi-Ingred Cream/Lotion/Oil/Oint 1 applic 05/27/24 09:00 05/28/24 08:37 Mineral Oil/White Petrolatum Ointment EACH EYE 1 applic Q12HR NAN Administration Perflutren Lipid Microsphere 0 ml 05/26/24 14:24 Perflutren Lipid Microspheres 1.5 Ml Vial Diluted To 10 Ml Total Volume IV PUSH 05/29/24 14:24 ONCE PRN adequate visualization Protocol Sodium Chloride 10 ml 05/27/24 14:00 05/28/24 06:42 Central Line Flush IV PUSH 10 ml Q8HR NAN Administration Sodium Chloride 20 ml 05/27/24 08:27 Central Line Flush IV PUSH PRN PRN after blood draws Vancomycin HCl 1 each 05/26/24 21:34 Vancomycin For Acute Kidney Injury IVPB PRN PRN Vancomycin Protocol Radiology Results: ITS Impressions Face CT 05/25/24 11:39 IMPRESSION: No facial fracture. Renal Ultrasound 05/26/24 13:59 IMPRESSION: 1. 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 2. Small amount of ascites in the pelvis. Chest/Abdomen/Pelvis CT 05/26/24 15:06 IMPRESSION: CHEST: 1. Bilateral pleural effusion with adjacent atelectasis. 2. Gross cardiomegaly. ABDOMEN/PELVIS: 1. No evidence of appendicitis, diverticulitis or intestinal obstruction. 2. Hyperdense area in the gallbladder which may be a stone or residual contrast. 3. Constipation. 4. Minimal Ascites Upper Quadrant Ultrasound 05/27/24 08:01 IMPRESSION: 1. Right pleural effusion. Chest X-Ray 05/28/24 05:50 IMPRESSION: 1. Stable airspace opacities in the lower lung zones, left worse than right, consistent with atelectasis versus pneumonia. 2. Cardiomegaly. 3. Nasogastric tube tip in the stomach with proximal side port in the distal esophagus. Advancement 8 cm is recommended. Abdomen X-Ray 05/28/24 09:21 IMPRESSION: 1. Nasogastric tube tip in the stomach. Labs Labs: Laboratory Results - last 24 hr 05/27/24 05/27/24 05/27/24 01:15 08:54 09:59 WBC RBC Hgb Hct MCV MCH MCHC RDW Plt Count MPV PT INR Puncture Site ABG pH ABG pCO2 ABG pO2 ABG PO2/FiO2 Ratio ABG HCO3 ABG O2 Saturation ABG O2 Content ABG Base Excess A-a Gradient Oxyhemoglobin Carboxyhemoglobin Methemoglobin Reduced Hemoglobin Total Hemoglobin O2 Delivery Device O2 Liters/Min Minute Volume Vent Rate Vent Mode FiO2 Tidal Volume PEEP Peak Inspir Pressure Pressure Support Sodium Potassium Chloride Carbon Dioxide Anion Gap BUN Creatinine Estim Creat Clear Calc Estimated GFR Glucose POC Capillary Glucose 206 H 203 H Lactic Acid Calcium Phosphorus Magnesium Total Bilirubin AST ALT Alkaline Phosphatase Total Protein Albumin Nasal MRSA (PCR) Random Vancomycin Hep Bs Antigen Hep Bs Antibody Blood Type A Positive Antibody Screen Negative 05/27/24 05/27/24 05/27/24 12:08 12:47 17:58 WBC 9.9 RBC 2.87 L Hgb 9.6 L D Hct 29.6 L MCV 103.1 H MCH 33.4 MCHC 32.4 RDW 16.8 H Plt Count 104 L MPV 11.3 H PT 43.0 H INR 4.4 Puncture Site Right radial ABG pH 7.497 H ABG pCO2 33.4 L ABG pO2 138.2 H ABG PO2/FiO2 Ratio 3.45 ABG HCO3 25.3 ABG O2 Saturation 99.0 ABG O2 Content 14.6 L ABG Base Excess 2.3 A-a Gradient 108.6 Oxyhemoglobin 98.3 Carboxyhemoglobin Methemoglobin Reduced Hemoglobin Total Hemoglobin 10.4 L O2 Delivery Device Ventilator O2 Liters/Min Not Reportable Minute Volume Not Reportable Vent Rate 20 Vent Mode Cmv FiO2 40 Tidal Volume 400 PEEP 5 Peak Inspir Pressure Not Reportable Pressure Support Not Reportable Sodium 137 Potassium 3.7 Chloride 93 L Carbon Dioxide 32 H Anion Gap 12 BUN 75 H Creatinine 3.88 H Estim Creat Clear Calc 13 Estimated GFR 15 L Glucose 215 H POC Capillary Glucose 225 H 158 H Lactic Acid 4.9 H* Calcium 7.2 L Phosphorus Magnesium 2.4 H Total Bilirubin 3.5 H AST 4412 H ALT 1636 H Alkaline Phosphatase 62 Total Protein 6.0 L Albumin 3.0 L Nasal MRSA (PCR) Random Vancomycin Hep Bs Antigen Negative Hep Bs Antibody Positive Blood Type Antibody Screen 05/27/24 05/27/24 05/28/24 18:07 20:42 00:24 WBC 9.2 RBC 2.65 L Hgb 8.7 L Hct 27.3 L MCV 103.0 H MCH 32.8 MCHC 31.9 L RDW 16.6 H Plt Count 85 L MPV 11.9 H PT 43.0 H INR 4.4 Puncture Site ABG pH ABG pCO2 ABG pO2 ABG PO2/FiO2 Ratio ABG HCO3 ABG O2 Saturation ABG O2 Content ABG Base Excess A-a Gradient Oxyhemoglobin Carboxyhemoglobin Methemoglobin Reduced Hemoglobin Total Hemoglobin O2 Delivery Device O2 Liters/Min Minute Volume Vent Rate Vent Mode FiO2 Tidal Volume PEEP Peak Inspir Pressure Pressure Support Sodium Potassium Chloride Carbon Dioxide Anion Gap BUN Creatinine Estim Creat Clear Calc Estimated GFR Glucose POC Capillary Glucose 165 H 169 H Lactic Acid Calcium Phosphorus Magnesium Total Bilirubin AST ALT Alkaline Phosphatase Total Protein Albumin Nasal MRSA (PCR) Not detected Random Vancomycin Hep Bs Antigen Hep Bs Antibody Blood Type Antibody Screen 05/28/24 05/28/24 05/28/24 05:11 05:40 08:21 WBC 8.4 RBC 2.39 L Hgb 8.1 L Hct 24.9 L MCV 104.2 H MCH 33.9 MCHC 32.5 RDW 16.6 H Plt Count 67 L MPV 12.2 H PT INR Puncture Site Right radial ABG pH 7.471 H ABG pCO2 31.5 L ABG pO2 107.5 H ABG PO2/FiO2 Ratio 3.07 ABG HCO3 22.5 ABG O2 Saturation 98.2 ABG O2 Content 12.8 L ABG Base Excess -0.7 A-a Gradient 105.4 Oxyhemoglobin 97.3 Carboxyhemoglobin 0.3 Methemoglobin 0.0 Reduced Hemoglobin 2.4 Total Hemoglobin 9.2 L O2 Delivery Device Ventilator O2 Liters/Min Not Reportable Minute Volume 7.4 Vent Rate 18 Vent Mode Cmv FiO2 35 Tidal Volume 400 PEEP 5 Peak Inspir Pressure Not Reportable Pressure Support Not Reportable Sodium 139 Potassium 3.9 Chloride 92 L Carbon Dioxide 26 Anion Gap 21 H BUN 83 H Creatinine 3.76 H Estim Creat Clear Calc 13 Estimated GFR 16 L Glucose 143 H POC Capillary Glucose 145 H Lactic Acid Calcium 7.6 L Phosphorus 7.1 H Magnesium 2.6 H Total Bilirubin 4.5 H AST 2858 H ALT 1105 H Alkaline Phosphatase 59 Total Protein 6.0 L Albumin 4.1 Nasal MRSA (PCR) Random Vancomycin 9.4 L Hep Bs Antigen Hep Bs Antibody Blood Type Antibody Screen 05/28/24 08:56 WBC RBC Hgb Hct MCV MCH MCHC RDW Plt Count MPV PT 66.6 H D INR 7.8 H* Puncture Site ABG pH ABG pCO2 ABG pO2 ABG PO2/FiO2 Ratio ABG HCO3 ABG O2 Saturation ABG O2 Content ABG Base Excess A-a Gradient Oxyhemoglobin Carboxyhemoglobin Methemoglobin Reduced Hemoglobin Total Hemoglobin O2 Delivery Device O2 Liters/Min Minute Volume Vent Rate Vent Mode FiO2 Tidal Volume PEEP Peak Inspir Pressure Pressure Support Sodium Potassium Chloride Carbon Dioxide Anion Gap BUN Creatinine Estim Creat Clear Calc Estimated GFR Glucose POC Capillary Glucose Lactic Acid Calcium Phosphorus Magnesium Total Bilirubin AST ALT Alkaline Phosphatase Total Protein Albumin Nasal MRSA (PCR) Random Vancomycin Hep Bs Antigen Hep Bs Antibody Blood Type Antibody Screen
--- NOTE | 2024-05-28 10:47 | PCFNICU ---
ICU Rounding Note: Pt current nutrition is NPO. Last recorded weight is 82.4 kg, discussed weight with RN today. Admit weight 59 kg. Bowel Motility: +BM reported 05/27 Labs Reviewed: PO4 7.1, BUN 83, Cr 3.76, Glu 143, Hct 24.9, Hgb 8.1 Meds Noted:Fentanyl, Versed, Normal Saline. Skin: WNL Additional Notes: Spoke with Mail Reader today, regrading nutrition. He is in discussion with family in regards to plan of care. Patient was made a DNR yesterday. Will continue to follow for any nutritional interventions. Following daily in ICU rounds.
--- NOTE | 2024-05-28 10:48 | P.PNINT_ITS ---
Progress Note: A&P Assessment and Plan (1) Acute respiratory failure: Code(s): J96.00 - Acute respiratory failure, unspecified whether with hypoxia or hypercapnia Status: Acute Assessment and Plan: Acute respiratory failure secondary to sepsis, shock, altered mental status, GI bleeding Patient now intubated and on mechanical ventilation Chest x-ray vent settings reviewed (2) Shock: Code(s): R57.9 - Shock, unspecified Status: Acute Assessment and Plan: Patient is in shock and is requiring Levophed and vasopressin Shock is combination of sepsis and Cardiogenic His echocardiogram shows EF of 20-25% and patient is also bradycardic. Patient has biventricular failure He also has evidence of UTI on his UA, pneumonia on his CT scan and elevated procalcitonin Continue Levophed. Off vasopressin. Hold further IV fluids Continue hydrocortisone (3) Sepsis: Code(s): A41.9 - Sepsis, unspecified organism Status: Acute Assessment and Plan: UA suggestive of UTI it CT scan shows atelectasis versus pneumonia CT abdomen pelvis was not suggestive of any other source of infection Cultures have been done and pending Patient is currently on metronidazole, cefepime and vancomycin (4) Upper GI bleed: Code(s): K92.2 - Gastrointestinal hemorrhage, unspecified Status: Acute Assessment and Plan: Patient is having upper GI bleed which is likely secondary to DIC GI consulted Continue to Correct coagulopathy with blood products Monitor hemoglobin and transfuse if needed Protonix bolus and infusion (5) Acute kidney injury: Code(s): N17.9 - Acute kidney failure, unspecified Status: Acute Assessment and Plan: Acute kidney injury. Likely secondary to sepsis shock Patient was on IV fluids with bicarb for metabolic acidosis which is now on hold Monitor electrolytes urine output I anticipate patient will likely need dialysis and may need CRRT considering the extent of vasopressor requirement and his cardiac output (6) Metabolic acidosis: Code(s): E87.20 - Acidosis, unspecified Status: Acute Assessment and Plan: Improved with IV fluids with bicarb (7) Disseminated intravascular coagulation: Code(s): D65 - Disseminated intravascular coagulation [defibrination syndrome] Status: Acute Assessment and Plan: Patient was on Eliquis and now has developed shock which is a combination of sepsis and cardiogenic. Patient also on antibiotic Patient's initial INR done last night was more than 20 He has received more than 4 units of FFP, cryo and prothrombin complex concentrate I repeated INR this morning it was 7.8 I was planning to give him additional FFP but considering family's proceeding with comfort care I will hold on further transfusions at this time Management of GI bleeding as above (8) Cardiomyopathy: Code(s): I42.9 - Cardiomyopathy, unspecified Status: Acute Assessment and Plan: Patient has extensive cardiac disease and has history of tachy-cassia syndrome and amyloidosis. Patient was offered pacemaker but patient's elected not to proceed with it in the past. On the floor patient was started on beta-rupert and amiodarone when he was in a flutter and then he converted into sinus bradycardia and medication was stopped Echocardiogram done and shows EF of 20-25% with moderately increased left ventricular wall thickness and right ventricular systolic and diastolic dysfunction Patient was in sinus bradycardia but now has converted to AFib Ventricular rate is controlled at this time Discussed with Cardiology (9) Atrial fibrillation: Code(s): I48.91 - Unspecified atrial fibrillation Status: Acute Assessment and Plan: See above (10) Bradyarrhythmia: Code(s): I49.8 - Other specified cardiac arrhythmias Status: Acute Assessment and Plan: See above (11) Chronic 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: Code(s): Z79.01 - penitentiary (current) use of anticoagulants Status: Acute Assessment and Plan: Eliquis has been discontinued due to DIC and bleeding (12) History of amyloidosis: Code(s): Z86.39 - Personal history of other endocrine, nutritional and metabolic disease Status: Acute Assessment and Plan: History of a amyloidosis (13) Dementia: Code(s): F03.90 - Unspecified dementia, unspecified severity, without behavioral disturbance, psychotic disturbance, mood disturbance, and anxiety Status: Acute Assessment and Plan: History of baseline dementia No interventions at this time (14) Hematuria: Code(s): R31.9 - Hematuria, unspecified Status: Acute Assessment and Plan: Secondary DIC Burk in place Correct coagulopathy Plan DVT prophylaxis -SCD Stress ulcer prophylaxis -PPI Nutrition - npo Code Status -DNR Case discussed with intern architect 05/27 I had extensive discussion with patient's son at bedside and updated him with patient's status including acute respiratory failure, acute renal failure, his heart use, DIC and GI bleeding. I explained him the patient is critically ill with high risk of mortality. Patient's son told me that he was unaware of patient's difficulty with dementia and dental pain at home as he felt that he was not getting complete picture from his mother. He states that patient was not eating or drinking much recently due to his dental pain. He was going to discuss with his sister who lives in [place]. I also met with patient's and had extensive discussion with her 05/28 I met with patient's , son, [id number] while patient's daughter was on the phone. They had also met with intern architect earlier. I updated them patient's status including respiratory failure shock acute kidney injury DIC and coagulopathy and need for further blood products. We also discussed goals of care considering patient's underlying dementia and hit his critical condition with overall poor prognosis. They told me that they have discussed among themselves and they feel the patient would not want to continue with life support measures at this time. They are planning to proceed with palliative extubation and comfort care but want to wait for the daughter to come from [place] to visit patient. At this time decision was made to continue current supportive care with no further escalation including no further invasive procedure. Patient is DNR. Once patient's daughter is here Saturday evening or Saturday morning they will proceed with palliative extubation and comfort care. Total Critical Care Time - 50 minutes Due to a high probability of clinically significant, life threatening deterioration, the patient required my highest level of preparedness to intervene emergently and I personally spent this critical care time directly and personally managing the patient. This critical care time included obtaining a hi story; examining the patient; pulse oximetry; ordering and review of studies; arranging urgent treatment with development of a management plan; evaluation of patient's response to treatment; frequent reassessment; and discussions with other providers. It was exclusive of separately billable procedures and treating other patients and teaching time. Please see Assessment and Plan section and the rest of the note for further information on patient assessment and treatment Subjective Date/time seen: 05/28/24 Overnight events reviewed. Afebrile Continues to be on mechanical ventilation 35% FiO2 Continues to be on Levophed but vasopressin has been weaned Continues to be sedated with fentanyl and Versed Urine output remains poor Converted to AFib but with controlled ventricular rate this morning Still oozing from central venous catheter site and blood-tinged output from OG tube Review of Systems Review of Systems: ROS unobtainable: Yes unobtainable due to endotracheal tube, unobtainable due to medical condition and unobtainable due to mental status Exam Narrative: General: Pt is sedated, intubated and on mechanical ventilation Lungs/Chest: Trachea central Coarse BS B/L, No crackles or wheezing. Cardiac: RRR. Normal S1 S2. No murmurs Circulation: Bilateral feet are cold, faint dorsalis pedis pulse can be palpated on both sides. Feet are cold from middle of the leg downward Abdomen: Decreased bowel sounds. Obese. Soft. NT. ND. Blood-tinged output from OG tube Extremities: No clubbing, cyanosis or edema. Right femoral central venous catheter : Burk in place with hematuria Neurologic: Unable to assess due to sedation. Moves all 4 extremities to painful stimuli. PERRL Right IJ central venous catheter site is is under dressing with small amount of oozing, there was oozing going on from left peripheral IV site Objective Data Vital Signs Vital Signs: Vital Signs - 24 hr 05/27/24 10:56 05/27/24 11:00 05/27/24 11:30 Temperature 36.4 C 36.6 C Pulse Rate 56 L 56 L 55 L Respiratory Rate 20 20 Blood Pressure 129/66 131/69 124/67 Pulse Oximetry 100 100 Oxygen Delivery Fraction of Inspired Oxygen 05/27/24 12:00 05/27/24 12:00 05/27/24 12:00 Temperature 36.8 C Pulse Rate 56 L 56 L 55 L Respiratory Rate 20 Blood Pressure 120/70 120/70 120/70 Pulse Oximetry 100 Oxygen Delivery Fraction of Inspired Oxygen 05/27/24 12:00 05/27/24 12:00 05/27/24 12:00 Temperature Pulse Rate 55 L 55 L 55 L Respiratory Rate 21 H 21 H Blood Pressure Pulse Oximetry Oxygen Delivery Fraction of Inspired Oxygen 05/27/24 12:33 05/27/24 12:35 05/27/24 12:49 Temperature 37.1 C Pulse Rate 56 L 56 L 54 L Respiratory Rate 18 Blood Pressure 119/75 108/61 Pulse Oximetry 100 100 Oxygen Delivery Mechanical Ventilation Fraction of Inspired Oxygen 35 05/27/24 12:51 05/27/24 13:06 05/27/24 13:06 Temperature 37.1 C 37.2 C 37.2 C Pulse Rate 55 L 55 L 55 L Respiratory Rate 18 18 18 Blood Pressure 108/61 111/60 111/60 Pulse Oximetry 100 100 100 Oxygen Delivery Fraction of Inspired Oxygen 05/27/24 14:00 05/27/24 14:00 05/27/24 14:00 Temperature Pulse Rate 58 L 55 L 55 L Respiratory Rate 18 Blood Pressure 110/59 L 110/59 L Pulse Oximetry Oxygen Delivery Fraction of Inspired Oxygen 05/27/24 14:00 05/27/24 14:00 05/27/24 14:00 Temperature 37.3 C Pulse Rate 55 L 55 L 55 L Respiratory Rate 18 18 Blood Pressure 110/59 L Pulse Oximetry 100 Oxygen Delivery Fraction of Inspired Oxygen 05/27/24 14:06 05/27/24 14:30 05/27/24 14:55 Temperature 37.3 C Pulse Rate 55 L 55 L 56 L Respiratory Rate 18 Blood Pressure 110/59 L 109/65 Pulse Oximetry 100 100 Oxygen Delivery Mechanical Ventilation Fraction of Inspired Oxygen 35 05/27/24 15:06 05/27/24 15:52 05/27/24 16:00 Temperature 37.5 C 37.5 C Pulse Rate 58 L 59 L 62 Respiratory Rate 18 19 Blood Pressure 117/71 112/66 118/82 Pulse Oximetry 100 100 Oxygen Delivery Fraction of Inspired Oxygen 05/27/24 16:00 05/27/24 16:00 05/27/24 16:00 Temperature Pulse Rate 68 68 68 Respiratory Rate 19 19 Blood Pressure 118/82 Pulse Oximetry Oxygen Delivery Fraction of Inspired Oxygen 05/27/24 16:00 05/27/24 16:00 05/27/24 16:08 Temperature 37.5 C 37.5 C Pulse Rate 68 63 60 Respiratory Rate 19 18 Blood Pressure 118/82 118/82 Pulse Oximetry 100 99 Oxygen Delivery Fraction of Inspired Oxygen 05/27/24 17:07 05/27/24 17:08 05/27/24 17:45 Temperature 37.5 C 37.4 C Pulse Rate 58 L 57 L 56 L Respiratory Rate 19 17 Blood Pressure 114/78 114/78 119/67 Pulse Oximetry 100 100 Oxygen Delivery Fraction of Inspired Oxygen 05/27/24 17:45 05/27/24 17:45 05/27/24 17:47 Temperature 37.4 C Pulse Rate 56 L 57 L 57 L Respiratory Rate 18 Blood Pressure 119/67 119/67 Pulse Oximetry 100 100 Oxygen Delivery Mechanical Ventilation Fraction of Inspired Oxygen 35 05/27/24 17:59 05/27/24 18:00 05/27/24 18:00 Temperature 37.4 C Pulse Rate 57 L 56 L 56 L Respiratory Rate 19 20 Blood Pressure 123/76 123/76 Pulse Oximetry 100 Oxygen Delivery Fraction of Inspired Oxygen 05/27/24 18:00 05/27/24 18:00 05/27/24 18:02 Temperature 37.3 C 37.4 C Pulse Rate 56 L 56 L 56 L Respiratory Rate 19 19 Blood Pressure 114/79 123/76 Pulse Oximetry 100 100 Oxygen Delivery Fraction of Inspired Oxygen 05/27/24 18:16 05/27/24 18:17 05/27/24 18:29 Temperature 37.3 C Pulse Rate 56 L 56 L 55 L Respiratory Rate 19 19 Blood Pressure 114/79 114/86 Pulse Oximetry 100 Oxygen Delivery Fraction of Inspired Oxygen 05/27/24 18:46 05/27/24 19:17 05/27/24 20:00 Temperature 37.2 C Pulse Rate 55 L 53 L 53 L Respiratory Rate 18 Blood Pressure 109/69 107/67 108/72 Pulse Oximetry 100 Oxygen Delivery Fraction of Inspired Oxygen 05/27/24 20:00 05/27/24 20:00 05/27/24 20:00 Temperature 37.0 C Pulse Rate 52 L 53 L 53 L Respiratory Rate 19 19 Blood Pressure 108/72 Pulse Oximetry 100 Oxygen Delivery Fraction of Inspired Oxygen 05/27/24 20:00 05/27/24 20:00 05/27/24 20:17 Temperature 37.1 C Pulse Rate 53 L 53 L 52 L Respiratory Rate 19 20 Blood Pressure 108/72 109/70 Pulse Oximetry 100 Oxygen Delivery Fraction of Inspired Oxygen 05/27/24 20:30 05/27/24 20:30 05/27/24 20:43 Temperature 37.0 C Pulse Rate 52 L 52 L 53 L Respiratory Rate 19 Blood Pressure 109/72 109/70 Pulse Oximetry 100 100 Oxygen Delivery Mechanical Ventilation Fraction of Inspired Oxygen 35 05/27/24 20:45 05/27/24 20:45 05/27/24 20:52 Temperature 36.9 C 36.9 C Pulse Rate 52 L 52 L 53 L Respiratory Rate 20 18 18 Blood Pressure 113/72 109/72 Pulse Oximetry 100 99 100 Oxygen Delivery Mechanical Ventilation Fraction of Inspired Oxygen 35 05/27/24 21:00 05/27/24 21:58 05/27/24 22:00 Temperature 36.9 C Pulse Rate 53 L 51 L 51 L Respiratory Rate 18 Blood Pressure 103/64 105/70 Pulse Oximetry 99 Oxygen Delivery Fraction of Inspired Oxygen 05/27/24 22:00 05/27/24 22:00 05/27/24 22:00 Temperature Pulse Rate 51 L 51 L 51 L Respiratory Rate 17 18 Blood Pressure 105/70 Pulse Oximetry Oxygen Delivery Fraction of Inspired Oxygen 05/27/24 22:00 05/27/24 22:30 05/27/24 22:45 Temperature 36.9 C Pulse Rate 51 L 52 L 52 L Respiratory Rate 18 18 Blood Pressure 105/70 110/74 Pulse Oximetry 99 Oxygen Delivery Fraction of Inspired Oxygen 05/27/24 22:45 05/27/24 22:45 05/27/24 23:25 Temperature Pulse Rate 52 L 53 L 51 L Respiratory Rate 18 Blood Pressure 112/72 Pulse Oximetry 100 Oxygen Delivery Mechanical Ventilation Fraction of Inspired Oxygen 35 05/28/24 00:00 05/28/24 00:00 05/28/24 00:00 Temperature 36.7 C Pulse Rate 51 L 51 L Respiratory Rate 20 Blood Pressure 101/65 101/65 Pulse Oximetry 99 Oxygen Delivery Fraction of Inspired Oxygen 35 05/28/24 00:00 05/28/24 00:00 05/28/24 00:00 Temperature Pulse Rate 50 L 51 L 50 L Respiratory Rate 18 18 Blood Pressure Pulse Oximetry Oxygen Delivery Fraction of Inspired Oxygen 05/28/24 00:00 05/28/24 00:25 05/28/24 01:51 Temperature Pulse Rate 50 L 51 L 52 L Respiratory Rate 20 18 Blood Pressure 101/65 Pulse Oximetry 99 Oxygen Delivery Mechanical Ventilation Fraction of Inspired Oxygen 35 05/28/24 01:51 05/28/24 02:00 05/28/24 02:00 Temperature 36.6 C Pulse Rate 51 L 53 L 53 L Respiratory Rate 18 18 Blood Pressure 114/70 Pulse Oximetry 96 Oxygen Delivery Fraction of Inspired Oxygen 05/28/24 02:00 05/28/24 02:00 05/28/24 02:00 Temperature Pulse Rate 53 L 51 L 52 L Respiratory Rate 18 18 Blood Pressure 109/64 Pulse Oximetry Oxygen Delivery Fraction of Inspired Oxygen 05/28/24 02:00 05/28/24 02:25 05/28/24 02:27 Temperature Pulse Rate 49 L 49 L 45 L Respiratory Rate 18 Blood Pressure 114/70 109/64 Pulse Oximetry Oxygen Delivery Fraction of Inspired Oxygen 05/28/24 02:30 05/28/24 03:30 05/28/24 04:00 Temperature Pulse Rate 45 L 49 L 52 L Respiratory Rate 18 Blood Pressure 108/64 Pulse Oximetry 99 Oxygen Delivery Mechanical Ventilation Fraction of Inspired Oxygen 35 05/28/24 04:00 05/28/24 04:00 05/28/24 04:00 Temperature 36.5 C Pulse Rate 52 L 52 L 52 L Respiratory Rate 18 18 18 Blood Pressure 108/64 Pulse Oximetry 96 Oxygen Delivery Fraction of Inspired Oxygen 05/28/24 04:00 05/28/24 04:00 05/28/24 04:00 Temperature Pulse Rate 52 L 52 L Respiratory Rate 19 Blood Pressure Pulse Oximetry 96 Oxygen Delivery Mechanical Ventilation Fraction of Inspired Oxygen 35 35 05/28/24 04:15 05/28/24 04:16 05/28/24 05:00 Temperature Pulse Rate 52 L 52 L 66 Respiratory Rate 19 Blood Pressure 107/66 107/66 114/73 Pulse Oximetry 96 Oxygen Delivery Fraction of Inspired Oxygen 05/28/24 05:15 05/28/24 05:40 05/28/24 06:00 Temperature Pulse Rate 51 L 52 L 51 L Respiratory Rate Blood Pressure 114/73 Pulse Oximetry 95 Oxygen Delivery Mechanical Ventilation Fraction of Inspired Oxygen 35 05/28/24 06:00 05/28/24 06:00 05/28/24 06:00 Temperature 36.4 C Pulse Rate 51 L 52 L 52 L Respiratory Rate 18 18 Blood Pressure 103/59 L 103/59 L Pulse Oximetry 95 Oxygen Delivery Fraction of Inspired Oxygen 05/28/24 06:00 05/28/24 08:00 05/28/24 08:00 Temperature Pulse Rate 51 L 112 H Respiratory Rate 18 Blood Pressure Pulse Oximetry 99 Oxygen Delivery Mechanical Ventilation Fraction of Inspired Oxygen 05/28/24 08:00 05/28/24 08:00 05/28/24 08:58 Temperature 36.3 C L Pulse Rate 100 101 H Respiratory Rate 19 Blood Pressure 91/80 L Pulse Oximetry 98 98 Oxygen Delivery Mechanical Ventilation Fraction of Inspired Oxygen 35 35 Intake/Output Intake/Output: Intake & Output 03/05/26/24 05/27/24 05/28/24 23:59 23:59 23:59 23:59 Intake Total 1826.3 551.9 4818.1 819.5 Output Total 350 400 570 325 Balance 1476.3 151.9 4248.1 494.5 Meds/Results Medications: Active Medications Generic Name Dose Route Start Last Admin Trade Name Freq PRN Reason Stop Dose Admin Acetaminophen 650 mg 05/23/24 18:33 05/26/24 11:48 Acetaminophen 325 Mg Tablet PO 650 mg Q4H PRN Administration Mild Pain (1-3) or Fever Albuterol 1 puff 05/24/24 09:23 Albuterol Sulfate (*Sp) Aerosol 1 Puff INHALATION Q6H PRN Wheezing Dextrose 12.5 gm 05/27/24 08:14 Dextrose 50% 25 Gm/50 Ml Syringe IV PUSH PRN PRN Hypoglycemia Protocol Glucagon 1 mg 05/27/24 08:14 Glucagon For Inj 1 Mg Vial IM PRN PRN Hypoglycemia Protocol Glucose 15 gm 05/27/24 08:14 Glucose Oral Gel 15 Gm Of Glucse In 37.5 Gm Tube PO PRN PRN Hypoglycemia Protocol Hydrocortisone Sodium Succinate 100 mg 05/26/24 22:00 05/28/24 06:39 Hydrocortisone Sodium Succinate 100 Mg/2 Ml Vial IV PUSH 100 mg Q8HR NAN Administration Metronidazole 500 mg in 100 mls @ 100 mls/hr 05/26/24 18:00 05/28/24 10:15 Flagyl 500 Mg/Iso Soln 100 Ml IVPB 100 mls/hr Q8H NAN Administration Cefepime HCl 1 gm in 50 mls @ 100 mls/hr 05/27/24 17:00 05/27/24 18:25 Maxipime 1 Gm/Ns 50 Ml IVPB Infused Q24H NAN Infusion Norepinephrine Bitartrate 8 mg in 250 mls @ 7.5 mls/hr 05/26/24 19:40 05/28/24 06:00 Levophed 8 Mg/D5w 250 Ml IV CONT 4 mcg/min .Q24H NAN 7.5 mls/hr Titration Protocol 4 MCG/MIN Fentanyl Citrate 2,500 mcg in 250 mls @ 2.5 mls/hr 05/27/24 04:40 05/28/24 06:00 Fentanyl 2,500 Mcg/Ns 250 Ml IV CONT 25 mcg/hr .Q72H NAN 2.5 mls/hr Titration Protocol 25 MCG/HR Midazolam HCl 100 mg in 100 mls @ 1 mls/hr 05/27/24 04:40 05/28/24 06:00 Versed 100 Mg/Ns 100 Ml IV CONT 1 mg/hr .Q72H NAN 1 mls/hr Titration Protocol 1 MG/HR Pantoprazole Sodium 80 mg/ 500 mls @ 50 mls/hr 05/27/24 07:00 05/28/24 05:15 Sodium Chloride IV CONT 50 mls/hr .Q10H NAN Administration Dextrose 1,000 mls @ 100 mls/hr 05/27/24 08:14 Dextrose 5% 1,000 Ml IVPB PRN PRN Hypoglycemia Protocol Vasopressin 100 units/ 100 mls @ 0 mls/hr 05/27/24 08:20 05/28/24 05:15 Dextrose IV CONT 0 units/min .Q0M NAN 0 mls/hr Titration Protocol 0 UNITS/MIN Sodium Chloride 250 mls @ 30 mls/hr 05/28/24 09:35 Normal Saline Iv IV CONT 05/28/24 17:54 .Q8H20M STA Insulin Aspart 3 - 6 units 05/27/24 09:00 05/28/24 08:22 Insulin Aspart (*Bkc) 100 Units/Ml SUB-Q Not Given Q4HR NAN Protocol Levothyroxine Sodium 25 mcg 05/25/24 06:30 05/28/24 06:42 Levothyroxine Sodium 25 Mcg Tablet PO Not Given DAILY@0630 [facility] Metoprolol Tartrate 5 mg 05/24/24 16:19 05/26/24 03:43 Metoprolol Tartrate Inj 5 Mg/5 Ml Vial IV PUSH 5 mg Q4HR PRN Administration Heart Rate- High Miscellaneous Information 1 each 05/24/24 00:01 Tafamidis Nonformulary, Can Patient Use From Home Or Hold Till Discharge? XX 06/23/24 00:00 CLARIFY NAN Multi-Ingred Cream/Lotion/Oil/Oint 1 applic 05/27/24 09:00 05/28/24 08:37 Mineral Oil/White Petrolatum Ointment EACH EYE 1 applic Q12HR NAN Administration Perflutren Lipid Microsphere 0 ml 05/26/24 14:24 Perflutren Lipid Microspheres 1.5 Ml Vial Diluted To 10 Ml Total Volume IV PUSH 05/29/24 14:24 ONCE PRN adequate visualization Protocol Sodium Chloride 10 ml 05/27/24 14:00 05/28/24 06:42 Central Line Flush IV PUSH 10 ml Q8HR NAN Administration Sodium Chloride 20 ml 05/27/24 08:27 Central Line Flush IV PUSH PRN PRN after blood draws Vancomycin HCl 1 each 05/26/24 21:34 Vancomycin For Acute Kidney Injury IVPB PRN PRN Vancomycin Protocol Radiology Results: ITS Impressions Face CT 05/25/24 11:39 IMPRESSION: No facial fracture. Renal Ultrasound 05/26/24 13:59 IMPRESSION: 1. 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 2. Small amount of ascites in the pelvis. Chest/Abdomen/Pelvis CT 05/26/24 15:06 IMPRESSION: CHEST: 1. Bilateral pleural effusion with adjacent atelectasis. 2. Gross cardiomegaly. ABDOMEN/PELVIS: 1. No evidence of appendicitis, diverticulitis or intestinal obstruction. 2. Hyperdense area in the gallbladder which may be a stone or residual contrast. 3. Constipation. 4. Minimal Ascites Upper Quadrant Ultrasound 05/27/24 08:01 IMPRESSION: 1. Right pleural effusion. Chest X-Ray 05/28/24 05:50 IMPRESSION: 1. Stable airspace opacities in the lower lung zones, left worse than right, consistent with atelectasis versus pneumonia. 2. Cardiomegaly. 3. Nasogastric tube tip in the stomach with proximal side port in the distal esophagus. Advancement 8 cm is recommended. Abdomen X-Ray 05/28/24 09:21 IMPRESSION: 1. Nasogastric tube tip in the stomach. Labs Labs: Laboratory Results - last 24 hr 05/27/24 05/27/24 05/27/24 01:15 08:54 09:59 WBC RBC Hgb Hct MCV MCH MCHC RDW Plt Count MPV PT INR Puncture Site ABG pH ABG pCO2 ABG pO2 ABG PO2/FiO2 Ratio ABG HCO3 ABG O2 Saturation ABG O2 Content ABG Base Excess A-a Gradient Oxyhemoglobin Carboxyhemoglobin Methemoglobin Reduced Hemoglobin Total Hemoglobin O2 Delivery Device O2 Liters/Min Minute Volume Vent Rate Vent Mode FiO2 Tidal Volume PEEP Peak Inspir Pressure Pressure Support Sodium Potassium Chloride Carbon Dioxide Anion Gap BUN Creatinine Estim Creat Clear Calc Estimated GFR Glucose POC Capillary Glucose 206 H 203 H Lactic Acid Calcium Phosphorus Magnesium Total Bilirubin AST ALT Alkaline Phosphatase Total Protein Albumin Nasal MRSA (PCR) Random Vancomycin Hep Bs Antigen Hep Bs Antibody Blood Type A Positive Antibody Screen Negative 05/27/24 05/27/24 05/27/24 12:08 12:47 17:58 WBC 9.9 RBC 2.87 L Hgb 9.6 L D Hct 29.6 L MCV 103.1 H MCH 33.4 MCHC 32.4 RDW 16.8 H Plt Count 104 L MPV 11.3 H PT 43.0 H INR 4.4 Puncture Site Right radial ABG pH 7.497 H ABG pCO2 33.4 L ABG pO2 138.2 H ABG PO2/FiO2 Ratio 3.45 ABG HCO3 25.3 ABG O2 Saturation 99.0 ABG O2 Content 14.6 L ABG Base Excess 2.3 A-a Gradient 108.6 Oxyhemoglobin 98.3 Carboxyhemoglobin Methemoglobin Reduced Hemoglobin Total Hemoglobin 10.4 L O2 Delivery Device Ventilator O2 Liters/Min Not Reportable Minute Volume Not Reportable Vent Rate 20 Vent Mode Cmv FiO2 40 Tidal Volume 400 PEEP 5 Peak Inspir Pressure Not Reportable Pressure Support Not Reportable Sodium 137 Potassium 3.7 Chloride 93 L Carbon Dioxide 32 H Anion Gap 12 BUN 75 H Creatinine 3.88 H Estim Creat Clear Calc 13 Estimated GFR 15 L Glucose 215 H POC Capillary Glucose 225 H 158 H Lactic Acid 4.9 H* Calcium 7.2 L Phosphorus Magnesium 2.4 H Total Bilirubin 3.5 H AST 4412 H ALT 1636 H Alkaline Phosphatase 62 Total Protein 6.0 L Albumin 3.0 L Nasal MRSA (PCR) Random Vancomycin Hep Bs Antigen Negative Hep Bs Antibody Positive Blood Type Antibody Screen 05/27/24 05/27/24 05/28/24 18:07 20:42 00:24 WBC 9.2 RBC 2.65 L Hgb 8.7 L Hct 27.3 L MCV 103.0 H MCH 32.8 MCHC 31.9 L RDW 16.6 H Plt Count 85 L MPV 11.9 H PT 43.0 H INR 4.4 Puncture Site ABG pH ABG pCO2 ABG pO2 ABG PO2/FiO2 Ratio ABG HCO3 ABG O2 Saturation ABG O2 Content ABG Base Excess A-a Gradient Oxyhemoglobin Carboxyhemoglobin Methemoglobin Reduced Hemoglobin Total Hemoglobin O2 Delivery Device O2 Liters/Min Minute Volume Vent Rate Vent Mode FiO2 Tidal Volume PEEP Peak Inspir Pressure Pressure Support Sodium Potassium Chloride Carbon Dioxide Anion Gap BUN Creatinine Estim Creat Clear Calc Estimated GFR Glucose POC Capillary Glucose 165 H 169 H Lactic Acid Calcium Phosphorus Magnesium Total Bilirubin AST ALT Alkaline Phosphatase Total Protein Albumin Nasal MRSA (PCR) Not detected Random Vancomycin Hep Bs Antigen Hep Bs Antibody Blood Type Antibody Screen 05/28/24 05/28/24 05/28/24 05:11 05:40 08:21 WBC 8.4 RBC 2.39 L Hgb 8.1 L Hct 24.9 L MCV 104.2 H MCH 33.9 MCHC 32.5 RDW 16.6 H Plt Count 67 L MPV 12.2 H PT INR Puncture Site Right radial ABG pH 7.471 H ABG pCO2 31.5 L ABG pO2 107.5 H ABG PO2/FiO2 Ratio 3.07 ABG HCO3 22.5 ABG O2 Saturation 98.2 ABG O2 Content 12.8 L ABG Base Excess -0.7 A-a Gradient 105.4 Oxyhemoglobin 97.3 Carboxyhemoglobin 0.3 Methemoglobin 0.0 Reduced Hemoglobin 2.4 Total Hemoglobin 9.2 L O2 Delivery Device Ventilator O2 Liters/Min Not Reportable Minute Volume 7.4 Vent Rate 18 Vent Mode Cmv FiO2 35 Tidal Volume 400 PEEP 5 Peak Inspir Pressure Not Reportable Pressure Support Not Reportable Sodium 139 Potassium 3.9 Chloride 92 L Carbon Dioxide 26 Anion Gap 21 H BUN 83 H Creatinine 3.76 H Estim Creat Clear Calc 13 Estimated GFR 16 L Glucose 143 H POC Capillary Glucose 145 H Lactic Acid Calcium 7.6 L Phosphorus 7.1 H Magnesium 2.6 H Total Bilirubin 4.5 H AST 2858 H ALT 1105 H Alkaline Phosphatase 59 Total Protein 6.0 L Albumin 4.1 Nasal MRSA (PCR) Random Vancomycin 9.4 L Hep Bs Antigen Hep Bs Antibody Blood Type Antibody Screen 05/28/24 08:56 WBC RBC Hgb Hct MCV MCH MCHC RDW Plt Count MPV PT 66.6 H D INR 7.8 H* Puncture Site ABG pH ABG pCO2 ABG pO2 ABG PO2/FiO2 Ratio ABG HCO3 ABG O2 Saturation ABG O2 Content ABG Base Excess A-a Gradient Oxyhemoglobin Carboxyhemoglobin Methemoglobin Reduced Hemoglobin Total Hemoglobin O2 Delivery Device O2 Liters/Min Minute Volume Vent Rate Vent Mode FiO2 Tidal Volume PEEP Peak Inspir Pressure Pressure Support Sodium Potassium Chloride Carbon Dioxide Anion Gap BUN Creatinine Estim Creat Clear Calc Estimated GFR Glucose POC Capillary Glucose Lactic Acid Calcium Phosphorus Magnesium Total Bilirubin AST ALT Alkaline Phosphatase Total Protein Albumin Nasal MRSA (PCR) Random Vancomycin Hep Bs Antigen Hep Bs Antibody Blood Type Antibody Screen Quality VTE Prophylaxis VTE prophylaxis: mechanical ordered
[2024-05-28 12:31] LABS: Glucose Point of Care 134 mg/dl (65-105)
--- NOTE | 2024-05-28 12:55 | P.PNNP_ITS ---
Progress Note: A&P Assessment and Plan (1) Acute kidney injury: Code(s): N17.9 - Acute kidney failure, unspecified Status: Acute Assessment and Plan: * etiology not clear * noted on 05/25 -- admission creatinine normal/at baseline * possible reasons include: * afib with RVR * shock * prerenal factors * infection/sepsis * medications (antibiotics?) * anemia * evaluaton to date noted * renal ultrasound with right horseshoe kidney * urine electrolyte prerenal * CPK mildly elevated (not likely to affect kidney function) * urine eosinophils negative * UA with blood and protein (presumably due to DIC) * drop in urine output noted * remains at risk for [employer]/dialysis -- however, conventional HD may be difficult due to hemodynamic instability (and hence may need CRRT) * follow trend of repeat labs and UOP (2) Shock: Code(s): R57.9 - Shock, unspecified Status: Acute Assessment and Plan: * requiring vasopressor therapy (levophed + vasopressin) at this time * suspect a combination of sepsis and cardiogenic * recent Echo (05/26) reviewed (see #8) * on stress dose steroids * wean pressors as tolerated * follow trend of hemodynamics (3) Sepsis: Code(s): A41.9 - Sepsis, unspecified organism Status: Acute Assessment and Plan: * potential source include pneumonia versus UTI * CT abdomen pelvis was not suggestive of any other source of infection * follow culture data * elevated procalcitonin noted * continue broad spectrum antibiotics (4) Acute respiratory failure: Code(s): J96.00 - Acute respiratory failure, unspecified whether with hypoxia or hypercapnia Status: Acute Assessment and Plan: * acute respiratory failure secondary to sepsis, shock, altered mental status, and GI bleeding * intubated for airway protection and now on mechanical ventilation * ventilator weaning as able (5) Upper GI bleed: Code(s): K92.2 - Gastrointestinal hemorrhage, unspecified Status: Acute Assessment and Plan: * as noted by events in the las 24 hours * suspect upper GI bleed which is likely secondary to DIC * GI recommendations noted * orrect coagulopathy with blood products * follow H/H and transfuse if needed/per protocol * on IV PPI (6) Metabolic acidosis: Code(s): E87.20 - Acidosis, unspecified Status: Acute Assessment and Plan: * due to HERACLIO/ARF and lactic acidosis * on IV fluids with bicarbonate to compensate with improvement noted (7) Disseminated intravascular coagulation: Code(s): D65 - Disseminated intravascular coagulation [defibrination syndrome] Status: Acute Assessment and Plan: * as noted by labs * complicated by patient being on Eliquis (has been discontinued) * initial INR was > 20 * transfusion with FFP and cryoprecipitate and prothrombin complex concentrate as needed * follow INR (8) Cardiomyopathy: Code(s): I42.9 - Cardiomyopathy, unspecified Status: Acute Assessment and Plan: * as noted by recent Echo (05/26): * left ventricular systolic function is severely reduced, estimated at 20-25% * left ventricular diastolic function is abnormal * right ventricular systolic function is reduced * mild mitral valve regurgitation * mild tricuspid valve regurgitation. * known history of tachy-cassia syndrome and cardiac amyloidosis. Patient was offered pacemaker but patient's elected not to proceed with it in the past. * Cardiology following (9) Atrial fibrillation: Code(s): I48.91 - Unspecified atrial fibrillation Status: Acute Assessment and Plan: * known history and noted on admission * rate control strategy * 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 on hold due to #7 (10) Hematuria: Code(s): R31.9 - Hematuria, unspecified Status: Acute Assessment and Plan: * secondary DIC * urbina in place * flush as needed * focus efforts on correcting coagulopathy (11) Dementia: Code(s): F03.90 - Unspecified dementia, unspecified severity, without behavioral disturbance, psychotic disturbance, mood disturbance, and anxiety Status: Chronic Assessment and Plan: * known history * due to lewey body disease Given results of family meeting and no further escalation of care, not much else to add. Will continue to follow from a distance. L Subjective Date/time seen: 05/28/24 12:55 Interval history: Follow-up for acute kidney injury/acute renal failure. Remains intubated/sedated and on mechanical ventilation; continues with vasopressor therapy to maintain blood pressure/MAP (remains on levophed but vasopressin weaned off); renal function/creatinine about the same but continues to have poor urine output; still having oozing from CVC/IVs along with blood tinged output for OG tube; noted results of family meeting earlier today -- DNR with no further escalation of care and plan transition to comfort care measures when daughter arrives from out of town. Exam 2 Narrative: General: elderly male intubated/sedated and on mechanical ventilation Heart: normal S1 and S2; no rub Lungs: coarse breath sounds noted Abdomen: soft, nontender, nondistended, positive bowel sounds Extremities: no cyanosis or clubbing; no edema Skin: warm and intact; oozing noted from peripheral IVs and femoral central line Objective Data Vital Signs Vital Signs: Vital Signs Temp Pulse Resp BP Pulse Ox O2 Del Method FiO2 05/28/24 12:00 97.4 F L 103 H 20 108/76 97 05/28/24 12:00 103 H 108/76 05/28/24 12:00 103 H 20 05/28/24 12:00 103 H 20 05/28/24 12:00 103 H 108/76 05/28/24 12:00 35 05/28/24 12:00 113 H 05/28/24 12:00 98 Mechanical Ventilation 35 05/28/24 10:53 110 H 97 Mechanical Ventilation 35 05/28/24 10:00 83 18 05/28/24 10:00 83 18 05/28/24 10:00 83 106/78 05/28/24 10:00 95 19 105/70 97 05/28/24 10:00 95 05/28/24 08:58 101 H 98 Mechanical Ventilation 35 05/28/24 08:00 100 91/80 L 05/28/24 08:00 100 19 05/28/24 08:00 100 19 05/28/24 08:00 100 91/80 L 05/28/24 08:00 97.4 F L 100 19 91/80 L 98 05/28/24 08:00 35 05/28/24 08:00 112 H 05/28/24 08:00 99 Mechanical Ventilation 35 05/28/24 06:00 51 L 18 05/28/24 06:00 52 L 18 05/28/24 06:00 52 L 103/59 L 05/28/24 06:00 97.6 F 51 L 18 103/59 L 95 05/28/24 06:00 51 L 05/28/24 05:40 52 L 95 Mechanical Ventilation 35 05/28/24 05:15 51 L 114/73 05/28/24 05:00 66 114/73 05/28/24 04:16 52 L 107/66 05/28/24 04:15 52 L 19 107/66 96 05/28/24 04:00 52 L 19 96 Mechanical Ventilation 35 05/28/24 04:00 52 L 05/28/24 04:00 35 05/28/24 04:00 97.7 F 52 L 18 108/64 96 05/28/24 04:00 52 L 18 05/28/24 04:00 52 L 18 05/28/24 04:00 52 L 108/64 05/28/24 03:30 49 L 18 05/28/24 02:30 45 L 99 Mechanical Ventilation 35 05/28/24 02:27 45 L 18 05/28/24 02:25 49 L 109/64 05/28/24 02:00 49 L 114/70 05/28/24 02:00 52 L 18 05/28/24 02:00 51 L 18 05/28/24 02:00 53 L 109/64 05/28/24 02:00 53 L 05/28/24 02:00 97.9 F 53 L 18 114/70 96 05/28/24 01:51 51 L 18 05/28/24 01:51 52 L 18 05/28/24 00:25 51 L 20 99 Mechanical Ventilation 35 05/28/24 00:00 50 L 101/65 05/28/24 00:00 50 L 05/28/24 00:00 51 L 18 05/28/24 00:00 50 L 18 05/28/24 00:00 51 L 101/65 05/28/24 00:00 35 05/28/24 00:00 98.1 F 51 L 20 101/65 99 05/27/24 23:25 51 L 18 05/27/24 22:45 53 L 100 Mechanical Ventilation 35 05/27/24 22:45 52 L 112/72 05/27/24 22:45 52 L 18 05/27/24 22:30 52 L 110/74 05/27/24 22:00 98.4 F 51 L 18 105/70 99 05/27/24 22:00 51 L 105/70 05/27/24 22:00 51 L 18 05/27/24 22:00 51 L 17 05/27/24 22:00 51 L 05/27/24 21:58 51 L 105/70 05/27/24 21:00 98.5 F 53 L 18 103/64 99 05/27/24 20:52 98.5 F 53 L 18 109/72 100 05/27/24 20:45 52 L 18 99 Mechanical Ventilation 35 05/27/24 20:45 98.5 F 52 L 20 113/72 100 05/27/24 20:43 53 L 109/70 05/27/24 20:30 52 L 100 Mechanical Ventilation 35 05/27/24 20:30 98.6 F 52 L 19 109/72 100 05/27/24 20:17 98.8 F 52 L 20 109/70 100 05/27/24 20:00 53 L 108/72 05/27/24 20:00 53 L 19 05/27/24 20:00 53 L 19 05/27/24 20:00 53 L 05/27/24 20:00 98.6 F 52 L 19 108/72 100 05/27/24 20:00 53 L 108/72 05/27/24 19:17 98.9 F 53 L 18 107/67 100 05/27/24 18:46 55 L 109/69 05/27/24 18:29 55 L 114/86 05/27/24 18:17 99.2 F 56 L 19 114/79 100 05/27/24 18:16 56 L 19 Intake/Output Intake/Output: Intake & Output 05/25/24 05/26/24 05/27/24 05/28/24 23:59 23:59 23:59 23:59 Intake Total 1826.3 551.9 4818.1 1507.5 Output Total 350 400 570 325 Balance 1476.3 151.9 4248.1 1182.5 Meds/Results Medications: Active Medications Generic Name Dose Route Start Last Admin Trade Name Freq PRN Reason Stop Dose Admin Acetaminophen 650 mg 05/23/24 18:33 05/26/24 11:48 Acetaminophen 325 Mg Tablet PO 650 mg Q4H PRN Administration Mild Pain (1-3) or Fever Albuterol 1 puff 05/24/24 09:23 Albuterol Sulfate (*Sp) Aerosol 1 Puff INHALATION Q6H PRN Wheezing Dextrose 12.5 gm 05/27/24 08:14 Dextrose 50% 25 Gm/50 Ml Syringe IV PUSH PRN PRN Hypoglycemia Protocol Glucagon 1 mg 05/27/24 08:14 Glucagon For Inj 1 Mg Vial IM PRN PRN Hypoglycemia Protocol Glucose 15 gm 05/27/24 08:14 Glucose Oral Gel 15 Gm Of Glucse In 37.5 Gm Tube PO PRN PRN Hypoglycemia Protocol Hydrocortisone Sodium Succinate 100 mg 05/26/24 22:00 05/28/24 13:41 Hydrocortisone Sodium Succinate 100 Mg/2 Ml Vial IV PUSH 100 mg Q8HR NAN Administration Metronidazole 500 mg in 100 mls @ 100 mls/hr 05/26/24 18:00 05/28/24 17:14 Flagyl 500 Mg/Iso Soln 100 Ml IVPB 100 mls/hr Q8H NAN Administration Cefepime HCl 1 gm in 50 mls @ 100 mls/hr 05/27/24 17:00 05/28/24 16:06 Maxipime 1 Gm/Ns 50 Ml IVPB 100 mls/hr Q24H NAN Administration Norepinephrine Bitartrate 8 mg in 250 mls @ 7.5 mls/hr 05/26/24 19:40 05/28/24 14:00 Levophed 8 Mg/D5w 250 Ml IV CONT 4 mcg/min .Q24H NAN 7.5 mls/hr Titration Protocol 4 MCG/MIN Fentanyl Citrate 2,500 mcg in 250 mls @ 2.5 mls/hr 05/27/24 04:40 05/28/24 14:00 Fentanyl 2,500 Mcg/Ns 250 Ml IV CONT 25 mcg/hr .Q72H NAN 2.5 mls/hr Titration Protocol 25 MCG/HR Midazolam HCl 100 mg in 100 mls @ 1 mls/hr 05/27/24 04:40 05/28/24 14:00 Versed 100 Mg/Ns 100 Ml IV CONT 1 mg/hr .Q72H NAN 1 mls/hr Titration Protocol 1 MG/HR Pantoprazole Sodium 80 mg/ 500 mls @ 50 mls/hr 05/27/24 07:00 05/28/24 16:07 Sodium Chloride IV CONT 50 mls/hr .Q10H NAN Administration Dextrose 1,000 mls @ 100 mls/hr 05/27/24 08:14 Dextrose 5% 1,000 Ml IVPB PRN PRN Hypoglycemia Protocol Vasopressin 100 units/ 100 mls @ 0 mls/hr 05/27/24 08:20 05/28/24 14:07 Dextrose IV CONT 0 units/min .Q0M NAN 0 mls/hr Titration Protocol 0 UNITS/MIN Insulin Aspart 3 - 6 units 05/27/24 09:00 05/28/24 16:26 Insulin Aspart (*Bkc) 100 Units/Ml SUB-Q Not Given Q4HR [facility] Protocol Levothyroxine Sodium 25 mcg 05/25/24 06:30 05/28/24 06:42 Levothyroxine Sodium 25 Mcg Tablet PO Not Given DAILY@0630 [facility] Metoprolol Tartrate 5 mg 05/24/24 16:19 05/26/24 03:43 Metoprolol Tartrate Inj 5 Mg/5 Ml Vial IV PUSH 5 mg Q4HR PRN Administration Heart Rate- High Miscellaneous Information 1 each 05/24/24 00:01 Tafamidis Nonformulary, Can Patient Use From Home Or Hold Till Discharge? XX 06/23/24 00:00 CLARIFY NAN Multi-Ingred Cream/Lotion/Oil/Oint 1 applic 05/27/24 09:00 05/28/24 08:37 Mineral Oil/White Petrolatum Ointment EACH EYE 1 applic Q12HR NAN Administration Perflutren Lipid Microsphere 0 ml 05/26/24 14:24 Perflutren Lipid Microspheres 1.5 Ml Vial Diluted To 10 Ml Total Volume IV PUSH 05/29/24 14:24 ONCE PRN adequate visualization Protocol Sodium Chloride 10 ml 05/27/24 14:00 05/28/24 13:42 Central Line Flush IV PUSH 10 ml Q8HR NAN Administration Sodium Chloride 20 ml 05/27/24 08:27 Central Line Flush IV PUSH PRN PRN after blood draws Vancomycin HCl 1 each 05/26/24 21:34 Vancomycin For Acute Kidney Injury IVPB PRN PRN Vancomycin Protocol Radiology Results: ITS Impressions Face CT 05/25/24 11:39 IMPRESSION: No facial fracture. Renal Ultrasound 05/26/24 13:59 IMPRESSION: 1. 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 2. Small amount of ascites in the pelvis. Chest/Abdomen/Pelvis CT 05/26/24 15:06 IMPRESSION: CHEST: 1. Bilateral pleural effusion with adjacent atelectasis. 2. Gross cardiomegaly. ABDOMEN/PELVIS: 1. No evidence of appendicitis, diverticulitis or intestinal obstruction. 2. Hyperdense area in the gallbladder which may be a stone or residual contrast. 3. Constipation. 4. Minimal Ascites Upper Quadrant Ultrasound 05/27/24 08:01 IMPRESSION: 1. Right pleural effusion. Chest X-Ray 05/28/24 05:50 IMPRESSION: 1. Stable airspace opacities in the lower lung zones, left worse than right, consistent with atelectasis versus pneumonia. 2. Cardiomegaly. 3. Nasogastric tube tip in the stomach with proximal side port in the distal esophagus. Advancement 8 cm is recommended. Abdomen X-Ray 05/28/24 09:21 IMPRESSION: 1. Nasogastric tube tip in the stomach. Labs Labs: Laboratory Tests 05/28/24 05:11 05/28/24 05:11 Calcium 7.6 L Phosphorus 7.1 H Magnesium 2.6 H Total Bilirubin 4.5 H AST 2858 H ALT 1105 H Alkaline Phosphatase 59 Total Protein 6.0 L Albumin 4.1 Random Vancomycin 9.4 L Microbiology 05/27/24 08:26 Unspecified Urine Culture - Final
--- NOTE | 2024-05-28 15:35 | PM.IMPN ---
Progress Note: A&P Assessment and Plan (1) Acute respiratory failure: Code(s): J96.00 - Acute respiratory failure, unspecified whether with hypoxia or hypercapnia Status: Acute Assessment and Plan: Acute respiratory failure secondary to sepsis, shock, altered mental status, GI bleeding Patient now intubated and on mechanical ventilation Chest x-ray vent settings reviewed (2) Shock: Code(s): R57.9 - Shock, unspecified Status: Acute Assessment and Plan: Patient is in shock and is requiring Levophed and vasopressin Shock is combination of sepsis and Cardiogenic His echocardiogram shows EF of 20-25% and patient is also bradycardic. Patient has biventricular failure He also has evidence of UTI on his UA, pneumonia on his CT scan and elevated procalcitonin Continue Levophed. Off vasopressin. Hold further IV fluids Continue hydrocortisone (3) Sepsis: Code(s): A41.9 - Sepsis, unspecified organism Status: Acute Assessment and Plan: UA suggestive of UTI it CT scan shows atelectasis versus pneumonia CT abdomen pelvis was not suggestive of any other source of infection Cultures have been done and pending Patient is currently on metronidazole, cefepime and vancomycin (4) Upper GI bleed: Code(s): K92.2 - Gastrointestinal hemorrhage, unspecified Status: Acute Assessment and Plan: Patient is having upper GI bleed which is likely secondary to DIC GI consulted Continue to Correct coagulopathy with blood products Monitor hemoglobin and transfuse if needed Protonix bolus and infusion (5) Acute kidney injury: Code(s): N17.9 - Acute kidney failure, unspecified Status: Acute Assessment and Plan: Acute kidney injury. Likely secondary to sepsis shock Patient was on IV fluids with bicarb for metabolic acidosis which is now on hold Monitor electrolytes urine output I anticipate patient will likely need dialysis and may need CRRT considering the extent of vasopressor requirement and his cardiac output (6) Metabolic acidosis: Code(s): E87.20 - Acidosis, unspecified Status: Acute Assessment and Plan: Improved with IV fluids with bicarb (7) Disseminated intravascular coagulation: Code(s): D65 - Disseminated intravascular coagulation [defibrination syndrome] Status: Acute Assessment and Plan: Patient was on Eliquis and now has developed shock which is a combination of sepsis and cardiogenic. Patient also on antibiotic Patient's initial INR done last night was more than 20 He has received more than 4 units of FFP, cryo and prothrombin complex concentrate I repeated INR this morning it was 7.8 I was planning to give him additional FFP but considering family's proceeding with comfort care I will hold on further transfusions at this time Management of GI bleeding as above (8) Cardiomyopathy: Code(s): I42.9 - Cardiomyopathy, unspecified Status: Acute Assessment and Plan: Patient has extensive cardiac disease and has history of tachy-cassai syndrome and amyloidosis. Patient was offered pacemaker but patient's elected not to proceed with it in the past. On the floor patient was started on beta-rupert and amiodarone when he was in a flutter and then he converted into sinus bradycardia and medication was stopped Echocardiogram done and shows EF of 20-25% with moderately increased left ventricular wall thickness and right ventricular systolic and diastolic dysfunction Patient was in sinus bradycardia but now has converted to AFib Ventricular rate is controlled at this time Discussed with Cardiology (9) Atrial fibrillation: Code(s): I48.91 - Unspecified atrial fibrillation Status: Acute Assessment and Plan: See above (10) Bradyarrhythmia: Code(s): I49.8 - Other specified cardiac arrhythmias Status: Acute Assessment and Plan: See above (11) Chronic 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: Code(s): Z79.01 - senior living (current) use of anticoagulants Status: Acute Assessment and Plan: Eliquis has been discontinued due to DIC and bleeding (12) History of amyloidosis: Code(s): Z86.39 - Personal history of other endocrine, nutritional and metabolic disease Status: Acute Assessment and Plan: History of a amyloidosis (13) Dementia: Code(s): F03.90 - Unspecified dementia, unspecified severity, without behavioral disturbance, psychotic disturbance, mood disturbance, and anxiety Status: Acute Assessment and Plan: History of baseline dementia No interventions at this time (14) Hematuria: Code(s): R31.9 - Hematuria, unspecified Status: Acute Assessment and Plan: Secondary DIC Burk in place Correct coagulopathy Subjective Date/time seen: 05/28/24 15:35 Interval history: Remains intubated. Discussed with the family goals of care. Waiting for her daughter to arrive from [place]. Review of Systems Review of Systems: All systems reviewed & are unremarkable except as noted in HPI and below ROS unobtainable: Yes unobtainable due to endotracheal tube, unobtainable due to medical condition and unobtainable due to mental status Exam Narrative: General: Pt is sedated, intubated and on mechanical ventilation Lungs/Chest: Trachea central Coarse BS B/L, No crackles or wheezing. Cardiac: RRR. Normal S1 S2. No murmurs Circulation: Bilateral feet are cold, faint dorsalis pedis pulse can be palpated on both sides. Feet are cold from middle of the leg downward Abdomen: Decreased bowel sounds. Obese. Soft. NT. ND. Blood-tinged output from OG tube Extremities: No clubbing, cyanosis or edema. Right femoral central venous catheter : Burk in place with hematuria Neurologic: Unable to assess due to sedation. Moves all 4 extremities to painful stimuli. PERRL Right IJ central venous catheter site is is under dressing with small amount of oozing, there was oozing going on from left peripheral IV site Objective Data Vital Signs Vital Signs: Vital Signs - 24 hr 05/27/24 15:52 05/27/24 16:00 05/27/24 16:00 Temperature 99.5 F Pulse Rate 59 L 62 68 Respiratory Rate 19 19 Blood Pressure 112/66 118/82 Pulse Oximetry 100 Oxygen Delivery Fraction of Inspired Oxygen 05/27/24 16:00 05/27/24 16:00 05/27/24 16:00 Temperature 99.5 F Pulse Rate 68 68 68 Respiratory Rate 19 19 Blood Pressure 118/82 118/82 Pulse Oximetry 100 Oxygen Delivery Fraction of Inspired Oxygen 05/27/24 16:00 05/27/24 16:08 05/27/24 17:07 Temperature 99.5 F 99.5 F Pulse Rate 63 60 58 L Respiratory Rate 18 19 Blood Pressure 118/82 114/78 Pulse Oximetry 99 100 Oxygen Delivery Fraction of Inspired Oxygen 05/27/24 17:08 05/27/24 17:45 05/27/24 17:45 Temperature 99.4 F Pulse Rate 57 L 56 L 56 L Respiratory Rate 17 Blood Pressure 114/78 119/67 119/67 Pulse Oximetry 100 Oxygen Delivery Fraction of Inspired Oxygen 05/27/24 17:45 05/27/24 17:47 05/27/24 17:59 Temperature 99.4 F 99.3 F Pulse Rate 57 L 57 L 57 L Respiratory Rate 18 19 Blood Pressure 119/67 123/76 Pulse Oximetry 100 100 100 Oxygen Delivery Mechanical Ventilation Fraction of Inspired Oxygen 35 05/27/24 18:00 05/27/24 18:00 05/27/24 18:00 Temperature Pulse Rate 56 L 56 L 56 L Respiratory Rate 20 Blood Pressure 123/76 Pulse Oximetry Oxygen Delivery Fraction of Inspired Oxygen 05/27/24 18:00 05/27/24 18:02 05/27/24 18:16 Temperature 99.2 F 99.3 F Pulse Rate 56 L 56 L 56 L Respiratory Rate 19 19 19 Blood Pressure 114/79 123/76 Pulse Oximetry 100 100 Oxygen Delivery Fraction of Inspired Oxygen 05/27/24 18:17 05/27/24 18:29 05/27/24 18:46 Temperature 99.2 F Pulse Rate 56 L 55 L 55 L Respiratory Rate 19 Blood Pressure 114/79 114/86 109/69 Pulse Oximetry 100 Oxygen Delivery Fraction of Inspired Oxygen 05/27/24 19:17 05/27/24 20:00 05/27/24 20:00 Temperature 98.9 F 98.6 F Pulse Rate 53 L 53 L 52 L Respiratory Rate 18 19 Blood Pressure 107/67 108/72 108/72 Pulse Oximetry 100 100 Oxygen Delivery Fraction of Inspired Oxygen 05/27/24 20:00 05/27/24 20:00 05/27/24 20:00 Temperature Pulse Rate 53 L 53 L 53 L Respiratory Rate 19 19 Blood Pressure Pulse Oximetry Oxygen Delivery Fraction of Inspired Oxygen 05/27/24 20:00 05/27/24 20:17 05/27/24 20:30 Temperature 98.8 F 98.6 F Pulse Rate 53 L 52 L 52 L Respiratory Rate 20 19 Blood Pressure 108/72 109/70 109/72 Pulse Oximetry 100 100 Oxygen Delivery Fraction of Inspired Oxygen 05/27/24 20:30 05/27/24 20:43 05/27/24 20:45 Temperature 98.5 F Pulse Rate 52 L 53 L 52 L Respiratory Rate 20 Blood Pressure 109/70 113/72 Pulse Oximetry 100 100 Oxygen Delivery Mechanical Ventilation Fraction of Inspired Oxygen 35 05/27/24 20:45 05/27/24 20:52 05/27/24 21:00 Temperature 98.5 F 98.5 F Pulse Rate 52 L 53 L 53 L Respiratory Rate 18 18 18 Blood Pressure 109/72 103/64 Pulse Oximetry 99 100 99 Oxygen Delivery Mechanical Ventilation Fraction of Inspired Oxygen 35 05/27/24 21:58 05/27/24 22:00 05/27/24 22:00 Temperature Pulse Rate 51 L 51 L 51 L Respiratory Rate 17 Blood Pressure 105/70 Pulse Oximetry Oxygen Delivery Fraction of Inspired Oxygen 05/27/24 22:00 05/27/24 22:00 05/27/24 22:00 Temperature 98.4 F Pulse Rate 51 L 51 L 51 L Respiratory Rate 18 18 Blood Pressure 105/70 105/70 Pulse Oximetry 99 Oxygen Delivery Fraction of Inspired Oxygen 05/27/24 22:30 05/27/24 22:45 05/27/24 22:45 Temperature Pulse Rate 52 L 52 L 52 L Respiratory Rate 18 Blood Pressure 110/74 112/72 Pulse Oximetry Oxygen Delivery Fraction of Inspired Oxygen 05/27/24 22:45 05/27/24 23:25 05/28/24 00:00 Temperature 98.1 F Pulse Rate 53 L 51 L 51 L Respiratory Rate 18 20 Blood Pressure 101/65 Pulse Oximetry 100 99 Oxygen Delivery Mechanical Ventilation Fraction of Inspired Oxygen 35 05/28/24 00:00 05/28/24 00:00 05/28/24 00:00 Temperature Pulse Rate 51 L 50 L Respiratory Rate 18 Blood Pressure 101/65 Pulse Oximetry Oxygen Delivery Fraction of Inspired Oxygen 35 05/28/24 00:00 05/28/24 00:00 05/28/24 00:00 Temperature Pulse Rate 51 L 50 L 50 L Respiratory Rate 18 Blood Pressure 101/65 Pulse Oximetry Oxygen Delivery Fraction of Inspired Oxygen 05/28/24 00:25 05/28/24 01:51 05/28/24 01:51 Temperature Pulse Rate 51 L 52 L 51 L Respiratory Rate 20 18 18 Blood Pressure Pulse Oximetry 99 Oxygen Delivery Mechanical Ventilation Fraction of Inspired Oxygen 35 05/28/24 02:00 05/28/24 02:00 05/28/24 02:00 Temperature 97.9 F Pulse Rate 53 L 53 L 53 L Respiratory Rate 18 Blood Pressure 114/70 109/64 Pulse Oximetry 96 Oxygen Delivery Fraction of Inspired Oxygen 05/28/24 02:00 05/28/24 02:00 05/28/24 02:00 Temperature Pulse Rate 51 L 52 L 49 L Respiratory Rate 18 18 Blood Pressure 114/70 Pulse Oximetry Oxygen Delivery Fraction of Inspired Oxygen 05/28/24 02:25 05/28/24 02:27 05/28/24 02:30 Temperature Pulse Rate 49 L 45 L 45 L Respiratory Rate 18 Blood Pressure 109/64 Pulse Oximetry 99 Oxygen Delivery Mechanical Ventilation Fraction of Inspired Oxygen 35 05/28/24 03:30 05/28/24 04:00 05/28/24 04:00 Temperature Pulse Rate 49 L 52 L 52 L Respiratory Rate 18 18 Blood Pressure 108/64 Pulse Oximetry Oxygen Delivery Fraction of Inspired Oxygen 05/28/24 04:00 05/28/24 04:00 05/28/24 04:00 Temperature 97.7 F Pulse Rate 52 L 52 L Respiratory Rate 18 18 Blood Pressure 108/64 Pulse Oximetry 96 Oxygen Delivery Fraction of Inspired Oxygen 35 05/28/24 04:00 05/28/24 04:00 05/28/24 04:15 Temperature Pulse Rate 52 L 52 L 52 L Respiratory Rate 19 19 Blood Pressure 107/66 Pulse Oximetry 96 96 Oxygen Delivery Mechanical Ventilation Fraction of Inspired Oxygen 35 05/28/24 04:16 05/28/24 05:00 05/28/24 05:15 Temperature Pulse Rate 52 L 66 51 L Respiratory Rate Blood Pressure 107/66 114/73 114/73 Pulse Oximetry Oxygen Delivery Fraction of Inspired Oxygen 05/28/24 05:40 05/28/24 06:00 05/28/24 06:00 Temperature 97.6 F Pulse Rate 52 L 51 L 51 L Respiratory Rate 18 Blood Pressure 103/59 L Pulse Oximetry 95 95 Oxygen Delivery Mechanical Ventilation Fraction of Inspired Oxygen 35 05/28/24 06:00 05/28/24 06:00 05/28/24 06:00 Temperature Pulse Rate 52 L 52 L 51 L Respiratory Rate 18 18 Blood Pressure 103/59 L Pulse Oximetry Oxygen Delivery Fraction of Inspired Oxygen 05/28/24 08:00 05/28/24 08:00 05/28/24 08:00 Temperature Pulse Rate 112 H Respiratory Rate Blood Pressure Pulse Oximetry 99 Oxygen Delivery Mechanical Ventilation Fraction of Inspired Oxygen 35 35 05/28/24 08:00 05/28/24 08:00 05/28/24 08:00 Temperature 97.4 F L Pulse Rate 100 100 100 Respiratory Rate 19 19 Blood Pressure 91/80 L 91/80 L Pulse Oximetry 98 Oxygen Delivery Fraction of Inspired Oxygen 05/28/24 08:00 05/28/24 08:00 05/28/24 08:58 Temperature Pulse Rate 100 100 101 H Respiratory Rate 19 Blood Pressure 91/80 L Pulse Oximetry 98 Oxygen Delivery Mechanical Ventilation Fraction of Inspired Oxygen 35 05/28/24 10:00 05/28/24 10:00 05/28/24 10:00 Temperature Pulse Rate 95 95 83 Respiratory Rate 19 Blood Pressure 105/70 106/78 Pulse Oximetry 97 Oxygen Delivery Fraction of Inspired Oxygen 05/28/24 10:00 05/28/24 10:00 05/28/24 10:53 Temperature Pulse Rate 83 83 110 H Respiratory Rate 18 18 Blood Pressure Pulse Oximetry 97 Oxygen Delivery Mechanical Ventilation Fraction of Inspired Oxygen 35 05/28/24 12:00 05/28/24 12:00 05/28/24 12:00 Temperature Pulse Rate 113 H Respiratory Rate Blood Pressure Pulse Oximetry 98 Oxygen Delivery Mechanical Ventilation Fraction of Inspired Oxygen 35 35 05/28/24 12:00 05/28/24 12:00 05/28/24 12:00 Temperature Pulse Rate 103 H 103 H 103 H Respiratory Rate 20 20 Blood Pressure 108/76 Pulse Oximetry Oxygen Delivery Fraction of Inspired Oxygen 05/28/24 12:00 05/28/24 12:00 05/28/24 14:00 Temperature 97.4 F L Pulse Rate 103 H 103 H 101 H Respiratory Rate 20 Blood Pressure 108/76 108/76 94/81 L Pulse Oximetry 97 Oxygen Delivery Fraction of Inspired Oxygen 05/28/24 14:00 05/28/24 14:00 05/28/24 14:00 Temperature Pulse Rate 101 H 101 H 89 Respiratory Rate 18 18 Blood Pressure Pulse Oximetry Oxygen Delivery Fraction of Inspired Oxygen 05/28/24 14:00 05/28/24 14:07 Temperature 97.4 F L Pulse Rate 101 H 101 H Respiratory Rate 18 Blood Pressure 94/81 L 94/81 L Pulse Oximetry 99 Oxygen Delivery Fraction of Inspired Oxygen Intake/Output Intake/Output: Intake & Output 05/25/24 05/26/24 05/27/24 05/28/24 23:59 23:59 23:59 23:59 Intake Total 1826.3 551.9 4818.1 1007.5 Output Total 350 400 570 325 Balance 1476.3 151.9 4248.1 682.5 Meds/Results Medications: Active Medications Generic Name Dose Route Start Last Admin Trade Name Freq PRN Reason Stop Dose Admin Acetaminophen 650 mg 05/23/24 18:33 05/26/24 11:48 Acetaminophen 325 Mg Tablet PO 650 mg Q4H PRN Administration Mild Pain (1-3) or Fever Albuterol 1 puff 05/24/24 09:23 Albuterol Sulfate (*Sp) Aerosol 1 Puff INHALATION Q6H PRN Wheezing Dextrose 12.5 gm 05/27/24 08:14 Dextrose 50% 25 Gm/50 Ml Syringe IV PUSH PRN PRN Hypoglycemia Protocol Glucagon 1 mg 05/27/24 08:14 Glucagon For Inj 1 Mg Vial IM PRN PRN Hypoglycemia Protocol Glucose 15 gm 05/27/24 08:14 Glucose Oral Gel 15 Gm Of Glucse In 37.5 Gm Tube PO PRN PRN Hypoglycemia Protocol Hydrocortisone Sodium Succinate 100 mg 05/26/24 22:00 05/28/24 13:41 Hydrocortisone Sodium Succinate 100 Mg/2 Ml Vial IV PUSH 100 mg Q8HR NAN Administration Metronidazole 500 mg in 100 mls @ 100 mls/hr 05/26/24 18:00 05/28/24 11:15 Flagyl 500 Mg/Iso Soln 100 Ml IVPB Infused Q8H NAN Infusion Cefepime HCl 1 gm in 50 mls @ 100 mls/hr 05/27/24 17:00 05/27/24 18:25 Maxipime 1 Gm/Ns 50 Ml IVPB Infused Q24H NAN Infusion Norepinephrine Bitartrate 8 mg in 250 mls @ 7.5 mls/hr 05/26/24 19:40 05/28/24 14:00 Levophed 8 Mg/D5w 250 Ml IV CONT 4 mcg/min .Q24H NAN 7.5 mls/hr Titration Protocol 4 MCG/MIN Fentanyl Citrate 2,500 mcg in 250 mls @ 2.5 mls/hr 05/27/24 04:40 05/28/24 14:00 Fentanyl 2,500 Mcg/Ns 250 Ml IV CONT 25 mcg/hr .Q72H NAN 2.5 mls/hr Titration Protocol 25 MCG/HR Midazolam HCl 100 mg in 100 mls @ 1 mls/hr 05/27/24 04:40 05/28/24 14:00 Versed 100 Mg/Ns 100 Ml IV CONT 1 mg/hr .Q72H NAN 1 mls/hr Titration Protocol 1 MG/HR Pantoprazole Sodium 80 mg/ 500 mls @ 50 mls/hr 05/27/24 07:00 05/28/24 05:15 Sodium Chloride IV CONT 50 mls/hr .Q10H NAN Administration Dextrose 1,000 mls @ 100 mls/hr 05/27/24 08:14 Dextrose 5% 1,000 Ml IVPB PRN PRN Hypoglycemia Protocol Vasopressin 100 units/ 100 mls @ 0 mls/hr 05/27/24 08:20 05/28/24 14:07 Dextrose IV CONT 0 units/min .Q0M NAN 0 mls/hr Titration Protocol 0 UNITS/MIN Insulin Aspart 3 - 6 units 05/27/24 09:00 05/28/24 13:10 Insulin Aspart (*Bkc) 100 Units/Ml SUB-Q Not Given Q4HR NAN Protocol Levothyroxine Sodium 25 mcg 05/25/24 06:30 05/28/24 06:42 Levothyroxine Sodium 25 Mcg Tablet PO Not Given DAILY@0630 [facility] Metoprolol Tartrate 5 mg 05/24/24 16:19 05/26/24 03:43 Metoprolol Tartrate Inj 5 Mg/5 Ml Vial IV PUSH 5 mg Q4HR PRN Administration Heart Rate- High Miscellaneous Information 1 each 05/24/24 00:01 Tafamidis Nonformulary, Can Patient Use From Home Or Hold Till Discharge? XX 06/23/24 00:00 CLARIFY NAN Multi-Ingred Cream/Lotion/Oil/Oint 1 applic 05/27/24 09:00 05/28/24 08:37 Mineral Oil/White Petrolatum Ointment EACH EYE 1 applic Q12HR NAN Administration Perflutren Lipid Microsphere 0 ml 05/26/24 14:24 Perflutren Lipid Microspheres 1.5 Ml Vial Diluted To 10 Ml Total Volume IV PUSH 05/29/24 14:24 ONCE PRN adequate visualization Protocol Sodium Chloride 10 ml 05/27/24 14:00 05/28/24 13:42 Central Line Flush IV PUSH 10 ml Q8HR NAN Administration Sodium Chloride 20 ml 05/27/24 08:27 Central Line Flush IV PUSH PRN PRN after blood draws Vancomycin HCl 1 each 05/26/24 21:34 Vancomycin For Acute Kidney Injury IVPB PRN PRN Vancomycin Protocol Radiology Results: ITS Impressions Face CT 05/25/24 11:39 IMPRESSION: No facial fracture. Renal Ultrasound 05/26/24 13:59 IMPRESSION: 1. 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 2. Small amount of ascites in the pelvis. Chest/Abdomen/Pelvis CT 05/26/24 15:06 IMPRESSION: CHEST: 1. Bilateral pleural effusion with adjacent atelectasis. 2. Gross cardiomegaly. ABDOMEN/PELVIS: 1. No evidence of appendicitis, diverticulitis or intestinal obstruction. 2. Hyperdense area in the gallbladder which may be a stone or residual contrast. 3. Constipation. 4. Minimal Ascites Upper Quadrant Ultrasound 05/27/24 08:01 IMPRESSION: 1. Right pleural effusion. Chest X-Ray 05/28/24 05:50 IMPRESSION: 1. Stable airspace opacities in the lower lung zones, left worse than right, consistent with atelectasis versus pneumonia. 2. Cardiomegaly. 3. Nasogastric tube tip in the stomach with proximal side port in the distal esophagus. Advancement 8 cm is recommended. Abdomen X-Ray 05/28/24 09:21 IMPRESSION: 1. Nasogastric tube tip in the stomach. Labs Labs: Laboratory Results - last 24 hr 05/27/24 05/27/24 05/27/24 01:15 12:47 17:58 WBC RBC Hgb Hct MCV MCH MCHC RDW Plt Count MPV PT INR Puncture Site ABG pH ABG pCO2 ABG pO2 ABG PO2/FiO2 Ratio ABG HCO3 ABG O2 Saturation ABG O2 Content ABG Base Excess A-a Gradient Oxyhemoglobin Carboxyhemoglobin Methemoglobin Reduced Hemoglobin Total Hemoglobin O2 Delivery Device O2 Liters/Min Minute Volume Vent Rate Vent Mode FiO2 Tidal Volume PEEP Peak Inspir Pressure Pressure Support Sodium Potassium Chloride Carbon Dioxide Anion Gap BUN Creatinine Estim Creat Clear Calc Estimated GFR Glucose POC Capillary Glucose 158 H Calcium Phosphorus Magnesium Total Bilirubin AST ALT Alkaline Phosphatase Total Protein Albumin Nasal MRSA (PCR) Random Vancomycin Hep Bs Antigen Negative Hep Bs Antibody Positive Blood Type A Positive Antibody Screen Negative 05/27/24 05/27/24 05/28/24 18:07 20:42 00:24 WBC 9.2 RBC 2.65 L Hgb 8.7 L Hct 27.3 L MCV 103.0 H MCH 32.8 MCHC 31.9 L RDW 16.6 H Plt Count 85 L MPV 11.9 H PT 43.0 H INR 4.4 Puncture Site ABG pH ABG pCO2 ABG pO2 ABG PO2/FiO2 Ratio ABG HCO3 ABG O2 Saturation ABG O2 Content ABG Base Excess A-a Gradient Oxyhemoglobin Carboxyhemoglobin Methemoglobin Reduced Hemoglobin Total Hemoglobin O2 Delivery Device O2 Liters/Min Minute Volume Vent Rate Vent Mode FiO2 Tidal Volume PEEP Peak Inspir Pressure Pressure Support Sodium Potassium Chloride Carbon Dioxide Anion Gap BUN Creatinine Estim Creat Clear Calc Estimated GFR Glucose POC Capillary Glucose 165 H 169 H Calcium Phosphorus Magnesium Total Bilirubin AST ALT Alkaline Phosphatase Total Protein Albumin Nasal MRSA (PCR) Not detected Random Vancomycin Hep Bs Antigen Hep Bs Antibody Blood Type Antibody Screen 05/28/24 05/28/24 05/28/24 05:11 05:40 08:21 WBC 8.4 RBC 2.39 L Hgb 8.1 L Hct 24.9 L MCV 104.2 H MCH 33.9 MCHC 32.5 RDW 16.6 H Plt Count 67 L MPV 12.2 H PT INR Puncture Site Right radial ABG pH 7.471 H ABG pCO2 31.5 L ABG pO2 107.5 H ABG PO2/FiO2 Ratio 3.07 ABG HCO3 22.5 ABG O2 Saturation 98.2 ABG O2 Content 12.8 L ABG Base Excess -0.7 A-a Gradient 105.4 Oxyhemoglobin 97.3 Carboxyhemoglobin 0.3 Methemoglobin 0.0 Reduced Hemoglobin 2.4 Total Hemoglobin 9.2 L O2 Delivery Device Ventilator O2 Liters/Min Not Reportable Minute Volume 7.4 Vent Rate 18 Vent Mode Cmv FiO2 35 Tidal Volume 400 PEEP 5 Peak Inspir Pressure Not Reportable Pressure Support Not Reportable Sodium 139 Potassium 3.9 Chloride 92 L Carbon Dioxide 26 Anion Gap 21 H BUN 83 H Creatinine 3.76 H Estim Creat Clear Calc 13 Estimated GFR 16 L Glucose 143 H POC Capillary Glucose 145 H Calcium 7.6 L Phosphorus 7.1 H Magnesium 2.6 H Total Bilirubin 4.5 H AST 2858 H ALT 1105 H Alkaline Phosphatase 59 Total Protein 6.0 L Albumin 4.1 Nasal MRSA (PCR) Random Vancomycin 9.4 L Hep Bs Antigen Hep Bs Antibody Blood Type Antibody Screen 05/28/24 05/28/24 08:56 12:15 WBC RBC Hgb Hct MCV MCH MCHC RDW Plt Count MPV PT 66.6 H D INR 7.8 H* Puncture Site ABG pH ABG pCO2 ABG pO2 ABG PO2/FiO2 Ratio ABG HCO3 ABG O2 Saturation ABG O2 Content ABG Base Excess A-a Gradient Oxyhemoglobin Carboxyhemoglobin Methemoglobin Reduced Hemoglobin Total Hemoglobin O2 Delivery Device O2 Liters/Min Minute Volume Vent Rate Vent Mode FiO2 Tidal Volume PEEP Peak Inspir Pressure Pressure Support Sodium Potassium Chloride Carbon Dioxide Anion Gap BUN Creatinine Estim Creat Clear Calc Estimated GFR Glucose POC Capillary Glucose 134 H Calcium Phosphorus Magnesium Total Bilirubin AST ALT Alkaline Phosphatase Total Protein Albumin Nasal MRSA (PCR) Random Vancomycin Hep Bs Antigen Hep Bs Antibody Blood Type Antibody Screen Quality VTE Prophylaxis VTE prophylaxis: mechanical ordered Hospitalist MIPS Advance Care Plan I have confirmed that the patient's Advanced Care Plan is present, code status is documented, or surrogate decision maker is listed in patient medical record.: Yes Medication Reconciliation I have utilized all available resources to obtain, update and review the patients current medications (includes all prescriptions, OTC, herbals, cannabis, and nutritional supplements).: Yes
[2024-05-28] MEDS: CEFEPIME 1 GM/NS 50 ML 1 GM/50 ML BAG IVPB (16:06)
[2024-05-28 16:20] LABS: Glucose Point of Care 134 mg/dl (65-105)
[2024-05-28] MEDS: FENTANYL 2,500MCG/NS250ML(*CRX 2,500 MCG/250 ML BAG IV CONT (18:17)
[2024-05-28 19:51] LABS: Glucose Point of Care 139 mg/dl (65-105)
[2024-05-29] VITALS (32 sets, daily range): BP systolic 75–133; BP diastolic 51–93; PULSE 67–112; RESP 18–20; TEMP 35.9–36.9; O2SAT 92–98
[2024-05-29 00:01] LABS: Glucose Point of Care 145 mg/dl (65-105)
[2024-05-29] MEDS: metroNIDAZOLE 500 MG/ISO 100ML 500 MG/100 ML BAG 100 MG IVPB ×3 (02:23→17:28)
[2024-05-29] MEDS: PANTOPRAZOLE SODIUM IV 80 MG in SODIUM CHLORIDE 0.9% IV 500 ML 50 MG IV CONT ×3 (02:27→22:46)
[2024-05-29] MEDS: NOREPINEPHRINE 8 MG/D5W 250 ML 8 MG/250 ML BAG 5.63 MG IV CONT (04:16)
[2024-05-29 04:28] LABS: Hematocrit 24.6 % (42.0-52.0); Hemoglobin 7.9 g/dL (14.0-18.0); Immature Platelet Fraction Pct 7.8 % (0.9-11.2); Mean Corpuscular HGB Conc 32.1 g/dl (32-36); Mean Corpuscular Hemoglobin 33.1 pg (26-34); Mean Corpuscular Volume 102.9 fl (80-100); Mean Platelet Volume 11.2 fl (7.4-10.4); Platelet Count Result 69 k/mm3 (150-375); Red Blood Count 2.39 M/mm3 (4.6-6.20); Red Cell Distribution Width 16.4 % (11.5-14.5); White Blood Count 10.6 K/mm3 (4.5-10.0)
[2024-05-29 04:38] LABS: Albumin Level 3.6 g/dL (3.5-5.1); Alkaline Phosphatase 58 U/L (38-126); Anion Gap 10 mmol/L (4-12); Bilirubin,Total 5.2 mg/dL (0.2-1.3); Blood Urea Nitrogen 96 mg/dL (9-20); Calcium 7.2 mg/dL (8.4-10.2); Carbon Dioxide 33 mmol/L (22-30); Chloride 99 mmol/L (98-107); Estimated CRCL calculation 13 ml/min; Estimated Glomerular Filt Rate 16; Glucose 138 mg/dL (65-110); Magnesium 2.6 mg/dL (1.6-2.3); Phosphorus 5.4 mg/dL (2.5-4.5); Potassium 3.3 mmol/L (3.4-5.0); Sodium 142 mmol/L (137-145)
[2024-05-29 04:50] LABS: Alanine Aminotransferase 852 U/L (6-50)
[2024-05-29 04:51] LABS: Prothrombin Time 53.9 Seconds (11.1-14.7)
[2024-05-29 04:53] LABS: Aspartate Amino Transferase 1490 U/L (17-59); INR 5.9
[2024-05-29 04:58] LABS: Vancomycin Random 16.2 ug/mL (10-20)
[2024-05-29] MEDS: CENTRAL LINE FLUSH 10 ML IV PUSH ×3 (06:28→21:15)
[2024-05-29] MEDS: HYDROCORTISONE SODIUM SUCCINATE 100 MG/2 ML VIAL IV PUSH ×3 (06:28→21:15)
[2024-05-29] MEDS: VANCOMYCIN 1,250 MG/NS 250 ML 1,250 MG/250 ML BAG 166.67 MG IVPB (06:30)
--- NOTE | 2024-05-29 06:38 | PCRCNOTE ---
ABG draw scheduled for 0500 on 05/29/24; Cristobal Morel RN informed RT of continued hold on ABG draws at this time.
--- NOTE | 2024-05-29 08:13 | P.PNINT_ITS ---
Progress Note: A&P Assessment and Plan (1) Acute respiratory failure: Code(s): J96.00 - Acute respiratory failure, unspecified whether with hypoxia or hypercapnia Status: Acute Assessment and Plan: Acute respiratory failure secondary to sepsis, shock, altered mental status, GI bleeding Patient now intubated and on mechanical ventilation Chest x-ray vent settings reviewed decrease tidal volume to 370 (2) Shock: Code(s): R57.9 - Shock, unspecified Status: Acute Assessment and Plan: Patient is in shock and is requiring Levophed and vasopressin Shock is combination of sepsis and Cardiogenic His echocardiogram shows EF of 20-25% and patient is also bradycardic. Patient has biventricular failure He also has evidence of UTI on his UA, pneumonia on his CT scan and elevated procalcitonin Continue Levophed. Off vasopressin. Hold further IV fluids Continue hydrocortisone (3) Sepsis: Code(s): A41.9 - Sepsis, unspecified organism Status: Acute Assessment and Plan: UA suggestive of UTI it CT scan shows atelectasis versus pneumonia CT abdomen pelvis was not suggestive of any other source of infection Cultures have been done and pending Patient is currently on metronidazole, cefepime . DC vancomycin (4) Upper GI bleed: Code(s): K92.2 - Gastrointestinal hemorrhage, unspecified Status: Acute Assessment and Plan: Patient is having upper GI bleed which is likely secondary to DIC GI consulted patient initially received blood products to correct coagulopathy but not know additional blood products being given as family plans to proceed with palliative extubation and comfort cares Protonix bolus and infusion (5) Acute kidney injury: Code(s): N17.9 - Acute kidney failure, unspecified Status: Acute Assessment and Plan: Acute kidney injury. Likely secondary to sepsis shock Patient was on IV fluids with bicarb for metabolic acidosis which is now on hold Monitor electrolytes urine output urine output has improved creatinine and BUN remains elevated (6) Metabolic acidosis: Code(s): E87.20 - Acidosis, unspecified Status: Acute Assessment and Plan: Improved with IV fluids with bicarb (7) Disseminated intravascular coagulation: Code(s): D65 - Disseminated intravascular coagulation [defibrination syndrome] Status: Acute Assessment and Plan: Patient was on Eliquis and now has developed shock which is a combination of sepsis and cardiogenic. Patient also on antibiotic Patient's initial INR done last night was more than 20 He has received more than 4 units of FFP, cryo and prothrombin complex concentrate I repeated INR this morning it was 7.8 I was planning to give him additional FFP but considering family's proceeding with comfort care I will hold on further transfusions at this time Management of GI bleeding as above (8) Cardiomyopathy: Code(s): I42.9 - Cardiomyopathy, unspecified Status: Acute Assessment and Plan: Patient has extensive cardiac disease and has history of tachy-cassia syndrome and amyloidosis. Patient was offered pacemaker but patient's elected not to proceed with it in the past. On the floor patient was started on beta-rupert and amiodarone when he was in a flutter and then he converted into sinus bradycardia and medication was stopped Echocardiogram done and shows EF of 20-25% with moderately increased left ventricular wall thickness and right ventricular systolic and diastolic dysfunction Patient was in sinus bradycardia but now has converted to AFib Ventricular rate is controlled at this time Discussed with Cardiology (9) Atrial fibrillation: Code(s): I48.91 - Unspecified atrial fibrillation Status: Acute Assessment and Plan: See above (10) Bradyarrhythmia: Code(s): I49.8 - Other specified cardiac arrhythmias Status: Acute Assessment and Plan: See above (11) Chronic 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: Code(s): 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 Status: Acute Assessment and Plan: Eliquis has been discontinued due to DIC and bleeding (12) History of amyloidosis: Code(s): Z86.39 - Personal history of other endocrine, nutritional and metabolic disease Status: Acute Assessment and Plan: History of a amyloidosis (13) Dementia: Code(s): F03.90 - Unspecified dementia, unspecified severity, without behavioral disturbance, psychotic disturbance, mood disturbance, and anxiety Status: Acute Assessment and Plan: History of baseline dementia No interventions at this time (14) Hematuria: Code(s): R31.9 - Hematuria, unspecified Status: Acute Assessment and Plan: Secondary DIC Burk in place Correct coagulopathy Plan DVT prophylaxis -SCD Stress ulcer prophylaxis -PPI Nutrition - npo Code Status -DNR Case discussed with public policy analyst 05/27 I had extensive discussion with patient's son at bedside and updated him with patient's status including acute respiratory failure, acute renal failure, his heart use, DIC and GI bleeding. I explained him the patient is critically ill with high risk of mortality. Patient's son told me that he was unaware of patient's difficulty with dementia and dental pain at home as he felt that he was not getting complete picture from his mother. He states that patient was not eating or drinking much recently due to his dental pain. He was going to discuss with his sister who lives in [place]. I also met with patient's and had extensive discussion with her 05/28 I met with patient's , son, [id number] while patient's daughter was on the phone. They had also met with public policy analyst earlier. I updated them patient's status including respiratory failure shock acute kidney injury DIC and coagulopathy and need for further blood products. We also discussed goals of care considering patient's underlying dementia and hit his critical condition with overall poor prognosis. They told me that they have discussed among themselves and they feel the patient would not want to continue with life support measures at this time. They are planning to proceed with palliative extubation and comfort care but want to wait for the daughter to come from [place] to visit patient. At this time decision was made to continue current supportive care with no further escalation including no further invasive procedure. Patient is DNR. Once patient's daughter is here Saturday evening or Saturday morning they will proceed with palliative extubation and comfort care. 05/29 I met with patient's and son at bedside again this morning and updated him with overnight events and patient's current status. We discussed current treatment plan. They told me that patient's daughter should be here later this evening from [place] and they are hoping that once they withdraw care and turn sedatives off patient will be able to open his eyes and communicate with them. Total Critical Care Time - 30 minutes Due to a high probability of clinically significant, life threatening deterioration, the patient required my highest level of preparedness to intervene emergently and I personally spent this critical care time directly and personally managing the patient. This critical care time included obtaining a history; examining the patient; pulse oximetry; ordering and review of studies; arranging urgent treatment with development of a management plan; evaluation of patient's response to treatment; frequent reassessment; and discussions with other providers. It was exclusive of separately billable procedures and treating other patients and teaching time. Please see Assessment and Plan section and the rest of the note for further information on patient assessment and treatment Subjective Date/time seen: 05/29/24 Overnight events reviewed. Afebrile Continues to be on mechanical ventilation Continues to be on Levophed Continues to be sedated with low-dose Versed and fentanyl bloody output from OG has decreased stool oozing from IV sites urine output has improved Review of Systems Review of Systems: ROS unobtainable: Yes unobtainable due to endotracheal tube, unobtainable due to medical condition and unobtainable due to mental status Exam Narrative: General: Pt is sedated, intubated and on mechanical ventilation Lungs/Chest: Trachea central Coarse BS B/L, No crackles or wheezing. Cardiac: RRR. Normal S1 S2. No murmurs Circulation: Bilateral feet are cold, faint dorsalis pedis pulse can be palpated on both sides. Feet are cold from middle of the leg downward Abdomen: Decreased bowel sounds. Obese. Soft. NT. ND. Blood-tinged output from OG tube Extremities: No clubbing, cyanosis or edema. Right femoral central venous catheter : Burk in place with hematuria Neurologic: Unable to assess due to sedation. Moves all 4 extremities to painful stimuli. PERRL pupils are pinpoint Right IJ central venous catheter site is is under dressing with small amount of oozing, there was oozing going on from left peripheral IV site Objective Data Vital Signs Vital Signs: Vital Signs - 24 hr 05/28/24 08:58 05/28/24 10:00 05/28/24 10:00 Temperature Pulse Rate 101 H 95 95 Respiratory Rate 19 Blood Pressure 105/70 Pulse Oximetry 98 97 Oxygen Delivery Mechanical Ventilation Fraction of Inspired Oxygen 35 05/28/24 10:00 05/28/24 10:00 05/28/24 10:00 Temperature Pulse Rate 83 83 83 Respiratory Rate 18 18 Blood Pressure 106/78 Pulse Oximetry Oxygen Delivery Fraction of Inspired Oxygen 05/28/24 10:53 05/28/24 12:00 05/28/24 12:00 Temperature Pulse Rate 110 H 113 H Respiratory Rate Blood Pressure Pulse Oximetry 97 98 Oxygen Delivery Mechanical Ventilation Mechanical Ventilation Fraction of Inspired Oxygen 35 35 05/28/24 12:00 05/28/24 12:00 05/28/24 12:00 Temperature Pulse Rate 103 H 103 H Respiratory Rate 20 Blood Pressure 108/76 Pulse Oximetry Oxygen Delivery Fraction of Inspired Oxygen 35 05/28/24 12:00 05/28/24 12:00 05/28/24 12:00 Temperature 36.3 C L Pulse Rate 103 H 103 H 103 H Respiratory Rate 20 20 Blood Pressure 108/76 108/76 Pulse Oximetry 97 Oxygen Delivery Fraction of Inspired Oxygen 05/28/24 14:00 05/28/24 14:00 05/28/24 14:00 Temperature Pulse Rate 101 H 101 H 101 H Respiratory Rate 18 18 Blood Pressure 94/81 L Pulse Oximetry Oxygen Delivery Fraction of Inspired Oxygen 05/28/24 14:00 05/28/24 14:00 05/28/24 14:07 Temperature 36.3 C L Pulse Rate 89 101 H 101 H Respiratory Rate 18 Blood Pressure 94/81 L 94/81 L Pulse Oximetry 99 Oxygen Delivery Fraction of Inspired Oxygen 05/28/24 16:00 05/28/24 16:00 05/28/24 16:00 Temperature Pulse Rate 96 Respiratory Rate Blood Pressure 101/79 Pulse Oximetry 100 Oxygen Delivery Mechanical Ventilation Fraction of Inspired Oxygen 35 35 05/28/24 16:00 05/28/24 16:00 05/28/24 16:00 Temperature Pulse Rate 96 96 96 Respiratory Rate 18 18 18 Blood Pressure 101/79 Pulse Oximetry 97 Oxygen Delivery Fraction of Inspired Oxygen 05/28/24 17:27 05/28/24 18:00 05/28/24 18:00 Temperature Pulse Rate 107 H 79 79 Respiratory Rate 18 Blood Pressure 92/70 L Pulse Oximetry 97 Oxygen Delivery Mechanical Ventilation Fraction of Inspired Oxygen 35 05/28/24 18:00 05/28/24 18:00 05/28/24 18:00 Temperature 36.3 C L Pulse Rate 79 79 79 Respiratory Rate 18 18 Blood Pressure 92/70 L 92/70 L Pulse Oximetry 97 Oxygen Delivery Fraction of Inspired Oxygen 05/28/24 18:00 05/28/24 18:17 05/28/24 18:17 Temperature Pulse Rate 101 H 100 100 Respiratory Rate 18 18 Blood Pressure Pulse Oximetry Oxygen Delivery Fraction of Inspired Oxygen 05/28/24 20:00 05/28/24 20:00 05/28/24 20:00 Temperature 36.2 C L Pulse Rate 104 H 93 93 Respiratory Rate 20 18 Blood Pressure 93/71 L 93/71 L Pulse Oximetry 97 Oxygen Delivery Fraction of Inspired Oxygen 05/28/24 20:00 05/28/24 20:00 05/28/24 20:00 Temperature Pulse Rate 93 104 H Respiratory Rate 18 Blood Pressure Pulse Oximetry Oxygen Delivery Fraction of Inspired Oxygen 35 05/28/24 20:40 05/28/24 21:05 05/28/24 22:00 Temperature Pulse Rate 93 107 H 107 H Respiratory Rate 18 Blood Pressure Pulse Oximetry 97 98 Oxygen Delivery Mechanical Ventilation Mechanical Ventilation Fraction of Inspired Oxygen 35 35 05/28/24 22:00 05/28/24 22:00 05/28/24 22:00 Temperature 36.2 C L Pulse Rate 94 98 94 Respiratory Rate 18 18 Blood Pressure 109/98 H 109/98 H Pulse Oximetry 95 Oxygen Delivery Fraction of Inspired Oxygen 05/28/24 22:00 05/28/24 22:50 05/28/24 23:40 Temperature Pulse Rate 95 90 86 Respiratory Rate 18 18 Blood Pressure Pulse Oximetry 93 94 Oxygen Delivery Mechanical Ventilation Mechanical Ventilation Fraction of Inspired Oxygen 35 35 05/28/24 23:45 05/29/24 00:00 05/29/24 00:00 Temperature Pulse Rate 99 100 Respiratory Rate 18 Blood Pressure 115/70 Pulse Oximetry Oxygen Delivery Fraction of Inspired Oxygen 35 05/29/24 00:00 05/29/24 00:00 05/29/24 00:00 Temperature 36.1 C L Pulse Rate 99 99 91 Respiratory Rate 18 20 Blood Pressure 115/70 Pulse Oximetry 92 Oxygen Delivery Fraction of Inspired Oxygen 05/29/24 02:00 05/29/24 02:00 05/29/24 02:00 Temperature 36.1 C L Pulse Rate 94 97 94 Respiratory Rate 18 18 Blood Pressure 110/91 H 110/91 H Pulse Oximetry 94 Oxygen Delivery Fraction of Inspired Oxygen 05/29/24 02:00 05/29/24 02:00 05/29/24 02:50 Temperature Pulse Rate 94 89 85 Respiratory Rate 18 Blood Pressure Pulse Oximetry 92 Oxygen Delivery Mechanical Ventilation Fraction of Inspired Oxygen 35 05/29/24 04:00 05/29/24 04:00 05/29/24 04:00 Temperature 36.3 C L Pulse Rate 84 84 Respiratory Rate 18 18 Blood Pressure 110/78 Pulse Oximetry 94 Oxygen Delivery Fraction of Inspired Oxygen 35 05/29/24 04:00 05/29/24 04:00 05/29/24 04:00 Temperature Pulse Rate 85 85 84 Respiratory Rate 18 18 Blood Pressure Pulse Oximetry 94 Oxygen Delivery Mechanical Ventilation Fraction of Inspired Oxygen 35 05/29/24 04:15 05/29/24 04:16 05/29/24 05:33 Temperature Pulse Rate 97 93 95 Respiratory Rate 18 Blood Pressure 106/63 106/73 Pulse Oximetry 94 93 Oxygen Delivery Mechanical Ventilation Fraction of Inspired Oxygen 35 05/29/24 06:00 05/29/24 06:00 05/29/24 06:00 Temperature 36.3 C L Pulse Rate 98 95 95 Respiratory Rate 18 Blood Pressure 102/69 102/78 Pulse Oximetry 96 Oxygen Delivery Fraction of Inspired Oxygen 05/29/24 08:00 Temperature 36.1 C L Pulse Rate 80 Respiratory Rate 18 Blood Pressure 92/72 L Pulse Oximetry 93 Oxygen Delivery Fraction of Inspired Oxygen Intake/Output Intake/Output: Intake & Output 05/26/24 05/27/24 05/28/24 05/29/24 23:59 23:59 23:59 23:59 Intake Total 551.9 4818.1 1745.5 650.7 Output Total 400 570 925 800 Balance 151.9 4248.1 820.5 -149.3 Meds/Results Medications: Active Medications Generic Name Dose Route Start Last Admin Trade Name Freq PRN Reason Stop Dose Admin Acetaminophen 650 mg 05/23/24 18:33 05/26/24 11:48 Acetaminophen 325 Mg Tablet PO 650 mg Q4H PRN Administration Mild Pain (1-3) or Fever Albuterol 1 puff 05/24/24 09:23 Albuterol Sulfate (*Sp) Aerosol 1 Puff INHALATION Q6H PRN Wheezing Dextrose 12.5 gm 05/27/24 08:14 Dextrose 50% 25 Gm/50 Ml Syringe IV PUSH PRN PRN Hypoglycemia Protocol Glucagon 1 mg 05/27/24 08:14 Glucagon For Inj 1 Mg Vial IM PRN PRN Hypoglycemia Protocol Glucose 15 gm 05/27/24 08:14 Glucose Oral Gel 15 Gm Of Glucse In 37.5 Gm Tube PO PRN PRN Hypoglycemia Protocol Hydrocortisone Sodium Succinate 100 mg 05/26/24 22:00 05/29/24 06:28 Hydrocortisone Sodium Succinate 100 Mg/2 Ml Vial IV PUSH 100 mg Q8HR NAN Administration Metronidazole 500 mg in 100 mls @ 100 mls/hr 05/26/24 18:00 05/29/24 03:23 Flagyl 500 Mg/Iso Soln 100 Ml IVPB Infused Q8H NAN Infusion Cefepime HCl 1 gm in 50 mls @ 100 mls/hr 05/27/24 17:00 05/28/24 18:29 Maxipime 1 Gm/Ns 50 Ml IVPB Infused Q24H NAN Infusion Norepinephrine Bitartrate 8 mg in 250 mls @ 5.625 mls/hr 05/26/24 19:40 05/29/24 06:00 Levophed 8 Mg/D5w 250 Ml IV CONT 3 mcg/min .Q24H NAN 5.63 mls/hr Titration Protocol 3 MCG/MIN Fentanyl Citrate 2,500 mcg in 250 mls @ 2.5 mls/hr 05/27/24 04:40 05/29/24 04:00 Fentanyl 2,500 Mcg/Ns 250 Ml IV CONT 25 mcg/hr .Q72H NAN 2.5 mls/hr Titration Protocol 25 MCG/HR Midazolam HCl 100 mg in 100 mls @ 1 mls/hr 05/27/24 04:40 05/29/24 04:00 Versed 100 Mg/Ns 100 Ml IV CONT 1 mg/hr .Q72H NAN 1 mls/hr Titration Protocol 1 MG/HR Pantoprazole Sodium 80 mg/ 500 mls @ 50 mls/hr 05/27/24 07:00 05/29/24 02:27 Sodium Chloride IV CONT 50 mls/hr .Q10H NAN Administration Dextrose 1,000 mls @ 100 mls/hr 05/27/24 08:14 Dextrose 5% 1,000 Ml IVPB PRN PRN Hypoglycemia Protocol Vancomycin HCl 1,250 mg in 250 mls @ 166.667 mls/hr 05/29/24 07:00 05/29/24 06:30 Vancomycin 1,250 Mg/Ns 250 Ml IVPB 05/29/24 08:29 166.67 mls/hr ONCE ONE Administration Insulin Aspart 3 - 6 units 05/27/24 09:00 05/29/24 06:28 Insulin Aspart (*Bkc) 100 Units/Ml SUB-Q Not Given Q4HR NAN Protocol Levothyroxine Sodium 25 mcg 05/25/24 06:30 05/29/24 06:28 Levothyroxine Sodium 25 Mcg Tablet PO Not Given DAILY@0630 NAN Metoprolol Tartrate 5 mg 05/24/24 16:19 05/26/24 03:43 Metoprolol Tartrate Inj 5 Mg/5 Ml Vial IV PUSH 5 mg Q4HR PRN Administration Heart Rate- High Miscellaneous Information 1 each 05/24/24 00:01 Tafamidis Nonformulary, Can Patient Use From Home Or Hold Till Discharge? XX 06/23/24 00:00 CLARIFY NAN Multi-Ingred Cream/Lotion/Oil/Oint 1 applic 05/27/24 09:00 05/28/24 21:35 Mineral Oil/White Petrolatum Ointment EACH EYE 1 applic Q12HR NAN Administration Perflutren Lipid Microsphere 0 ml 05/26/24 14:24 Perflutren Lipid Microspheres 1.5 Ml Vial Diluted To 10 Ml Total Volume IV PUSH 05/29/24 14:24 ONCE PRN adequate visualization Protocol Sodium Chloride 10 ml 05/27/24 14:00 05/29/24 06:28 Central Line Flush IV PUSH 10 ml Q8HR NAN Administration Sodium Chloride 20 ml 05/27/24 08:27 Central Line Flush IV PUSH PRN PRN after blood draws Vancomycin HCl 1 each 05/26/24 21:34 Vancomycin For Acute Kidney Injury IVPB PRN PRN Vancomycin Protocol Radiology Results: ITS Impressions Face CT 05/25/24 11:39 IMPRESSION: No facial fracture. Renal Ultrasound 05/26/24 13:59 IMPRESSION: 1. 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 2. Small amount of ascites in the pelvis. Chest/Abdomen/Pelvis CT 05/26/24 15:06 IMPRESSION: CHEST: 1. Bilateral pleural effusion with adjacent atelectasis. 2. Gross cardiomegaly. ABDOMEN/PELVIS: 1. No evidence of appendicitis, diverticulitis or intestinal obstruction. 2. Hyperdense area in the gallbladder which may be a stone or residual contrast. 3. Constipation. 4. Minimal Ascites Upper Quadrant Ultrasound 05/27/24 08:01 IMPRESSION: 1. Right pleural effusion. Abdomen X-Ray 05/28/24 09:21 IMPRESSION: 1. Nasogastric tube tip in the stomach. Chest X-Ray 05/29/24 05:39 IMPRESSION: 1. Stable airspace opacities in the lower lung zones, left worse than right, consistent with atelectasis versus pneumonia. 2. Cardiomegaly. Labs Labs: Laboratory Results - last 24 hr 05/28/24 05/28/24 05/28/24 08:21 08:56 12:15 WBC RBC Hgb Hct MCV MCH MCHC RDW Plt Count MPV % Immature Plt Fraction PT 66.6 H D INR 7.8 H* Sodium Potassium Chloride Carbon Dioxide Anion Gap BUN Creatinine Estim Creat Clear Calc Estimated GFR Glucose POC Capillary Glucose 145 H 134 H Calcium Phosphorus Magnesium Total Bilirubin AST ALT Alkaline Phosphatase Total Protein Albumin Random Vancomycin 05/28/24 05/28/24 05/28/24 16:05 19:49 23:56 WBC RBC Hgb Hct MCV MCH MCHC RDW Plt Count MPV % Immature Plt Fraction PT INR Sodium Potassium Chloride Carbon Dioxide Anion Gap BUN Creatinine Estim Creat Clear Calc Estimated GFR Glucose POC Capillary Glucose 134 H 139 H 145 H Calcium Phosphorus Magnesium Total Bilirubin AST ALT Alkaline Phosphatase Total Protein Albumin Random Vancomycin 05/29/24 04:22 WBC 10.6 H RBC 2.39 L Hgb 7.9 L Hct 24.6 L MCV 102.9 H MCH 33.1 MCHC 32.1 RDW 16.4 H Plt Count 69 L MPV 11.2 H % Immature Plt Fraction 7.8 PT 53.9 H INR 5.9 H* Sodium 142 Potassium 3.3 L Chloride 99 Carbon Dioxide 33 H Anion Gap 10 BUN 96 H D Creatinine 3.76 H Estim Creat Clear Calc 13 Estimated GFR 16 L Glucose 138 H POC Capillary Glucose Calcium 7.2 L Phosphorus 5.4 H Magnesium 2.6 H Total Bilirubin 5.2 H AST 1490 H ALT 852 H Alkaline Phosphatase 58 Total Protein 6.0 L Albumin 3.6 Random Vancomycin 16.2 Quality VTE Prophylaxis VTE prophylaxis: mechanical ordered
[2024-05-29 08:19] LABS: Glucose Point of Care 125 mg/dl (65-105)
[2024-05-29] MEDS: POTASSIUM CHLORIDE 20 MEQ PACKET (FOR LIQUID) 40 MEQ FEED TUBE (08:27)
[2024-05-29] MEDS: MINERAL OIL/WHITE PETROLATUM OINTMENT 1 APPLIC EACH EYE ×2 (08:28→21:16)
--- NOTE | 2024-05-29 09:16 | P.PNIM_ITS ---
Progress Note: A&P Assessment and Plan (1) Acute respiratory failure: Code(s): J96.00 - Acute respiratory failure, unspecified whether with hypoxia or hypercapnia Status: Acute Assessment and Plan: Acute respiratory failure secondary to sepsis, shock, altered mental status, GI bleeding Patient now intubated and on mechanical ventilation Chest x-ray vent settings reviewed decrease tidal volume to 370 (2) Shock: Code(s): R57.9 - Shock, unspecified Status: Acute Assessment and Plan: Patient is in shock and is requiring Levophed and vasopressin Shock is combination of sepsis and Cardiogenic His echocardiogram shows EF of 20-25% and patient is also bradycardic. Patient has biventricular failure He also has evidence of UTI on his UA, pneumonia on his CT scan and elevated procalcitonin Continue Levophed. Off vasopressin. Hold further IV fluids Continue hydrocortisone (3) Sepsis: Code(s): A41.9 - Sepsis, unspecified organism Status: Acute Assessment and Plan: UA suggestive of UTI it CT scan shows atelectasis versus pneumonia CT abdomen pelvis was not suggestive of any other source of infection Cultures have been done and pending Patient is currently on metronidazole, cefepime . DC vancomycin (4) Upper GI bleed: Code(s): K92.2 - Gastrointestinal hemorrhage, unspecified Status: Acute Assessment and Plan: Patient is having upper GI bleed which is likely secondary to DIC GI consulted patient initially received blood products to correct coagulopathy but not know additional blood products being given as family plans to proceed with palliative extubation and comfort cares Protonix bolus and infusion (5) Acute kidney injury: Code(s): N17.9 - Acute kidney failure, unspecified Status: Acute Assessment and Plan: Acute kidney injury. Likely secondary to sepsis shock Patient was on IV fluids with bicarb for metabolic acidosis which is now on hold Monitor electrolytes urine output urine output has improved creatinine and BUN remains elevated (6) Metabolic acidosis: Code(s): E87.20 - Acidosis, unspecified Status: Acute Assessment and Plan: Improved with IV fluids with bicarb (7) Disseminated intravascular coagulation: Code(s): D65 - Disseminated intravascular coagulation [defibrination syndrome] Status: Acute Assessment and Plan: Patient was on Eliquis and now has developed shock which is a combination of sepsis and cardiogenic. Patient also on antibiotic Patient's initial INR done last night was more than 20 He has received more than 4 units of FFP, cryo and prothrombin complex concentrate I repeated INR this morning it was 7.8 I was planning to give him additional FFP but considering family's proceeding with comfort care I will hold on further transfusions at this time Management of GI bleeding as above (8) Cardiomyopathy: Code(s): I42.9 - Cardiomyopathy, unspecified Status: Acute Assessment and Plan: Patient has extensive cardiac disease and has history of tachy-cassia syndrome and amyloidosis. Patient was offered pacemaker but patient's elected not to proceed with it in the past. On the floor patient was started on beta-rupert and amiodarone when he was in a flutter and then he converted into sinus bradycardia and medication was stopped Echocardiogram done and shows EF of 20-25% with moderately increased left ventricular wall thickness and right ventricular systolic and diastolic dysfunction Patient was in sinus bradycardia but now has converted to AFib Ventricular rate is controlled at this time Discussed with Cardiology (9) Atrial fibrillation: Code(s): I48.91 - Unspecified atrial fibrillation Status: Acute Assessment and Plan: See above (10) Bradyarrhythmia: Code(s): I49.8 - Other specified cardiac arrhythmias Status: Acute Assessment and Plan: See above (11) Chronic 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: Code(s): Z79.01 - local 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 [employer] 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 [employer] (current) use of anticoagulants Status: Acute Assessment and Plan: Eliquis has been discontinued due to DIC and bleeding (12) History of amyloidosis: Code(s): Z86.39 - Personal history of other endocrine, nutritional and metabolic disease Status: Acute Assessment and Plan: History of a amyloidosis (13) Dementia: Code(s): F03.90 - Unspecified dementia, unspecified severity, without behavioral disturbance, psychotic disturbance, mood disturbance, and anxiety Status: Acute Assessment and Plan: History of baseline dementia No interventions at this time (14) Hematuria: Code(s): R31.9 - Hematuria, unspecified Status: Acute Assessment and Plan: Secondary DIC Burk in place Correct coagulopathy Subjective Date/time seen: 05/29/24 09:16 Interval history: Remains intubated. Possibly withdraw care after his daughter visits him from [place]. Poor prognosis Review of Systems Review of Systems: All systems reviewed & are unremarkable except as noted in HPI and below ROS unobtainable: Yes unobtainable due to endotracheal tube, unobtainable due to medical condition and unobtainable due to mental status Exam Narrative: General: Pt is sedated, intubated and on mechanical ventilation Lungs/Chest: Trachea central Coarse BS B/L, No crackles or wheezing. Cardiac: RRR. Normal S1 S2. No murmurs Circulation: Bilateral feet are cold, faint dorsalis pedis pulse can be palpated on both sides. Feet are cold from middle of the leg downward Abdomen: Decreased bowel sounds. Obese. Soft. NT. ND. Blood-tinged output from OG tube Extremities: No clubbing, cyanosis or edema. Right femoral central venous catheter : Burk in place with hematuria Neurologic: Unable to assess due to sedation. Moves all 4 extremities to painful stimuli. PERRL pupils are pinpoint Right IJ central venous catheter site is is under dressing with small amount of oozing, there was oozing going on from left peripheral IV site Objective Data Vital Signs Vital Signs: Vital Signs - 24 hr 05/28/24 10:00 05/28/24 10:00 05/28/24 10:00 Temperature Pulse Rate 95 95 83 Respiratory Rate 19 Blood Pressure 105/70 106/78 Pulse Oximetry 97 Oxygen Delivery Fraction of Inspired Oxygen 05/28/24 10:00 05/28/24 10:00 05/28/24 10:53 Temperature Pulse Rate 83 83 110 H Respiratory Rate 18 18 Blood Pressure Pulse Oximetry 97 Oxygen Delivery Mechanical Ventilation Fraction of Inspired Oxygen 35 05/28/24 12:00 05/28/24 12:00 05/28/24 12:00 Temperature Pulse Rate 113 H Respiratory Rate Blood Pressure Pulse Oximetry 98 Oxygen Delivery Mechanical Ventilation Fraction of Inspired Oxygen 35 35 05/28/24 12:00 05/28/24 12:00 05/28/24 12:00 Temperature Pulse Rate 103 H 103 H 103 H Respiratory Rate 20 20 Blood Pressure 108/76 Pulse Oximetry Oxygen Delivery Fraction of Inspired Oxygen 05/28/24 12:00 05/28/24 12:00 05/28/24 14:00 Temperature 97.4 F L Pulse Rate 103 H 103 H 101 H Respiratory Rate 20 Blood Pressure 108/76 108/76 94/81 L Pulse Oximetry 97 Oxygen Delivery Fraction of Inspired Oxygen 05/28/24 14:00 05/28/24 14:00 05/28/24 14:00 Temperature Pulse Rate 101 H 101 H 89 Respiratory Rate 18 18 Blood Pressure Pulse Oximetry Oxygen Delivery Fraction of Inspired Oxygen 05/28/24 14:00 05/28/24 14:07 05/28/24 16:00 Temperature 97.4 F L Pulse Rate 101 H 101 H Respiratory Rate 18 Blood Pressure 94/81 L 94/81 L Pulse Oximetry 99 100 Oxygen Delivery Mechanical Ventilation Fraction of Inspired Oxygen 35 05/28/24 16:00 05/28/24 16:00 05/28/24 16:00 Temperature Pulse Rate 96 96 Respiratory Rate 18 Blood Pressure 101/79 Pulse Oximetry Oxygen Delivery Fraction of Inspired Oxygen 35 05/28/24 16:00 05/28/24 16:00 05/28/24 17:27 Temperature Pulse Rate 96 96 107 H Respiratory Rate 18 18 Blood Pressure 101/79 Pulse Oximetry 97 97 Oxygen Delivery Mechanical Ventilation Fraction of Inspired Oxygen 35 05/28/24 18:00 05/28/24 18:00 05/28/24 18:00 Temperature Pulse Rate 79 79 79 Respiratory Rate 18 18 Blood Pressure 92/70 L Pulse Oximetry Oxygen Delivery Fraction of Inspired Oxygen 05/28/24 18:00 05/28/24 18:00 05/28/24 18:00 Temperature 97.4 F L Pulse Rate 79 79 101 H Respiratory Rate 18 Blood Pressure 92/70 L 92/70 L Pulse Oximetry 97 Oxygen Delivery Fraction of Inspired Oxygen 05/28/24 18:17 05/28/24 18:17 05/28/24 20:00 Temperature 97.1 F L Pulse Rate 100 100 104 H Respiratory Rate 18 18 20 Blood Pressure 93/71 L Pulse Oximetry 97 Oxygen Delivery Fraction of Inspired Oxygen 05/28/24 20:00 05/28/24 20:00 05/28/24 20:00 Temperature Pulse Rate 93 93 93 Respiratory Rate 18 18 Blood Pressure 93/71 L Pulse Oximetry Oxygen Delivery Fraction of Inspired Oxygen 05/28/24 20:00 05/28/24 20:00 05/28/24 20:40 Temperature Pulse Rate 104 H 93 Respiratory Rate 18 Blood Pressure Pulse Oximetry 97 Oxygen Delivery Mechanical Ventilation Fraction of Inspired Oxygen 35 35 05/28/24 21:05 05/28/24 22:00 05/28/24 22:00 Temperature 97.1 F L Pulse Rate 107 H 107 H 94 Respiratory Rate 18 Blood Pressure 109/98 H Pulse Oximetry 98 95 Oxygen Delivery Mechanical Ventilation Fraction of Inspired Oxygen 35 05/28/24 22:00 05/28/24 22:00 05/28/24 22:00 Temperature Pulse Rate 98 94 95 Respiratory Rate 18 18 Blood Pressure 109/98 H Pulse Oximetry Oxygen Delivery Fraction of Inspired Oxygen 05/28/24 22:50 05/28/24 23:40 05/28/24 23:45 Temperature Pulse Rate 90 86 Respiratory Rate 18 Blood Pressure Pulse Oximetry 93 94 Oxygen Delivery Mechanical Ventilation Mechanical Ventilation Fraction of Inspired Oxygen 35 35 35 05/29/24 00:00 05/29/24 00:00 05/29/24 00:00 Temperature Pulse Rate 99 100 99 Respiratory Rate 18 18 Blood Pressure 115/70 Pulse Oximetry Oxygen Delivery Fraction of Inspired Oxygen 05/29/24 00:00 05/29/24 00:00 05/29/24 02:00 Temperature 97 F L 97 F L Pulse Rate 99 91 94 Respiratory Rate 20 18 Blood Pressure 115/70 110/91 H Pulse Oximetry 92 94 Oxygen Delivery Fraction of Inspired Oxygen 05/29/24 02:00 05/29/24 02:00 05/29/24 02:00 Temperature Pulse Rate 97 94 94 Respiratory Rate 18 18 Blood Pressure 110/91 H Pulse Oximetry Oxygen Delivery Fraction of Inspired Oxygen 05/29/24 02:00 05/29/24 02:50 05/29/24 04:00 Temperature 97.3 F L Pulse Rate 89 85 84 Respiratory Rate 18 Blood Pressure 110/78 Pulse Oximetry 92 94 Oxygen Delivery Mechanical Ventilation Fraction of Inspired Oxygen 35 05/29/24 04:00 05/29/24 04:00 05/29/24 04:00 Temperature Pulse Rate 84 85 Respiratory Rate 18 18 Blood Pressure Pulse Oximetry Oxygen Delivery Fraction of Inspired Oxygen 35 05/29/24 04:00 05/29/24 04:00 05/29/24 04:15 Temperature Pulse Rate 85 84 97 Respiratory Rate 18 18 Blood Pressure 106/63 Pulse Oximetry 94 94 Oxygen Delivery Mechanical Ventilation Fraction of Inspired Oxygen 35 05/29/24 04:16 05/29/24 05:33 05/29/24 06:00 Temperature 97.3 F L Pulse Rate 93 95 98 Respiratory Rate 18 Blood Pressure 106/73 102/69 Pulse Oximetry 93 96 Oxygen Delivery Mechanical Ventilation Fraction of Inspired Oxygen 35 05/29/24 06:00 05/29/24 06:00 05/29/24 08:00 Temperature 96.9 F L Pulse Rate 95 95 80 Respiratory Rate 18 Blood Pressure 102/78 92/72 L Pulse Oximetry 93 Oxygen Delivery Fraction of Inspired Oxygen Intake/Output Intake/Output: Intake & Output 05/26/24 05/27/24 05/28/24 05/29/24 23:59 23:59 23:59 23:59 Intake Total 551.9 4818.1 1745.5 650.7 Output Total 400 570 925 800 Balance 151.9 4248.1 820.5 -149.3 Meds/Results Medications: Active Medications Generic Name Dose Route Start Last Admin Trade Name Freq PRN Reason Stop Dose Admin Acetaminophen 650 mg 05/23/24 18:33 05/26/24 11:48 Acetaminophen 325 Mg Tablet PO 650 mg Q4H PRN Administration Mild Pain (1-3) or Fever Albuterol 1 puff 05/24/24 09:23 Albuterol Sulfate (*Sp) Aerosol 1 Puff INHALATION Q6H PRN Wheezing Dextrose 12.5 gm 05/27/24 08:14 Dextrose 50% 25 Gm/50 Ml Syringe IV PUSH PRN PRN Hypoglycemia Protocol Glucagon 1 mg 05/27/24 08:14 Glucagon For Inj 1 Mg Vial IM PRN PRN Hypoglycemia Protocol Glucose 15 gm 05/27/24 08:14 Glucose Oral Gel 15 Gm Of Glucse In 37.5 Gm Tube PO PRN PRN Hypoglycemia Protocol Hydrocortisone Sodium Succinate 100 mg 05/26/24 22:00 05/29/24 06:28 Hydrocortisone Sodium Succinate 100 Mg/2 Ml Vial IV PUSH 100 mg Q8HR NAN Administration Metronidazole 500 mg in 100 mls @ 100 mls/hr 05/26/24 18:00 05/29/24 03:23 Flagyl 500 Mg/Iso Soln 100 Ml IVPB Infused Q8H NAN Infusion Cefepime HCl 1 gm in 50 mls @ 100 mls/hr 05/27/24 17:00 05/28/24 18:29 Maxipime 1 Gm/Ns 50 Ml IVPB Infused Q24H NAN Infusion Norepinephrine Bitartrate 8 mg in 250 mls @ 5.625 mls/hr 05/26/24 19:40 05/29/24 06:00 Levophed 8 Mg/D5w 250 Ml IV CONT 3 mcg/min .Q24H NAN 5.63 mls/hr Titration Protocol 3 MCG/MIN Fentanyl Citrate 2,500 mcg in 250 mls @ 2.5 mls/hr 05/27/24 04:40 05/29/24 04:00 Fentanyl 2,500 Mcg/Ns 250 Ml IV CONT 25 mcg/hr .Q72H NAN 2.5 mls/hr Titration Protocol 25 MCG/HR Midazolam HCl 100 mg in 100 mls @ 1 mls/hr 05/27/24 04:40 05/29/24 04:00 Versed 100 Mg/Ns 100 Ml IV CONT 1 mg/hr .Q72H NAN 1 mls/hr Titration Protocol 1 MG/HR Pantoprazole Sodium 80 mg/ 500 mls @ 50 mls/hr 05/27/24 07:00 05/29/24 02:27 Sodium Chloride IV CONT 50 mls/hr .Q10H NAN Administration Dextrose 1,000 mls @ 100 mls/hr 05/27/24 08:14 Dextrose 5% 1,000 Ml IVPB PRN PRN Hypoglycemia Protocol Insulin Aspart 3 - 6 units 05/27/24 09:00 05/29/24 08:26 Insulin Aspart (*Bkc) 100 Units/Ml SUB-Q Not Given Q4HR NAN Protocol Levothyroxine Sodium 25 mcg 05/25/24 06:30 05/29/24 06:28 Levothyroxine Sodium 25 Mcg Tablet PO Not Given DAILY@0630 NAN Metoprolol Tartrate 5 mg 05/24/24 16:19 05/26/24 03:43 Metoprolol Tartrate Inj 5 Mg/5 Ml Vial IV PUSH 5 mg Q4HR PRN Administration Heart Rate- High Miscellaneous Information 1 each 05/24/24 00:01 Tafamidis Nonformulary, Can Patient Use From Home Or Hold Till Discharge? XX 06/23/24 00:00 CLARIFY NAN Multi-Ingred Cream/Lotion/Oil/Oint 1 applic 05/27/24 09:00 05/29/24 08:28 Mineral Oil/White Petrolatum Ointment EACH EYE 1 applic Q12HR NAN Administration Perflutren Lipid Microsphere 0 ml 05/26/24 14:24 Perflutren Lipid Microspheres 1.5 Ml Vial Diluted To 10 Ml Total Volume IV PUSH 05/29/24 14:24 ONCE PRN adequate visualization Protocol Sodium Chloride 10 ml 05/27/24 14:00 05/29/24 06:28 Central Line Flush IV PUSH 10 ml Q8HR NAN Administration Sodium Chloride 20 ml 05/27/24 08:27 Central Line Flush IV PUSH PRN PRN after blood draws Vancomycin HCl 1 each 05/26/24 21:34 Vancomycin For Acute Kidney Injury IVPB PRN PRN Vancomycin Protocol Radiology Results: ITS Impressions Face CT 05/25/24 11:39 IMPRESSION: No facial fracture. Renal Ultrasound 05/26/24 13:59 IMPRESSION: 1. 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 2. Small amount of ascites in the pelvis. Chest/Abdomen/Pelvis CT 05/26/24 15:06 IMPRESSION: CHEST: 1. Bilateral pleural effusion with adjacent atelectasis. 2. Gross cardiomegaly. ABDOMEN/PELVIS: 1. No evidence of appendicitis, diverticulitis or intestinal obstruction. 2. Hyperdense area in the gallbladder which may be a stone or residual contrast. 3. Constipation. 4. Minimal Ascites Upper Quadrant Ultrasound 05/27/24 08:01 IMPRESSION: 1. Right pleural effusion. Abdomen X-Ray 05/28/24 09:21 IMPRESSION: 1. Nasogastric tube tip in the stomach. Chest X-Ray 05/29/24 05:39 IMPRESSION: 1. Stable airspace opacities in the lower lung zones, left worse than right, consistent with atelectasis versus pneumonia. 2. Cardiomegaly. Labs Labs: Laboratory Results - last 24 hr 05/28/24 05/28/24 05/28/24 08:56 12:15 16:05 WBC RBC Hgb Hct MCV MCH MCHC RDW Plt Count MPV % Immature Plt Fraction PT 66.6 H D INR 7.8 H* Sodium Potassium Chloride Carbon Dioxide Anion Gap BUN Creatinine Estim Creat Clear Calc Estimated GFR Glucose POC Capillary Glucose 134 H 134 H Calcium Phosphorus Magnesium Total Bilirubin AST ALT Alkaline Phosphatase Total Protein Albumin Random Vancomycin 05/28/24 05/28/24 05/29/24 19:49 23:56 04:22 WBC 10.6 H RBC 2.39 L Hgb 7.9 L Hct 24.6 L MCV 102.9 H MCH 33.1 MCHC 32.1 RDW 16.4 H Plt Count 69 L MPV 11.2 H % Immature Plt Fraction 7.8 PT 53.9 H INR 5.9 H* Sodium 142 Potassium 3.3 L Chloride 99 Carbon Dioxide 33 H Anion Gap 10 BUN 96 H D Creatinine 3.76 H Estim Creat Clear Calc 13 Estimated GFR 16 L Glucose 138 H POC Capillary Glucose 139 H 145 H Calcium 7.2 L Phosphorus 5.4 H Magnesium 2.6 H Total Bilirubin 5.2 H AST 1490 H ALT 852 H Alkaline Phosphatase 58 Total Protein 6.0 L Albumin 3.6 Random Vancomycin 16.2 05/29/24 08:16 WBC RBC Hgb Hct MCV MCH MCHC RDW Plt Count MPV % Immature Plt Fraction PT INR Sodium Potassium Chloride Carbon Dioxide Anion Gap BUN Creatinine Estim Creat Clear Calc Estimated GFR Glucose POC Capillary Glucose 125 H Calcium Phosphorus Magnesium Total Bilirubin AST ALT Alkaline Phosphatase Total Protein Albumin Random Vancomycin Quality VTE Prophylaxis VTE prophylaxis: mechanical ordered Hospitalist [facility] Advance Care Plan I have confirmed that the patient's Advanced Care Plan is present, code status is documented, or surrogate decision maker is listed in patient medical record.: Yes Medication Reconciliation I have utilized all available resources to obtain, update and review the patients current medications (includes all prescriptions, OTC, herbals, cannabis, and nutritional supplements).: Yes
--- NOTE | 2024-05-29 10:56 | PCFNICU ---
ICU Rounding Note: Pt current nutrition is NPO. Nutrition recommendation: No nutrition interventions. Please consult if nutrition intervention is needed Last recorded weight is 83.1 kg. Bowel Motility: +BM 05/27 Labs Reviewed: Hgb 7.9, Hct 24.6, K+ 3.3, BUN 96, Cre 3.76 Meds Noted: Fentanyl, versed Skin: WNL Additional Notes: Withdrawal of care probably later today. No interventions. Following daily in ICU rounds. Monitor intake, tolerance, wt, labs. Follow up in 5 days. .
--- NOTE | 2024-05-29 11:37 | PM.PNCARD ---
Progress Note: A&P Assessment and Plan (1) Shock: Code(s): R57.9 - Shock, unspecified Status: Acute Plan 1. Shock, likely mixed picture of septic and cardiogenic 2. Acute respiratory failure requiring mechanical ventilation 3. DIC 4. Upper GI bleed 5. Acute kidney injury 6. Cardiomyopathy with severely reduced LVEF 7. Atrial fibrillation PLAN: -Patient in shock, with multiorgan failure, GI bleed, DIC. Extensive family discussions have been had, and family has decided to proceed with palliative extubation and comfort care, awaiting arrival of daughter from [place]. Subjective Date/time seen: 05/29/24 11:37 Interval history: Remains critically ill. Family planning for comfort care measures once daughter arrives from [place]. Review of Systems Review of Systems: ROS unobtainable: Yes unobtainable due to endotracheal tube Exam Const: Other: Critically ill male HENMT: Other: OETT in place Resp: Other: On mechanical ventilation Cardio: Rhythm: abnormal rhythm irregularly irregular Objective Data Vital Signs Vital Signs: Vital Signs - 24 hr 05/28/24 12:00 05/28/24 12:00 05/28/24 12:00 Temperature Pulse Rate 113 H Respiratory Rate Blood Pressure Pulse Oximetry 98 Oxygen Delivery Mechanical Ventilation Fraction of Inspired Oxygen 35 35 05/28/24 12:00 05/28/24 12:00 05/28/24 12:00 Temperature Pulse Rate 103 H 103 H 103 H Respiratory Rate 20 20 Blood Pressure 108/76 Pulse Oximetry Oxygen Delivery Fraction of Inspired Oxygen 05/28/24 12:00 05/28/24 12:00 05/28/24 14:00 Temperature 36.3 C L Pulse Rate 103 H 103 H 101 H Respiratory Rate 20 Blood Pressure 108/76 108/76 94/81 L Pulse Oximetry 97 Oxygen Delivery Fraction of Inspired Oxygen 05/28/24 14:00 05/28/24 14:00 05/28/24 14:00 Temperature Pulse Rate 101 H 101 H 89 Respiratory Rate 18 18 Blood Pressure Pulse Oximetry Oxygen Delivery Fraction of Inspired Oxygen 05/28/24 14:00 05/28/24 14:07 05/28/24 16:00 Temperature 36.3 C L Pulse Rate 101 H 101 H Respiratory Rate 18 Blood Pressure 94/81 L 94/81 L Pulse Oximetry 99 100 Oxygen Delivery Mechanical Ventilation Fraction of Inspired Oxygen 35 05/28/24 16:00 05/28/24 16:00 05/28/24 16:00 Temperature Pulse Rate 96 96 Respiratory Rate 18 Blood Pressure 101/79 Pulse Oximetry Oxygen Delivery Fraction of Inspired Oxygen 35 05/28/24 16:00 05/28/24 16:00 05/28/24 17:27 Temperature Pulse Rate 96 96 107 H Respiratory Rate 18 18 Blood Pressure 101/79 Pulse Oximetry 97 97 Oxygen Delivery Mechanical Ventilation Fraction of Inspired Oxygen 35 05/28/24 18:00 05/28/24 18:00 05/28/24 18:00 Temperature Pulse Rate 79 79 79 Respiratory Rate 18 18 Blood Pressure 92/70 L Pulse Oximetry Oxygen Delivery Fraction of Inspired Oxygen 05/28/24 18:00 05/28/24 18:00 05/28/24 18:00 Temperature 36.3 C L Pulse Rate 79 79 101 H Respiratory Rate 18 Blood Pressure 92/70 L 92/70 L Pulse Oximetry 97 Oxygen Delivery Fraction of Inspired Oxygen 05/28/24 18:17 05/28/24 18:17 05/28/24 20:00 Temperature 36.2 C L Pulse Rate 100 100 104 H Respiratory Rate 18 18 20 Blood Pressure 93/71 L Pulse Oximetry 97 Oxygen Delivery Fraction of Inspired Oxygen 05/28/24 20:00 05/28/24 20:00 05/28/24 20:00 Temperature Pulse Rate 93 93 93 Respiratory Rate 18 18 Blood Pressure 93/71 L Pulse Oximetry Oxygen Delivery Fraction of Inspired Oxygen 05/28/24 20:00 05/28/24 20:00 05/28/24 20:40 Temperature Pulse Rate 104 H 93 Respiratory Rate 18 Blood Pressure Pulse Oximetry 97 Oxygen Delivery Mechanical Ventilation Fraction of Inspired Oxygen 35 35 05/28/24 21:05 05/28/24 22:00 05/28/24 22:00 Temperature 36.2 C L Pulse Rate 107 H 107 H 94 Respiratory Rate 18 Blood Pressure 109/98 H Pulse Oximetry 98 95 Oxygen Delivery Mechanical Ventilation Fraction of Inspired Oxygen 35 05/28/24 22:00 05/28/24 22:00 05/28/24 22:00 Temperature Pulse Rate 98 94 95 Respiratory Rate 18 18 Blood Pressure 109/98 H Pulse Oximetry Oxygen Delivery Fraction of Inspired Oxygen 05/28/24 22:50 05/28/24 23:40 05/28/24 23:45 Temperature Pulse Rate 90 86 Respiratory Rate 18 Blood Pressure Pulse Oximetry 93 94 Oxygen Delivery Mechanical Ventilation Mechanical Ventilation Fraction of Inspired Oxygen 35 35 35 05/29/24 00:00 05/29/24 00:00 05/29/24 00:00 Temperature Pulse Rate 99 100 99 Respiratory Rate 18 18 Blood Pressure 115/70 Pulse Oximetry Oxygen Delivery Fraction of Inspired Oxygen 05/29/24 00:00 05/29/24 00:00 05/29/24 02:00 Temperature 36.1 C L 36.1 C L Pulse Rate 99 91 94 Respiratory Rate 20 18 Blood Pressure 115/70 110/91 H Pulse Oximetry 92 94 Oxygen Delivery Fraction of Inspired Oxygen 05/29/24 02:00 05/29/24 02:00 05/29/24 02:00 Temperature Pulse Rate 97 94 94 Respiratory Rate 18 18 Blood Pressure 110/91 H Pulse Oximetry Oxygen Delivery Fraction of Inspired Oxygen 05/29/24 02:00 05/29/24 02:50 05/29/24 04:00 Temperature 36.3 C L Pulse Rate 89 85 84 Respiratory Rate 18 Blood Pressure 110/78 Pulse Oximetry 92 94 Oxygen Delivery Mechanical Ventilation Fraction of Inspired Oxygen 35 05/29/24 04:00 05/29/24 04:00 05/29/24 04:00 Temperature Pulse Rate 84 85 Respiratory Rate 18 18 Blood Pressure Pulse Oximetry Oxygen Delivery Fraction of Inspired Oxygen 35 05/29/24 04:00 05/29/24 04:00 05/29/24 04:15 Temperature Pulse Rate 85 84 97 Respiratory Rate 18 18 Blood Pressure 106/63 Pulse Oximetry 94 94 Oxygen Delivery Mechanical Ventilation Fraction of Inspired Oxygen 35 05/29/24 04:16 05/29/24 05:33 05/29/24 06:00 Temperature 36.3 C L Pulse Rate 93 95 98 Respiratory Rate 18 Blood Pressure 106/73 102/69 Pulse Oximetry 93 96 Oxygen Delivery Mechanical Ventilation Fraction of Inspired Oxygen 35 05/29/24 06:00 05/29/24 06:00 05/29/24 08:00 Temperature 36.1 C L Pulse Rate 95 95 80 Respiratory Rate 18 Blood Pressure 102/78 92/72 L Pulse Oximetry 93 Oxygen Delivery Fraction of Inspired Oxygen 05/29/24 08:00 05/29/24 08:00 05/29/24 08:00 Temperature Pulse Rate 87 Respiratory Rate Blood Pressure Pulse Oximetry 93 Oxygen Delivery Mechanical Ventilation Fraction of Inspired Oxygen 35 35 05/29/24 08:00 05/29/24 08:00 05/29/24 08:00 Temperature Pulse Rate 80 80 80 Respiratory Rate 18 18 Blood Pressure 92/72 L Pulse Oximetry Oxygen Delivery Fraction of Inspired Oxygen 05/29/24 09:26 05/29/24 10:00 05/29/24 10:00 Temperature 36.0 C L Pulse Rate 90 85 89 Respiratory Rate 18 Blood Pressure 99/75 L Pulse Oximetry 96 95 Oxygen Delivery Mechanical Ventilation Fraction of Inspired Oxygen 35 05/29/24 10:00 05/29/24 10:00 05/29/24 10:00 Temperature Pulse Rate 85 85 85 Respiratory Rate 18 18 Blood Pressure 99/75 L Pulse Oximetry Oxygen Delivery Fraction of Inspired Oxygen Intake/Output Intake/Output: Intake & Output 05/26/24 05/27/24 05/28/24 05/29/24 23:59 23:59 23:59 23:59 Intake Total 551.9 4818.1 1745.5 694.3 Output Total 400 570 925 800 Balance 151.9 4248.1 820.5 -105.7 Meds/Results Medications: Active Medications Generic Name Dose Route Start Last Admin Trade Name Freq PRN Reason Stop Dose Admin Acetaminophen 650 mg 05/23/24 18:33 05/26/24 11:48 Acetaminophen 325 Mg Tablet PO 650 mg Q4H PRN Administration Mild Pain (1-3) or Fever Albuterol 1 puff 05/24/24 09:23 Albuterol Sulfate (*Sp) Aerosol 1 Puff INHALATION Q6H PRN Wheezing Dextrose 12.5 gm 05/27/24 08:14 Dextrose 50% 25 Gm/50 Ml Syringe IV PUSH PRN PRN Hypoglycemia Protocol Glucagon 1 mg 05/27/24 08:14 Glucagon For Inj 1 Mg Vial IM PRN PRN Hypoglycemia Protocol Glucose 15 gm 05/27/24 08:14 Glucose Oral Gel 15 Gm Of Glucse In 37.5 Gm Tube PO PRN PRN Hypoglycemia Protocol Hydrocortisone Sodium Succinate 100 mg 05/26/24 22:00 05/29/24 06:28 Hydrocortisone Sodium Succinate 100 Mg/2 Ml Vial IV PUSH 100 mg Q8HR NAN Administration Metronidazole 500 mg in 100 mls @ 100 mls/hr 05/26/24 18:00 05/29/24 10:20 Flagyl 500 Mg/Iso Soln 100 Ml IVPB 100 mls/hr Q8H NAN Administration Cefepime HCl 1 gm in 50 mls @ 100 mls/hr 05/27/24 17:00 05/28/24 18:29 Maxipime 1 Gm/Ns 50 Ml IVPB Infused Q24H NAN Infusion Norepinephrine Bitartrate 8 mg in 250 mls @ 5.625 mls/hr 05/26/24 19:40 05/29/24 10:00 Levophed 8 Mg/D5w 250 Ml IV CONT 3 mcg/min .Q24H NAN 5.63 mls/hr Titration Protocol 3 MCG/MIN Fentanyl Citrate 2,500 mcg in 250 mls @ 2.5 mls/hr 05/27/24 04:40 05/29/24 10:00 Fentanyl 2,500 Mcg/Ns 250 Ml IV CONT 25 mcg/hr .Q72H NAN 2.5 mls/hr Titration Protocol 25 MCG/HR Midazolam HCl 100 mg in 100 mls @ 1 mls/hr 05/27/24 04:40 05/29/24 10:00 Versed 100 Mg/Ns 100 Ml IV CONT 1 mg/hr .Q72H NAN 1 mls/hr Titration Protocol 1 MG/HR Pantoprazole Sodium 80 mg/ 500 mls @ 50 mls/hr 05/27/24 07:00 05/29/24 02:27 Sodium Chloride IV CONT 50 mls/hr .Q10H NAN Administration Dextrose 1,000 mls @ 100 mls/hr 05/27/24 08:14 Dextrose 5% 1,000 Ml IVPB PRN PRN Hypoglycemia Protocol Insulin Aspart 3 - 6 units 05/27/24 09:00 05/29/24 08:26 Insulin Aspart (*Bkc) 100 Units/Ml SUB-Q Not Given Q4HR NAN Protocol Levothyroxine Sodium 25 mcg 05/25/24 06:30 05/29/24 06:28 Levothyroxine Sodium 25 Mcg Tablet PO Not Given DAILY@0630 NAN Metoprolol Tartrate 5 mg 05/24/24 16:19 05/26/24 03:43 Metoprolol Tartrate Inj 5 Mg/5 Ml Vial IV PUSH 5 mg Q4HR PRN Administration Heart Rate- High Miscellaneous Information 1 each 05/24/24 00:01 Tafamidis Nonformulary, Can Patient Use From Home Or Hold Till Discharge? XX 04/22/25 00:00 CLARIFY NAN Multi-Ingred Cream/Lotion/Oil/Oint 1 applic 05/27/24 09:00 05/29/24 08:28 Mineral Oil/White Petrolatum Ointment EACH EYE 1 applic Q12HR NAN Administration Perflutren Lipid Microsphere 0 ml 05/26/24 14:24 Perflutren Lipid Microspheres 1.5 Ml Vial Diluted To 10 Ml Total Volume IV PUSH 05/29/24 14:24 ONCE PRN adequate visualization Protocol Sodium Chloride 10 ml 05/27/24 14:00 05/29/24 06:28 Central Line Flush IV PUSH 10 ml Q8HR NAN Administration Sodium Chloride 20 ml 05/27/24 08:27 Central Line Flush IV PUSH PRN PRN after blood draws Vancomycin HCl 1 each 05/26/24 21:34 Vancomycin For Acute Kidney Injury IVPB PRN PRN Vancomycin Protocol Radiology Results: ITS Impressions Face CT 05/25/24 11:39 IMPRESSION: No facial fracture. Renal Ultrasound 05/26/24 13:59 IMPRESSION: 1. 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 2. Small amount of ascites in the pelvis. Chest/Abdomen/Pelvis CT 05/26/24 15:06 IMPRESSION: CHEST: 1. Bilateral pleural effusion with adjacent atelectasis. 2. Gross cardiomegaly. ABDOMEN/PELVIS: 1. No evidence of appendicitis, diverticulitis or intestinal obstruction. 2. Hyperdense area in the gallbladder which may be a stone or residual contrast. 3. Constipation. 4. Minimal Ascites Upper Quadrant Ultrasound 05/27/24 08:01 IMPRESSION: 1. Right pleural effusion. Abdomen X-Ray 05/28/24 09:21 IMPRESSION: 1. Nasogastric tube tip in the stomach. Chest X-Ray 05/29/24 05:39 IMPRESSION: 1. Stable airspace opacities in the lower lung zones, left worse than right, consistent with atelectasis versus pneumonia. 2. Cardiomegaly. Labs Labs: Laboratory Results - last 24 hr 05/28/24 05/28/24 05/28/24 12:15 16:05 19:49 WBC RBC Hgb Hct MCV MCH MCHC RDW Plt Count MPV % Immature Plt Fraction PT INR Sodium Potassium Chloride Carbon Dioxide Anion Gap BUN Creatinine Estim Creat Clear Calc Estimated GFR Glucose POC Capillary Glucose 134 H 134 H 139 H Calcium Phosphorus Magnesium Total Bilirubin AST ALT Alkaline Phosphatase Total Protein Albumin Random Vancomycin 05/28/24 05/29/24 05/29/24 23:56 04:22 08:16 WBC 10.6 H RBC 2.39 L Hgb 7.9 L Hct 24.6 L MCV 102.9 H MCH 33.1 MCHC 32.1 RDW 16.4 H Plt Count 69 L MPV 11.2 H % Immature Plt Fraction 7.8 PT 53.9 H INR 5.9 H* Sodium 142 Potassium 3.3 L Chloride 99 Carbon Dioxide 33 H Anion Gap 10 BUN 96 H D Creatinine 3.76 H Estim Creat Clear Calc 13 Estimated GFR 16 L Glucose 138 H POC Capillary Glucose 145 H 125 H Calcium 7.2 L Phosphorus 5.4 H Magnesium 2.6 H Total Bilirubin 5.2 H AST 1490 H ALT 852 H Alkaline Phosphatase 58 Total Protein 6.0 L Albumin 3.6 Random Vancomycin 16.2
[2024-05-29 12:12] LABS: Glucose Point of Care 144 mg/dl (65-105)
[2024-05-29] MEDS: CEFEPIME 1 GM/NS 50 ML 1 GM/50 ML BAG IVPB (16:58)
[2024-05-29 21:21] LABS: Glucose Point of Care 138 mg/dl (65-105)
[2024-05-30] VITALS (20 sets, daily range): BP systolic 63–133; BP diastolic 49–93; PULSE 81–158; RESP 4–22; TEMP 36–36.9; O2SAT 85–100
[2024-05-30 00:36] LABS: Glucose Point of Care 147 mg/dl (65-105)
[2024-05-30] MEDS: metroNIDAZOLE 500 MG/ISO 100ML 500 MG/100 ML BAG 100 MG IVPB (03:06)
[2024-05-30] MEDS: HYDROCORTISONE SODIUM SUCCINATE 100 MG/2 ML VIAL IV PUSH (06:09)
[2024-05-30] MEDS: CENTRAL LINE FLUSH 10 ML IV PUSH ×3 (06:09→20:13)
[2024-05-30 06:16] LABS: Hematocrit 25.8 % (42.0-52.0); Hemoglobin 8.2 g/dL (14.0-18.0); Immature Platelet Fraction Pct 7.3 % (0.9-11.2); Mean Corpuscular HGB Conc 31.8 g/dl (32-36); Mean Corpuscular Hemoglobin 32.9 pg (26-34); Mean Corpuscular Volume 103.6 fl (80-100); Platelet Count Result 72 k/mm3 (150-375); Red Blood Count 2.49 M/mm3 (4.6-6.20); Red Cell Distribution Width 16.5 % (11.5-14.5); White Blood Count 10.5 K/mm3 (4.5-10.0)
[2024-05-30 06:25] LABS: INR 2.9; Prothrombin Time 31.3 Seconds (11.1-14.7)
[2024-05-30 06:34] LABS: Vancomycin Trough 19.9 ug/mL (10.0-20.0)
[2024-05-30 06:38] LABS: Alanine Aminotransferase 598 U/L (6-50); Albumin Level 3.3 g/dL (3.5-5.1); Alkaline Phosphatase 63 U/L (38-126); Anion Gap 13 mmol/L (4-12); Bilirubin,Total 6.3 mg/dL (0.2-1.3); Blood Urea Nitrogen 97 mg/dL (9-20); Calcium 7.3 mg/dL (8.4-10.2); Carbon Dioxide 30 mmol/L (22-30); Chloride 103 mmol/L (98-107); Estimated CRCL calculation 17 ml/min; Estimated Glomerular Filt Rate 19; Glucose 140 mg/dL (65-110); Magnesium 2.7 mg/dL (1.6-2.3); Phosphorus 4.9 mg/dL (2.5-4.5); Potassium 3.2 mmol/L (3.4-5.0); Sodium 146 mmol/L (137-145)
[2024-05-30 06:50] LABS: Aspartate Amino Transferase 814 U/L (17-59)
--- NOTE | 2024-05-30 08:47 | P.PNINT_ITS ---
Progress Note: A&P Assessment and Plan (1) Acute respiratory failure: Code(s): J96.00 - Acute respiratory failure, unspecified whether with hypoxia or hypercapnia Status: Acute Assessment and Plan: Acute respiratory failure secondary to sepsis, shock, altered mental status, GI bleeding Patient now intubated and on mechanical ventilation Chest x-ray vent settings reviewed Ventilator settings reviewed (2) Shock: Code(s): R57.9 - Shock, unspecified Status: Acute Assessment and Plan: Patient is in shock and is requiring Levophed and vasopressin Shock is combination of sepsis and Cardiogenic His echocardiogram shows EF of 20-25% and patient is also bradycardic. Patient has biventricular failure He also has evidence of UTI on his UA, pneumonia on his CT scan and elevated procalcitonin Continue Levophed. Off vasopressin. Hold further IV fluids Continue hydrocortisone (3) Sepsis: Code(s): A41.9 - Sepsis, unspecified organism Status: Acute Assessment and Plan: UA suggestive of UTI it CT scan shows atelectasis versus pneumonia CT abdomen pelvis was not suggestive of any other source of infection Cultures have been done and pending Patient is currently on metronidazole, cefepime . Off vancomycin (4) Upper GI bleed: Code(s): K92.2 - Gastrointestinal hemorrhage, unspecified Status: Acute Assessment and Plan: Patient is having upper GI bleed which is likely secondary to DIC GI consulted patient initially received blood products to correct coagulopathy but not know additional blood products being given as family plans to proceed with palliative extubation and comfort cares Protonix bolus and infusion Globin has been stable (5) Acute kidney injury: Code(s): N17.9 - Acute kidney failure, unspecified Status: Acute Assessment and Plan: Acute kidney injury. Likely secondary to sepsis shock Patient was on IV fluids with bicarb for metabolic acidosis which is now on hold Monitor electrolytes urine output urine output has improved creatinine remains stable but BUN continues to increase (6) Metabolic acidosis: Code(s): E87.20 - Acidosis, unspecified Status: Acute Assessment and Plan: Improved with IV fluids with bicarb (7) Disseminated intravascular coagulation: Code(s): D65 - Disseminated intravascular coagulation [defibrination syndrome] Status: Acute Assessment and Plan: Patient was on Eliquis and now has developed shock which is a combination of sepsis and cardiogenic. Patient also on antibiotic Patient's initial INR done last night was more than 20 He has received more than 4 units of FFP, cryo and prothrombin complex concentrate I repeated INR this morning it was 7.8 I was planning to give him additional FFP but considering family's proceeding with comfort care I will hold on further transfusions at this time Management of GI bleeding as above (8) Cardiomyopathy: Code(s): I42.9 - Cardiomyopathy, unspecified Status: Acute Assessment and Plan: Patient has extensive cardiac disease and has history of tachy-cassia syndrome and amyloidosis. Patient was offered pacemaker but patient's elected not to proceed with it in the past. On the floor patient was started on beta-rupert and amiodarone when he was in a flutter and then he converted into sinus bradycardia and medication was stopped Echocardiogram done and shows EF of 20-25% with moderately increased left ventricular wall thickness and right ventricular systolic and diastolic dysfunction Patient was in sinus bradycardia but now has converted to AFib Ventricular rate is controlled at this time Discussed with Cardiology (9) Atrial fibrillation: Code(s): I48.91 - Unspecified atrial fibrillation Status: Acute Assessment and Plan: See above (10) Bradyarrhythmia: Code(s): I49.8 - Other specified cardiac arrhythmias Status: Acute Assessment and Plan: See above (11) Chronic 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: Code(s): Z79.01 - chief vendor quality (current) use of anticoagulants Status: Acute Assessment and Plan: Eliquis has been discontinued due to DIC and bleeding (12) History of amyloidosis: Code(s): Z86.39 - Personal history of other endocrine, nutritional and metabolic disease Status: Acute Assessment and Plan: History of a amyloidosis (13) Dementia: Code(s): F03.90 - Unspecified dementia, unspecified severity, without behavioral disturbance, psychotic disturbance, mood disturbance, and anxiety Status: Acute Assessment and Plan: History of baseline dementia No interventions at this time (14) Hematuria: Code(s): R31.9 - Hematuria, unspecified Status: Acute Assessment and Plan: Secondary DIC Burk in place Correct coagulopathy (15) Electrolyte abnormality: Code(s): E87.8 - Other disorders of electrolyte and fluid balance, not elsewhere classified Status: Acute Assessment and Plan: Potassium replacement ordered Plan DVT prophylaxis -SCD Stress ulcer prophylaxis -PPI Nutrition - npo Code Status -DNR Case discussed with cracking and fanning machine operator 05/27 I had extensive discussion with patient's son at bedside and updated him with patient's status including acute respiratory failure, acute renal failure, his heart use, DIC and GI bleeding. I explained him the patient is critically ill with high risk of mortality. Patient's son told me that he was unaware of patient's difficulty with dementia and dental pain at home as he felt that he was not getting complete picture from his mother. He states that patient was not eating or drinking much recently due to his dental pain. He was going to discuss with his sister who lives in [place]. I also met with patient's and had extensive discussion with her 05/28 I met with patient's , son, [id number] while patient's daughter was on the phone. They had also met with cracking and fanning machine operator earlier. I updated them patient's status including respiratory failure shock acute kidney injury DIC and coagulopathy and need for further blood products. We also discussed goals of ca re considering patient's underlying dementia and hit his critical condition with overall poor prognosis. They told me that they have discussed among themselves and they feel the patient would not want to continue with life support measures at this time. They are planning to proceed with palliative extubation and comfort care but want to wait for the daughter to come from [place] to visit patient. At this time decision was made to continue current supportive care with no further escalation including no further invasive procedure. Patient is DNR. Once patient's daughter is here Saturday evening or Saturday morning they will proceed with palliative extubation and comfort care. 05/29 I met with patient's and son at bedside again this morning and updated him with overnight events and patient's current status. We discussed current treatment plan. They told me that patient's daughter should be here later this evening from [place] and they are hoping that once they withdraw care and turn sedatives off patient will be able to open his eyes and communicate with them. 05/30 family plan to palliatively extubated and proceed with comfort care once patients children who live out of town are here. Total Critical Care Time - 30 minutes Due to a high probability of clinically significant, life threatening deterioration, the patient required my highest level of preparedness to intervene emergently and I personally spent this critical care time directly and personally managing the patient. This critical care time included obtaining a history; examining the patient; pulse oximetry; ordering and review of studies; arranging urgent treatment with development of a management plan; evaluation of patient's response to treatment; frequent reassessment; and discussions with other providers. It was exclusive of separately billable procedures and treating other patients and teaching time. Please see Assessment and Plan section and the rest of the note for further information on patient assessment and treatment Subjective Date/time seen: 05/30/24 Overnight events reviewed. Hypothermic Continues to be on mechanical ventilation 35% FiO2 Continues to be on Levophed Continues to be sedated with low-dose Versed and fat Other Vitals acceptable No significant exchange floor manager last 24 hours Review of Systems Review of Systems: ROS unobtainable: Yes unobtainable due to endotracheal tube, unobtainable due to medical condition and unobtainable due to mental status Exam Narrative: General: Pt is sedated, intubated and on mechanical ventilation Lungs/Chest: Trachea central Coarse BS B/L, No crackles or wheezing. Cardiac: RRR. Normal S1 S2. No murmurs Circulation: Bilateral feet are cold, faint dorsalis pedis pulse can be palpated on both sides. Feet are cold from middle of the leg downward Abdomen: Decreased bowel sounds. Obese. Soft. NT. ND. Blood-tinged output from OG tube Extremities: No clubbing, cyanosis or edema. Right femoral central venous catheter : Burk in place with hematuria Neurologic: Unable to assess due to sedation. Moves all 4 extremities to painful stimuli. PERRL pupils are pinpoint Right IJ central venous catheter site is is under dressing with small amount of oozing, there was oozing going on from left peripheral IV site Objective Data Vital Signs Vital Signs: Vital Signs - 24 hr 05/29/24 09:26 05/29/24 10:05/29/24 10:00 Temperature 36.0 C L Pulse Rate 90 85 89 Respiratory Rate 18 Blood Pressure 99/75 L Pulse Oximetry 96 95 Oxygen Delivery Mechanical Ventilation Fraction of Inspired Oxygen 35 05/29/24 10:00 05/29/24 10:00 05/29/24 10:00 Temperature Pulse Rate 85 85 85 Respiratory Rate 18 18 Blood Pressure 99/75 L Pulse Oximetry Oxygen Delivery Fraction of Inspired Oxygen 05/29/24 11:37 05/29/24 12:00 05/29/24 12:00 Temperature Pulse Rate 92 84 Respiratory Rate 18 Blood Pressure Pulse Oximetry 98 98 Oxygen Delivery Mechanical Ventilation Mechanical Ventilation Fraction of Inspired Oxygen 35 35 05/29/24 12:00 05/29/24 12:00 05/29/24 12:00 Temperature Pulse Rate 78 78 Respiratory Rate 18 Blood Pressure 123/83 Pulse Oximetry Oxygen Delivery Fraction of Inspired Oxygen 35 05/29/24 12:00 05/29/24 12:00 05/29/24 12:12 Temperature 35.9 C L 35.9 C L Pulse Rate 97 83 Respiratory Rate 18 Blood Pressure 123/83 Pulse Oximetry 98 Oxygen Delivery Fraction of Inspired Oxygen 05/29/24 14:00 05/29/24 14:00 05/29/24 14:00 Temperature 36.3 C L Pulse Rate 94 94 97 Respiratory Rate 18 18 Blood Pressure 114/59 L 114/59 L Pulse Oximetry 98 Oxygen Delivery Fraction of Inspired Oxygen 05/29/24 14:00 05/29/24 14:00 05/29/24 16:00 Temperature Pulse Rate 94 94 86 Respiratory Rate 18 Blood Pressure Pulse Oximetry 97 Oxygen Delivery Mechanical Ventilation Fraction of Inspired Oxygen 35 05/29/24 16:00 05/29/24 16:00 05/29/24 16:00 Temperature 36.8 C Pulse Rate 98 98 98 Respiratory Rate 18 18 Blood Pressure 109/66 109/66 Pulse Oximetry 97 Oxygen Delivery Fraction of Inspired Oxygen 05/29/24 16:00 05/29/24 16:00 05/29/24 16:00 Temperature 36.4 C L Pulse Rate 98 112 H Respiratory Rate 18 Blood Pressure Pulse Oximetry Oxygen Delivery Fraction of Inspired Oxygen 05/29/24 16:00 05/29/24 16:00 05/29/24 18:00 Temperature Pulse Rate 77 Respiratory Rate Blood Pressure Pulse Oximetry 98 Oxygen Delivery Mechanical Ventilation Fraction of Inspired Oxygen 35 35 05/29/24 18:00 05/29/24 18:15 05/29/24 18:15 Temperature Pulse Rate 78 78 78 Respiratory Rate 18 18 Blood Pressure 105/63 Pulse Oximetry Oxygen Delivery Fraction of Inspired Oxygen 05/29/24 18:20 05/29/24 20:00 05/29/24 20:00 Temperature 36.9 C 36.8 C Pulse Rate 77 67 89 Respiratory Rate 18 18 18 Blood Pressure 105/63 105/64 Pulse Oximetry 96 96 Oxygen Delivery Fraction of Inspired Oxygen 05/29/24 20:00 05/29/24 20:00 05/29/24 20:00 Temperature Pulse Rate 89 89 89 Respiratory Rate 18 Blood Pressure 105/64 Pulse Oximetry Oxygen Delivery Fraction of Inspired Oxygen 05/29/24 20:10 05/29/24 20:45 05/29/24 20:47 Temperature Pulse Rate 96 96 Respiratory Rate 18 Blood Pressure Pulse Oximetry 97 97 Oxygen Delivery Mechanical Ventilation Mechanical Ventilation Fraction of Inspired Oxygen 35 35 35 05/29/24 21:00 05/29/24 21:00 05/29/24 21:15 Temperature 36.8 C 36.8 C Pulse Rate 96 92 93 Respiratory Rate 18 18 Blood Pressure 75/60 L 76/51 L 94/61 L Pulse Oximetry 96 96 Oxygen Delivery Fraction of Inspired Oxygen 05/29/24 21:17 05/29/24 21:45 05/29/24 21:45 Temperature 36.8 C Pulse Rate 92 90 89 Respiratory Rate 18 18 Blood Pressure 133/72 133/72 Pulse Oximetry 95 Oxygen Delivery Fraction of Inspired Oxygen 05/29/24 22:00 05/29/24 22:00 05/29/24 22:00 Temperature 36.7 C Pulse Rate 108 H 98 95 Respiratory Rate 18 18 Blood Pressure 117/70 Pulse Oximetry 96 Oxygen Delivery Fraction of Inspired Oxygen 05/29/24 22:00 05/29/24 22:46 05/29/24 23:03 Temperature Pulse Rate 95 96 108 H Respiratory Rate 18 Blood Pressure 119/93 H Pulse Oximetry 95 Oxygen Delivery Mechanical Ventilation Fraction of Inspired Oxygen 35 05/29/24 23:45 05/29/24 23:46 05/29/24 23:55 Temperature 36.6 C Pulse Rate 88 95 95 Respiratory Rate 18 18 Blood Pressure 83/56 L 83/65 L Pulse Oximetry 96 96 Oxygen Delivery Mechanical Ventilation Fraction of Inspired Oxygen 35 05/30/24 00:00 05/30/24 00:00 05/30/24 00:00 Temperature 36.6 C Pulse Rate 110 H 105 H Respiratory Rate 20 Blood Pressure 133/93 H 133/93 H Pulse Oximetry 100 Oxygen Delivery Fraction of Inspired Oxygen 35 05/30/24 00:00 05/30/24 00:00 05/30/24 00:00 Temperature Pulse Rate 105 H 105 H 100 Respiratory Rate 20 20 Blood Pressure Pulse Oximetry Oxygen Delivery Fraction of Inspired Oxygen 05/30/24 00:15 05/30/24 02:00 05/30/24 02:00 Temperature 36.6 C 36.6 C Pulse Rate 100 109 H 106 H Respiratory Rate 18 18 Blood Pressure 122/79 120/81 Pulse Oximetry 96 96 Oxygen Delivery Fraction of Inspired Oxygen 05/30/24 02:00 05/30/24 02:00 05/30/24 02:00 Temperature Pulse Rate 105 H 105 H 105 H Respiratory Rate 18 18 Blood Pressure 120/81 Pulse Oximetry Oxygen Delivery Fraction of Inspired Oxygen 05/30/24 02:18 05/30/24 03:05 05/30/24 03:06 Temperature 36.4 C Pulse Rate 99 105 H 101 H Respiratory Rate 18 Blood Pressure 116/76 116/76 Pulse Oximetry 96 95 Oxygen Delivery Mechanical Ventilation Fraction of Inspired Oxygen 35 05/30/24 03:47 05/30/24 04:00 05/30/24 04:00 Temperature 36.4 C L 36.3 C L Pulse Rate 85 88 Respiratory Rate 18 18 Blood Pressure 113/65 113/72 Pulse Oximetry 96 96 Oxygen Delivery Fraction of Inspired Oxygen 35 05/30/24 04:00 05/30/24 04:00 05/30/24 04:00 Temperature Pulse Rate 81 86 89 Respiratory Rate 18 18 Blood Pressure 113/72 Pulse Oximetry Oxygen Delivery Fraction of Inspired Oxygen 05/30/24 04:00 05/30/24 04:00 05/30/24 05:05 Temperature Pulse Rate 89 87 83 Respiratory Rate 18 Blood Pressure Pulse Oximetry 100 97 Oxygen Delivery Mechanical Ventilation Mechanical Ventilation Fraction of Inspired Oxygen 35 35 05/30/24 05:50 05/30/24 06:00 05/30/24 06:00 Temperature 36.3 C L Pulse Rate 105 H 93 101 H Respiratory Rate 22 H 18 Blood Pressure 128/88 Pulse Oximetry 96 Oxygen Delivery Fraction of Inspired Oxygen 05/30/24 06:00 05/30/24 06:00 05/30/24 08:33 Temperature Pulse Rate 101 H 101 H 91 Respiratory Rate 18 Blood Pressure 119/77 Pulse Oximetry 98 Oxygen Delivery Mechanical Ventilation Fraction of Inspired Oxygen 35 Intake/Output Intake/Output: Intake & Output 05/27/24 05/28/24 05/29/24 05/30/24 23:59 23:59 23:59 23:59 Intake Total 4818.1 1745.5 2044.2 145.1 Output Total 605 801 8002 950 Balance 4248.1 820.5 344.2 -804.9 Meds/Results Medications: Active Medications Generic Name Dose Route Start Last Admin Trade Name Freq PRN Reason Stop Dose Admin Acetaminophen 650 mg 05/23/24 18:33 05/26/24 11:48 Acetaminophen 325 Mg Tablet PO 650 mg Q4H PRN Administration Mild Pain (1-3) or Fever Albuterol 1 puff 05/24/24 09:23 Albuterol Sulfate (*Sp) Aerosol 1 Puff INHALATION Q6H PRN Wheezing Dextrose 12.5 gm 05/27/24 08:14 Dextrose 50% 25 Gm/50 Ml Syringe IV PUSH PRN PRN Hypoglycemia Protocol Glucagon 1 mg 05/27/24 08:14 Glucagon For Inj 1 Mg Vial IM PRN PRN Hypoglycemia Protocol Glucose 15 gm 05/27/24 08:14 Glucose Oral Gel 15 Gm Of Glucse In 37.5 Gm Tube PO PRN PRN Hypoglycemia Protocol Hydrocortisone Sodium Succinate 100 mg 05/26/24 22:00 05/30/24 06:09 Hydrocortisone Sodium Succinate 100 Mg/2 Ml Vial IV PUSH 100 mg Q8HR NAN Administration Metronidazole 500 mg in 100 mls @ 100 mls/hr 05/26/24 18:00 05/30/24 04:10 Flagyl 500 Mg/Iso Soln 100 Ml IVPB Infused Q8H NAN Infusion Cefepime HCl 1 gm in 50 mls @ 100 mls/hr 05/27/24 17:00 05/29/24 17:28 Maxipime 1 Gm/Ns 50 Ml IVPB Infused Q24H NAN Infusion Norepinephrine Bitartrate 8 mg in 250 mls @ 3.75 mls/hr 05/26/24 19:40 05/30/24 06:00 Levophed 8 Mg/D5w 250 Ml IV CONT 2 mcg/min .Q24H NAN 3.75 mls/hr Titration Protocol 2 MCG/MIN Fentanyl Citrate 2,500 mcg in 250 mls @ 2.5 mls/hr 05/27/24 04:40 05/30/24 06:00 Fentanyl 2,500 Mcg/Ns 250 Ml IV CONT 25 mcg/hr .Q72H NAN 2.5 mls/hr Titration Protocol 25 MCG/HR Midazolam HCl 100 mg in 100 mls @ 1 mls/hr 05/27/24 04:40 05/30/24 05:50 Versed 100 Mg/Ns 100 Ml IV CONT 1 mg/hr .Q72H NAN 1 mls/hr Titration Protocol 1 MG/HR Pantoprazole Sodium 80 mg/ 500 mls @ 50 mls/hr 05/27/24 07:00 05/29/24 22:46 Sodium Chloride IV CONT 50 mls/hr .Q10H NAN Administration Dextrose 1,000 mls @ 100 mls/hr 05/27/24 08:14 Dextrose 5% 1,000 Ml IVPB PRN PRN Hypoglycemia Protocol Insulin Aspart 3 - 6 units 05/27/24 09:00 05/30/24 07:00 Insulin Aspart (*Bkc) 100 Units/Ml SUB-Q Not Given Q4HR NAN Protocol Levothyroxine Sodium 25 mcg 05/25/24 06:30 05/30/24 06:10 Levothyroxine Sodium 25 Mcg Tablet PO Not Given DAILY@0630 NAN Metoprolol Tartrate 5 mg 05/24/24 16:19 05/26/24 03:43 Metoprolol Tartrate Inj 5 Mg/5 Ml Vial IV PUSH 5 mg Q4HR PRN Administration Heart Rate- High Miscellaneous Information 1 each 05/24/24 00:01 Tafamidis Nonformulary, Can Patient Use From Home Or Hold Till Discharge? XX 06/23/24 00:00 CLARIFY NAN Multi-Ingred Cream/Lotion/Oil/Oint 1 applic 05/27/24 09:00 05/29/24 21:16 Mineral Oil/White Petrolatum Ointment EACH EYE 1 applic Q12HR NAN Administration Potassium Chloride 40 meq 05/30/24 07:50 Potassium Chloride 20 Meq Packet (For Liquid) FEED TUBE 05/30/24 13:51 Q6H NAN Sodium Chloride 10 ml 05/27/24 14:00 05/30/24 06:09 Central Line Flush IV PUSH 10 ml Q8HR NAN Administration Sodium Chloride 20 ml 05/27/24 08:27 Central Line Flush IV PUSH PRN PRN after blood draws Vancomycin HCl 1 each 05/26/24 21:34 Vancomycin For Acute Kidney Injury IVPB PRN PRN Vancomycin Protocol Radiology Results: ITS Impressions Face CT 05/25/24 11:39 IMPRESSION: No facial fracture. Renal Ultrasound 05/26/24 13:59 IMPRESSION: 1. 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 2. Small amount of ascites in the pelvis. Chest/Abdomen/Pelvis CT 05/26/24 15:06 IMPRESSION: CHEST: 1. Bilateral pleural effusion with adjacent atelectasis. 2. Gross cardiomegaly. ABDOMEN/PELVIS: 1. No evidence of appendicitis, diverticulitis or intestinal obstruction. 2. Hyperdense area in the gallbladder which may be a stone or residual contrast. 3. Constipation. 4. Minimal Ascites Upper Quadrant Ultrasound 05/27/24 08:01 IMPRESSION: 1. Right pleural effusion. Abdomen X-Ray 05/28/24 09:21 IMPRESSION: 1. Nasogastric tube tip in the stomach. Chest X-Ray 05/30/24 06:15 IMPRESSION: 1. Stable airspace opacities in the lower lung zones, consistent with atelectasis versus pneumonia. 2. Cardiomegaly. Labs Labs: Laboratory Results - last 24 hr 05/29/24 05/29/24 05/29/24 12:09 21:14 23:49 WBC RBC Hgb Hct MCV MCH MCHC RDW Plt Count MPV % Immature Plt Fraction PT INR Sodium Potassium Chloride Carbon Dioxide Anion Gap BUN Creatinine Estim Creat Clear Calc Estimated GFR Glucose POC Capillary Glucose 144 H 138 H 147 H Calcium Phosphorus Magnesium Total Bilirubin AST ALT Alkaline Phosphatase Total Protein Albumin Vancomycin Trough 05/30/24 06:02 WBC 10.5 H RBC 2.49 L Hgb 8.2 L Hct 25.8 L MCV 103.6 H MCH 32.9 MCHC 31.8 L RDW 16.5 H Plt Count 72 L MPV 12.0 H % Immature Plt Fraction 7.3 PT 31.3 H D INR 2.9 Sodium 146 H Potassium 3.2 L Chloride 103 Carbon Dioxide 30 Anion Gap 13 H BUN 97 H Creatinine 3.19 H Estim Creat Clear Calc 17 Estimated GFR 19 L Glucose 140 H POC Capillary Glucose Calcium 7.3 L Phosphorus 4.9 H Magnesium 2.7 H Total Bilirubin 6.3 H AST 814 H ALT 598 H Alkaline Phosphatase 63 Total Protein 6.0 L Albumin 3.3 L Vancomycin Trough 19.9 Quality VTE Prophylaxis VTE prophylaxis: mechanical ordered
[2024-05-30 08:53] LABS: Glucose Point of Care 138 mg/dl (65-105)
[2024-05-30] MEDS: POTASSIUM CHLORIDE 20 MEQ PACKET (FOR LIQUID) 40 MEQ FEED TUBE (08:56)
[2024-05-30] MEDS: MINERAL OIL/WHITE PETROLATUM OINTMENT 1 APPLIC EACH EYE (08:57)
--- NOTE | 2024-05-30 11:41 | PM.EVENT ---
Event Note Event Note Event Note: Spoke to patient's earlier and she reiterated plan for palliative extubation and comfort care today once the children arrive. I met with patient's son daughter and [id number] and they need some information from career education teacher before proceeding. They have met with career education teacher and obtained information the needed. They have signed the paperwork. They have decided to proceed with palliative extubation and comfort care. I have placed orders. I have explained them that I will use opioids, anxiolytics and other agents on as needed basis to promote comfort and discontinue all medical therapy, lab testing and invasive monitoring. Patient will eventually . They verbalized understanding and agreed to proceed. Primary attending hospitalist was also notified.
--- NOTE | 2024-05-30 12:01 | P.PNCA_ITS ---
Progress Note: A&P Assessment and Plan (1) Shock: Code(s): R57.9 - Shock, unspecified Status: Acute Plan 1. Shock, likely mixed picture of septic and cardiogenic 2. Acute respiratory failure requiring mechanical ventilation 3. DIC 4. Upper GI bleed 5. Acute kidney injury: Creatinine improved to 3.1 6. Cardiomyopathy with severely reduced LVEF 7. Atrial fibrillation 8. Multisystem organ failure PLAN: -Patient in shock, with multiorgan failure, GI bleed, DIC. palliative extubation and comfort care pending. family at bedside. 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 Still intubated sedated appearing for extubation. Family at bedside. Review of Systems Review of Systems: Limited ROS due to mental status. ROS unobtainable: Yes unobtainable due to endotracheal tube and unobtainable due to medical condition Exam Const: General: comfortable, no acute distress and tired appearing Orientation/consciousness: No patient oriented x3 Other: Critically ill male HENMT: Head: normal to inspection Mouth: Yes dry mucous membranes Other: OETT in place Eyes: General: appearance normal, both eyes and all related structures Sclera: sclerae normal Neck: Neck: no JVD Resp: Effort & Inspection: normal respiratory effort Other: On mechanical ventilation Cardio: Rate: regular rate, bradycardic and tachycardic Rhythm: abnormal rhythm irregularly irregular Heart sounds: no murmurs Skin: General skin exam: normal color Neuro: General: No patient oriented x3 Other: Sedated on ventilator support Extrem: General: edema Other: no edema Objective Data Vital Signs Vital Signs: Vital Signs - 24 hr 05/29/24 12:12 05/29/24 14:00 05/29/24 14:00 Temperature 35.9 C L 36.3 C L Pulse Rate 94 94 Respiratory Rate 18 18 Blood Pressure 114/59 L Pulse Oximetry 98 Oxygen Delivery Fraction of Inspired Oxygen 05/29/24 14:00 05/29/24 14:00 05/29/24 14:00 Temperature Pulse Rate 97 94 94 Respiratory Rate 18 Blood Pressure 114/59 L Pulse Oximetry Oxygen Delivery Fraction of Inspired Oxygen 05/29/24 16:00 05/29/24 16:00 05/29/24 16:00 Temperature 36.8 C Pulse Rate 86 98 98 Respiratory Rate 18 18 Blood Pressure 109/66 Pulse Oximetry 97 97 Oxygen Delivery Mechanical Ventilation Fraction of Inspired Oxygen 35 05/29/24 16:00 05/29/24 16:00 05/29/24 16:00 Temperature 36.4 C L Pulse Rate 98 98 Respiratory Rate 18 Blood Pressure 109/66 Pulse Oximetry Oxygen Delivery Fraction of Inspired Oxygen 05/29/24 16:00 05/29/24 16:00 05/29/24 16:00 Temperature Pulse Rate 112 H Respiratory Rate Blood Pressure Pulse Oximetry 98 Oxygen Delivery Mechanical Ventilation Fraction of Inspired Oxygen 35 35 05/29/24 18:00 05/29/24 18:00 05/29/24 18:15 Temperature Pulse Rate 77 78 78 Respiratory Rate 18 18 Blood Pressure Pulse Oximetry Oxygen Delivery Fraction of Inspired Oxygen 05/29/24 18:15 05/29/24 18:20 05/29/24 20:00 Temperature 36.9 C 36.8 C Pulse Rate 78 77 67 Respiratory Rate 18 18 Blood Pressure 105/63 105/63 105/64 Pulse Oximetry 96 96 Oxygen Delivery Fraction of Inspired Oxygen 05/29/24 20:00 05/29/24 20:00 05/29/24 20:00 Temperature Pulse Rate 89 89 89 Respiratory Rate 18 18 Blood Pressure 105/64 Pulse Oximetry Oxygen Delivery Fraction of Inspired Oxygen 05/29/24 20:00 05/29/24 20:10 05/29/24 20:45 Temperature Pulse Rate 89 96 96 Respiratory Rate 18 Blood Pressure Pulse Oximetry 97 97 Oxygen Delivery Mechanical Ventilation Mechanical Ventilation Fraction of Inspired Oxygen 35 35 05/29/24 20:47 05/29/24 21:00 05/29/24 21:00 Temperature 36.8 C Pulse Rate 96 92 Respiratory Rate 18 Blood Pressure 75/60 L 76/51 L Pulse Oximetry 96 Oxygen Delivery Fraction of Inspired Oxygen 35 05/29/24 21:15 05/29/24 21:17 05/29/24 21:45 Temperature 36.8 C Pulse Rate 93 92 90 Respiratory Rate 18 18 Blood Pressure 94/61 L 133/72 Pulse Oximetry 96 Oxygen Delivery Fraction of Inspired Oxygen 05/29/24 21:45 05/29/24 22:00 05/29/24 22:00 Temperature 36.8 C 36.7 C Pulse Rate 89 108 H 98 Respiratory Rate 18 18 Blood Pressure 133/72 117/70 Pulse Oximetry 95 96 Oxygen Delivery Fraction of Inspired Oxygen 05/29/24 22:00 05/29/24 22:00 05/29/24 22:46 Temperature Pulse Rate 95 95 96 Respiratory Rate 18 18 Blood Pressure 119/93 H Pulse Oximetry Oxygen Delivery Fraction of Inspired Oxygen 05/29/24 23:03 05/29/24 23:45 05/29/24 23:46 Temperature 36.6 C Pulse Rate 108 H 88 95 Respiratory Rate 18 Blood Pressure 83/56 L 83/65 L Pulse Oximetry 95 96 Oxygen Delivery Mechanical Ventilation Fraction of Inspired Oxygen 35 05/29/24 23:55 05/30/24 00:00 05/30/24 00:00 Temperature 36.6 C Pulse Rate 95 110 H Respiratory Rate 18 20 Blood Pressure 133/93 H Pulse Oximetry 96 100 Oxygen Delivery Mechanical Ventilation Fraction of Inspired Oxygen 35 35 05/30/24 00:00 05/30/24 00:00 05/30/24 00:00 Temperature Pulse Rate 105 H 105 H 105 H Respiratory Rate 20 20 Blood Pressure 133/93 H Pulse Oximetry Oxygen Delivery Fraction of Inspired Oxygen 05/30/24 00:00 05/30/24 00:15 05/30/24 02:00 Temperature 36.6 C Pulse Rate 100 100 109 H Respiratory Rate 18 Blood Pressure 122/79 Pulse Oximetry 96 Oxygen Delivery Fraction of Inspired Oxygen 05/30/24 02:00 05/30/24 02:00 05/30/24 02:00 Temperature 36.6 C Pulse Rate 106 H 105 H 105 H Respiratory Rate 18 18 Blood Pressure 120/81 120/81 Pulse Oximetry 96 Oxygen Delivery Fraction of Inspired Oxygen 05/30/24 02:00 05/30/24 02:18 05/30/24 03:05 Temperature 36.4 C Pulse Rate 105 H 99 105 H Respiratory Rate 18 18 Blood Pressure 116/76 Pulse Oximetry 96 95 Oxygen Delivery Mechanical Ventilation Fraction of Inspired Oxygen 35 05/30/24 03:06 05/30/24 03:47 05/30/24 04:00 Temperature 36.4 C L 36.3 C L Pulse Rate 101 H 85 88 Respiratory Rate 18 18 Blood Pressure 116/76 113/65 113/72 Pulse Oximetry 96 96 Oxygen Delivery Fraction of Inspired Oxygen 05/30/24 04:00 05/30/24 04:00 05/30/24 04:00 Temperature Pulse Rate 81 86 Respiratory Rate 18 Blood Pressure 113/72 Pulse Oximetry Oxygen Delivery Fraction of Inspired Oxygen 35 05/30/24 04:00 05/30/24 04:00 05/30/24 04:00 Temperature Pulse Rate 89 89 87 Respiratory Rate 18 18 Blood Pressure Pulse Oximetry 100 Oxygen Delivery Mechanical Ventilation Fraction of Inspired Oxygen 35 05/30/24 05:05 05/30/24 05:50 05/30/24 06:00 Temperature 36.3 C L Pulse Rate 83 105 H 93 Respiratory Rate 22 H 18 Blood Pressure 128/88 Pulse Oximetry 97 96 Oxygen Delivery Mechanical Ventilation Fraction of Inspired Oxygen 35 05/30/24 06:00 05/30/24 06:00 05/30/24 06:00 Temperature Pulse Rate 101 H 101 H 101 H Respiratory Rate 18 Blood Pressure 119/77 Pulse Oximetry Oxygen Delivery Fraction of Inspired Oxygen 05/30/24 08:00 05/30/24 08:00 05/30/24 08:00 Temperature Pulse Rate 91 91 90 Respiratory Rate 18 18 Blood Pressure 112/72 Pulse Oximetry Oxygen Delivery Fraction of Inspired Oxygen 05/30/24 08:33 05/30/24 10:00 05/30/24 10:00 Temperature Pulse Rate 91 94 94 Respiratory Rate 18 Blood Pressure 118/76 Pulse Oximetry 98 Oxygen Delivery Mechanical Ventilation Fraction of Inspired Oxygen 35 05/30/24 10:00 Temperature Pulse Rate 94 Respiratory Rate 18 Blood Pressure Pulse Oximetry Oxygen Delivery Fraction of Inspired Oxygen Intake/Output Intake/Output: Intake & Output 05/27/24 05/28/24 05/29/24 05/30/24 23:59 23:59 23:59 23:59 Intake Total 4818.1 1745.5 2044.2 674.3 Output Total 370 454 2862 950 Balance 4248.1 820.5 344.2 -275.7 Meds/Results Medications: Active Medications Generic Name Dose Route Start Last Admin Trade Name Freq PRN Reason Stop Dose Admin Acetaminophen 650 mg 05/23/24 18:33 05/26/24 11:48 Acetaminophen 325 Mg Tablet PO 650 mg Q4H PRN Administration Mild Pain (1-3) or Fever Albuterol 1 puff 05/24/24 09:23 Albuterol Sulfate (*Sp) Aerosol 1 Puff INHALATION Q6H PRN Wheezing Atropine Sulfate 1 - 2 drop 05/30/24 11:09 Atropine Sulfate 1% Ophth Soln 5 Ml Bottle SUBLINGUAL Q4H PRN Secretions Dextrose 12.5 gm 05/27/24 08:14 Dextrose 50% 25 Gm/50 Ml Syringe IV PUSH PRN PRN Hypoglycemia Protocol Glucagon 1 mg 05/27/24 08:14 Glucagon For Inj 1 Mg Vial IM PRN PRN Hypoglycemia Protocol Glucose 15 gm 05/27/24 08:14 Glucose Oral Gel 15 Gm Of Glucse In 37.5 Gm Tube PO PRN PRN Hypoglycemia Protocol Hydrocortisone Sodium Succinate 100 mg 05/26/24 22:00 05/30/24 06:09 Hydrocortisone Sodium Succinate 100 Mg/2 Ml Vial IV PUSH 100 mg Q8HR NAN Administration Metronidazole 500 mg in 100 mls @ 100 mls/hr 05/26/24 18:00 05/30/24 04:10 Flagyl 500 Mg/Iso Soln 100 Ml IVPB Infused Q8H NAN Infusion Cefepime HCl 1 gm in 50 mls @ 100 mls/hr 05/27/24 17:00 05/29/24 17:28 Maxipime 1 Gm/Ns 50 Ml IVPB Infused Q24H NAN Infusion Norepinephrine Bitartrate 8 mg in 250 mls @ 3.75 mls/hr 05/26/24 19:40 05/30/24 10:00 Levophed 8 Mg/D5w 250 Ml IV CONT 2 mcg/min .Q24H NAN 3.75 mls/hr Titration Protocol 2 MCG/MIN Fentanyl Citrate 2,500 mcg in 250 mls @ 2.5 mls/hr 05/27/24 04:40 05/30/24 10:00 Fentanyl 2,500 Mcg/Ns 250 Ml IV CONT 25 mcg/hr .Q72H NAN 2.5 mls/hr Titration Protocol 25 MCG/HR Midazolam HCl 100 mg in 100 mls @ 1 mls/hr 05/27/24 04:40 05/30/24 10:00 Versed 100 Mg/Ns 100 Ml IV CONT 1 mg/hr .Q72H NAN 1 mls/hr Titration Protocol 1 MG/HR Pantoprazole Sodium 80 mg/ 500 mls @ 50 mls/hr 05/27/24 07:00 05/30/24 09:15 Sodium Chloride IV CONT Infused .Q10H NAN Infusion Dextrose 1,000 mls @ 100 mls/hr 05/27/24 08:14 Dextrose 5% 1,000 Ml IVPB PRN PRN Hypoglycemia Protocol Insulin Aspart 3 - 6 units 05/27/24 09:00 05/30/24 08:51 Insulin Aspart (*Bkc) 100 Units/Ml SUB-Q Not Given Q4HR [facility] Protocol Levothyroxine Sodium 25 mcg 05/25/24 06:30 05/30/24 06:10 Levothyroxine Sodium 25 Mcg Tablet PO Not Given DAILY@0630 [facility] Lorazepam 2 mg 05/30/24 11:09 Lorazepam Inj (*Crx) 2 Mg/Ml Vial IV PUSH Q1H PRN Anxiety/Comfort Metoprolol Tartrate 5 mg 05/24/24 16:19 05/26/24 03:43 Metoprolol Tartrate Inj 5 Mg/5 Ml Vial IV PUSH 5 mg Q4HR PRN Administration Heart Rate- High Miscellaneous Information 1 each 05/24/24 00:01 Tafamidis Nonformulary, Can Patient Use From Home Or Hold Till Discharge? XX 06/23/24 00:00 CLARIFY NAN Morphine Sulfate 4 mg 05/30/24 11:09 Morphine Sulfate (*Crx) 2 Mg/Ml Inj IV PUSH Q30M PRN COMFORT Multi-Ingred Cream/Lotion/Oil/Oint 1 applic 05/27/24 09:00 05/30/24 08:57 Mineral Oil/White Petrolatum Ointment EACH EYE 1 applic Q12HR NAN Administration Potassium Chloride 40 meq 05/30/24 07:50 05/30/24 08:56 Potassium Chloride 20 Meq Packet (For Liquid) FEED TUBE 05/30/24 13:51 40 meq Q6H NAN Administration Sodium Chloride 10 ml 05/27/24 14:00 05/30/24 06:09 Central Line Flush IV PUSH 10 ml Q8HR NAN Administration Sodium Chloride 20 ml 05/27/24 08:27 Central Line Flush IV PUSH PRN PRN after blood draws Vancomycin HCl 1 each 05/26/24 21:34 Vancomycin For Acute Kidney Injury IVPB PRN PRN Vancomycin Protocol Radiology Results: ITS Impressions Face CT 05/25/24 11:39 IMPRESSION: No facial fracture. Renal Ultrasound 05/26/24 13:59 IMPRESSION: 1. 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 2. Small amount of ascites in the pelvis. Chest/Abdomen/Pelvis CT 05/26/24 15:06 IMPRESSION: CHEST: 1. Bilateral pleural effusion with adjacent atelectasis. 2. Gross cardiomegaly. ABDOMEN/PELVIS: 1. No evidence of appendicitis, diverticulitis or intestinal obstruction. 2. Hyperdense area in the gallbladder which may be a stone or residual contrast. 3. Constipation. 4. Minimal Ascites Upper Quadrant Ultrasound 05/27/24 08:01 IMPRESSION: 1. Right pleural effusion. Abdomen X-Ray 05/28/24 09:21 IMPRESSION: 1. Nasogastric tube tip in the stomach. Chest X-Ray 05/30/24 06:15 IMPRESSION: 1. Stable airspace opacities in the lower lung zones, consistent with atelectasis versus pneumonia. 2. Cardiomegaly. Labs Labs: Laboratory Results - last 24 hr 05/29/24 05/29/24 05/29/24 12:09 21:14 23:49 WBC RBC Hgb Hct MCV MCH MCHC RDW Plt Count MPV % Immature Plt Fraction PT INR Sodium Potassium Chloride Carbon Dioxide Anion Gap BUN Creatinine Estim Creat Clear Calc Estimated GFR Glucose POC Capillary Glucose 144 H 138 H 147 H Calcium Phosphorus Magnesium Total Bilirubin AST ALT Alkaline Phosphatase Total Protein Albumin Vancomycin Trough 05/30/24 05/30/24 06:02 08:50 WBC 10.5 H RBC 2.49 L Hgb 8.2 L Hct 25.8 L MCV 103.6 H MCH 32.9 MCHC 31.8 L RDW 16.5 H Plt Count 72 L MPV 12.0 H % Immature Plt Fraction 7.3 PT 31.3 H D INR 2.9 Sodium 146 H Potassium 3.2 L Chloride 103 Carbon Dioxide 30 Anion Gap 13 H BUN 97 H Creatinine 3.19 H Estim Creat Clear Calc 17 Estimated GFR 19 L Glucose 140 H POC Capillary Glucose 138 H Calcium 7.3 L Phosphorus 4.9 H Magnesium 2.7 H Total Bilirubin 6.3 H AST 814 H ALT 598 H Alkaline Phosphatase 63 Total Protein 6.0 L Albumin 3.3 L Vancomycin Trough 19.9
[2024-05-30] MEDS: LORazepam INJ (*CRX) 2 MG/ML VIAL IV PUSH ×5 (12:02→20:16)
[2024-05-30] MEDS: MORPHINE SULFATE INJ (*CRX) 10 MG/ML AMP 5 MG IV PUSH (12:03)
[2024-05-30] MEDS: MORPHINE SULFATE (*CRX) 2 MG/ML INJ 4 MG IV PUSH ×4 (12:44→20:13)
[2024-05-30] MEDS: ATROPINE SULFATE 1% OPHTH SOLN 5 ML BOTTLE SUBLINGUAL ×3 (14:39→22:51)
--- NOTE | 2024-05-30 16:06 | P.PNIM_ITS ---
Progress Note: A&P Assessment and Plan (1) Acute respiratory failure: Code(s): J96.00 - Acute respiratory failure, unspecified whether with hypoxia or hypercapnia Status: Acute Assessment and Plan: Acute respiratory failure secondary to sepsis, shock, altered mental status, GI bleeding Patient now intubated and on mechanical ventilation Chest x-ray vent settings reviewed Ventilator settings reviewed (2) Shock: Code(s): R57.9 - Shock, unspecified Status: Acute Assessment and Plan: Patient is in shock and is requiring Levophed and vasopressin Shock is combination of sepsis and Cardiogenic His echocardiogram shows EF of 20-25% and patient is also bradycardic. Patient has biventricular failure He also has evidence of UTI on his UA, pneumonia on his CT scan and elevated procalcitonin Continue Levophed. Off vasopressin. Hold further IV fluids Continue hydrocortisone (3) Sepsis: Code(s): A41.9 - Sepsis, unspecified organism Status: Acute Assessment and Plan: UA suggestive of UTI it CT scan shows atelectasis versus pneumonia CT abdomen pelvis was not suggestive of any other source of infection Cultures have been done and pending Patient is currently on metronidazole, cefepime . Off vancomycin (4) Upper GI bleed: Code(s): K92.2 - Gastrointestinal hemorrhage, unspecified Status: Acute Assessment and Plan: Patient is having upper GI bleed which is likely secondary to DIC GI consulted patient initially received blood products to correct coagulopathy but not know additional blood products being given as family plans to proceed with palliative extubation and comfort cares Protonix bolus and infusion Globin has been stable (5) Acute kidney injury: Code(s): N17.9 - Acute kidney failure, unspecified Status: Acute Assessment and Plan: Acute kidney injury. Likely secondary to sepsis shock Patient was on IV fluids with bicarb for metabolic acidosis which is now on hold Monitor electrolytes urine output urine output has improved creatinine remains stable but BUN continues to increase (6) Metabolic acidosis: Code(s): E87.20 - Acidosis, unspecified Status: Acute Assessment and Plan: Improved with IV fluids with bicarb (7) Disseminated intravascular coagulation: Code(s): D65 - Disseminated intravascular coagulation [defibrination syndrome] Status: Acute Assessment and Plan: Patient was on Eliquis and now has developed shock which is a combination of sepsis and cardiogenic. Patient also on antibiotic Patient's initial INR done last night was more than 20 He has received more than 4 units of FFP, cryo and prothrombin complex concentrate I repeated INR this morning it was 7.8 I was planning to give him additional FFP but considering family's proceeding with comfort care I will hold on further transfusions at this time Management of GI bleeding as above (8) Cardiomyopathy: Code(s): I42.9 - Cardiomyopathy, unspecified Status: Acute Assessment and Plan: Patient has extensive cardiac disease and has history of tachy-cassia syndrome and amyloidosis. Patient was offered pacemaker but patient's elected not to proceed with it in the past. On the floor patient was started on beta-rupert and amiodarone when he was in a flutter and then he converted into sinus bradycardia and medication was stopped Echocardiogram done and shows EF of 20-25% with moderately increased left ventricular wall thickness and right ventricular systolic and diastolic dysfunction Patient was in sinus bradycardia but now has converted to AFib Ventricular rate is controlled at this time Discussed with Cardiology (9) Atrial fibrillation: Code(s): I48.91 - Unspecified atrial fibrillation Status: Acute Assessment and Plan: See above (10) Bradyarrhythmia: Code(s): I49.8 - Other specified cardiac arrhythmias Status: Acute Assessment and Plan: See above (11) Chronic 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: Code(s): 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 Status: Acute Assessment and Plan: Eliquis has been discontinued due to DIC and bleeding (12) History of amyloidosis: Code(s): Z86.39 - Personal history of other endocrine, nutritional and metabolic disease Status: Acute Assessment and Plan: History of a amyloidosis (13) Dementia: Code(s): F03.90 - Unspecified dementia, unspecified severity, without behavioral disturbance, psychotic disturbance, mood disturbance, and anxiety Status: Acute Assessment and Plan: History of baseline dementia No interventions at this time (14) Hematuria: Code(s): R31.9 - Hematuria, unspecified Status: Acute Assessment and Plan: Secondary DIC Burk in place Correct coagulopathy (15) Electrolyte abnormality: Code(s): E87.8 - Other disorders of electrolyte and fluid balance, not elsewhere classified Status: Acute Assessment and Plan: Potassium replacement ordered Subjective Date/time seen: 05/30/24 16:06 Interval history: Initiated comfort care.Palliatively extubated. Review of Systems Review of Systems: All systems reviewed & are unremarkable except as noted in HPI and below ROS unobtainable: Yes unobtainable due to endotracheal tube, unobtainable due to medical condition and unobtainable due to mental status Exam Narrative: General: Pt is sedated, intubated and on mechanical ventilation Lungs/Chest: Trachea central Coarse BS B/L, No crackles or wheezing. Cardiac: RRR. Normal S1 S2. No murmurs Circulation: Bilateral feet are cold, faint dorsalis pedis pulse can be palpated on both sides. Feet are cold from middle of the leg downward Abdomen: Decreased bowel sounds. Obese. Soft. NT. ND. Blood-tinged output from OG tube Extremities: No clubbing, cyanosis or edema. Right femoral central venous catheter : Burk in place with hematuria Neurologic: Unable to assess due to sedation. Moves all 4 extremities to painful stimuli. PERRL pupils are pinpoint Right IJ central venous catheter site is is under dressing with small amount of oozing, there was oozing going on from left peripheral IV site Objective Data Vital Signs Vital Signs: Vital Signs - 24 hr 05/29/24 18:00 05/29/24 18:00 05/29/24 18:15 Temperature Pulse Rate 77 78 78 Respiratory Rate 18 18 Blood Pressure Pulse Oximetry Oxygen Delivery Fraction of Inspired Oxygen 05/29/24 18:15 05/29/24 18:20 05/29/24 20:00 Temperature 98.5 F 98.3 F Pulse Rate 78 77 67 Respiratory Rate 18 18 Blood Pressure 105/63 105/63 105/64 Pulse Oximetry 96 96 Oxygen Delivery Fraction of Inspired Oxygen 05/29/24 20:00 05/29/24 20:00 05/29/24 20:00 Temperature Pulse Rate 89 89 89 Respiratory Rate 18 18 Blood Pressure 105/64 Pulse Oximetry Oxygen Delivery Fraction of Inspired Oxygen 05/29/24 20:00 05/29/24 20:10 05/29/24 20:45 Temperature Pulse Rate 89 96 96 Respiratory Rate 18 Blood Pressure Pulse Oximetry 97 97 Oxygen Delivery Mechanical Ventilation Mechanical Ventilation Fraction of Inspired Oxygen 35 35 05/29/24 20:47 05/29/24 21:00 05/29/24 21:00 Temperature 98.3 F Pulse Rate 96 92 Respiratory Rate 18 Blood Pressure 75/60 L 76/51 L Pulse Oximetry 96 Oxygen Delivery Fraction of Inspired Oxygen 35 05/29/24 21:15 05/29/24 21:17 05/29/24 21:45 Temperature 98.3 F Pulse Rate 93 92 90 Respiratory Rate 18 18 Blood Pressure 94/61 L 133/72 Pulse Oximetry 96 Oxygen Delivery Fraction of Inspired Oxygen 05/29/24 21:45 05/29/24 22:00 05/29/24 22:00 Temperature 98.2 F 98.1 F Pulse Rate 89 108 H 98 Respiratory Rate 18 18 Blood Pressure 133/72 117/70 Pulse Oximetry 95 96 Oxygen Delivery Fraction of Inspired Oxygen 05/29/24 22:00 05/29/24 22:00 05/29/24 22:46 Temperature Pulse Rate 95 95 96 Respiratory Rate 18 18 Blood Pressure 119/93 H Pulse Oximetry Oxygen Delivery Fraction of Inspired Oxygen 05/29/24 23:03 05/29/24 23:45 05/29/24 23:46 Temperature 98 F Pulse Rate 108 H 88 95 Respiratory Rate 18 Blood Pressure 83/56 L 83/65 L Pulse Oximetry 95 96 Oxygen Delivery Mechanical Ventilation Fraction of Inspired Oxygen 35 05/29/24 23:55 05/30/24 00:00 05/30/24 00:00 Temperature 97.9 F Pulse Rate 95 110 H Respiratory Rate 18 20 Blood Pressure 133/93 H Pulse Oximetry 96 100 Oxygen Delivery Mechanical Ventilation Fraction of Inspired Oxygen 35 35 05/30/24 00:00 05/30/24 00:00 05/30/24 00:00 Temperature Pulse Rate 105 H 105 H 105 H Respiratory Rate 20 20 Blood Pressure 133/93 H Pulse Oximetry Oxygen Delivery Fraction of Inspired Oxygen 05/30/24 00:00 05/30/24 00:15 05/30/24 02:00 Temperature 97.9 F Pulse Rate 100 100 109 H Respiratory Rate 18 Blood Pressure 122/79 Pulse Oximetry 96 Oxygen Delivery Fraction of Inspired Oxygen 05/30/24 02:00 05/30/24 02:00 05/30/24 02:00 Temperature 97.8 F Pulse Rate 106 H 105 H 105 H Respiratory Rate 18 18 Blood Pressure 120/81 120/81 Pulse Oximetry 96 Oxygen Delivery Fraction of Inspired Oxygen 05/30/24 02:00 05/30/24 02:18 05/30/24 03:05 Temperature 97.6 F Pulse Rate 105 H 99 105 H Respiratory Rate 18 18 Blood Pressure 116/76 Pulse Oximetry 96 95 Oxygen Delivery Mechanical Ventilation Fraction of Inspired Oxygen 35 05/30/24 03:06 05/30/24 03:47 05/30/24 04:00 Temperature 97.5 F L 97.4 F L Pulse Rate 101 H 85 88 Respiratory Rate 18 18 Blood Pressure 116/76 113/65 113/72 Pulse Oximetry 96 96 Oxygen Delivery Fraction of Inspired Oxygen 05/30/24 04:00 05/30/24 04:00 05/30/24 04:00 Temperature Pulse Rate 81 86 Respiratory Rate 18 Blood Pressure 113/72 Pulse Oximetry Oxygen Delivery Fraction of Inspired Oxygen 35 05/30/24 04:00 05/30/24 04:00 05/30/24 04:00 Temperature Pulse Rate 89 89 87 Respiratory Rate 18 18 Blood Pressure Pulse Oximetry 100 Oxygen Delivery Mechanical Ventilation Fraction of Inspired Oxygen 35 05/30/24 05:05 05/30/24 05:50 05/30/24 06:00 Temperature 97.3 F L Pulse Rate 83 105 H 93 Respiratory Rate 22 H 18 Blood Pressure 128/88 Pulse Oximetry 97 96 Oxygen Delivery Mechanical Ventilation Fraction of Inspired Oxygen 35 05/30/24 06:00 05/30/24 06:00 05/30/24 06:00 Temperature Pulse Rate 101 H 101 H 101 H Respiratory Rate 18 Blood Pressure 119/77 Pulse Oximetry Oxygen Delivery Fraction of Inspired Oxygen 05/30/24 08:00 05/30/24 08:00 05/30/24 08:00 Temperature Pulse Rate 91 91 90 Respiratory Rate 18 18 Blood Pressure 112/72 Pulse Oximetry Oxygen Delivery Fraction of Inspired Oxygen 05/30/24 08:00 05/30/24 08:00 05/30/24 08:00 Temperature Pulse Rate 96 Respiratory Rate Blood Pressure Pulse Oximetry 98 Oxygen Delivery Mechanical Ventilation Fraction of Inspired Oxygen 35 05/30/24 08:00 05/30/24 08:33 05/30/24 10:00 Temperature 96.9 F L Pulse Rate 90 91 94 Respiratory Rate 18 18 Blood Pressure 123/75 Pulse Oximetry 96 98 Oxygen Delivery Mechanical Ventilation Fraction of Inspired Oxygen 35 05/30/24 10:00 05/30/24 10:00 05/30/24 10:00 Temperature Pulse Rate 94 94 94 Respiratory Rate 18 Blood Pressure 118/76 Pulse Oximetry Oxygen Delivery Fraction of Inspired Oxygen 05/30/24 10:00 05/30/24 12:00 05/30/24 12:00 Temperature 96.8 F L Pulse Rate 94 100 100 Respiratory Rate 18 19 Blood Pressure 118/76 107/66 Pulse Oximetry 95 Oxygen Delivery Fraction of Inspired Oxygen 05/30/24 12:00 05/30/24 12:00 05/30/24 12:00 Temperature 97.1 F L Pulse Rate 100 100 Respiratory Rate 19 19 Blood Pressure 107/66 Pulse Oximetry 95 Oxygen Delivery Fraction of Inspired Oxygen 35 05/30/24 12:10 05/30/24 14:00 Temperature 97.9 F Pulse Rate 153 H Respiratory Rate 4 L Blood Pressure 64/54 L Pulse Oximetry 85 L Oxygen Delivery Mechanical Ventilation Fraction of Inspired Oxygen Intake/Output Intake/Output: Intake & Output 05/27/24 05/28/24 05/29/24 05/30/24 23:59 23:59 23:59 23:59 Intake Total 4818.1 1745.5 2044.2 688.8 Output Total 093 047 2658 950 Balance 4248.1 820.5 344.2 -261.2 Meds/Results Medications: Active Medications Generic Name Dose Route Start Last Admin Trade Name Freq PRN Reason Stop Dose Admin Atropine Sulfate 1 - 2 drop 05/30/24 11:09 05/30/24 14:39 Atropine Sulfate 1% Ophth Soln 5 Ml Bottle SUBLINGUAL 1 drop Q4H PRN Administration Secretions Lorazepam 2 mg 05/30/24 11:09 05/30/24 14:38 Lorazepam Inj (*Crx) 2 Mg/Ml Vial IV PUSH 2 mg Q1H PRN Administration Anxiety/Comfort Morphine Sulfate 4 mg 05/30/24 11:09 05/30/24 14:38 Morphine Sulfate (*Crx) 2 Mg/Ml Inj IV PUSH 4 mg Q30M PRN Administration COMFORT Multi-Ingred Cream/Lotion/Oil/Oint 1 applic 05/27/24 09:00 05/30/24 08:57 Mineral Oil/White Petrolatum Ointment EACH EYE 1 applic Q12HR NAN Administration Sodium Chloride 10 ml 05/27/24 14:00 05/30/24 14:39 Central Line Flush IV PUSH 10 ml Q8HR NAN Administration Radiology Results: ITS Impressions Face CT 05/25/24 11:39 IMPRESSION: No facial fracture. Renal Ultrasound 05/26/24 13:59 IMPRESSION: 1. 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 2. Small amount of ascites in the pelvis. Chest/Abdomen/Pelvis CT 05/26/24 15:06 IMPRESSION: CHEST: 1. Bilateral pleural effusion with adjacent atelectasis. 2. Gross cardiomegaly. ABDOMEN/PELVIS: 1. No evidence of appendicitis, diverticulitis or intestinal obstruction. 2. Hyperdense area in the gallbladder which may be a stone or residual contrast. 3. Constipation. 4. Minimal Ascites Upper Quadrant Ultrasound 05/27/24 08:01 IMPRESSION: 1. Right pleural effusion. Abdomen X-Ray 05/28/24 09:21 IMPRESSION: 1. Nasogastric tube tip in the stomach. Chest X-Ray 05/30/24 06:15 IMPRESSION: 1. Stable airspace opacities in the lower lung zones, consistent with atelectasis versus pneumonia. 2. Cardiomegaly. Labs Labs: Laboratory Results - last 24 hr 05/29/24 05/29/24 05/30/24 21:14 23:49 06:02 WBC 10.5 H RBC 2.49 L Hgb 8.2 L Hct 25.8 L MCV 103.6 H MCH 32.9 MCHC 31.8 L RDW 16.5 H Plt Count 72 L MPV 12.0 H % Immature Plt Fraction 7.3 PT 31.3 H D INR 2.9 Sodium 146 H Potassium 3.2 L Chloride 103 Carbon Dioxide 30 Anion Gap 13 H BUN 97 H Creatinine 3.19 H Estim Creat Clear Calc 17 Estimated GFR 19 L Glucose 140 H POC Capillary Glucose 138 H 147 H Calcium 7.3 L Phosphorus 4.9 H Magnesium 2.7 H Total Bilirubin 6.3 H AST 814 H ALT 598 H Alkaline Phosphatase 63 Total Protein 6.0 L Albumin 3.3 L Vancomycin Trough 19.9 05/30/24 08:50 WBC RBC Hgb Hct MCV MCH MCHC RDW Plt Count MPV % Immature Plt Fraction PT INR Sodium Potassium Chloride Carbon Dioxide Anion Gap BUN Creatinine Estim Creat Clear Calc Estimated GFR Glucose POC Capillary Glucose 138 H Calcium Phosphorus Magnesium Total Bilirubin AST ALT Alkaline Phosphatase Total Protein Albumin Vancomycin Trough Quality VTE Prophylaxis VTE prophylaxis: mechanical ordered Hospitalist MIPS Advance Care Plan I have confirmed that the patient's Advanced Care Plan is present, code status is documented, or surrogate decision maker is listed in patient medical record.: Yes Medication Reconciliation I have utilized all available resources to obtain, update and review the patients current medications (includes all prescriptions, OTC, herbals, cannabis, and nutritional supplements).: Yes
--- NOTE | 2024-05-30 22:28 | PC.NURSE ---
Report given to Melissa ARGUELLES at [phone].
--- NOTE | 2024-05-30 22:29 | PC.NURSE ---
Patient transferred by bed to room 253 at [id number]. Belongings taken home by family.
--- NOTE | 2024-05-30 22:32 | PC.NURSE ---
Son Ever called and made aware of patient moving to room 253. Given name of nurse Melissa and the phone number for the 2nd medical.
[2024-05-31] VITALS: BP 70/56; PULSE 60; RESP 12; TEMP 36.9; O2SAT 88
[2024-05-31] MEDS: MORPHINE SULFATE (*CRX) 2 MG/ML INJ 4 MG IV PUSH ×3 (00:28→16:33)
[2024-05-31] MEDS: LORazepam INJ (*CRX) 2 MG/ML VIAL IV PUSH ×3 (00:31→07:49)
[2024-05-31] MEDS: ATROPINE SULFATE 1% OPHTH SOLN 5 ML BOTTLE SUBLINGUAL ×2 (04:37→15:42)
[2024-05-31 06:34] VITALS: BP 61/52; PULSE 67; RESP 18; TEMP 36.9; O2SAT 87
[2024-05-31 07:49] VITALS: PULSE 107; O2SAT 85
--- NOTE | 2024-05-31 09:13 | P.PNIM_ITS ---
Progress Note: A&P Assessment and Plan (1) Acute respiratory failure: Code(s): J96.00 - Acute respiratory failure, unspecified whether with hypoxia or hypercapnia Status: Acute Assessment and Plan: Continue comfort care Acute respiratory failure secondary to sepsis, shock, altered mental status, GI bleeding Patient now intubated and on mechanical ventilation Chest x-ray vent settings reviewed Ventilator settings reviewed (2) Shock: Code(s): R57.9 - Shock, unspecified Status: Acute Assessment and Plan: Continue comfort care Patient is in shock and is requiring Levophed and vasopressin Shock is combination of sepsis and Cardiogenic His echocardiogram shows EF of 20-25% and patient is also bradycardic. Patient has biventricular failure He also has evidence of UTI on his UA, pneumonia on his CT scan and elevated procalcitonin Continue Levophed. Off vasopressin. Hold further IV fluids Continue hydrocortisone (3) Sepsis: Code(s): A41.9 - Sepsis, unspecified organism Status: Acute Assessment and Plan: Continue comfort care UA suggestive of UTI it CT scan shows atelectasis versus pneumonia CT abdomen pelvis was not suggestive of any other source of infection Cultures have been done and pending Patient is currently on metronidazole, cefepime . Off vancomycin (4) Upper GI bleed: Code(s): K92.2 - Gastrointestinal hemorrhage, unspecified Status: Acute Assessment and Plan: Continue comfort care Patient is having upper GI bleed which is likely secondary to DIC GI consulted patient initially received blood products to correct coagulopathy but not know additional blood products being given as family plans to proceed with palliative extubation and comfort cares Protonix bolus and infusion Globin has been stable (5) Acute kidney injury: Code(s): N17.9 - Acute kidney failure, unspecified Status: Acute Assessment and Plan: Continue comfort care Acute kidney injury. Likely secondary to sepsis shock Patient was on IV fluids with bicarb for metabolic acidosis which is now on hold Monitor electrolytes urine output urine output has improved creatinine remains stable but BUN continues to increase (6) Metabolic acidosis: Code(s): E87.20 - Acidosis, unspecified Status: Acute Assessment and Plan: Improved with IV fluids with bicarb (7) Disseminated intravascular coagulation: Code(s): D65 - Disseminated intravascular coagulation [defibrination syndrome] Status: Acute Assessment and Plan: Continue comfort care Patient was on Eliquis and now has developed shock which is a combination of sepsis and cardiogenic. Patient also on antibiotic Patient's initial INR done last night was more than 20 He has received more than 4 units of FFP, cryo and prothrombin complex concentrate I repeated INR this morning it was 7.8 I was planning to give him additional FFP but considering family's proceeding with comfort care I will hold on further transfusions at this time Management of GI bleeding as above (8) Cardiomyopathy: Code(s): I42.9 - Cardiomyopathy, unspecified Status: Acute Assessment and Plan: Continue comfort care Patient has extensive cardiac disease and has history of tachy-cassia syndrome and amyloidosis. Patient was offered pacemaker but patient's elected not to proceed with it in the past. On the floor patient was started on beta-rupert and amiodarone when he was in a flutter and then he converted into sinus bradycardia and medication was stopped Echocardiogram done and shows EF of 20-25% with moderately increased left ventricular wall thickness and right ventricular systolic and diastolic dysfunction Patient was in sinus bradycardia but now has converted to AFib Ventricular rate is controlled at this time Discussed with Cardiology (9) Atrial fibrillation: Code(s): I48.91 - Unspecified atrial fibrillation Status: Acute Assessment and Plan: See above (10) Bradyarrhythmia: Code(s): I49.8 - Other specified cardiac arrhythmias Status: Acute Assessment and Plan: See above (11) Chronic 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: 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): 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 Status: Acute Assessment and Plan: Eliquis has been discontinued due to DIC and bleeding (12) History of amyloidosis: Code(s): Z86.39 - Personal history of other endocrine, nutritional and metabolic disease Status: Acute Assessment and Plan: History of a amyloidosis (13) Dementia: Code(s): F03.90 - Unspecified dementia, unspecified severity, without behavioral disturbance, psychotic disturbance, mood disturbance, and anxiety Status: Chronic Assessment and Plan: History of baseline dementia No interventions at this time (14) Hematuria: Code(s): R31.9 - Hematuria, unspecified Status: Acute Assessment and Plan: Secondary DIC Burk in place Correct coagulopathy (15) Electrolyte abnormality: Code(s): E87.8 - Other disorders of electrolyte and fluid balance, not elsewhere classified Status: Acute Assessment and Plan: Potassium replacement ordered Subjective Date/time seen: 05/31/24 09:13 Interval history: Continue comfort care. Update: I got called from nurse around 17:00 that patient Review of Systems Review of Systems: All systems reviewed & are unremarkable except as noted in HPI and below ROS unobtainable: Yes unobtainable due to endotracheal tube, unobtainable due to medical condition and unobtainable due to mental status Exam Narrative: General: Pt is sedated, intubated and on mechanical ventilation Lungs/Chest: Trachea central Coarse BS B/L, No crackles or wheezing. Cardiac: RRR. Normal S1 S2. No murmurs Circulation: Bilateral feet are cold, faint dorsalis pedis pulse can be palpated on both sides. Feet are cold from middle of the leg downward Abdomen: Decreased bowel sounds. Obese. Soft. NT. ND. Blood-tinged output from OG tube Extremities: No clubbing, cyanosis or edema. Right femoral central venous catheter : Burk in place with hematuria Neurologic: Unable to assess due to sedation. Moves all 4 extremities to painful stimuli. PERRL pupils are pinpoint Right IJ central venous catheter site is is under dressing with small amount of oozing, there was oozing going on from left peripheral IV site Objective Data Vital Signs Vital Signs: Vital Signs - 24 hr 05/30/24 10:00 05/30/24 10:00 05/30/24 10:00 Temperature Pulse Rate 94 94 94 Respiratory Rate 18 18 Blood Pressure 118/76 Pulse Oximetry Oxygen Delivery Fraction of Inspired Oxygen 05/30/24 10:00 05/30/24 10:00 05/30/24 12:00 Temperature 96.8 F L Pulse Rate 94 94 100 Respiratory Rate 18 19 Blood Pressure 118/76 Pulse Oximetry 95 Oxygen Delivery Fraction of Inspired Oxygen 05/30/24 12:00 05/30/24 12:00 05/30/24 12:00 Temperature Pulse Rate 100 100 Respiratory Rate 19 Blood Pressure 107/66 Pulse Oximetry Oxygen Delivery Fraction of Inspired Oxygen 35 05/30/24 12:00 05/30/24 12:10 05/30/24 14:00 Temperature 97.1 F L 97.9 F Pulse Rate 100 153 H Respiratory Rate 19 4 L Blood Pressure 107/66 64/54 L Pulse Oximetry 95 85 L Oxygen Delivery Mechanical Ventilation Fraction of Inspired Oxygen 05/30/24 16:00 05/30/24 18:41 05/30/24 18:41 Temperature 98.3 F Pulse Rate 147 H 152 H 155 H Respiratory Rate 4 L 12 14 Blood Pressure Pulse Oximetry 89 L Oxygen Delivery Fraction of Inspired Oxygen 05/30/24 20:00 05/30/24 20:34 05/31/24 00:00 Temperature 98.5 F 98.4 F Pulse Rate 158 H 60 Respiratory Rate 5 L 12 Blood Pressure 63/49 L 70/56 L Pulse Oximetry 87 L 90 88 L Oxygen Delivery Room Air Fraction of Inspired Oxygen 05/31/24 06:34 Temperature 98.4 F Pulse Rate 67 Respiratory Rate 18 Blood Pressure 61/52 L Pulse Oximetry 87 L Oxygen Delivery Fraction of Inspired Oxygen Intake/Output Intake/Output: Intake & Output 05/28/24 05/29/24 05/30/24 05/31/24 23:59 23:59 23:59 23:59 Intake Total 1745.5 2044.2 688.8 Output Total 925 1700 1550 100 Balance 820.5 344.2 -861.2 -100 Meds/Results Medications: Active Medications Generic Name Dose Route Start Last Admin Trade Name Freq PRN Reason Stop Dose Admin Atropine Sulfate 1 - 2 drop 05/30/24 11:09 05/31/24 04:37 Atropine Sulfate 1% Ophth Soln 5 Ml Bottle SUBLINGUAL 1 drop Q4H PRN Administration Secretions Lorazepam 2 mg 05/30/24 11:09 05/31/24 07:49 Lorazepam Inj (*Crx) 2 Mg/Ml Vial IV PUSH 2 mg Q1H PRN Administration Anxiety/Comfort Morphine Sulfate 4 mg 05/30/24 11:09 05/31/24 04:35 Morphine Sulfate (*Crx) 2 Mg/Ml Inj IV PUSH 4 mg Q30M PRN Administration COMFORT Multi-Ingred Cream/Lotion/Oil/Oint 1 applic 05/27/24 09:00 05/30/24 19:48 Mineral Oil/White Petrolatum Ointment EACH EYE Not Given Q12HR NAN Sodium Chloride 10 ml 05/27/24 14:00 05/30/24 20:13 Central Line Flush IV PUSH 10 ml Q8HR NAN Administration Radiology Results: ITS Impressions Face CT 05/25/24 11:39 IMPRESSION: No facial fracture. Renal Ultrasound 05/26/24 13:59 IMPRESSION: 1. 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 2. Small amount of ascites in the pelvis. Chest/Abdomen/Pelvis CT 05/26/24 15:06 IMPRESSION: CHEST: 1. Bilateral pleural effusion with adjacent atelectasis. 2. Gross cardiomegaly. ABDOMEN/PELVIS: 1. No evidence of appendicitis, diverticulitis or intestinal obstruction. 2. Hyperdense area in the gallbladder which may be a stone or residual contrast. 3. Constipation. 4. Minimal Ascites Upper Quadrant Ultrasound 05/27/24 08:01 IMPRESSION: 1. Right pleural effusion. Abdomen X-Ray 05/28/24 09:21 IMPRESSION: 1. Nasogastric tube tip in the stomach. Chest X-Ray 05/30/24 06:15 IMPRESSION: 1. Stable airspace opacities in the lower lung zones, consistent with atelectasis versus pneumonia. 2. Cardiomegaly. Quality VTE Prophylaxis VTE prophylaxis: mechanical ordered Hospitalist MIPS Advance Care Plan I have confirmed that the patient's Advanced Care Plan is present, code status is documented, or surrogate decision maker is listed in patient medical record.: Yes Medication Reconciliation I have utilized all available resources to obtain, update and review the patients current medications (includes all prescriptions, OTC, herbals, cannabis, and nutritional supplements).: Yes
--- NOTE | 2024-05-31 09:21 | PM.PNCARD ---
Progress Note: A&P Assessment and Plan (1) Shock: Code(s): R57.9 - Shock, unspecified Status: Acute Plan 1. Shock, likely mixed picture of septic and cardiogenic 2. Acute respiratory failure requiring mechanical ventilation 3. DIC 4. Upper GI bleed 5. Acute kidney injury: 6. Cardiomyopathy with severely reduced LVEF 7. Atrial fibrillation 8. Multisystem organ failure PLAN: Comfort care. imminent. Seems comfortable. Subjective Date/time seen: 05/31/24 09:21 Interval history: 78-year-old with amyloidosis, AFib Date of service 05/30/2024: Comfort care only at this point. Still intubated sedated appearing for extubation. Family at bedside. Date of service 05/31/2024: Palliative measures. Seems comfortable Review of Systems Review of Systems: Limited ROS due to mental status. ROS unobtainable: Yes unobtainable due to endotracheal tube and unobtainable due to medical condition Exam Const: General: comfortable, no acute distress and tired appearing Orientation/consciousness: No patient oriented x3 Other: Critically ill male HENMT: Mouth: Yes dry mucous membranes Eyes: Sclera: sclerae normal Neck: Neck: no JVD Resp: Auscultation: diminished lung sounds Other: Decreased respiratory rate, rattling Cardio: Rate: regular rate Rhythm: abnormal rhythm irregularly irregular Skin: General skin exam: normal color Neuro: General: No patient oriented x3 Extrem: General: edema Other: no edema Objective Data Vital Signs Vital Signs: Vital Signs - 24 hr 05/30/24 10:00 05/30/24 10:00 05/30/24 10:00 Temperature Pulse Rate 94 94 94 Respiratory Rate 18 18 Blood Pressure 118/76 Pulse Oximetry Oxygen Delivery Fraction of Inspired Oxygen 05/30/24 10:00 05/30/24 10:00 05/30/24 12:00 Temperature 36.0 C L Pulse Rate 94 94 100 Respiratory Rate 18 19 Blood Pressure 118/76 Pulse Oximetry 95 Oxygen Delivery Fraction of Inspired Oxygen 05/30/24 12:00 05/30/24 12:00 05/30/24 12:00 Temperature Pulse Rate 100 100 Respiratory Rate 19 Blood Pressure 107/66 Pulse Oximetry Oxygen Delivery Fraction of Inspired Oxygen 35 05/30/24 12:00 05/30/24 12:10 05/30/24 14:00 Temperature 36.2 C L 36.6 C Pulse Rate 100 153 H Respiratory Rate 19 4 L Blood Pressure 107/66 64/54 L Pulse Oximetry 95 85 L Oxygen Delivery Mechanical Ventilation Fraction of Inspired Oxygen 05/30/24 16:00 05/30/24 18:41 05/30/24 18:41 Temperature 36.8 C Pulse Rate 147 H 152 H 155 H Respiratory Rate 4 L 12 14 Blood Pressure Pulse Oximetry 89 L Oxygen Delivery Fraction of Inspired Oxygen 05/30/24 20:00 05/30/24 20:34 05/31/24 00:00 Temperature 36.9 C 36.9 C Pulse Rate 158 H 60 Respiratory Rate 5 L 12 Blood Pressure 63/49 L 70/56 L Pulse Oximetry 87 L 90 88 L Oxygen Delivery Room Air Fraction of Inspired Oxygen 05/31/24 06:34 Temperature 36.9 C Pulse Rate 67 Respiratory Rate 18 Blood Pressure 61/52 L Pulse Oximetry 87 L Oxygen Delivery Fraction of Inspired Oxygen Intake/Output Intake/Output: Intake & Output 05/28/24 05/29/24 05/30/24 05/31/24 23:59 23:59 23:59 23:59 Intake Total 1745.5 2044.2 688.8 Output Total 925 1700 1550 100 Balance 820.5 344.2 -861.2 -100 Meds/Results Medications: Active Medications Generic Name Dose Route Start Last Admin Trade Name Freq PRN Reason Stop Dose Admin Atropine Sulfate 1 - 2 drop 05/30/24 11:09 05/31/24 04:37 Atropine Sulfate 1% Ophth Soln 5 Ml Bottle SUBLINGUAL 1 drop Q4H PRN Administration Secretions Lorazepam 2 mg 05/30/24 11:09 05/31/24 07:49 Lorazepam Inj (*Crx) 2 Mg/Ml Vial IV PUSH 2 mg Q1H PRN Administration Anxiety/Comfort Morphine Sulfate 4 mg 05/30/24 11:09 05/31/24 04:35 Morphine Sulfate (*Crx) 2 Mg/Ml Inj IV PUSH 4 mg Q30M PRN Administration COMFORT Multi-Ingred Cream/Lotion/Oil/Oint 1 applic 05/27/24 09:00 05/30/24 19:48 Mineral Oil/White Petrolatum Ointment EACH EYE Not Given Q12HR NAN Sodium Chloride 10 ml 05/27/24 14:00 05/31/24 09:19 Central Line Flush IV PUSH Not Given Q8HR NAN Radiology Results: ITS Impressions Face CT 05/25/24 11:39 IMPRESSION: No facial fracture. Renal Ultrasound 05/26/24 13:59 IMPRESSION: 1. 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 2. Small amount of ascites in the pelvis. Chest/Abdomen/Pelvis CT 05/26/24 15:06 IMPRESSION: CHEST: 1. Bilateral pleural effusion with adjacent atelectasis. 2. Gross cardiomegaly. ABDOMEN/PELVIS: 1. No evidence of appendicitis, diverticulitis or intestinal obstruction. 2. Hyperdense area in the gallbladder which may be a stone or residual contrast. 3. Constipation. 4. Minimal Ascites Upper Quadrant Ultrasound 05/27/24 08:01 IMPRESSION: 1. Right pleural effusion. Abdomen X-Ray 05/28/24 09:21 IMPRESSION: 1. Nasogastric tube tip in the stomach. Chest X-Ray 05/30/24 06:15 IMPRESSION: 1. Stable airspace opacities in the lower lung zones, consistent with atelectasis versus pneumonia. 2. Cardiomegaly.
[2024-05-31 11:30] LABS: Glucose Point of Care 135 mg/dl (65-105)
[2024-05-31 14:50] VITALS: BP 78/58; PULSE 97; RESP 7; O2SAT 87
[2024-05-31] MEDS: CENTRAL LINE FLUSH 10 ML IV PUSH (14:56)
[2024-05-31] MEDS: MINERAL OIL/WHITE PETROLATUM OINTMENT 1 APPLIC EACH EYE (14:56)
--- NOTE | 2024-05-31 19:24 | PC.NURSE ---
body to pat per mitzi at 191
--- NOTE | 2024-06-01 16:07 | PM.DDS ---
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 Patient also complaining of dental pain. He has been on antibiotics for it and has a planned dental appointment on 06/04/2024. In December patient was admitted to the hospital for bradycardia and was taken off metoprolol and diltiazem, he is still on Eliquis for AFib. As per Cardiology Patient has known PAF and tachy-mandeep syndrome. Follows with [facility] and with Dr. Ferraro. Currently not on any AV parvin blocking agents at home due to issues with bradycardia in the past, however, per last EP note from February 2024, they suggested can retry low dose beta rupert if he has recurrent issues with RVR. 05/26: The patient had multiple events today. Creatinine increased from 2.78 to 3.16. His baseline creatinine is 1.17. Nephrology was consulted. Zosyn will be discontinued due to worsening renal function. Initially, Augmentin was started, but it was later changed to cefepime and Flagyl. Due to increased creatinine initially, I decreased Eliquis dosage but later discontinued as per De I[employer] Installer recommendation. Regarding the increased heart rate, the morning database administration manager started him on an amiodarone drip, but eventually, his heart rate dropped to the 50s, so the amiodarone drip was stopped. His blood pressure is on the soft side. His thyroid functions are normal. His lactic acid was elevated to 10.9, and he was given a bolus. His lactic acid was repeated at 1800, and it showed 10.5. Ordered stat echocardiogram. His previous echocardiogram performed on 12/24/23 shows a normal ejection fraction. [place] [id number]. His possible sepsis is probably from a dental abscess, although a CT scan of the face shows no significant finding. Repeated his chest abdomen pelvic CT, the culture of which showed no significant finding except for pleural effusion. ABG shows ph 7.3, pco2 20,pO2 139, Hco3 9.8. Discussed with and was advised to give 500ml bolus and start bicarb drip and accepted to transfer to ICU. I called [facility] per the family's request to transfer under the care of EP. Unfortunately, due to elevated lactic acid, they want us to repeat and call them back if lactic acid levels are low. On 05/26 patient was transferred to ICU and developed DIC and eventually due to complications Additional Data Confirmation of as documented by pronouncing clinician: Pupillary Reflex, Palpable Pulses, Response to Stimuli, Heart Tones and Breath Sounds Name of Provider Notified: Dr. Apple Time Provider Notified: 17:15 Provider Requests Autopsy: No Family Requests Autopsy: No Museum Security Chief Notified: Yes Date [facility] Notified of : 05/31/24 Time [facility] Notified of : 17:24
== END 2024-05-31 19:10 | disposition expired ==
LOC: ANHED 16:58 → ANHIMU 19:13 → ANHICU 05-29 15:57 → ANH2MED 06-01 11:28 → ANHICU 06-01 11:28 → ANHIMU 06-01 11:28
PROVIDERS: Internal Medicine; Internal Medicine Nephrology; Nurse Practitioner Gerontology; Admitting Provider Internal Medicine; Emergency Provider Student in an Organized Health Care Education/Training Program; Visit Provider General Practice
DX: I48.0 Paroxysmal atrial fibrillation (principal); A41.9 Sepsis, unspecified organism; I21.A1 Myocardial infarction type 2; D65 Disseminated intravascular coagulation [defibrination syndrome]; J96.01 Acute respiratory failure with hypoxia; R65.21 Severe sepsis with septic shock; I50.23 Acute on chronic systolic (congestive) heart failure; E44.0 Moderate protein-calorie malnutrition; E85.82 Wild-type transthyretin-related (ATTR) amyloidosis; I50.32 Chronic diastolic (congestive) heart failure; N17.9 Acute kidney failure, unspecified; E87.20 Acidosis, unspecified; K92.2 Gastrointestinal hemorrhage, unspecified; I48.92 Unspecified atrial flutter; I42.9 Cardiomyopathy, unspecified; R57.0 Cardiogenic shock; R31.9 Hematuria, unspecified; I11.0 Hypertensive heart disease with heart failure; I27.20 Pulmonary hypertension, unspecified; I49.5 Sick sinus syndrome; I70.0 Atherosclerosis of aorta; E03.9 Hypothyroidism, unspecified; E78.5 Hyperlipidemia, unspecified; D69.6 Thrombocytopenia, unspecified; Z20.822 Contact with and (suspected) exposure to COVID-19; K02.9 Dental caries, unspecified; G47.30 Sleep apnea, unspecified; G31.83 Neurocognitive disorder with Lewy bodies; F02.80 Dementia in other diseases classified elsewhere, unspecified severity, without behavioral disturbance, psychotic disturbance, mood disturbance, and anxiety; F32.A Depression, unspecified; Z79.01 Long term (current) use of anticoagulants
CPT/HCPCS: 36415; 36430; 36600; 70487; 71045; 71250; 74176; 76705; 76775; 80048; 80053; 80202; 81001; 81003; 82375; 82533; 82550; 82570; 82805; 82948; 83036; 83050; 83605; 83690; 83735; 83880; 84100; 84145; 84156; 84300; 84443; 84484; 84540; 85018; 85025; 85027; 85055; 85380; 85384; 85610; 85730; 85999; 86140; 86706; 86850; 86900; 86901; 87040; 87086; 87340; 87637; 87641; 93005; 94002; 94003; 94762; 96361; 96374; 96375; 96376; 99285; A9270; C1751; C8929; G0378; J0282; J0613; J0692; J0780; J1720; J1815; J1836; J2060; J2250; J2270; J2405; J2470; J2543; J3010; J3370; J3430; J7030; J7040; J7050; J7070; J7120; J7168; P9012; P9017; P9047; Q9957; Q9967